=== PATIENT | male | born 1960 | race Caucasian/White ===

== ENCOUNTER 2024-04-13 11:01 | Outpatient (AMB) | payer BC, SELFPAY ==
--- NOTE | 2024-04-13 11:05 | MHC.OFFVIS ---
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 He did undergo left total knee replacement several years ago. He denies any pain in his left knee. He describes his right knee pain as sharp and severe in nature. Most of the pain is along the medial aspect of his knee. Right knee pain has gotten worse over the last 2 years in spite of continued non operative treatments. He has failed the last 3 months of a home exercise program as well as 3 months of Tylenol and anti-inflammatory medicines. He has had cortisone injections in the past which gave him minimal relief. The patient states that his right knee pain is interfering with his activities of daily living and his ability to sleep well through the night. He wishes to hold off on right total knee replacement surgery for as long as possible. Allergies environmental allergies Allergy (Severe, Verified 04/13/24 11:12) Sneezing Medication List - Last Reconciled 04/13/24 by Alexi Burrell MD albuterol sulfate 90 mcg/actuation 1 puff inhalation ONCE PRN amlodipine 10 mg PO DAILY aspirin 81 mg PO DAILY atenolol 50 mg PO DAILY atorvastatin 40 mg PO DAILY budesonide-formoterol 80-4.5 mcg/actuation (Symbicort) 1 puff inhalation BID PRN fluticasone furoate 27.5 mcg/actuation 2 sprays intranasal DAILY loratadine (Claritin) 10 mg PO DAILY sildenafil 100 mg PO DAILY PRN [facility] Social History (Updated 04/13/24 @ 11:16 by KHURRAM Hauser) Alcohol intake: current Patient Tobacco Use Status: Former Tobacco user Substance Use Type: Marijuana Substance Use Frequency: Occasionally Current occupational status: employed Current occupation: [employer] Physical Exam Vital Signs: BMI result Body Mass Index 26.0 Const Other: Well-nourished well-developed very friendly male awake alert and oriented x3 in no acute distress Extrem Other: Bilateral lower extremity examination shows good capillary refill, no skin lesions noted, normal sensation light touch Right knee examination shows a minimal effusion, palpable crepitus with range of motion, pain with range of motion, range of motion from -3 degrees to 115 degrees, no instability Results Reviewed Results Reviewed: X-rays of the patient's right knee show joint space narrowing and subchondral sclerosis most significant in the medial compartment Assessment & Plan Assessment & Plan (1) Arthritis of right knee: Code(s): M17.11 - Unilateral primary osteoarthritis, right knee Category: Medical Plan Mr. Lira presents with progressively worsening right knee pain due to degenerative joint disease. I had a lengthy discussion with the patient regarding the treatment options. He wishes to hold off on right total knee replacement surgery for as long as possible. I agree with this plan. He has not gotten good relief from cortisone injections in the past. Thus, I will order a viscosupplementation injection for his right knee. I will see him back once the injection is available. Feel free to call me at any time should questions regarding his orthopedic management arise. I spent 22 minutes in reviewing the patient's records and imaging studies, seeing the patient and documenting in the medical record. Orders: Orders XR knee RT 3V Today M25.561 - Pain in right knee Medications: New amoxicillin Take four caps (2,000 mg) one hour before any dental work. 2,000 mg (4 x 500 mg) PO ONCE 20 caps 2RF Coding Level of Care Code Est Pt Level 3 (33309) Diagnoses Arthritis of right knee M17.11
[2024-04-13 11:11] VITALS: BMI 26.0
== END 2024-04-13 11:35 | disposition home or self-care (01) ==
PROVIDERS: PCP Internal Medicine; Visit Provider Orthopaedic Surgery
DX: M17.11 Unilateral primary osteoarthritis, right knee (principal)
CPT/HCPCS: 99213

== ENCOUNTER 2024-04-13 12:07 | Outpatient (REF) | payer BC, SELFPAY ==
--- NOTE | ~2024-04-13 | XR_ITS ---
EXAMINATION: XR KNEE, RIGHT CLINICAL INFORMATION: Pain in right knee COMPARISON: None available. TECHNIQUE: Three views of the right knee. FINDINGS: Vascular calcifications. Moderate joint effusion. Moderate narrowing of the medial compartment with small marginal osteophytes and subchondral sclerosis. XR/XR knee RT 3V IMPRESSION: Moderate degenerative changes.
== END 2024-04-13 12:08 | disposition home or self-care (01) ==
LOC: HO.HOSX 12:07
PROVIDERS: Visit Provider Orthopaedic Surgery
DX: M25.561 Pain in right knee (principal)
CPT/HCPCS: 73562

== ENCOUNTER 2024-05-04 13:50 | Outpatient (AMB) | payer BC, SELFPAY ==
--- NOTE | 2024-05-04 13:51 | A.OFFVIS_ITS ---
Intake Visit Reasons: OV- RT knee pain, discuss tx options Intake Note: Eren is 64 year old male who presents today with complaints of progressively worsening right knee pain. He did undergo left total knee replacement several years ago. He denies any pain in his left knee. He describes his right knee pain as sharp and severe in nature. Most of the pain is along the medial aspect of his knee. Right knee pain has gotten worse over the last 2 years in spite of continued non operative treatments. He has failed the last 3 months of a home exercise program as well as 3 months of Tylenol and anti-inflammatory medicines. He has had cortisone injections in the past which gave him minimal relief. The patient states that his right knee pain is interfering with his activities of daily living and his ability to sleep well through the night. He wishes to hold off on right total knee replacement scott arelis for as long as possible. Allergies environmental allergies Allergy (Severe, Verified 05/04/24 13:51) Sneezing Medication List - Last Reconciled 05/04/24 by Alexi Burrell MD albuterol sulfate 90 mcg/actuation 1 puff inhalation ONCE PRN amlodipine 10 mg PO DAILY amoxicillin 2,000 mg (4 x 500 mg) PO ONCE aspirin 81 mg PO DAILY atenolol 50 mg PO DAILY atorvastatin 40 mg PO DAILY budesonide-formoterol 80-4.5 mcg/actuation (Symbicort) 1 puff inhalation BID PRN fluticasone furoate 27.5 mcg/actuation 2 sprays intranasal DAILY loratadine (Claritin) 10 mg PO DAILY sildenafil 100 mg PO DAILY PRN [facility] Social History (Updated 04/13/24 @ 11:16 by KHURRAM Hauser) Alcohol intake: current Patient Tobacco Use Status: Former Tobacco user Substance Use Type: Marijuana Current occupational status: employed Current occupation: [employer] Physical Exam Const Other: Well-nourished well-developed very friendly male awake alert and oriented x3 in no acute distress Extrem Other: Bilateral lower extremity examination shows good capillary refill, no skin lesions noted, normal sensation light touch Right knee examination shows a minimal effusion, palpable crepitus with range of motion, pain with range of motion, no instability Results Reviewed Results Reviewed: X-rays of the patient's right knee show joint space narrowing, subchondral sclerosis, no acute bony abnormalities Assessment & Plan Assessment & Plan (1) Arthritis of right knee: Code(s): M17.11 - Unilateral primary osteoarthritis, right knee Category: Medical Plan Mr. Lira presents with right knee pain due to degenerative joint disease. Had a lengthy discussion patient regarding the treatment options. He wishes to hold off on right total knee replacement surgery for as long as possible. I agree with this plan. Has not gotten good relief cortisone injections past. Thus, the risks and benefits of a series of right knee Euflexxa viscosupplementation injections were discussed at length with the patient. The patient wished to proceed. He tolerated the 1st injection well. He will follow up next week as scheduled for his 2nd injection. Feel free to call me at any time should questions regarding his orthopedic management arise. We spoke with [facility] who extended the PA coverage for the Euflexxa injections from 04/20/24-05/19/24 I spent 22 minutes in reviewing the patient's records and imaging studies, seeing the patient and documenting in the medical record. Orders: Orders AMB Joint Injection/Aspiration 05/04/24 M17.11 - Unilateral primary osteoarthritis, right knee Coding Level of Care Code Est Pt Level 3 (64091) Diagnoses Arthritis of right knee M17.11
== END 2024-05-04 14:48 | disposition home or self-care (01) ==
PROVIDERS: PCP Internal Medicine; Visit Provider Orthopaedic Surgery
DX: M17.11 Unilateral primary osteoarthritis, right knee (principal)
CPT/HCPCS: 99213

== ENCOUNTER → 2024-05-04 13:50 | Outpatient (BNVA) | payer BC, SELFPAY | PROVIDERS: PCP Internal Medicine; Visit Provider Orthopaedic Surgery | DX: M17.11 Unilateral primary osteoarthritis, right knee (principal) | CPT/HCPCS: J7323 ==

== ENCOUNTER 2024-05-11 14:12 | Outpatient (AMB) | payer BC, SELFPAY ==
--- NOTE | 2024-05-11 14:15 | MHC.OFFVIS ---
Vital Signs 05/11/24 14:17 Height 6 ft Weight 192 lb BMI 26.0 Intake Visit Reasons: Right Knee Euflexxa #2 Intake Note: Eren is a 64 year old male who presents to the office today for Right Knee Euflexxa injection #2. He states that he got mild relief from the 1st injection last week. He continues with his home exercise program. Allergies environmental allergies Allergy (Severe, Verified 05/11/24 14:17) Sneezing Medication List - Last Reconciled 05/11/24 by Alexi Burrell MD albuterol sulfate 90 mcg/actuation 1 puff inhalation ONCE PRN amlodipine 10 mg PO DAILY amoxicillin 2,000 mg (4 x 500 mg) PO ONCE aspirin 81 mg PO DAILY atenolol 50 mg PO DAILY atorvastatin 40 mg PO DAILY budesonide-formoterol 80-4.5 mcg/actuation (Symbicort) 1 puff inhalation BID PRN fluticasone furoate 27.5 mcg/actuation 2 sprays intranasal DAILY loratadine (Claritin) 10 mg PO DAILY sildenafil 100 mg PO DAILY PRN PFSH Social History Alcohol intake: current Patient Tobacco Use Status: Former Tobacco user Substance Use Type: Marijuana Current occupational status: employed Current occupation: [employer] Physical Exam Vital Signs: BMI result Body Mass Index 26.0 Extrem Other: Bilateral lower extremity examination shows good capillary refill, no skin lesions noted, normal sensation light touch Right knee examination shows a minimal effusion, palpable crepitus with range of motion, pain with range of motion, no instability Office Procedures Joint Injection/Drain Joint Injection/Drain Primary Site: right knee Prep: site was prepped using aseptic technique Injected: 20 mg of (Euflexxa viscosupplementation) and 1% plain lidocaine Procedure: The patient tolerated the procedure well Coding 13110 - Large joint Procedure code (CPT) selection complete Assessment & Plan Assessment & Plan (1) Arthritis of right knee: Code(s): M17.11 - Unilateral primary osteoarthritis, right knee Category: Medical Plan Mr. Lira presents with right knee degenerative joint disease. The risks and benefits of a 2nd Euflexxa injection were discussed at length with the patient. The patient wished to proceed. He tolerated the injection well. Continue with his home exercise program. He will follow up next week as scheduled for his 3rd injection. Feel free to call me at any time should questions regarding his orthopedic management arise. Orders: Orders AMB Joint Injection/Aspiration Today M17.11 - Unilateral primary osteoarthritis, right knee Coding Level of Care Code Procedure Only Diagnoses Arthritis of right knee M17.11 CPT Codes Coding - 50509 Large joint: 11883 - Large joint ([id number])
[2024-05-11 14:17] VITALS: BMI 26.0
== END 2024-05-11 14:27 | disposition home or self-care (01) ==
PROVIDERS: PCP Internal Medicine; Visit Provider Orthopaedic Surgery
DX: M17.11 Unilateral primary osteoarthritis, right knee (principal)
CPT/HCPCS: 20610

== ENCOUNTER → 2024-05-11 14:12 | Outpatient (BNVA) | payer BC, SELFPAY | PROVIDERS: PCP Internal Medicine; Visit Provider Orthopaedic Surgery | DX: M17.11 Unilateral primary osteoarthritis, right knee (principal) | CPT/HCPCS: 20610; J7323 ==

== ENCOUNTER 2024-05-18 14:56 | Outpatient (AMB) | payer BC, SELFPAY ==
--- NOTE | 2024-05-18 14:59 | MHC.OFFVIS ---
Intake Visit Reasons: Right knee Euflexxa #3 Intake Note: Eren is a 64 year old male who presents to the office today for a right knee Euflexxa gel injection #3. He states that he has gotten mild relief from the 1st 2 injections. He continues with his home exercise program. Allergies environmental allergies Allergy (Severe, Verified 05/18/24 15:00) Sneezing Medication List - Last Reconciled 05/19/24 by Alexi Burrell MD albuterol sulfate 90 mcg/actuation 1 puff inhalation ONCE PRN amlodipine 10 mg PO DAILY amoxicillin 2,000 mg (4 x 500 mg) PO ONCE aspirin 81 mg PO DAILY atenolol 50 mg PO DAILY atorvastatin 40 mg PO DAILY budesonide-formoterol 80-4.5 mcg/actuation (Symbicort) 1 puff inhalation BID PRN fluticasone furoate 27.5 mcg/actuation 2 sprays intranasal DAILY loratadine (Claritin) 10 mg PO DAILY sildenafil 100 mg PO DAILY PRN PFSH Social History Alcohol intake: current Patient Tobacco Use Status: Former Tobacco user Substance Use Type: Marijuana Current occupational status: employed Current occupation: [employer] Physical Exam Extrem Other: Right knee examination shows a minimal effusion, palpable crepitus with range of motion, no instability Office Procedures Joint Injection/Drain Joint Injection/Drain Primary Site: right knee Prep: site was prepped using aseptic technique Injected: 20 mg of (Euflexxa viscosupplementation) and 1% plain lidocaine Procedure: The patient tolerated the procedure well Coding 61737 - Large joint Procedure code (CPT) selection complete Assessment & Plan Assessment & Plan (1) Arthritis of right knee: Code(s): M17.11 - Unilateral primary osteoarthritis, right knee Category: Medical Plan Mr. Lira presents with right knee pain due to degenerative joint disease. The risks and benefits of a 3rd Euflexxa viscosupplementation injection were discussed at length with the patient. The patient wished to proceed. Tolerated the injection well. He will continue with his home exercise program. He will follow up with me on an as-needed basis should his symptoms not plateau at an unacceptable level over the next few months. Feel free to call me at any time should questions regarding his orthopedic management arise. Orders: Orders AMB Joint Injection/Aspiration 05/18/24 M17.11 - Unilateral primary osteoarthritis, right knee Coding Level of Care Code Procedure Only Diagnoses Arthritis of right knee M17.11 CPT Codes Coding - 46792 Large joint: 37267 - Large joint ([id number])
== END 2024-05-18 15:12 | disposition home or self-care (01) ==
PROVIDERS: PCP Internal Medicine; Visit Provider Orthopaedic Surgery
DX: M17.11 Unilateral primary osteoarthritis, right knee (principal)
CPT/HCPCS: 20610

== ENCOUNTER → 2024-05-18 14:56 | Outpatient (BNVA) | payer BC, SELFPAY | PROVIDERS: PCP Internal Medicine; Visit Provider Orthopaedic Surgery | DX: M17.11 Unilateral primary osteoarthritis, right knee (principal) | CPT/HCPCS: 20610; J7323 ==

== ENCOUNTER 2024-11-21 11:30 | Outpatient (AMB) | payer BC, SELFPAY ==
--- NOTE | 2024-11-21 11:34 | A.OFFVIS_ITS ---
Intake Visit Reasons: Right knee pain and giving way Intake Note: Eren is a 64 year old male who presents with complaints of progressively worsening right knee pain and giving way. The patient did undergo left total knee replacement surgery several years ago. He reports minimal discomfort in his left knee. Describes his right knee pain as sharp in nature. Most of the pain is along the medial aspect of his knee. Right knee pain and mechanical symptoms have gotten worse over the last few years in spite of continued non operative treatments. He has failed the last 6 weeks of conservative treatment. Has done physical therapy exercises which aggravated his pain. Has also had both cortisone injections and viscosupplementation injections which gave him minimal relief. Wishes to hold off on right total knee replacement surgery if at all possible. Allergies environmental allergies Allergy (Severe, Verified 11/21/24 11:37) Sneezing Medication List - Last Reconciled 11/21/24 by Alexi Burrell MD albuterol sulfate 90 mcg/actuation 1 puff inhalation ONCE PRN amlodipine 10 mg PO DAILY amoxicillin 2,000 mg (4 x 500 mg) PO ONCE aspirin 81 mg PO DAILY atenolol 50 mg PO DAILY atorvastatin 40 mg PO DAILY budesonide-formoterol 80-4.5 mcg/actuation (Symbicort) 1 puff inhalation BID PRN fluticasone furoate 27.5 mcg/actuation 2 sprays intranasal DAILY loratadine (Claritin) 10 mg PO DAILY sildenafil 100 mg PO DAILY PRN [facility] Social History Alcohol intake: current Patient Tobacco Use Status: Former Tobacco user Substance Use Type: Marijuana Current occupational status: employed Current occupation: [employer] Physical Exam Const Other: Well-nourished well-developed very friendly male awake alert and oriented x3 in no acute distress Extrem Other: Bilateral lower extremity examination shows good capillary refill, no skin lesions noted, normal sensation light touch Right knee examination shows a minimal effusion, mild crepitus with range of motion, tenderness along his medial joint line, positive Garima's test, no instability Results Reviewed Results Reviewed: Standing full weight-bearing x-rays of the patient's right knee show mild diffuse joint space narrowing, no acute bony abnormalities Assessment & Plan Assessment & Plan (1) Tear of medial meniscus of right knee: Code(s): S83.241A - Other tear of medial meniscus, current injury, right knee, initial encounter Category: Medical Plan Mr. Lira presents with progressively worsening right knee pain and mechanical symptoms due to early degenerative joint disease as well as possible medial meniscus tearing. Thus, I will send the patient for an MRI of his right knee for further evaluation. I will see him back once the MRI is completed to discuss the findings and treatment options. Feel free to call me at any time should questions regarding his orthopedic management arise. I spent 21 minutes in reviewing the patient's records and imaging studies, seeing the patient and documenting in the medical record. Orders: Orders MR knee RT wo con Today S83.241A - Other tear of medial meniscus, current injury, right knee, initial encounter Coding Level of Care Code Est Pt Level 3 (28864) Complex EM visit Add On G2211 Diagnoses Tear of medial meniscus of right knee S83.241A
--- OUTSIDE RECORDS SUMMARY | 2024-11-21 12:45 | XMS_ITS ---
Author Name [facility] Organization Unknown History of Medication Use Medication Directions Dispensed Refills Start Date End Date Stat us Gavilyte-C 240 gram-22.72 gram-6.72 gram-5.84 gram oral solution USE INSTRUCTED BY PHYSICIANS OFFICE FOR COLONOSCOPY 04/05/2023 completed Symbicort active Allergies Allergen Reaction Severity Comment Documented Date Source Statu s FLUTICASONE [facility] Problems Problem Status Onset Date Problem Type Date of Resoluti on Source Carpal tunnel syndrome of right wrist active 2023-10-04 ProblemAct [facility] Pain of left wrist active 2023-03-09 ProblemAct [facility] 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
--- OUTSIDE RECORDS SUMMARY | 2024-11-21 12:46 | XMS_ITS | Clinical Summary ---
Author Organization [facility] Address [address] [place] [address] Care Team Providers Care Clinical Psychiatrist Name Role Phone Niraj Palomo MD Primary Care Provider Surgical History Surgery Date Site/Laterality Comments KNEE SURGERY PROCEDURE:KNEE SURGERY;COMMENT:left HAND SURGERY PROCEDURE:HAND SURGERY;COMMENT:lt wrist- iliac bone graft LIPOMA RESECTION PROCEDURE:LIPOMA RESECTION COLONOSCOPY PROCEDURE:COLONOSCOPY SHOULDER ARTHROSCOPY W/ ROTATOR CUFF REPAIR 04/10/2015 Right PROCEDURE:SHOULDER ARTHROSCOPY W/ ROTATOR CUFF REPAIR;COMMENT:Procedure: ARTHROSCOPY SHOULDER WITH ROTATOR CUFF REPAIR; Surgeon: Spenser Gaspar MD; Location: [facility]; Service: Orthopedics; Laterality: Right; SHOULDER ARTHROSCOPY 04/10/2015 Right PROCEDURE:SHOULDER ARTHROSCOPY;COMMENT:Procedure : ARTHROSCOPY SHOULDER AC EXCISION; Surgeon: Spenser Gaspar MD; Location: [facility]; Service: Orthopedics; Laterality: Right; OTHER SURGICAL HISTORY Right PROCEDURE:MOHS SURGERY;COMMENT:EYELID TOTAL KNEE ARTHROPLASTY 09/28/2019 Left PROCEDURE:TOTAL KNEE ARTHROPLASTY;COMMENT:Procedur e: REPLACEMENT TOTAL KNEE; Surgeon: Alexi Burrell MD; Location: [facility]); Service: Orthopedics; Laterality: Left; JOINT REPLACEMENT PROCEDURE:JOINT REPLACEMENT Medical History Medical History Date Comments Osteoarthritis DX:Osteoarthriti s;COMMENT:? knee GERD (gastroesophageal reflux disease) DX:GERD (gastroesophageal reflux disease);COMMENT:past hx Asthma DX:Asthma High blood pressure DX:High bloo d pressure Eustachian tube dysfunction DX:E ustachian tube dysfunction Sleep apnea DX:Sleep apnea;C OMMENT:NONCOMPLIANT Pneumonia DX:Pneumonia Heart murmur DX:Heart murmur Cancer (CMS/HCC) DX:Cancer (HCC) ;COMMENT:BCC R EYELID Rash DX:Rash;COMMENT: ITCHY LEGS Family History Medical History Relation Name Comments No Known Problems Brother Cancer Father PROSTATE Deep vein thrombosis Father Heart disease Father Hypertension Father Lymphoma Mother NONHODGKINS Graves' disease Sister 1 Multiple sclerosis Sister 2 Relation Name Status Comments Brother Alive X 2 Father (Age 73) Mother Alive Sister 1 Alive Sister 2 Alive Social History Tobacco Use Types Packs/Day Years Used Date Smoking Tobacco: Former Cigarettes Q uit: 09/12/2006 Smokeless Tobacco: Never Alcohol Use Standard Drinks/Week Comments Yes 20 (1 standard drink = 0.6 oz pu re alcohol) Sex and Gender Information Value Date Recorded Sex Assigned at Not on file Gender Identity Not on file Sexual Orientation Not on file Obstetrics History Plan of Treatment Health Maintenance Due Date Last Done Comments DTaP,Tdap,and Td Vaccines (1 - Tdap) 1978 Zoster Vaccines (1 of 2) 2009 Abdominal Aortic Aneurysm (AAA) Screen 10/02/2022 Cholesterol Screening (Lipid Panel) 10/02/2022 Colorectal Cancer Screening: Colonoscopy 10/02/2022 Depression Screening 10/02/2022 Hepatitis C Screening 10/02/2022 Lung Cancer Screening (Low Dose CT) 10/02/2022 Social Influencers of Health Screening 10/02/2022 Falls Risk Assessment 01/16/2024 Pneumococcal Vaccine: 65+ Years (1 of 1 - PCV) 01/16/2024 COVID-19 Vaccine ( - 2023-2 5 season) 2024 08/01/2021, 01/19/2021, 12/29/2020 Influenza Vaccine (#1) 2024 RSV Immunization Patients 60 + Years Old (1 - 1-dose 75+ series) 2034 HIB Vaccines Aged Out No longer eligi ble based on patient's age to complete this topic HPV Vaccines Aged Out No longer eligi ble based on patient's age to complete this topic Hepatitis A Vaccines Aged Out No long er eligible based on patient's age to complete this topic Hepatitis B Vaccines Aged Out No long er eligible based on patient's age to complete this topic IPV Vaccines Aged Out No longer eligi ble based on patient's age to complete this topic MMR Vaccines Aged Out No longer eligi ble based on patient's age to complete this topic Meningococcal ACWY Vaccine Aged Out N o longer eligible based on patient's age to complete this topic Pneumococcal Vaccine: Pediatrics (0 to 5 Years) and At-Risk Patients (6 to 64 Years) Aged Out No longer eligible b ased on patient's age to complete this topic RSV Immunization Patients Under 20 months Aged Out No longer eligible b ased on patient's age to complete this topic Varicella Vaccines Aged Out No longer eligible based on patient's age to complete this topic Medical Devices Implanted Type Area Barber Device Identifier Shelf Expiration Date Model / Serial / Lot Tibial Bearing Insert - Ps Implanted:Qty: 1 on 09/28/2019 by Alexi Burrell MD Joints Left: Knee NONI - MEDICAL 07/19/2023 / / [id number] Cement Simplex P Radiopaque Full Dose Bone 10 Pack - [id number] Implanted:Qty: 1 on 09/28/2019 by Alexi Burrell MD Left: Knee [employer] 6191-1-010 / / Cement Simplex P Radiopaque Full Dose Bone 10 Pack - [id number] Implanted:Qty: 1 on 09/28/2019 by Alexi Burrell MD Left: Knee [employer] 6191-1-010 / / Component Triathlon 5 Posterior Stabilized Cemented Femoral - [id number] Implanted:Qty: 1 on 09/28/2019 by Alexi Burrell MD Left: Knee [employer] 03/07/2024 5515-F-501 / / [id number] Baseplate Triathlon 6 Primary Cemented Tibial Knee - [id number] Implanted:Qty: 1 on 09/28/2019 by Alexi Burrell MD Left: Knee [employer] 02/28/2024 5520-B-600 / / [id number] Component Triathlon 10mm 35mm Symmetric X3 Ptlar Knee - [id number] Implanted:Qty: 1 on 09/28/2019 by Alexi Burrell MD Left: Knee [employer] 01/10/2024 5551-G-350 / / [id number] Peg Triathlon Modular Fix Distal Femur Knee - [id number] Implanted:Qty: 1 on 09/28/2019 by Alexi Burrell MD Left: Knee OSTEONICS 04/23/2024 5575-X-000 / / [id number] Care Teams Clinical Psychiatrist Relationship Specialty Start Date End Date Niraj Palomo MD [id number] PCP - General Internal Medicine 09/20/19
--- OUTSIDE RECORDS SUMMARY | 2024-11-21 12:46 | XMS_ITS | Clinical Summary ---
Author Organization [facility] Facility Address [address] [place] [address], [place] [id number] Care Team Providers Care Envelope Folder Name Role Phone Niraj Palomo MD Primary Care Provider Medications atenolol (TENORMIN) 50 MG tablet TAKE 1 TABLET BY MOUTH AT NIGHT 90 tablet 3 05/20/2023 Active amLODIPine (NORVASC) 10 MG tablet TAKE 1 TABLET BY MOUTH DAILY 90 tablet 3 08/23/2023 Active Family History Medical History Relation Comments Cancer Father prostate Heart disease Father Cancer Mother lymphoma Relation Status Comments Father Mother Alive Social History Tobacco Use Types Packs/Day Years Used Date Smoking Tobacco: Former Cigarettes Q uit: 01/17/2009 Alcohol Use Standard Drinks/Week Comments Yes 0 (1 standard drink = 0.6 oz pure alcohol) Alcoholic Drinks/day: 1-2 drinks per day Sex and Gender Information Value Date Recorded Sex Assigned at Not on file Legal Sex Male 4:51 PM EST Gender Identity Not on file Sexual Orientation Not on file Last Filed Vital Signs Vital Sign Reading Time Taken Comments Blood Pressure 128/72 08/08/2019 12:00 PM EDT Pulse 78 08/08/2019 12:00 PM EDT Temperature - - Respiratory Rate - - Oxygen Saturation 97% 08/08/2019 12:00 PM EDT Inhaled Oxygen Concentration - - Weight 88.6 kg (195 lb 6.4 oz) 08/08/2019 12:00 PM EDT Height 182.9 cm (6') 08/08/2019 12:00 PM EDT Body Mass Index 26.5 08/08/2019 12:00 PM EDT Plan of Treatment Health Maintenance Due Date Last Done Comments Pneumococcal Vaccine: 65+ Ye ars (1 of 2 - PCV) 1966 Pneumococcal Vaccine: Pediat rics (0 to 5 Years) and At-Risk Patients (6 to 64 Years) (1 of 2 - PCV) 1966 Colorectal Cancer Screening: Annual FOBT 01/16/2008 Colorectal Cancer Screening: Colonoscopy 01/16/2008 Colorectal Cancer Screening: Sigmoidoscopy 01/16/2008 Influenza Vaccine (#1) 2024 Hepatitis B Vaccine Aged Out No longe r eligible based on patient's age to complete this topic Care Teams Envelope Folder Relationship Specialty Start Date End Date Niraj Palomo MD [address] PCP - General 11/04/20
--- OUTSIDE RECORDS SUMMARY | 2024-11-21 12:46 | XMS_ITS | Continuity of Care Document ---
Author Organization [facility] Address [address] [place] [address] Phone Care Team Providers Care Neuroscience Director Na Name Role Phone Terry PEREZ, RVT, RPEDGAR, Hadley Unavailable U navailable Procedures Procedure Date Office/Outpt E&M Established 15 Mins- CT & [place] Duplex Scan-extrem Veins; Comp- CT & [place] Duplex Scan-extrem Veins; Uni/ CT & [place] M Inj Scleros Solut; Mx Veins 1- CT & [place] M Ultrason Guidan Needle Bx-rad- CT & [place] M Duplex Scan-extrem Veins; Uni/ CT & [place] M Endovenous Rf, 1st Vein- CT & [place] 2023 Duplex Scan-extrem Veins; Uni/ CT & [place] A Inj Scleros Solut; Mx Veins 1- CT & [place] A Ultrason Guidan Needle Bx-rad- CT & [place] A Duplex Scan-extrem Veins; Uni/ CT & [place] A Endovenous Rf, 1st Vein- CT & [place] 2023 Ultrason Guidan Needle Bx-rad- CT & [place] A Office/Oupt E&M New Pt 30 Mins Duplex Scan-extrem Veins; Comp Advance Directives Directive Yes / No Effective Date File Name Other Directive No 04/18/2024 N/A WARNING:The information contained in this section is historical and is provided for information only and does not constitute a legal document or any assurance that the information is still accurate. Please verify the information with the vinson of the legal document before using it for clinical purposes. Encounters Encounter Description Practice Location Reason(s) For Visit Diagnoses Date Provider Providers Copied on Encounter Office/Outpt E&M Established 15 Mins- [place] & [place] [facility], [address] [place] [address] Dr [address]io [address] [place], [id number], tel:[phone] [facility] Chronic venous hypertension (idiopathic) with other complications of bilateral lower extremity 4 Terry PEREZ RVT, RPVI Robert. [address] [place] [address], [facility] [place], [id number], [place]. tel:[phone] Referring Provider: Niraj Fay, [address] [place] [address], [address]. tel:[phone] [facility], [address] [place] [address] [place], [place] [address]L[place], [id number], [place] tel:[phone] [facility] Varicose veins of bilateral lower extremities with pain 4 Trery PEREZ RVT, RPVI Robert. [address] [place] [address], [facility] [place], [id number], [place]. tel:[phone] Referring Provider: Niraj Fay, [address] [place] [address], [place], [address]. tel:[phone] [facility], [address] [place] [address] [address] [address], [id number], [place] tel:[phone] [facility] Encounter for follow-up examination after completed treatment for conditions other than malignant nePain in left leg 4 Terry PEREZ RVT, RPVI Robert. [address] [place] [address], [facility] [place], [id number], [place]. tel:[phone] Referring Provider: Niraj Fay, [address] [place] [address] [place] [address], [address]. tel:[phone] [facility], [address] [place] [address] [place] [address], [id number], [place] tel:[phone] [facility] [place] Varicose veins of left lower extremity with other complications 4 Abril Moran. [address] [place] [address], [facility] [place] [place], [id number], [place]. tel:[phone] Referring Provider: Niraj Fay, [address] [place] [address], [address]. tel:[phone] [facility] MD [place], [address] [place] [address] [place] [address], [id number], [place] tel:[phone] [facility] - [place] Encounter for follow-up examination after completed treatment for conditions other than malignant neVaricose veins of left lower extremity with pain 4 Terry PEREZ RVT, AVILA Butcher. [address] [place] [address], [facility] [place], [id number], [place]. tel:[phone] Referring Provider: Niraj Fay, [address] [place] [address] [place] [address], [address]. tel:[phone] [facility] MD [place], [address] [place] [address] [place] [address], [id number], [place] tel:[phone] [facility] [place] Varicose veins of left lower extremity with other complications 4 Terry PEREZ RVT, AVILA Butcher. [address] [place] [address], [place], [id number], [place]. tel:[phone] Referring Provider: Niraj Fay, [address] [place] [address] Suite [facility][note 2], [place], [address]. tel:[phone] [facility] MD [place], [address] [place] [address] [place] [address], [id number], [place] tel:[phone] CV[facility] [place] Encounter for follow-up examination after completed treatment for conditions other than malignant neVaricose veins of right lower extremity with pain Apr-1 4 Terry PEREZ RVT, RPVI Robert. [address] [place] [address], [place], [place], [id number], [place]. tel:[phone] Referring Provider: Niraj Fay, [address] [place] [address] Suite [facility][note 2], [place], [address]. tel:[phone] [facility], [address] [place] [address] [address], [id number], [place] tel:[phone] [facility] [place] Varicose veins of right lower extremity with other complications Apr-0 4 Abril Moran[address] [place] [address], [place], [place], [id number], [place]. tel:[phone] Referring Provider: Niraj Fay, [address] [place] [address] [place] [address], [address]. tel:[phone] [facility], [address] [place] [address] [facility] [address], [id number], [place] tel:[phone] [facility] [place] Encounter for follow-up examination after completed treatment for conditions other than malignant neVaricose veins of right lower extremity with pain Apr-0 4 Terry PEREZ RVT, RPVI Robert. [address] [place] [address], [place], [place], [id number], [place]. tel:[phone] Referring Provider: Niraj Fay, [address] [place] [address] Suite [facility][note 2], [place], [address]. tel:[phone] [facility], [address] [place] [address] [address], [id number], [place] tel:[phone] [facility] - [place] Varicose veins of right lower extremity with other complications Apr-0 4 Terry PEREZ RVT, RPVI Robert. [address] [place] [address], [facility] [place], [id number], [place]. tel:[phone] Referring Provider: Niraj Fay, [address] [place] [address], [address]. tel:[phone] Office/Oupt E&M New Pt 30 Mins [facility], [address] [place] [address] [facility] [address], [place], [id number], tel:[phone] [facility] Varicose veins of bilateral lower extremities with other complications Pain in right lower legPain in left lower legPain in right legEssential (primary) hypertensionP ruritus, unspecifiedPa in in left legCramp and spasmLocalize d edema 4 Terry PEREZ RVT, AVILA Butcher. [address] [place] [address], [facility] [place], [id number], . tel:[phone] Referring Provider: Niraj Fay, [address] [place] [address], [address]. tel:[phone] [facility], [address] [place] [address], [place], [id number], [place] tel:[phone] [facility] [place] Varicose veins of bilateral lower extremities with pain 4 Terry PEREZ RVT, AVILA Butcher. [address] [place] [address], [facility] [place], [id number], [place]. tel:[phone] Referring Provider: Niraj Fay, [address] [place] [address], [address]. tel:[phone] Family History Family Member Type Diagnosis Age At Onset No Information Payers Payer name Insurance type Covered republican ID Authordung saavedra(s) DREA CORREA [id number] Social History Type Description Quantity Date Captured Comments Alcohol Use Details Unknown Caffeine Use Details Unknown Tobacco Use Status No Information Smoking Status Former Smoker Non-Smoking Tobacco Use Details : No Details Available : No Details Available Sex Male Vital Signs Date / Time: Height Weight BMI Pulse Rate Blood Pressure Temperature Respiratory Rate Body Surface Area Head Circumference Head Circ. Percentile Wt./Maximiliano. Percentile BMI percentile Pulse Ox Inhaled Ox 86.180 kg (190.00 lbs) 25.7 7 kg/m eter (2) 130/80 mm[Hg] Chief Complaint And Reason For Visit No Information Reason For Referral Reason For Referral No Information Plan Of Treatment Date Type Action Status Goal Tobacco cessation counseling completed Goal Diet education completed Goal Diet education completed Goal Tobacco cessation counseling completed Referral Ordered: Weight management: Referral to physician timeframe: 3 Months (related to Body mass index (BMI) 25.0-25.9, adult) ordered Referral Ordered: Weight management: Referral to physician timeframe: 3 Months (related to Body mass index (BMI) 25.0-25.9, adult) ordered History Of Present Illness Encounter Date Complaint History Of Prese nt Illness No Information Functional Status Date Functional Assessmen t No Information Instructions Date Instruction Additional Infor mackenzie Diet education Related to Body mass index (BMI) 25.0-25.9, adult Giving Encouragement to exercise Related to Body mass index (BMI) 25.0-25.9, adult Lifestyle education Related to B jo mass index (BMI) 25.0-25.9, adult Compression stocking usage as conservative measure Related to Chronic venous hypertension (idiopathic) with other complications of bilateral lower extremity Patient education booklet given Related to Chronic venous hypertension (idiopathic) with other complications of bilateral lower extremity Diet education Related to Body mass index (BMI) 25.0-25.9, adult Giving Encouragement to exercise Related to Body mass index (BMI) 25.0-25.9, adult Lifestyle education Related to B jo mass index (BMI) 25.0-25.9, adult Patient education booklet given Related to Varicose veins of bilateral lower extremities with other complications Pre and post instruc tions reviewed and provided Related to Varicose veins of bilateral lower extremities with other complications Assessments Type Assessment Date No Information Patient Care Teams Name Effective Dates (start - stop) Status Members No Information
--- OUTSIDE RECORDS SUMMARY | 2024-11-21 12:46 | XMS_ITS | Clinical Summary ---
Author Organization [facility] Address [address] [place] [address] Care Team Providers Care Manager Wealth Management Name Role Phone Niraj Palomo MD Primary Care Provider [phone] Allergies No known active allergies Medications Medication Sig Dispensed Refills Start Date End Date Status Multiple Vitamins-Minerals (MULTIVITAL PO) Take by mouth daily. 0 Active VITAMIN E PO Take by mouth daily. 0 Active VITAMIN D, CHOLECALCIFEROL, PO Take by mouth daily. 0 Active vitamin C (ASCORBIC ACID) 500 MG tablet Take 500 mg by mouth daily. 0 Active amLODIPine (NORVASC) tablet 5 mg Take 10 mg by mouth daily. 0 05/05/2018 Active fluticasone (FLONASE) 50 MCG/ACT nasal spray USE 2 SPRAYS ONCE DAILY IN NOSTRIL(S) PRN 0 05/05/2018 Active Loratadine (CLARITIN PO) Take 1 tablet by mouth daily. 0 Active SYMBICORT 160-4.5 MCG/ACT inhaler Inhale 2 inhalations into the lungs 2 (two) times a day. 0 09/26/2018 Active atenolol (TENORMIN) tablet 50 mg atenolol 50 mg tablet QPM 0 Active sildenafil (VIAGRA) 100 MG tablet sildenafil 100 mg tablet 0 Active traZODone (DESYREL) 50 MG tablet trazodone 50 mg tablet QPM 0 Active triamcinolone (KENALOG) 0.1 % cream Apply 1 application topically 2 (two) times a day as needed. 0 Active APPLE CIDER VINEGAR PO Take 1 tablet by mouth daily. 0 Active oxyCODONE (ROXICODONE) 5 MG immediate release tablet Take 1 tablet (5 mg total) by mouth every 4 (four) hours as needed. 42 tablet 0 09/29/2019 Active Additional Information Patient not taking.Reason: Other, Reported on 09/08/2021 aspirin EC 81 MG EC tablet Take 1 tablet (81 mg total) by mouth 2 (two) times a day with meals. 28 tablet 0 10/27/2019 Active enoxaparin (LOVENOX) 40 MG/0.4ML SOLN Inject 0.4 mL (40 mg total) under the skin daily. 28 Syringe 0 09/30/2019 Active senna-docusate (PERICOLACE) 8.6-50 MG Take 1 tablet by mouth 2 (two) times a day. 60 tablet 0 09/29/2019 Active methocarbamol (ROBAXIN) 750 MG tablet Take 1 tablet (750 mg total) by mouth every 6 (six) hours as needed. 45 tablet 0 09/29/2019 Active Additional Information Patient not taking.Reason: Other, Reported on 09/08/2021 pantoprazole (PROTONIX) 40 MG tablet Take 1 tablet (40 mg total) by mouth daily. 30 tablet 0 09/30/2019 Active ergocalciferol (VITAMIN D2) capsule 75689 units daily. 0 Active albuterol 108 (90 Base) MCG/ACT inhaler albuterol sulfate HFA 90 mcg/actuation aerosol inhaler USE 2 INHALATIONS Q4-6 HOURS PRN 0 Active ALPRAZolam (XANAX) 0.5 MG tablet Take 2 tabs (one mg) po 3 hours prior to MRI, may take one additional tab (0.5mg) po 45 minutes prior to MRI if needed. 3 tablet 0 08/13/2021 Active meloxicam (MOBIC) 7.5 MG tablet 1-2 tabs po daily prn with dinner 30 tablet 0 08/13/2021 Active amoxicillin (AMOXIL) 500 MG tablet Take 4 tabs 1 hour prior to dental appointment 20 tablet 3 11/28/2021 Active Active Problems Problem Noted Date Diagnosed Date Postop check 10/12/2019 Arthritis of left knee 09/28/2019 Arthritis of knee, left 10/14/2018 Immunizations Name Administration Dates Next Due Covid-19 (Pfizer) Dilution Required 08/01/2021,0 01/19/2021,12/29/2020 Family History Medical History Relation Name Comments No Sig Med Hx Brother Cancer Father PROSTATE Deep vein thrombosis Father Heart disease Father Hypertension Father Lymphoma Mother NONHODGKINS Graves' disease Sister 1 Multiple sclerosis Sister 2 Relation Name Status Comments Brother Alive X 2 Father (Age 73) Mother Alive Sister 1 Alive Sister 2 Alive Social History Tobacco Use Types Packs/Day Years Used Date Smoking Tobacco: Former Cigarettes 1.5 28 Q uit: 09/12/2006 Smokeless Tobacco: Never Comments:cigarettes 1974- 1, cigars 7893-1144 Alcohol Use Standard Drinks/Week Comments Yes 20 (1 standard drink = 0.6 oz pu re alcohol) Sex and Gender Information Value Date Recorded Sex Assigned at Male 09/12/2019 3:21 PM EST Gender Identity Male 09/12/2019 3:21 PM EST Sexual Orientation Not on file Job Start Date Occupation Industry Not on file Not on file Not on file Last Filed Vital Signs Vital Sign Reading Time Taken Comments Blood Pressure 150/82 09/29/2019 7:55 AM EST Pulse 58 09/29/2019 7:55 AM EST Temperature 37.1 ??C (98.7 ??F) 09/29/2019 7:55 AM ES T Respiratory Rate 16 09/29/2019 7:55 AM EST Oxygen Saturation 96% 09/29/2019 7:55 AM EST Inhaled Oxygen Concentration - - Weight 88 kg (194 lb) 09/08/2021 11:14 AM EST Height 180.3 cm (5' 11 ) 09/08/2021 11:14 AM EST Body Mass Index 27.06 09/08/2021 11:14 AM EST Plan of Treatment Health Maintenance Due Date Last Done Comments Hepatitis C Screening 1960 Lung Cancer Screening (Low Dose CT) 1959 Depression Screening 1971 BMI Counseling 1977 Preventative Health Evaluation 1977 Colon Cancer Screening (Colonoscopy) 01/16/2004 Hepatitis B Vaccines (2 of 3 - Hep B Twinrix 3-dose series) 09/15/2021 08/18/2021 Fall Risk Assessment 01/16/2024 Pneumococcal Vaccine (1 of 1 - PCV) 01/16/2024 COVID-19 Vaccine (4 - 2023-2 5 season) 2024 08/01/2021, 01/19/2021, 12/29/2020 Influenza Vaccine (#1) 2024 , 03/05/2021, 08/07/2020 DTap / Tdap / Td (2 - Td or Tdap) 07/08/2027 07/08/2017 RSV Adult > 60+ Yrs or (1 - 1-dose 75+ series) 2034 Shingrix-Zoster Vaccine Completed 07/14/20, 06/24/2020, 12/01/2019 Pneumococcal Vaccine Aged Out No long er eligible based on patient's age to complete this topic RSV Ped < 20 months Aged Out No longe r eligible based on patient's age to complete this topic Medical Devices Implanted Type Area Senior Resident Care Director Device Identifier Shelf Expiration Date Model / Serial / Lot Tibial Bearing Insert - Ps Implanted:Qty : 1 on 09/28/2019 by Alexi Burrell MD at [facility] Total Joint Left: Knee LINNETTE [employer] 07/19/2023 / / [id number] Mckenna Sut 5.5mm Fullthrd Med Insite Preld Fr Fbr Sprt Peek - [id number] - [id number] Implanted:Qty : 1 on 04/10/2015 by Spenser Gaspar MD at [facility] Right: Shoulder [employer] 07/24/2016 [id number] / / [id number] Mckenna Footprint 5.5mm Peek-Stockton Suture - [id number] - [id number] Implanted:Qty : 1 on 04/10/2015 by Spenser Gaspar MD at [facility] Right: Shoulder [employer] 10/24/2019 [id number] / / [id number] Mckenna Footprint 5.5mm Peek-[place] Suture - [id number] - [id number] Implanted:Qty : 1 on 04/10/2015 by Spenser Gaspar MD at [facility] Right: Shoulder [employer] 10/24/2019 [id number] / / [id number] Cement Simplex P Radiopaque Full Dose Bone 10 Pack - [id number] - [id number] Implanted:Qty : 1 on 09/28/2019 by Alexi Burrell MD at [facility] Left: Knee [employer] 6191-1-010 / / Cement Simplex P Radiopaque Full Dose Bone 10 Pack - [id number] - [id number] Implanted:Qty : 1 on 09/28/2019 by Alexi Burrell MD at [facility] Left: Knee [employer] 6191-1-010 / / Component Triathlon 5 Posterior Stabilized Cemented Femoral - [id number] - [id number] Implanted:Qty : 1 on 09/28/2019 by Alexi Burrell MD at [facility] Left: Knee [employer] 03/07/2024 5515-F-[id number] / / [id number] Baseplate Triathlon 6 Primary Cemented Tibial Knee - [id number] - [id number] Implanted:Qty : 1 on 09/28/2019 by Alexi Burrell MD at [facility] Left: Knee [employer] 02/28/2024 5520-B-600 / / [id number] Component Triathlon 10mm 35mm Symmetric X3 Ptlar Knee - [id number] - [id number] Implanted:Qty : 1 on 09/28/2019 by Alexi Burrell MD at [facility] Left: Knee [employer] 01/10/2024 5551-G-350 / / [id number] Peg Triathlon Modular Fix Distal Femur Knee - [id number] - [id number] Implanted:Qty : 1 on 09/28/2019 by Alexi Burrell MD at [facility] Left: Knee [employer]NETTE [employer] 04/23/2024 5575-X-000 / / [id number] Advance Directives For more information, please contact: [phone] Latest Code Status on File Code Status Date Activated Date Inactivated Comments Full Code 09/28/2019 11:11 AM 09/29/2019 4:33 PM This code status was ascertained in the following way: discussion with patient . Code Status History Code Status Date Activated Date Inactivated Comments Full Code 09/28/2019 7:48 AM 09/28/2019 11:11 AM This code status was ascertained in the following way: discussion with patient . Care Teams Manager Wealth Management Relationship Specialty Start Date End Date Niraj Palomo MD [address] [place] [id number] PCP - General Internal Medicine 09/20/19
--- OUTSIDE RECORDS SUMMARY | 2024-11-21 12:46 | XMS_ITS ---
Author Organization [facility] Address [address] [place] [address] Care Team Providers Care Software Quality Engineer Name Role Phone Mata Gao MD Primary Care Provider Gerhard Barkley Unavailable [phone] REASON FOR VISIT Records Problems No Known Problems Encounters Encounter Location Date Provider [facility] [address] [place] [phone] 08/25/2023 Gerhard Herring Plan Of Treatment No Information Progress Notes * Eren LIRADOB:1959 (63 yo M)Acc No.[id number]:08/25/2023 Patient:?Eren Lira :1960???Age:63 Y???Sex:Male Address:[address] [place] [address], [id number] * true * Date:? Generated for Twylai sharlene/Sonya/eTransmitting on:?11/21/2024 12:45 PM EST
--- OUTSIDE RECORDS SUMMARY | 2024-11-21 12:47 | XMS_ITS | Encounter Summary ---
Author Organization [facility] Address [address] [place] [address] Care Team Providers Care Heavy Mobile Equipment Repairer Name Role Phone Unavailable Primary Care Provider Unavailabl e Encounter Details Date Type Department Care Team (Late st Contact Info) Description 09/17/2023 Scanned Document [facility] [place] [address] [place] [address] Kaelyn Salmeron MD [address] [place] [address] Social History Tobacco Use Types Packs/Day Years Used Date Smoking Tobacco: Never Assessed Sex and Gender Information Value Date Recorded Sex Assigned at Male 09/17/2023 9:46 AM EST Gender Identity Male 09/17/2023 9:46 AM EST Sexual Orientation Heterosexual (straight) 09/17 9:46 AM EST documented as of this encounter Plan of Treatment Not on file documented as of this encounter Visit Diagnoses Not on filedocumented in this encounter
--- OUTSIDE RECORDS SUMMARY | 2024-11-21 12:47 | XMS_ITS | Patient Health Record ---
Author Organization [facility] Address [address] [place] [address] Care Team Providers Care Precision Machine Operator Name Role Phone Murray PEREZ, Mata Primary Care Provider Gerhard Barkley Unavailable [phone] Reason For Referral No Information Medications Medication SIG (Take, Route, Fr equency, Duration) Notes Start Date End Date Status Cephalexin 500 MG 1 capsule Orally humera ry 12 hrs for 10 day(s) Active Multivitamins Active Lorazepam .5 1 Active Aspirin Active Social History Tobacco use other than smoking: Question Answer Notes Are you an other tobacco user? No Problems No Known Problems Plan Of Treatment Pending Test Test Name Order Date 97111-Ytou Destruction, 1-14 05/28/2014 [id number]-Gitz Destruction, -14 10/29/2014 31387 I&D ABSCESS- SIMPLE,SINGLE 015 Insurance Providers Payer Name Payer Address Payer Phone Subscriber Number Group Number Insured Name Patient Relationship to Insured Coverage Start Date Coverage End Date [employer] [address] [place] [address] [phone] [id number] Eren Lira Self - patient is the insured Medical (General) History Medical History History ICD Code Measles Mumps Chicken pox Broken bones Joint implants/screws Warts Surgical History Surgery Date(Month/Year) left knee meniscus 2012 lipomas illiac bone graft 1991 right rotator cuff 03/2015
--- OUTSIDE RECORDS SUMMARY | 2024-11-21 12:47 | XMS_ITS | Encounter Summary ---
Author Organization [facility] Address [address] [place] [address] Care Team Providers Care Sports Nutritionist Name Role Phone Unavailable Primary Care Provider Unavailabl e Encounter Details Date Type Department Care Team (Late st Contact Info) Description 10/04/2023 Scanned Document [facility] [place] [address] [place] [address] Kaelyn Salmeron MD [address] [place] [address] Social History Tobacco Use Types Packs/Day Years Used Date Smoking Tobacco: Former Cigarettes Q uit: 2007 Smokeless Tobacco: Never Sex and Gender Information Value Date Recorded Sex Assigned at Male 09/17/2023 9:46 AM EST Gender Identity Male 09/17/2023 9:46 AM EST Sexual Orientation Heterosexual (straight) 09/17 9:46 AM EST documented as of this encounter Plan of Treatment Not on file documented as of this encounter Visit Diagnoses Not on filedocumented in this encounter
--- OUTSIDE RECORDS SUMMARY | 2024-11-21 12:47 | XMS_ITS | Data Portability ---
Author Organization [facility], Main Office Address [address] [address] [place] [address] Care Team Providers Care Foster Care Social Worker Name Role Phone MATT GRIMALDO Tablet Coater [phone] [facility] Orthopedic Surgeon LALA PALOMO Primary Care Provider ADITYA Long Referring Provider [facility] Sleep Medicine ABHAY LEDEZMA Orthopedic Surgeon [phone] GLORIA PARRA Bank Representative OLVIN YRAN Dermatopathologist [phone] VALENTINE BRYAN Heavy Equipment Engine Mechanic [phone] ARTIS PERRY [employer] Press Offbearer NINA ROJAS Orthopedic Surgeon [phone] CHIKI CARRASQUILLO Referring Provider [phone] KANDIS PINEDA Referring Provider [phone] ANIL COBURN Orthopedic Surgeon [phone] Assessment Encounter Date Assessment Date Assessment LastModified by Organization Details LastModified Time 10/08/2023 10/08/2023 Patient is at lo w risk for cardiopulmonary complications with planned procedure based on comorbidities, good exertional tolerance and overall procedure risk. Patient advised to avoid aspirin for 14 days and NSAIDS for 7 days prior. May proceed to scheduled surgery as planned. Not available 10/08/2023 08:27:36 06/28/2024 06/28/2024 Patient is at lo w risk for cardiopulmonary complications with planned procedure based on comorbidities, good exertional tolerance and overall procedure risk. Patient advised to avoid aspirin for 14 days and NSAIDS for 7 days prior. May proceed to scheduled surgery as planned. Not available 06/28/2024 08:59:15 Plan of Treatment Reminders Order Date Submit Date Provider Last Modified By Organization Details Last Modified Time Details Appointments PE EST 2024 03:45P M Lala newton MD Not available Not available Not available Lab BMP, serum or plasma 2022 023 [facility], [address], [address], [place], [address], 06/15/2023 20:55:06 CBC w/ auto diff 2022 023 [facility], [address], [address], [place], [address], 06/15/2023 20:04:50 folate , serum 2022 023 [facility], [address], [address], [place], [address], 06/15/2023 21:49:30 vitami n B12, serum 2022 023 [facility], [address], [address], [place], [address], 06/15/2023 21:49:28 iron + total iron-b inding capaci ty (TIBC) , serum 2022 023 [facility], [address], [address], [place], [address], 06/15/2023 20:55:07 ferrit in, serum or plasma 2022 023 [facility], [address], [address], [place], [address], 06/15/2023 21:49:29 CBC w/ auto diff 2022 023 [facility], [address], [address], [place], [address], 10/08/2023 20:04:11 BMP, serum or plasma 2022 023 [facility], [address], [address], [place], [address], 10/08/2023 21:29:34 PT/INR 2022 023 [facility], [address], [address], [place], [address], 10/08/2023 20:19:35 PSA, serum or plasma 2023 024 [facility], [address], [address], [place], [address], 01/25/2024 12:06:20 CBC w/ auto diff 2023 024 [email or web address], [address], [address], [place], [address], 07/18/2024 08:50:19 magnes ium, serum or plasma 2023 024 [facility], [address], [address], [place], [address], 01/25/2024 12:06:21 lipid panel, serum 2023 024 [facility], [address], [address], [place], [address], 01/25/2024 12:06:19 CMP, serum or plasma 2023 024 [facility], [address], [address], [place], [address], 01/25/2024 12:06:17 CBC w/ auto diff 2023 024 [facility], [address], [address], [place], [address], 06/29/2024 06:09:08 CMP, serum or plasma 2023 024 [place], [address], [address], [place], [address], 06/29/2024 06:09:09 Referral None record ed. Procedures None record ed. Surgeries None record ed. Imaging electr [facility] ogram 2022 023 [email or web address] In-Office Order, Internal Use Only DO Not Attach Compendium DO Not Attach Compendium, Do Not Delete/merge, [id number] 10/08/2023 13:29:15 electr [facility] ogram 2023 024 [email or web address] In-Office Order, Internal Use Only DO Not Attach Compendium DO Not Attach Compendium, Do Not Delete/merge, [id number] 06/28/2024 10:27:19 Medication Orders silden afil 100 mg tablet 2023 024 [id number], [address], [place], [address], 12/21/2023 16:15:36 amlodi pine 10 mg tablet 2023 024 [email or web address] [facility], [address] [place] [address], [address], [place], [place], [id number], 06/20/2024 17:27:19 atenol ol 50 mg tablet 2023 024 [email or web address], [address], [address], [place], [place], [id number], 06/20/2024 17:27:19 atorva statin 40 mg tablet 2023 024 [email or web address] [facility], [address] [place], [address], [place], [place], [id number], 06/20/2024 17:27:19 Patient TargetsNo targets recorded. Patient Instructions Encounter Date Encounter Id Patient Instructions Last Modified By Organization Details Last Modified Time 06/15/2023 [id number] high blood press ure: care instructions [email or web address] Not available 06/15/2023 15:29:15 learning about h igh blood pressure [email or web address] Not available 06/15/2023 15:29:15 anemia: care instructions [email or web address] Not available 06/15/2023 15:39:56 10/08/2023 [id number] No medical contraindications to proposed procedure. Reji Perioperative Cardiac Risk was calculated and the risk for perioperative [place] is <1%. May proceed to surgery as planned. Not available 10/08/2023 08:27:41 12/21/2023 [id number] high blood press ure: care instructions [email or web address] Not available 12/21/2023 16:11:11 learning about h igh blood pressure acennerazzo Not available 12/21/2023 16:11:11 high cholesterol : care instructions [email or web address] Not available 12/21/2023 16:11:11 06/20/2024 [id number] insomnia: care instructions [email or web address] Not available 06/20/2024 17:27:19 high cholesterol : care instructions [email or web address] Not available 06/20/2024 17:27:19 Reason for Referral None Reported. Results Created Date Observation Date Name Description Value Unit Range Abnormal Flag Note LastModifiedBy Organization Detail LastModifiedTime 06/15/2006/15/2023 COMPL ETE CBC WITH DIFF WBC 8.8 K/mm3 (4.0-1 1.0) Not Available [facility] [address] [place], [address], 06/15/2023 20:04:50 06/15/20 23 06/15/2023 COMPL ETE CBC WITH DIFF RBC 4.12 M/mm3 (4.70- 6.10) low Not Available [facility] [address] [place], [address], 06/15/2023 20:04:50 06/15/20 23 06/15/2023 COMPL ETE CBC WITH DIFF HGB 13.4 gm/dL (13.7- 17.1) low Not Available [facility] [address] [place], [address], 06/15/2023 20:04:50 06/15/20 23 06/15/2023 COMPL ETE CBC WITH DIFF HCT 39.6 % (40.5- 50.0) low Not Available [facility] [address] [place], [address], 06/15/2023 20:04:50 06/15/20 23 06/15/2023 COMPL ETE CBC WITH DIFF MCV 96.1 fL (80.0- 94.0) high Not Available [facility] [address] [place], [address], 06/15/2023 20:04:50 06/15/20 23 06/15/2023 COMPL ETE CBC WITH DIFF MCH 32.5 pg (27.0- 34.0) Not Available [facility] [address] [place], [address], 06/15/2023 20:04:50 06/15/20 23 06/15/2023 COMPL ETE CBC WITH DIFF MCHC 33.8 g/dL (33.0- 37.0) Not Available [facility] [address] [place], [address], 06/15/2023 20:04:50 06/15/20 23 06/15/2023 COMPL ETE CBC WITH DIFF plt 287 K/mm3 (150-4 60) Not Available [facility] [address], [address], 06/15/2023 20:04:50 06/15/20 23 06/15/2023 COMPL ETE CBC WITH DIFF RDW-SD 46.1 fL (<47.0 ) Not Available [facility] [address] [place], [address], 06/15/2023 20:04:50 06/15/20 23 06/15/2023 COMPL ETE CBC WITH DIFF MPV 9.7 fL (9.4-1 2.4) Not Available [facility] [address] [place], [address], 06/15/2023 20:04:50 06/15/20 23 06/15/2023 COMPL ETE CBC WITH DIFF automated NRBC 0.0 #/100 _WBC' s Not Available [facility] [address] [place], [address], 06/15/2023 20:04:50 06/15/20 23 06/15/2023 COMPL ETE CBC WITH DIFF abs. NRBC 0.0 K/mm3 Not Available [facility] [address] [place], [address], 06/15/2023 20:04:50 06/15/20 23 06/15/2023 COMPL ETE CBC WITH DIFF neut # 5.2 K/mm3 (1.3-7 .0) Not Available [facility] [address] [place], [address], 06/15/2023 20:04:50 06/15/20 23 06/15/2023 COMPL ETE CBC WITH DIFF lymph # 2.4 K/mm3 (0.8-3 .1) Not Available [facility] [address] [place], [address], 06/15/2023 20:04:50 06/15/20 23 06/15/2023 COMPL ETE CBC WITH DIFF mono# 0.8 K/mm3 (0.4-1 .3) Not Available [facility] [address] [place], [address], 06/15/2023 20:04:50 06/15/20 23 06/15/2023 COMPL ETE CBC WITH DIFF eo # 0.3 K/mm3 (0.0-0 .4) Not Available [facility] [address] [place], [address], 06/15/2023 20:04:50 06/15/20 23 06/15/2023 COMPL ETE CBC WITH DIFF baso # 0.1 K/mm3 (0.0-0 .1) Not Available [facility] [address] [place], [address], 06/15/2023 20:04:50 06/15/20 23 06/15/2023 COMPL ETE CBC WITH DIFF abs. imm gran 0.0 K/mm3 Not Available [facility] [address] [place], [address], 06/15/2023 20:04:50 06/15/20 23 06/15/2023 COMPL ETE CBC WITH DIFF neut 59.0 % (44-76 ) Not Available [facility] [address] [place], [address], 06/15/2023 20:04:50 06/15/20 23 06/15/2023 COMPL ETE CBC WITH DIFF lymph 27.4 % (15-43 ) Not Available [facility] [address] [place], [address], 06/15/2023 20:04:50 06/15/20 23 06/15/2023 COMPL ETE CBC WITH DIFF monocyte 9.4 % (4.5-1 0.5) Not Available [facility] [address] [place], [address], 06/15/2023 20:04:50 06/15/20 23 06/15/2023 COMPL ETE CBC WITH DIFF eo 3.1 % (0-6) Not Available [facility] [address] [place], [address], 06/15/2023 20:04:50 06/15/20 23 06/15/2023 COMPL ETE CBC WITH DIFF baso 0.9 % (0-2) Not Available [facility] [address] [place], [address], 06/15/2023 20:04:50 06/15/20 23 06/15/2023 COMPL ETE CBC WITH DIFF imm gran 0.2 % Not Available [facility] [address] [place], [address], 06/15/2023 20:04:50 06/15/20 23 06/15/2023 BASIC METAB OLIC PANEL glucose 79 mg/dL (70-99 ) Not Available [facility] [address] [place], [address], 06/15/2023 20:55:06 06/15/20 23 06/15/2023 BASIC METAB OLIC PANEL BUN 15 mg/dL (8-23) Not Available [facility] [address] [place], [address], 06/15/2023 20:55:06 06/15/20 23 06/15/2023 BASIC METAB OLIC PANEL creatinine 1.0 mg/dL (0.7-1 .2) Not Available [facility] [address] [place], [address], 06/15/2023 20:55:06 06/15/20 23 06/15/2023 BASIC METAB OLIC PANEL sodium 137 mmol/ L (133-1 45) Not Available [facility] [address] [place], [address], 06/15/2023 20:55:06 06/15/20 23 06/15/2023 BASIC METAB OLIC PANEL potassium 4.5 mmol/ L (3.6-5 .2) Not Available [facility] [address] [place], [address], 06/15/2023 20:55:06 06/15/20 23 06/15/2023 BASIC METAB OLIC PANEL chloride 100 mmol/ L (98-10 7) Not Available [facility] [address] [place], [address], 06/15/2023 20:55:06 06/15/20 23 06/15/2023 BASIC METAB OLIC PANEL bicarbonate 25 mmol/ L (22-29 ) Not Available [facility] [address] [place], [address], 06/15/2023 20:55:06 06/15/20 23 06/15/2023 BASIC METAB OLIC PANEL anion gap 12 (4-17) Not Available [facility] [address] [place], [address], 06/15/2023 20:55:06 06/15/20 23 06/15/2023 BASIC METAB OLIC PANEL calcium 9.3 mg/dL (8.6-1 0.5) Not Available [facility] [address] [place], [address], 06/15/2023 20:55:06 06/15/20 23 06/15/2023 BASIC METAB OLIC PANEL estimated GFR creatinine 87 mL/mi n/1.7 3_M2 Creat inine based estim ated glome rular filtr ation (eGFR ) in adult s is calcu lated using the Natio nal Kidne y Found ation recom yasmany d 2020 CKD-E PI equat ion. Estim ates GFR from serum creat inine , age and sex. Not Available [facility] [address] [place], [address], 06/15/2023 20:55:06 06/15/20 23 06/15/2023 IRON & TIBC iron 100 mcg/d L (45-16 0) Not Available [facility] [address] [place], [address], 06/15/2023 20:55:07 06/15/20 23 06/15/2023 IRON & TIBC unsaturated iron binding capac 240 mcg/d L (110-3 70) Not Available [facility] [address], [address], 06/15/2023 20:55:07 06/15/20 23 06/15/2023 IRON & TIBC est T. iron bind capacity 340 mcg/d L (155-5 30) Not Available [facility] [address] [place], [address], 06/15/2023 20:55:07 06/15/20 23 06/15/2023 IRON & TIBC % iron saturation 29 % (20-55 ) Not Available [facility] [address] [place], [address], 06/15/2023 20:55:07 06/15/20 23 06/15/2023 VITAM IN B12 vitamin B12 524 pg/mL (232-1 245) Not Available [facility] [address] [place], [address], 06/15/2023 21:49:28 06/15/20 23 06/15/2023 PATRICK TIN ferritin 196 NG/mL (16-29 4) Not Available [facility] [address] [place], [address], 06/15/2023 21:49:29 06/15/20 23 06/15/2023 FOLIC ACID folic acid 25.8 NG/mL (4.5-3 2.2) Sampl e sligh tly hemol yzed. Resul ts may be false ly eleva casper due to hemol ysis. Not Available [facility] [address], [address], 06/15/2023 21:49:30 10/08/20 23 10/08/2023 COMPL ETE CBC WITH DIFF WBC 7.8 K/mm3 (4.0-1 1.0) Not Available [facility] [address], [address], 10/08/2023 20:04:10 10/08/20 23 10/08/2023 COMPL ETE CBC WITH DIFF RBC 4.25 M/mm3 (4.70- 6.10) low Not Available [facility] [address], [address], 10/08/2023 20:04:10 10/08/20 23 10/08/2023 COMPL ETE CBC WITH DIFF HGB 13.7 gm/dL (13.7- 17.1) Not Available [facility] [address] [place], [address], 10/08/2023 20:04:10 10/08/20 23 10/08/2023 COMPL ETE CBC WITH DIFF HCT 41.0 % (40.5- 50.0) Not Available [facility] [address] [place], [address], 10/08/2023 20:04:10 10/08/20 23 10/08/2023 COMPL ETE CBC WITH DIFF MCV 96.5 fL (80.0- 94.0) high Not Available [facility] [address] [place], [address], 10/08/2023 20:04:10 10/08/20 23 10/08/2023 COMPL ETE CBC WITH DIFF MCH 32.2 pg (27.0- 34.0) Not Available [facility] [address] [place], [address], 10/08/2023 20:04:10 10/08/20 23 10/08/2023 COMPL ETE CBC WITH DIFF MCHC 33.4 g/dL (33.0- 37.0) Not Available [facility] [address] [place], [address], 10/08/2023 20:04:10 10/08/20 23 10/08/2023 COMPL ETE CBC WITH DIFF plt 349 K/mm3 (150-4 60) Not Available [facility] [address] [place], [address], 10/08/2023 20:04:10 10/08/20 23 10/08/2023 COMPL ETE CBC WITH DIFF RDW-SD 46.4 fL (<47.0 ) Not Available [facility] [address] [place], [address], 10/08/2023 20:04:10 10/08/20 23 10/08/2023 COMPL ETE CBC WITH DIFF MPV 9.6 fL (9.4-1 2.4) Not Available [facility] [address] [place], [address], 10/08/2023 20:04:10 10/08/20 23 10/08/2023 COMPL ETE CBC WITH DIFF automated NRBC 0.0 #/100 _WBC' s Not Available [facility] [address] [place], [address], 10/08/2023 20:04:10 10/08/20 23 10/08/2023 COMPL ETE CBC WITH DIFF abs. NRBC 0.0 K/mm3 Not Available [facility] [address] [place], [address], 10/08/2023 20:04:10 10/08/20 23 10/08/2023 COMPL ETE CBC WITH DIFF neut # 4.5 K/mm3 (1.3-7 .0) Not Available [facility] [address] [place], [address], 10/08/2023 20:04:10 10/08/20 23 10/08/2023 COMPL ETE CBC WITH DIFF lymph # 2.3 K/mm3 (0.8-3 .1) Not Available [facility] [address] [place], [address], 10/08/2023 20:04:10 10/08/20 23 10/08/2023 COMPL ETE CBC WITH DIFF mono# 0.7 K/mm3 (0.4-1 .3) Not Available [facility] [address] [place], [address], 10/08/2023 20:04:10 10/08/20 23 10/08/2023 COMPL ETE CBC WITH DIFF eo # 0.3 K/mm3 (0.0-0 .4) Not Available [facility] [address] [place], [address], 10/08/2023 20:04:10 10/08/20 23 10/08/2023 COMPL ETE CBC WITH DIFF baso # 0.1 K/mm3 (0.0-0 .1) Not Available [facility] [address] [place], [address], 10/08/2023 20:04:10 10/08/20 23 10/08/2023 COMPL ETE CBC WITH DIFF abs. imm gran 0.0 K/mm3 Not Available [facility] [address] [place], [address], 10/08/2023 20:04:10 10/08/20 23 10/08/2023 COMPL ETE CBC WITH DIFF neut 57.3 % (44-76 ) Not Available [facility] [address] [place], [address], 10/08/2023 20:04:10 10/08/20 23 10/08/2023 COMPL ETE CBC WITH DIFF lymph 29.8 % (15-43 ) Not Available [facility] [address] [place], [address], 10/08/2023 20:04:10 10/08/20 23 10/08/2023 COMPL ETE CBC WITH DIFF monocyte 8.3 % (4.5-1 0.5) Not Available [facility] [address] [place], [address], 10/08/2023 20:04:10 10/08/20 23 10/08/2023 COMPL ETE CBC WITH DIFF eo 3.6 % (0-6) Not Available [facility] [address] [place], [address], 10/08/2023 20:04:10 10/08/20 23 10/08/2023 COMPL ETE CBC WITH DIFF baso 0.6 % (0-2) Not Available [facility] [address] [place], [address], 10/08/2023 20:04:10 10/08/20 23 10/08/2023 COMPL ETE CBC WITH DIFF imm gran 0.4 % Not Available [facility] [address] [place], [address], 10/08/2023 20:04:10 10/08/20 23 10/08/2023 PROTI ME PROFI LE protime 10.7 sec (9.2-1 1.4) Not Available [facility] [address] [place], [address], 10/08/2023 20:19:35 10/08/20 23 10/08/2023 PROTI ME PROFI LE internatnl normalized ratio 1.0 (0.9-1 .1) SUGGE STED VALUE OF 2.0-3 .0 FOR PROPH YLAXI S OF VENOU S THROM BOSIS IN HIGH RISK OR SURGI MICHAEL PATIE NTS, TREAT MENT OF VENOU S THROM BOSIS , AND PREVE NTION OF EMBOL ISM. SUGGE STED VALUE S OF 2.5-3 .5 FOR PREVE NTION OF RECUR RENT EMBOL ISM OR PATIE NTS WITH MECHA NICAL PROST HETIC HEART VALVE S. Not Available [facility] [address] [place], [address], 10/08/2023 20:19:35 10/08/20 23 10/08/2023 BASIC METAB OLIC PANEL glucose 85 mg/dL (70-99 ) Not Available [facility] [address] [place], [address], 10/08/2023 21:29:34 10/08/20 23 10/08/2023 BASIC METAB OLIC PANEL BUN 10 mg/dL (8-23) Not Available [facility] [address] [place], [address], 10/08/2023 21:29:34 10/08/20 23 10/08/2023 BASIC METAB OLIC PANEL creatinine 0.9 mg/dL (0.7-1 .2) Not Available [facility] [address] [place], [address], 10/08/2023 21:29:34 10/08/20 23 10/08/2023 BASIC METAB OLIC PANEL sodium 137 mmol/ L (133-1 45) Not Available [facility] [address] [place], [address], 10/08/2023 21:29:34 10/08/20 23 10/08/2023 BASIC METAB OLIC PANEL potassium 4.5 mmol/ L (3.6-5 .2) Not Available [facility] [address] [place], [address], 10/08/2023 21:29:34 10/08/20 23 10/08/2023 BASIC METAB OLIC PANEL chloride 100 mmol/ L (98-10 7) Not Available [facility] [address] [place], [address], 10/08/2023 21:29:34 10/08/20 23 10/08/2023 BASIC METAB OLIC PANEL bicarbonate 30 mmol/ L (22-29 ) high Not Available [facility] [address] [place], [address], 10/08/2023 21:29:34 10/08/20 23 10/08/2023 BASIC METAB OLIC PANEL anion gap 7 (4-17) Not Available [facility] [address] [place], [address], 10/08/2023 21:29:34 10/08/20 23 10/08/2023 BASIC METAB OLIC PANEL calcium 9.4 mg/dL (8.6-1 0.5) Not Available [facility] [address] [place], [address], 10/08/2023 21:29:34 10/08/20 23 10/08/2023 BASIC METAB OLIC PANEL estimated GFR creatinine 96 mL/mi n/1.7 3_M2 Creat inine based estim ated glome rular filtr ation (eGFR ) in adult s is calcu lated using the Natio nal Kidne y Found ation recom yasmany d 2020 CKD-E PI equat ion. Estim ates GFR from serum creat inine , age and sex. Not Available [facility] [address] [place], [address], 10/08/2023 21:29:34 01/24/20 24 01/24/2024 COMP. METAB OLIC PANEL (14) glucose 102 mg/dL 70-99 above high normal Not Available [facility] ([facility]) [address] [place], [address], 01/25/2024 12:06:17 01/24/20 24 01/24/2024 COMP. METAB OLIC PANEL (14) BUN 10 mg/dL 8-27 Not Available [facility] ([facility]) [address] [place], [address], 01/25/2024 12:06:17 01/24/20 24 01/24/2024 COMP. METAB OLIC PANEL (14) creatinine 0.89 mg/dL 0.76-1 .27 Not Available [facility] ([facility]) [address] [place], [address], 01/25/2024 12:06:17 01/24/20 24 01/24/2024 COMP. METAB OLIC PANEL (14) eGFR 95 mL/mi n/1.7 3 >59 Not Available [facility] ([facility]) [address] [place], [address], 01/25/2024 12:06:17 01/24/20 24 01/24/2024 COMP. METAB OLIC PANEL (14) BUN/creatini ne ratio 11 10-24 Not Available [facility]) [address] [place], [address], 01/25/2024 12:06:17 01/24/20 24 01/24/2024 COMP. METAB OLIC PANEL (14) sodium 137 mmol/ L 134-14 4 Not Available [facility] ([facility]) [address] [place], [address], 01/25/2024 12:06:17 01/24/20 24 01/24/2024 COMP. METAB OLIC PANEL (14) potassium 4.8 mmol/ L 3.5-5. 2 Not Available [facility] ([facility]) [address] [place], [address], 01/25/2024 12:06:17 01/24/20 24 01/24/2024 COMP. METAB OLIC PANEL (14) chloride 101 mmol/ L 96-106 Not Available [facility] ([facility] [address] [place], [address], 01/25/2024 12:06:17 01/24/20 24 01/24/2024 COMP. METAB OLIC PANEL (14) anion gap 12.0 mmol/ L 10.0-1 8.0 Not Available [facility] ([facility]) [address] [facility], [place], [address], 01/25/2024 12:06:17 01/24/20 24 01/24/2024 COMP. METAB OLIC PANEL (14) carbon dioxide, total 24 mmol/ L 20-29 Not Available [facility] ([facility]) [address] [place], [address], 01/25/2024 12:06:17 01/24/20 24 01/24/2024 COMP. METAB OLIC PANEL (14) calcium 9.2 mg/dL 8.6-10 .2 Not Available [facility] ([facility]) [address] [place], [address], 01/25/2024 12:06:17 01/24/20 24 01/24/2024 COMP. METAB OLIC PANEL (14) albumin 4.3 g/dL 3.9-4. 9 Not Available [facility] ([facility]) [address] [place], [address], 01/25/2024 12:06:17 01/24/20 24 01/24/2024 COMP. METAB OLIC PANEL (14) bilirubin, total 0.4 mg/dL 0.0-1. 2 Not Available [facility] ([facility]) [address], [place], [address], 01/25/2024 12:06:17 01/24/20 24 01/24/2024 COMP. METAB OLIC PANEL (14) alkaline phosphatase 59 IU/L 44-121 Not Available [facility]) [address], [place], [address], 01/25/2024 12:06:17 01/24/20 24 01/24/2024 COMP. METAB OLIC PANEL (14) AST (SGOT) 21 IU/L 0-40 Not Available [facility] ([facility]) [address] [place], [address], 01/25/2024 12:06:17 01/24/20 24 01/24/2024 COMP. METAB OLIC PANEL (14) ALT (SGPT) 24 IU/L 0-44 Not Available [facility] ([facility]) [address] [facility], [place], [address], 01/25/2024 12:06:17 01/24/20 24 01/25/2024 COMP. METAB OLIC PANEL (14) protein, total 6.3 g/dL 6.0-8. 5 Not Available [facility] ([facility]) [address] [place], [address], 01/25/2024 12:06:17 01/24/20 24 01/25/2024 COMP. METAB OLIC PANEL (14) globulin, total 2.0 g/dL 1.5-4. 5 Not Available [facility] ([facility]) [address] [place], [address], 01/25/2024 12:06:17 01/24/20 24 01/25/2024 COMP. METAB OLIC PANEL (14) A/G ratio 2.2 1.2-2. 2 Not Available [facility] ([facility]) [address] [facility] [place], [address], 01/25/2024 12:06:17 01/24/20 24 01/24/2024 CBC, PLATE LET, NO DIFFE RENTI AL WBC 6.7 x10e3 /uL 3.4-10 .8 Not Available [facility] ([facility]) [address] [facility], [place], [address], 01/25/2024 12:06:18 01/24/20 24 01/24/2024 CBC, PLATE LET, NO DIFFE RENTI AL RBC 4.34 x10e6 /uL 4.14-5 .80 Not Available [facility] ([facility]) [address] [place], [address], 01/25/2024 12:06:18 01/24/20 24 01/24/2024 CBC, PLATE LET, NO DIFFE RENTI AL hemoglobin 13.9 g/dL 13.0-1 7.7 Not Available [facility] ([facility]) [address] [place], [address], 01/25/2024 12:06:18 01/24/20 24 01/24/2024 CBC, PLATE LET, NO DIFFE RENTI AL hematocrit 41.7 % 37.5-5 1.0 Not Available [facility] ([facility]) [address] [place], [address], 01/25/2024 12:06:18 01/24/20 24 01/24/2024 CBC, PLATE LET, NO DIFFE RENTI AL MCV 96 fL 79-97 Not Available [facility] ([facility]) [address] [place], [address], 01/25/2024 12:06:18 01/24/20 24 01/24/2024 CBC, PLATE LET, NO DIFFE RENTI AL MCH 32.0 pg 26.6-3 3.0 Not Available [facility] ([facility]) [address] [place], [address], 01/25/2024 12:06:18 01/24/20 24 01/24/2024 CBC, PLATE LET, NO DIFFE RENTI AL MCHC 33.3 g/dL 31.5-3 5.7 Not Available [facility] ([facility]) [address] [facility], [place], [address], 01/25/2024 12:06:18 01/24/20 24 01/24/2024 CBC, PLATE LET, NO DIFFE RENTI AL RDW 12.3 % 11.6-1 5.4 Not Available [facility] ([facility]) [address] [facility], [place], [address], 01/25/2024 12:06:18 01/24/20 24 01/24/2024 CBC, PLATE LET, NO DIFFE RENTI AL platelets 339 x10e3 /uL 150-45 0 Not Available [facility] ([facility]) [address] [facility], [place], [address], 01/25/2024 12:06:18 01/24/20 24 01/24/2024 CBC, PLATE LET, NO DIFFE RENTI AL NRBC WORK MANAGER Not Available [facility] ([facility]) [address] [facility], [place], [address], 01/25/2024 12:06:18 01/24/20 24 01/24/2024 LP+NO N-HDL TROY STERO L cholesterol, total 153 mg/dL 100-19 9 Not Available [facility] ([facility]) [address] [facility], [place], [address], 01/25/2024 12:06:19 01/24/20 24 01/24/2024 LP+NO N-HDL TROY STERO L triglyceride s 85 mg/dL 0-149 Not Available [facility] ([facility]) [address] [place], [address], 01/25/2024 12:06:19 01/24/20 24 01/24/2024 LP+NO N-HDL TROY STERO L HDL cholesterol 62 mg/dL >39 Not Available [facility] ([facility]) [address] [facility], [place], [address], 01/25/2024 12:06:19 01/24/20 24 01/24/2024 LP+NO N-HDL TROY STERO L VLDL cholesterol michael 16 mg/dL 5-40 Not Available [facility] ([facility]) [address] [place], [address], 01/25/2024 12:06:19 01/24/20 24 01/24/2024 LP+NO N-HDL TROY STERO L LDL chol calc ([facility]) 75 mg/dL 0-99 Not Available [facility] ([facility]) [address] [facility], [place], [address], 01/25/2024 12:06:19 01/24/20 24 01/24/2024 LP+NO N-HDL TROY STERO L non-HDL cholesterol 91 mg/dL 0-129 Not Available [facility] ([facility]) [address] [facility], [place], [address], 01/25/2024 12:06:19 01/24/20 24 01/24/2024 LP+NO 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 0 Fay ECLIA metho dolog y. Accor ding to the Ameri can [employer] g[employer] iatio n, Serum PSA shoul d decre ase and remai n at undet ectab le level s after radic al prost atect brenda. The AUA defin es bioch emica l recur rence as an initi al PSA value 0.2 ng/mL or great er follo wed by a subse quent confi rmato ry PSA value 0.2 ng/mL or great er. Value s obtai irving with diffe rent assay metho ds or kits canno t be used inter diop eably . Resul ts canno t be inter prete d as absol [place] ev[facility] nce of the prese nce or [facility]en [facility]. Not Available [facility] ([facility]) [address] [place], [address], 01/25/2024 12:06:20 01/24/20 24 01/25/2024 PSA (SERI AL MONIT OR) pdf . Not Available [facility] ([facility]) [address] [facility], [place], [address], 01/25/2024 12:06:20 01/24/20 24 01/25/2024 MAGNE SIUM magnesium 2.2 mg/dL 1.6-2. 3 Not Available [facility] ([facility]) [address] [place], [address], 01/25/2024 12:06:21 06/28/20 24 06/29/2024 CBC WITH DIFFE RENTI AL/PL ATELE T WBC 6.0 x10e3 /uL 3.4-10 .8 normal Not Available [facility] ([facility]) [address] [place], [address], 06/29/2024 06:09:08 06/28/20 24 06/29/2024 CBC WITH DIFFE RENTI AL/PL ATELE T RBC 4.00 x10e6 /uL 4.14-5 .80 below low normal Not Available [facility] ([facility]) [address] [place], [address], 06/29/2024 06:09:08 06/28/20 24 06/29/2024 CBC WITH DIFFE RENTI AL/PL ATELE T hemoglobin 13.2 g/dL 13.0-1 7.7 normal Not Available [facility] ([facility]) [address] [facility], [place], [address], 06/29/2024 06:09:08 06/28/20 24 06/29/2024 CBC WITH DIFFE RENTI AL/PL ATELE T hematocrit 39.0 % 37.5-5 1.0 normal Not Available [facility] ([facility]) [address] [facility], [place], [address], 06/29/2024 06:09:08 06/28/20 24 06/29/2024 CBC WITH DIFFE RENTI AL/PL ATELE T MCV 98 fL 79-97 above high normal Not Available [facility] ([facility]) [address] [facility], [place], [address], 06/29/2024 06:09:08 06/28/20 24 06/29/2024 CBC WITH DIFFE RENTI AL/PL ATELE T MCH 33.0 pg 26.6-3 3.0 normal Not Available [facility] ([facility]) [address] [place], [address], 06/29/2024 06:09:08 06/28/20 24 06/29/2024 CBC WITH DIFFE RENTI AL/PL ATELE T MCHC 33.8 g/dL 31.5-3 5.7 normal Not Available [facility] ([facility]) [address] [facility], [place], [address], 06/29/2024 06:09:08 06/28/20 24 06/29/2024 CBC WITH DIFFE RENTI AL/PL ATELE T RDW 12.6 % 11.6-1 5.4 Not Available [facility] ([facility]) [address] [place], [address], 06/29/2024 06:09:08 06/28/20 24 06/29/2024 CBC WITH DIFFE RENTI AL/PL ATELE T platelets 285 x10e3 /uL 150-45 0 normal Not Available [facility] ([facility]) [address] [facility], [place], [address], 06/29/2024 06:09:08 06/28/20 24 06/29/2024 CBC WITH DIFFE RENTI AL/PL ATELE T neutrophils 58 % not estab. normal Not Available [facility] ([facility]) [address] [facility], [place], [address], 06/29/2024 06:09:08 06/28/20 24 06/29/2024 CBC WITH DIFFE RENTI AL/PL ATELE T lymphs 32 % not estab. normal Not Available [facility] ([facility]) [address] [facility], [place], [address], 06/29/2024 06:09:08 06/28/20 24 06/29/2024 CBC WITH DIFFE RENTI AL/PL ATELE T monocytes 7 % not estab. normal Not Available [facility] ([facility]) [address] [facility], [place], [address], 06/29/2024 06:09:08 06/28/20 24 06/29/2024 CBC WITH DIFFE RENTI AL/PL ATELE T eos 2 % not estab. normal Not Available [facility] ([facility]) [address] [facility], [place], [address], 06/29/2024 06:09:08 06/28/20 24 06/29/2024 CBC WITH DIFFE RENTI AL/PL ATELE T basos 1 % not estab. normal Not Available [facility] ([facility]) [address] [facility], [place], [address], 06/29/2024 06:09:08 06/28/20 24 06/29/2024 CBC WITH DIFFE RENTI AL/PL ATELE T immature cells WORK MANAGER Not Available [facility] ([facility]) [address] [facility], [place], [address], 06/29/2024 06:09:08 06/28/20 24 06/29/2024 CBC WITH DIFFE RENTI AL/PL ATELE T neutrophils (absolute) 3.5 x10e3 /uL 1.4-7. 0 normal Not Available [facility] ([facility]) [address] [facility], [place], [address], 06/29/2024 06:09:08 06/28/20 24 06/29/2024 CBC WITH DIFFE RENTI AL/PL ATELE T lymphs (absolute) 1.9 x10e3 /uL 0.7-3. 1 normal Not Available [facility] ([facility]) [address] [facility], [place], [address], 06/29/2024 06:09:08 06/28/20 24 06/29/2024 CBC WITH DIFFE RENTI AL/PL ATELE T monocytes(ab solute) 0.4 x10e3 /uL 0.1-0. 9 normal Not Available [facility] ([facility]) [address] [facility], [place], [address], 06/29/2024 06:09:08 06/28/20 24 06/29/2024 CBC WITH DIFFE RENTI AL/PL ATELE T eos (absolute) 0.1 x10e3 /uL 0.0-0. 4 normal Not Available [facility] ([facility]) [address] [facility] [address] [facility], [place], [address], 06/29/2024 06:09:08 06/28/20 24 06/29/2024 CBC WITH DIFFE RENTI AL/PL ATELE T baso (absolute) 0.1 x10e3 /uL 0.0-0. 2 normal Not Available [facility] ([facility]) [address] [place], [address], 06/29/2024 06:09:08 06/28/20 24 06/29/2024 CBC WITH DIFFE RENTI AL/PL ATELE T immature granulocytes 0 % not estab. Not Available [facility] ([facility]) [address], [place], [address], 06/29/2024 06:09:08 06/28/20 24 06/29/2024 CBC WITH DIFFE RENTI AL/PL ATELE T immature grans (abs) 0.0 x10e3 /uL 0.0-0. 1 Not Available [facility] ([facility]) [address], [place], [address], 06/29/2024 06:09:08 06/28/20 24 06/29/2024 CBC WITH DIFFE RENTI AL/PL ATELE T NRBC WORK MANAGER Not Available [facility] ([facility]) [address] [facility] [address] [facility], [place], [address], 06/29/2024 06:09:08 06/28/20 24 06/29/2024 CBC WITH DIFFE RENTI AL/PL ATELE T hematology comments: WORK MANAGER Not Available [facility] ([facility]) [address] [facility], [place], [address], 06/29/2024 06:09:08 06/28/20 24 06/29/2024 COMP. METAB OLIC PANEL (14) glucose 101 mg/dL 70-99 above high normal Not Available [facility] ([facility]) [address] [facility], [place], [address], 06/29/2024 06:09:09 06/28/20 24 06/29/2024 COMP. METAB OLIC PANEL (14) BUN 8 mg/dL 8-27 normal Not Available [facility] ([facility]) [address] [facility], [place], [address], 06/29/2024 06:09:09 06/28/20 24 06/29/2024 COMP. METAB OLIC PANEL (14) creatinine 0.85 mg/dL 0.76-1 .27 normal Not Available [facility] ([facility]) [address] [facility] [address] [facility], [place], [address], 06/29/2024 06:09:09 06/28/20 24 06/29/2024 COMP. METAB OLIC PANEL (14) eGFR 96 mL/mi n/1.7 3 >59 normal Not Available [facility] ([facility]) [address] [facility], [place], [address], 06/29/2024 06:09:09 06/28/20 24 06/29/2024 COMP. METAB OLIC PANEL (14) BUN/creatini ne ratio 9 10-24 below low normal Not Available [facility] ([facility]) [address] [facility], [place], [address], 06/29/2024 06:09:09 06/28/20 24 06/29/2024 COMP. METAB OLIC PANEL (14) sodium 136 mmol/ L 134-14 4 normal Not Available [facility] ([facility]) [address] [facility], [place], [address], 06/29/2024 06:09:09 06/28/20 24 06/29/2024 COMP. METAB OLIC PANEL (14) potassium 4.6 mmol/ L 3.5-5. 2 normal Not Available [facility] ([facility]) [address] [facility] [address] [facility], [place], [address], 06/29/2024 06:09:09 06/28/20 24 06/29/2024 COMP. METAB OLIC PANEL (14) chloride 100 mmol/ L 96-106 normal Not Available [facility] ([facility]) [address] [facility] [address] [facility], [place], [address], 06/29/2024 06:09:09 06/28/20 24 06/29/2024 COMP. METAB OLIC PANEL (14) carbon dioxide, total 21 mmol/ L 20-29 normal Not Available [facility] ([facility]) [address] [facility] [address] [facility], [place], [address], 06/29/2024 06:09:09 06/28/20 24 06/29/2024 COMP. METAB OLIC PANEL (14) calcium 9.1 mg/dL 8.6-10 .2 normal Not Available [facility] ([facility]) [address] [place], [address], 06/29/2024 06:09:09 06/28/20 24 06/29/2024 COMP. METAB OLIC PANEL (14) protein, total 6.5 g/dL 6.0-8. 5 normal Not Available [facility] ([facility]) [address] [facility] [address] [facility], [place], [address], 06/29/2024 06:09:09 06/28/20 24 06/29/2024 COMP. METAB OLIC PANEL (14) albumin 4.3 g/dL 3.9-4. 9 normal Not Available [facility] ([facility]) [address] [place], [address], 06/29/2024 06:09:09 06/28/20 24 06/29/2024 COMP. METAB OLIC PANEL (14) globulin, total 2.2 g/dL 1.5-4. 5 Not Available [facility] ([facility]) [address] [place], [address], 06/29/2024 06:09:09 06/28/20 24 06/29/2024 COMP. METAB OLIC PANEL (14) bilirubin, total 0.7 mg/dL 0.0-1. 2 normal Not Available [facility] ([facility]) [address] [place], [address], 06/29/2024 06:09:09 06/28/20 24 06/29/2024 COMP. METAB OLIC PANEL (14) alkaline phosphatase 62 IU/L 44-121 normal Not Available [facility] ([facility]) [address] [place], [address], 06/29/2024 06:09:09 06/28/20 24 06/29/2024 COMP. METAB OLIC PANEL (14) AST (SGOT) 26 IU/L 0-40 normal Not Available [facility] ([facility]) [address] [facility] [address] [facility], [place], [address], 06/29/2024 06:09:09 06/28/20 24 06/29/2024 COMP. METAB OLIC PANEL (14) ALT (SGPT) 20 IU/L 0-44 normal Not Available [facility] ([facility]) [address] [facility] [address] [facility], [place], [address], 06/29/2024 06:09:09 10/08/20 23 10/08/2023 elect rocar diogr am No observ ation record ed. [email or web address] In-Office Order Internal Use Only DO Not Attach Compendium DO Not Attach Compendium, Do Not Delete/merge, [id number] 10/08/2023 13:27:48 10/08/20 elect rocar diogr am No observ ation record ed. BONY In-Office Order Internal Use Only DO Not Attach Compendium DO Not Attach Compendium, Do Not Delete/merge, [id number] 10/11/2023 16:04:34 11/22/19 24 11/19/2023 US, duple x, arter ial, lower extre mity, compl ete No observ ation record ed. [facility] [address] [address], [place], [address], 11/22/2023 09:53:03 04/19/20 24 04/18/2024 duple x scan of extre mity veins inclu ding respo nses to compr essio n and other maneu vers; compl ete bilat eral study (PROC ) No observ ation record ed. [facility] [address] [address], [place], [address], 04/20/2024 07:39:15 06/21/20 24 05/15/2024 CT, angio gram, abdom en, w/ contr ast No observ ation record ed. [email or web address] Not Available 05/26 17:49:28 06/21/20 24 04/11/2024 US, duple x, venou s, lower extre mity No observ ation record ed. [email or web address] Not Available 05/26 17:49:29 06/21/20 24 04/03/2024 pulse volum e recor ding (PROC ) No observ ation record ed. [email or web address] Not Available 05/26 17:47:18 06/28/20 24 06/28/2024 elect rocar diogr am No observ ation record ed. [email or web address] In-Office Order Internal Use Only DO Not Attach Compendium DO Not Attach Compendium, Do Not Delete/merge, [id number] 06/28/2024 11:48:52 06/28/20 elect rocar diogr am No observ ation record ed. [email or web address] In-Office Order Internal Use Only DO Not Attach Compendium DO Not Attach Compendium, Do Not Delete/merge, [id number] 06/28/2024 11:48:52 Result Notes None recorded. Problems Name Problem SNOMED Code Status Onset Date Resolution Date Notes Provider Name and Address Organization Details Recorded Time Snoring symptoms 343112460 Active 2016 Had sleep study and no GISEL Festus flores [facility] 0 14:41:05 Asthma 890650617 Active 2016 Festus flores [facility] 0 14:41:05 Insomnia 000753409 Active 2016 Festus flores [facility] 0 14:41:05 [place]entia l hyperten [place] 55976508 Active 2017 Not yet on meds. Being followed by renal. Festus flores [facility] 0 14:41:05 Eustachi an tube disorder 26641711 Active 2017 Festus flores [facility] 0 14:41:05 Allergic rhinitis 37872136 Active 2017 Festus flores [facility] 0 14:41:05 Heart murmur 62703879 Active 2018 Festus Mays null, [facility] 0 14:41:05 Primary erectile dysfunct ion 705633190 Active 2018 Festus Mays null, [facility] 0 14:41:05 Arthriti s of left knee 86773087660 29021 Active 2017 Had replacem ent done 09/28/19. Has pain and followed by [facility] and getting injectio ns. Lala newton MD [address], [place], [address], [facility] 4 11:55:43 Surgical follow-u p [id number] Completed 201809/22/2020 Lala newton MD [address], [place], [address], [facility] 0 08:30:33 Arthriti s of left wrist 03162614283 36420 Active 2019 Had trauma in the past. Followed by Hand Surgery Lala newton MD [address], [place], [address], [facility] 0 08:31:25 Carpal tunnel syndrome of left wrist 50517359357 9102 Active 2020 Lala newton MD [address], [place], [address], [facility] 1 13:14:06 Neck pain 46876278 Active 2020 Followed by ortho and MRI ordered. Lala newton MD [address], [place], [address], [facility] 1 09:37:45 Hyperlip idemia 71821472 Active 2021 Lala newton MD [address], [place], [address], [facility] 2 13:30:11 History of SARS-CoV -2 90169401096 9051242 Active 2021 Lala newton MD [address], [place], [address], [facility] 3 15:15:44 Anemia 636292210 Active 2022 Lala newton MD [address], [place], [address], [facility] 3 09:04:59 Basal cell carcinom a of skin 569188420 Active 2018 MOHs procedur e done at [facility]. Lala newton MD [address], [place], [address], [facility] 3 19:35:38 Pain of right wrist 05363928899 9100 Active 2022 Seen by ortho; probable CTS. Lala newton MD [address], [place], [address], [facility] 3 16:46:36 Carpal tunnel syndrome of right wrist 24184604515 9108 Active 2022 seen by hand surgery Lala newton MD [address], [place], [address], [facility] 3 07:53:18 Peripher al venous insuffic iency 57904167 Active 2023 Treated with compress ion stocking s and lifestyl e changes. Seen by Vascular surgery and will be looking into thermal ablation /sclerto therapy. Lala newton MD [address], [place], [address], [facility] 4 12:56:55 Arthriti s of right knee 07969147697 53149 Active 2023 Followed by REBECCA and currentl y being treated with injectio ns. Getting euflexa injectio ns from [facility]. Lala newton MD [address] [facility] [address], [place], [address], [facility] 4 17:46:22 Intermit tent claudica tion 34288795 Active 2023 Bilatera l endarter ectomy done by Dr Puente 07/11/24 aLla newton MD [address] [facility] [address], [place], [address], [facility] 4 13:36:14 Problem Notes None recorded. Procedures Surgical History Date Name Laterality Status Provider Name and Address Organization Details Recorded Time 07/11/20 24 endarterectomy completed Lala Palomo MD [address] [address], [place], [address], [facility] 10/11/2024 07:49:41 10/11/20 23 Carpal tunnel surgery completed Jade Jeffrey [facility] 11/09/2023 14:25:25 07/13/20 22 Colonoscopy completed Sujey Navarro [facility] 07/31/2022 16:54:25 02/28/20 21 Carpal tunnel surgery completed Lala Palomo MD [address] [address], [place], [address], [facility] 12/15/2022 15:19:58 09/28/20 19 total knee replacement completed Coby Kruse [facility] 09/29/2019 16:10:56 11/29/19 19 mohs surgery completed Lala Palomo MD [address] [address], [place], [address], [facility] 08/07/2020 16:28:26 10/25/19 16 Shoulder joint surgery completed Lala Palomo MD [address], [place], [address], [place] [facility] 08/07/2020 16:28:48 03/25/20 12 Meniscal trnspl knee w/scpe completed Festusjessica Mays [facility] 07/08/2017 13:16:50 10/25/18 95 Iliac bone graft microvasc completed Festus Mays [facility] 07/08/2017 13:15:14 10/25/18 65 Tonsillectomy completed Festus Mays [facility] 07/08/2017 13:16:07 Imaging Results Imaging Date Name Status LastModified by Organization Details LastModified Time 10/08/2023 electrocardiogram completed [email or web address] In-Offi ce Order Internal Use Only DO Not Attach Compendium DO Not Attach Compendium, Do Not Delete/merge, [id number] 10/08/2023 13:27:48 10/08/2023 electrocardiogram completed BONY In-Offi ce Order Internal Use Only DO Not Attach Compendium DO Not Attach Compendium, Do Not Delete/merge, [id number] 10/11/2023 16:04:34 11/19/2023 US, duplex, arterial, lower extremity, complete completed [facility] [address] [facility] [address], [place], [address], 11/22/2023 09:53:03 04/18/2024 duplex scan of extremity veins including responses to compression and other maneuvers; complete bilateral study (PROC) completed [facility] [address], [place], [address], 04/20/2024 07:39:15 05/15/2024 CT, angiogram, abdomen, w/ contrast [email or web address] available 06/21/2024 17:49:28 04/11/2024 US, duplex, venous, lower extremity completed [email or web address] Information not available 06/21/2024 17:49:29 04/03/2024 pulse volume recording (PROC) completed [email or web address] Information not available 06/21/2024 17:47:18 06/28/2024 electrocardiogram completed [email or web address] In-Offi ce Order Internal Use Only DO Not Attach Compendium DO Not Attach Compendium, Do Not Delete/merge, [id number] 06/28/2024 11:48:52 06/28/2024 electrocardiogram completed [email or web address] In-Offi ce Order Internal Use Only DO Not Attach Compendium DO Not Attach Compendium, Do Not Delete/merge, [id number] 06/28/2024 11:48:52 Procedure Notes None recorded. Medical Equipment None Reported. Allergies No known drug allergies Medications Name Sig Start Date Stop Date Status Note LastModified by Organization Details LastModified Time cyclobenz aprine 10 mg tablet 07/12 completed Not Available Not Available Not Available amoxicill in 500 mg capsule TAKE 4 CAPSULES 1 HOUR PRIOR TO DENTAL WORK active Not Available Not Available No t Available atorvasta tin 40 mg tablet TAKE 1 TABLET BY MOUTH DAILY 2023 active Not Available Not Available Not Avai lable acetamino phen 325 mg tablet TAKE 3 TABLETS BY MOUTH EVERY 6 HOURS active Not Available Not Available No t Available atorvasta tin 20 mg tablet Take 1 tablet every day by oral route for 90 days. 12/17 completed Increase d dose to 40 mg Not Available Not Available Not Available trazodone 50 mg tablet TAKE 1 TO 2 TABLETS BY MOUTH AT BEDTIME FOR SLEEP 2023 active Not Available Not Available Not Avai lable azithromy don 250 mg tablet 07/08 completed Not Available Not Available Not Available valacyclo vir 1 gram tablet Take 1 tablet every 8 hours by oral route for 7 days. 11/17 completed Not Available Not Available Not Available Claritin 10 mg tablet Take 1 tablet every day by oral route. active Not Available Not Available No t Available meloxicam 15 mg tablet Take 15 mg by oral route. 02/21 completed Not Available Not Available Not Available sennoside s 8.6 mg-docusa te sodium 50 mg tablet Take 1 {tbl} by oral route. 02/21 completed Not Available Not Available Not Available atenolol 25 mg tablet 02/07 completed Not Available Not Available Not Available penicilli n V potassium 500 mg tablet 11/17 completed Not Available Not Available Not Available acetamino phen 300 mg-codein e 30 mg tablet TAKE 1 TO 2 TABLETS BY MOUTH EVERY 4 TO 6 HOURS NEEDED FOR PAIN 12/21 completed Not Available Not Available Not Available amlodipin e 5 mg tablet 10 mg by oral route. 02/07 completed Not Available Not Available Not Available sulfameth oxazole 800 mg-trimet hoprim 160 mg tablet Take 1 tablet twice a day by oral route for 10 days. 11/17 completed Not Available Not Available Not Available aspirin 81 mg tablet,de layed release Take 81 mg every day by oral route. 2019 active Not Available Not Available Not Avai lable sildenafi l 100 mg tablet TAKE 1 TABLET EVERY DAY BY ORAL ROUTE NEEDED. active Not Available Not Available No t Available triamcino lone acetonide 0.1 % topical cream 02/21 completed Not Available Not Available Not Available amoxicill in 500 mg tablet 02/21 completed Not Available Not Available Not Available meloxicam 7.5 mg tablet Take 1 tablet every day by oral route as directed for 15 days. 12/15 completed rarely uses Not Available Not Available Not Available oxycodone -acetamin ophen 5 mg-325 mg tablet 02/07 completed Not Available Not Available Not Available alprazola m 0.5 mg tablet 12/08 completed Not Available Not Available Not Available Vitamin D3 10 mcg (400 unit) tablet Take 1 tablet every day by oral route. active Not Available Not Available No t Available lorazepam 0.5 mg tablet Take 1 tablet every day by oral route at bedtime for 30 days. 12/17 completed Not Available Not Available Not Available methocarb kirsten 750 mg tablet Take 750 mg every 6 hours by oral route. 02/21 completed Not Available Not Available Not Available ascorbic acid (vitamin C) 500 mg tablet 500 mg by oral route. 02/03 completed Not Available Not Available Not Available amlodipin e 10 mg tablet Take 1 tablet every day by oral route for 90 days, for HTN. 2023 active Not Available Not Available Not Avai lable apple cider vinegar 600 mg capsule Take 1 capsule every day by oral route. active Not Available Not Available No t Available cephalexi n 500 mg capsule 02/07 completed Not Available Not Available Not Available pantopraz ole 40 mg tablet,de layed release Take 40 mg by oral route. 02/21 completed Not Available Not Available Not Available erythromy don 5 mg/gram (0.5 %) eye ointment 02/07 completed Not Available Not Available Not Available docusate sodium 100 mg capsule TAKE 1 CAPSULE BY MOUTH TWICE A DAY FOR 10 DAYS active Not Available Not Available No t Available gabapenti n 300 mg capsule TAKE 1 TAB BY MOUTH AT BEDTIME. MAY INCREASE TO 2 TABS AT BEDTIME IF NEEDED 01/27 completed Not Available Not Available Not Available aspirin 81 mg tablet 81 mg by oral route. 09/29 completed Not Available Not Available Not Available lorazepam 1 mg tablet 1 tablet at Bedtime as needed; max of 45 pills in 90 days 11/17 completed Not Available Not Available Not Available lisinopri l 10 mg-hydroc hlorothia zide 12.5 mg tablet 05/05 completed Not Available Not Available Not Available methylpre dnisolone 4 mg tablets in a dose pack Take 1 dose pk as needed by oral route. 05/05 completed Not Available Not Available Not Available albuterol sulfate HFA 90 mcg/actua tion aerosol inhaler USE 2 INHALATI ONS Q4-6 HOURS PRN 2019 active Not Available Not Available Not Avai lable Vitamin D2 1,250 mcg (50,000 unit) capsule Take 1 capsule every day by oral route. 06/15 completed Not Available Not Available Not Available fluticaso ne propionat e 50 mcg/actua tion nasal spray,rufina pension USE 2 SPRAYS NASALLY DAILY DIRECTED 2023 active Not Available Not Available Not Avai lable doxycycli ne hyclate 100 mg tablet TAKE 2 TABLETS BY MOUTH FOR 1 DAY 02/03 completed Not Available Not Available Not Available atenolol 50 mg tablet TAKE 1 TABLET BY MOUTH DAILY FOR BLOOD PRESSURE 2023 active Not Available Not Available Not Avai lable amoxicill in 875 mg-potass ium clavulana te 125 mg tablet Take 1 tablet every 12 hours by oral route as directed for 10 days. 01/03 completed Not Available Not Available Not Available oxycodone 5 mg tablet TAKE 1 TABLET BY MOUTH EVERY 6 HOURS,X2 DAYS NEEDED FOR SEVERE PAIN active Not Available Not Available No t Available enoxapari n 40 mg/0.4 mL subcutane ous syringe Inject 40 mg every 24 hours by sub-q route. 02/21 completed Not Available Not Available Not Available Multivita min 50 Plus tablet Take 1 tablet every day by oral route as directed . active Not Available Not Available No t Available multivita min po 12/17 completed Not Available Not Available Not Available Baby Aspirin 1qd po 01/27 completed Not Available Not Available Not Available MoviPrep 100 gram-7.5 gram-2.69 1 gram oral powder packet 07/08 completed Not Available Not Available Not Available Symbicort 160 mcg-4.5 mcg/actua tion HFA aerosol inhaler USE 2 INHALATI ONS BY MOUTH TWICE DAILY DIRECTED 2023 active Not Available Not Available Not Avai lable Gavilyte- C 240 gram-22.7 2 gram-6.72 gram-5.84 gram oral solution USE INSTRUCT ED BY PHYSICIA NS OFFICE FOR COLONOSC OPY 12/15 completed Not Available Not Available Not Available Slow-Mag 71.5 mg tablet,de layed release Take 1 tablet twice a day by oral route. active Not Available Not Available No t Available triamcino lone acetonide 0.1 %-emollie nt comb.no.4 5 topical cream twice a day by topical route. active Not Available Not Available No t Available oxycodone 5 mg tablet,or al ONLY (not feeding tubes) Take 5 mg every 4 hours by oral route. 02/21 completed Not Available Not Available Not Available Vitals Date Recorded Body height Body mass index (BMI) Body weight Heart rate Oxygen saturation Oxygen saturation in Arterial blood by Pulse oximetry Body temperature Systolic blood pressure Diastolic blood pressure Provider Name and Address Organization Details Last Updated DateTime 3 177.8 cm 28.3 kg/m2 22865.7 g 64 /min 97 % 97 % 98.1 [degF] 121 mm[Hg] 77 mm[Hg] Ophelia Rodriguez MA [facility] 3 15:10:58 Date Recorded Body height Body mass index (BMI) Body weight Heart rate Oxygen saturation Oxygen saturation in Arterial blood by Pulse oximetry Body temperature Systolic blood pressure Diastolic blood pressure Provider Name and Address Organization Details Last Updated DateTime 3 177.8 cm 27.4 kg/m2 32134.8 4 g 57 /min 96 % 96 % 98.8 [degF] 114 mm[Hg] 72 mm[Hg] Jessica Schultz LPN [facility] 3 13:05:00 Date Recorded Body height Body mass index (BMI) Body weight Heart rate Oxygen saturation Oxygen saturation in Arterial blood by Pulse oximetry Body temperature Systolic blood pressure Diastolic blood pressure Provider Name and Address Organization Details Last Updated DateTime 4 177.8 cm 27.8 kg/m2 53345.9 2 g 64 /min 97 % 97 % 98.3 [degF] 127 mm[Hg] 73 mm[Hg] Kita berger MA [facility] 4 15:34:17 Date Recorded Body height Body mass index (BMI) Body weight Heart rate Oxygen saturation Oxygen saturation in Arterial blood by Pulse oximetry Body temperature Systolic blood pressure Diastolic blood pressure Provider Name and Address Organization Details Last Updated DateTime 4 177.8 cm 28.4 kg/m2 20654.2 9 g 71 /min 97 % 97 % 98.1 [degF] 115 mm[Hg] 75 mm[Hg] Emilia Vargas MA [facility] 4 15:48:00 Date Recorded Body height Body mass index (BMI) Body weight Heart rate Oxygen saturation Oxygen saturation in Arterial blood by Pulse oximetry Body temperature Systolic blood pressure Diastolic blood pressure Provider Name and Address Organization Details Last Updated DateTime 4 177.8 cm 27.8 kg/m2 98092.9 2 g 69 /min 96 % 96 % 97.9 [degF] 97 mm[Hg] 58 mm[Hg] Kita berger MA [facility] 4 10:03:43 Date Recorded Systolic blood pressure Diastolic blood pressure Provider Name and Address Organization Details Last Updated DateTime 06/28/2024 104 mm[Hg] 68 mm[Hg] CALI CORTES [address] [facility] [address], [place], [address], [facility] 06/28/2024 10:23:19 Social History Question Answer Notes LastModified by Organizat ion Details LastModified Time Tobacco Smoking Status Former Smoker Festus Mays mark, [facility] 07/08/2017 13:19:32 Do You Have An Advance Directive? Yes Information not available 12/08/2021 What Is Your Level Of Alcohol Consumption? Moderate 2-3 Servings Daily Information not available 12/21/2023 Is Blood Transfusion Acceptable In An Emergency? Yes Information not available 07/08/2017 What Is Your Level Of Caffeine Consumption? Moderate 1 Cup Of Coffee Daily Information not available 12/08/2021 How Much Tobacco Do You Chew? None Information not available 07/08/2017 Are You Currently Employed? Yes Information not available 07/08/2017 What Type Of Diet Are You Following? REGULAR Information not available 07/08/2017 Which Illicit Or Recreational Drugs Have You Used? Marijuana Information not available 07/08/2017 Do You Or Have You Ever Used E-cigarettes Or Vape? 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 11-15yearssin олегastciamy aldridge Information not available 06/20/2024 Do You Take Precautions To Prevent Distracted Driving? Yes [employer] Information not available 07/08/2017 How Often Do You Need To Have Someone Help You When You Read Instructions, Pamphlets, Or Other Written Material From Your Doctor Or Pharmacy? Never Information not available 07/08/2017 Have You Served In The ? No [employer] Information not available 07/08/2017 Have You Or Anyone In Your Household Had Any Of The Following Symptoms In The Last 14 Days: Sore Throat, Cough, Chills, Body Aches For Unknown Reasons, Shortness Of Breath For Unknown Reasons, Loss Of Smell, Loss Of Taste, Fever At Or Greater Than 100 Degrees Fahrenheit? No [email or web address] Information not available 08/07/2020 Are You Or Anyone In Your Household A Health Care Provider Or Emergency Responder? No Information not available 08/07/2020 To The Best Of Your Knowledge Have You Been In Close Proximity To Any Individual Who Tested Positive For COVID-19? No [email or web address] Information not available 08/07/2020 Have You Recently Traveled To A COVID-19 High Risk Area Or Gathering In The Last 10 Days? No [email or web address] Information not available 02/04/2021 What Was The Date Of Your Most Recent Tobacco Screening? 06/28/2024 Information not available 06/28/2024 How Many Children Do You Have? 2 Rayna Information not available 12/21/2023 Do You Use Protection During Sex? No Information not available 07/08/2017 Do You Use Your Seat Belt Or Car Seat Routinely? Yes Information not available 12/08/2021 Are You Sexually Active? Yes Shilpa Information not available 12/21/2023 Do You Have Smoke And Carbon Monoxide Detectors In Your Home? Yes Information not available 12/08/2021 At What Age Did You Start Smoking Tobacco? 27 Information not available 06/20/2024 Are You Passively Exposed To Smoke? No Information not available 07/08/2017 Do You Or Have You Ever Used Smokeless Tobacco? Never Used Smokeless Tobacco Information not available 08/01/2019 How Much Tobacco Do You Smoke? 1 PPD Information not available 12/08/2021 Do You Use Any Illicit Or Recreational Drugs? Yes Information not available 12/21/2023 Do You Use Sunscreen Routinely? Yes Information not available 07/08/2017 How Many Years Have You Smoked Tobacco? 28 Information not available 06/20/2024 Do You Or Have You Ever Used Any Other Forms Of Tobacco Or Nicotine? No Information not available 12/08/2021 Sex: Unknown Functional Status Question Answer Note LastModified by Organizat ion Details LastModified Time Are you able to walk? YESWOREST [email or web address] Information not available 12/08/2021 Are you able to care for yourself? Yes sherrie Information not available 07/08/2017 What is your exercise level? Moderate walking and biking Information not available 12/21/2023 Mental Status None recorded. Family History Relationship Description Onset Age of this Age Resolved Age Notes LastModified by Organization Details LastModified Time Father Myocardial infarction 73 Not available 06/20 15:44:02 Mother History of malignant lymphoma 91 born [birth year] Not available 06/20/2024 15:44:02 Sister Graves' disease #2 Not available 2023 15:44:02 Sister Multiple sclerosis #1 [email or web address] Not available 07/25 16:24:31 Medical History Condition Response Varicose Veins Y Arthritis Y Head Injury/Concussion Y Cancer Y Hypertension Y Asthma Y Allergies Y Chicken Pox Y Immunizations Vaccine Type Date Status Note Provider Nam e and Address Organization Details Recorded Time COVID-19, mRNA, LNP-S, PF, 30 mcg/0.3 mL dose 12/30/19 21 [facility] 14:26:29 COVID-19, mRNA, LNP-S, PF, 30 mcg/0.3 mL dose 01/20/20 21 completed RAFFY Manzanares, [facility] 10/15/2021 14:26:29 Hep A, adult 03/05/20 21 completed RAFFY Duarte, [facility] 03/24/2022 13:29:12 COVID-19, mRNA, LNP-S, PF, 30 mcg/0.3 mL dose 08/01/20 21 completed RAFFY Manzanares, [facility] 10/15/2021 14:26:29 MMR 03/05/20 21 completed RAFFY Manzanares, [facility] 10/15/2021 14:26:29 zoster recombinant 06/24/20 20 completed RAFFY Manzanares, [facility] 10/15/2021 14:26:29 Hep A-Hep B 08/18/20 completed RAFFY Manzanares, [facility] 10/15/2021 14:26:30 Influenza, split virus, quadrivalent, PF 08/01/20 21 completed RAFFY Manzanares, [facility] 10/15/2021 14:26:30 zoster recombinant 12/01/19 20 completed RAFFY Manzanares, [facility] 10/15/2021 14:26:30 typhoid, ViCPs 03/05/20 [facility]/15[facility] 14:26:30 COVID-19, mRNA, LNP-S, PF, 100 mcg/0.5mL dose or 50 mcg/0.25mL dose 03/02/20 22 completed RAFFY Duarte, [facility] 03/24/2022 13:29:12 Influenza, MDCK, quadrivalent, PF 08/17/20 22 [facility] 06/15/2023 15:05:13 COVID-19, mRNA, LNP-S, bivalent, PF, 50 mcg/0.5 mL or 25mcg/0.25 mL dose 08/17/20 22 completed RAFFY Manzanares, [facility] 06/15/2023 15:05:13 Influenza, MDCK, quadrivalent, PF 09/13/20 23 [facility] 12/21/2023 15:34:31 COVID-19, mRNA, LNP-S, PF, 50 mcg/0.5 mL 09/13/20 23 [facility] 12/21/2023 15:34:31 Influenza, high-dose, trivalent, PF 06/22/20 24 [facility] 06/28/2024 10:04:07 Tdap 07/08/20 17 completed Not Available [facility] 11/11/2019 02:21:46 Influenza, split virus, quadrivalent, PF 07/12/20 18 cancelled patient objection Not Available [facility] 11/11/2019 02:22:16 Influenza, split virus, quadrivalent, PF 08/07/20 20 completed Lala Palomo MD [address] [address], [place], [address], [facility] 08/07/2020 16:21:07 Past Encounters Encounter ID Performer Location Encounter Start Date Encounter Closed Date Diagnosis/Indication Diagnosis SNOMED-CT Code Diagnosis ICD10 Code Diagnosis Note [id number] Lala Palomo MD Main Office [address] [address] 07/08/2017 12:45:57 07/08/2017 14:17:51 Administration of viral vaccine 47115002 Z23 Asthma 393513722 J45.90 9 Insomnia 841899328 G47.0 0 Adult heal th examination 515304273 Z00.00 We will update his immunizati ons. He had a colonoscop y did in March and is due again in 2021. His last cholestero l was mildly elevated and his 10-risk for cardiac disease was calculated to be 7.1% therefore no meds recommende d. Screening for malignant neoplasm of lung 938788529 Z12.2 [id number] Lala Palomo MD Main Office [address] [address] 08/17/2017 15:39:32 08/17/2017 16:05:39 Multiple joint pain 93314039 M25.50 If his symptoms persist and his w/u is negative he will call her and we will consider a rheum referral. Heart murmur 67453097 R0 1.1 [id number] Lala Palomo MD Main Office [address] [address] 12/17/2017 15:10:36 12/17/2017 15:56:30 Otitis media 58121329 H66.91 right sided, no fb noted in ear canal, no cerumen impaction. Augmentin as directed x full 10 days, hydration, start flonase daily. Posterior rhinorrhea 758 73011 R09.82 Elevated blood-pressure reading without diagnosis of hypertension 580740227 R03.0 [id number] Lala Palomo MD Main Office [address] [address] [place] [address] 01/03/2018 08:58:14 01/03/2018 10:52:08 Elevated blood-pressure reading without diagnosis of hypertension 224907548 R03.0 We will look into 24-hour monitoring before starting meds. [id number] Lala Palomo MD Main Office [address] [address] [place] [address] 01/12/2018 09:20:53 01/12/2018 11:17:59 Upper respiratory infection 85066740 J06.9 Wheezing 61908581 R06.2 continue rescue inhaler every 4-6 hrs. [id number] Lala Palomo MD Main Office [address] [address] [place] [address] 01/27/2018 15:16:25 01/27/2018 15:58:21 Asthma 978995558 J45.909 We will add a controller to his regimen and he will cut back on the use of his rescue inhaler. Insomnia 512792414 G47.0 0 Elevated blood-pressure reading without diagnosis of hypertension 259140666 R03.0 We will look into 24-hour monitoring before starting meds. [id number] Lala Palomo MD Main Office [address] [address] [place] [address] 05/05/2018 12:42:49 05/05/2018 13:33:08 Dysfunction of eustachian tube 43299025 H69.83 [id number] Lala Palomo MD Main Office [address] [address] [place] [address] 07/12/2018 15:37:26 07/12/2018 16:35:58 Adult health examination 839280295 Z00.00 We will update his immunizati ons. He had a colonoscop y in March 2017 and is due again in [address] Grimaldo. His last cholestero l was mildly elevated and his 10-risk for cardiac disease was calculated to be 7.1%. We will recheck today. Dysfunctio n of eustachian tube 81915253 H69.83 Followed by ENT Needs infl uenza immunization 493356375 Z23 Essential hypertension 96325367 I10 Stable on meds; continue current mgmt Insomnia 917934843 G47.0 0 [id number] Lala Palomo MD Main Office [address] [facility] [address] [place] [address] 07/26/2018 08:50:37 07/26/2018 09:37:43 Herpes zoster with complication 13614080 B02.8 Paronychia of finger 444 255817 L03.011 Advised to soak in warm water and continue abx and make a hand surgery appointmen t if not improving [id number] Bri Burroughs Main Office [address] [facility] [address] [place] [address] 11/17/2018 13:38:59 11/17/2018 14:34:03 Pre-surgery evaluation 107832453 Z01.818 Insomnia 130456182 G47.0 0 Basal cell carcinoma of skin 433946184 C44.91 Essential hypertension 38403158 I10 Stable on meds; continue current mgmt [id number] Lala Palomo MD Main Office [address] [facility] [address] [place] [address] 02/07/2019 10:14:24 02/07/2019 11:01:17 Essential hypertension 60625835 I10 Stable on meds; continue current mgmt Insomnia 595810065 G47.0 0 Osteoarthr itis of left knee joint 0377637618 86205 M17.12 Scheduled for TKR February [address] Pereyra Primary er ectile dysfunction 966167795 N52.9 Systolic murmur 79879336 R01.1 [id number] Lala Palomo MD Main Office [address] [facility] [address] [place] [address] 03/27/2019 10:41:43 03/27/2019 11:13:19 Heart murmur 02246814 R01.1 Normal ECHO. No further w/u needed. [id number] Lala Palomo MD Main Office [address] [facility] [address] [place] [address] 08/01/2019 15:39:14 08/01/2019 16:25:39 Adult health examination 605318443 Z00.00 UTD with immunizati ons. He had a colonoscop y in March 2017 and is due again in [address] Grimaldo. Essential hypertension 50022531 I10 Stable on meds; continue current mgmt Insomnia 607132212 G47.0 0 Primary er ectile dysfunction 409250299 N52.9 Uses sildenafil prn [id number] Lala Palomo MD Main Office [address] [facility] [address] [place] [address] 02/22/2020 13:06:12 02/23/2020 13:07:41 Essential hypertension 35109806 I10 Stable on meds; continue current mgmt. We will take over the prescribin g from renal. Asthma 184921336 J45.90 9 Doing well with the controller med. Will refill the rescue inhaler. Insomnia 693453528 G47.0 0 Stable with current mgmt. Allergic rhinitis 522604 04 J30.9 Doing well with current meds. [id number] Patricia Hogan PA-C [facility] [address] [facility] [address] [place] [address] 04/29/2020 09:01:21 04/29/2020 13:50:54 Injury of foot 301535307 S99.921A xray to r/o fracture. Elevated foot and ice every 3 hrs for 20 minutes and take OTC pain meds. [id number] Bri Burroughs Main Office [address] [address] [place] [address] 08/07/2020 15:35:15 08/07/2020 16:51:28 Adult health examination 782796317 Z00.00 Due for a flu shot. He had a colonoscop y in March 2017 and is due again in [address] Grimaldo. His father had prostate cancer. Needs infl uenza immunization 291797174 Z23 Allergic rhinitis 654476 04 J30.9 Doing well with current meds. Essential hypertension 82157858 I10 Stable on meds; continue current mgmt. Pain of left wrist 00276 12985 08013 M25.532 [id number] Suni Suárez Main Office [address] [address] [place] [address] 09/25/2020 09:41:51 09/25/2020 11:49:58 Insect bite to leg - nonvenomous 584058082 S80.861A bite right leg, will do 1 day tx for lyme and followup with test in a few weeks, call if any joint pain, fevers or rashes. [id number] Lala Palomo MD Main Office [address] [address] [place] [address] 02/04/2021 15:14:38 02/04/2021 16:00:51 Essential hypertension 29137106 I10 Stable on meds; continue current mgmt. Primary er ectile dysfunction 790122278 N52.9 Uses sildenafil prn Allergic rhinitis 038874 04 J30.9 Doing well with current meds. 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 Asthma 779384564 J45.90 9 Doing well with the controller med. Insomnia 324401558 G47.0 0 Stable with current mgmt. [id number] Lala Palomo MD Main Office [address] [address] [place] [address] 12/08/2021 13:19:05 12/08/2021 14:29:30 Adult health examination 881203192 Z00.00 He is UTD with COVID vaccines and booster and we have a record of this. He also states that he had a flu vaccine at the same time and we will check on this. He had a colonoscop y in March 2017 and is due again in this year by Dr Grimaldo. His father had prostate cancer. Asthma 257024085 J45.90 9 Doing well with the controller med and rarely uses his rescue inhaler. Essential hypertension 77387758 I10 Stable on meds; continue current mgmt. Insomnia 766505921 G47.0 0 Stable with current mgmt. Primary er ectile dysfunction 347161647 N52.9 Uses sildenafil prn Intermitte nt claudication 04934132 I73.9 Possible dx given his symptoms. We will refer to vascular for further evaluation . Nocturia 563428530 R35.1 Dad had a h/o prostate cancer. Screening for malignant neoplasm of colon 331394628 Z12.11 [id number] eDvan Hogan PA-C [facility] [address] [facility] [address] [place] [address] 03/24/2022 10:40:47 03/24/2022 15:34:35 Insect bite, nonvenomous, of thigh 286315379 S70.362A low suspicion for lyme since no tick embedded/r emoved, bites noticed ~ 24 hours later (not embedded 36-48 hours) -- reassured likely a spider bite, apply triple abx ointment 1-2x/day until healed, and pt requests check lyme titer next month which is not fully unreasonab le to give pt peace of mind [id number] Bri Burroughs Main Office [address] [address] [place] [address] 12/15/2022 14:22:44 12/15/2022 15:52:01 Adult health examination 903892127 Z00.00 He is UTD with COVID vaccines and booster and we have a record of this. He also states that he had a flu vaccine at the same time and we will check on this. He had a colonoscop y in June 2022 and is [place] again [place] [address] Grimaldo. His father had prostate cancer. History of SARS-CoV-2 29 87683691 37848376 Z86.16 Mild symptoms. Did not take paxlovid. Intermitte nt claudication 92729497 I73.9 Has a f/u with vascular. Impacted c erumen of bilateral ears 2579985874 087486 H61.23 Essential hypertension 56965902 I10 Stable on meds; continue current mgmt. Hyperlipidemia 42790505 E78.5 On meds and tolerating them well. His last LDL was not at goal. Asthma 006347535 J45.90 9 Doing well with the controller med and rarely uses his rescue inhaler. He understand s to call if he needs his rescue inhaler more than a few times a week. [id number] Lala Palomo MD Main Office [address] [address] [place] [address] 06/15/2023 14:58:20 06/15/2023 15:44:44 Essential hypertension 97818818 I10 Stable on meds; continue current mgmt. Anemia 876192049 D64.9 Will do further blood work to be sure that this is not getting worse and to characteri ze type of anemia. It is possible that alcohol is playing a role since he has more than 2 drinks a day. [id number] Lala Palomo MD Main Office [address] [place] [address] 10/08/2023 12:53:56 10/08/2023 13:29:15 Essential hypertension 85343068 I10 -on amlodipine 10mg daily and atenolol 50mg daily Asthma 468175990 J45.90 9 well controlled with inhalers Pre-surger y evaluation 517999422 Z01.818 pre-operat torin medical clearance for carpal tunnel release with Dr. Anil Coburn at [facility] on 10/11/2023 -will order CBC, chem 7, PT/INR-no cardiac events in the past 3 months-ekg unremarkab le, mild bradycardi c at 53bpm. RRR, no ST changes. [id number] Lala Palomo MD Main Office [address] [facility] [place] [address] 12/21/2023 15:11:52 12/21/2023 16:20:12 Adult health examination [id number] Z00.00 He is UTD with COVID vaccines and booster and we have a record of this. He also states that he had a flu vaccine at the same time and we will check on this. He had a colonoscop y in June 2022 and is due again in [address] Grimaldo. His father had prostate cancer. Nocturia [id number] R35.1 Dad had a h/o prostate cancer. Essential hypertension [id number] I10 Stable on meds; continue current mgmt. Hyperlipidemia 30848840 E78.5 On meds and tolerating them well. His last LDL was not at goal. Primary er ectile dysfunction [id number] N52.9 Uses sildenafil prn Peripheral venous insufficiency [id number] I87.2 Seen by =vascular and will be having procedures done. [id number] Lala Palomo MD Main Office [address] [place] [address] 06/20/2024 15:40:14 06/20/2024 16:09:01 Essential hypertension [id number] I10 Stable on meds; continue current mgmt. Hyperlipidemia 44929716 E78.5 On meds and tolerating them well. His last LDL was not at goal. Insomnia [id number] G47.0 0 Stable with current mgmt. [id number] CALI CORTES Main Office [address] [place] [address] 06/28/2024 09:45:42 06/28/2024 10:27:19 Pre-surgery evaluation [id number] Z01.818 No medical contraindi cations to proposed procedure. Reji Perioperat torin Cardiac Risk was calculated and the risk for perioperat torin [place] is 0.2%. May proceed to surgery as planned.-o rdered CMP and CBC w/diff-EKG ; NSR, similar when compared to ekg from 09/2023; no cardiac symptoms Essential hypertension [id number] I10 -on amlodipine 10mg daily and atenolol 50mg daily Peripheral venous insufficiency 71088350 I87.2 pre-operat torin medical clearance for bilateral common femoral artery endarterec kevin with Dr. Jeffy Puente ( ) on 07/10/2024. Health Concerns Section Related Observation LastModified by Organization Detai ls LastModified Time None Recorded Concern Status LastModified by Organization Details LastModified Time None Recorded Advance Directives Directive Y: Payers Encounter Date Sequence Insurance Name Policy Number Policy Hsieh Covered Member ID Hsieh Member ID Guarantor Name 06/15/2023 1 [place] [id number] 2 Christopher Pankaj [id number] Christopher Pankaj 10/08/2023 1 [place] [id number] 2 Christopher Pankaj [id number] Christopher Pankaj 12/21/2023 1 [place] [id number] 2 Christopher Pankaj [id number] Christopher Pankaj 06/20/2024 1 [place] [id number] 2 Eren Lira [id number] Eren Lira 06/28/2024 1 [place] [id number] 2 Eren Lira [id number] Eren Lira Notes Date Note Type Note Provider Name and Address Organization Details Recorded Time 06/15/20 text/htm l AnemiaReported bypatient.Severity:Normocytic 80Context:previous Hemoglobin:(13.2);previous Hematocrit:(37.6) Associated Symptoms:no shortness of breath; no chest pain; no abdominal pain; no nausea; no melena; no blood in stool; no fatigue; no palpitations; no nonfood cravings; no jaundice; no pallor; no weight loss Prior Tests:lower endoscopy (colonoscopy done 1 year ago with a 3-year call back.)Hypertension F/UReported bypatient.Associated Symptoms:no dizziness; no lightheadedness; no chest pain; no shortness of breath; no palpitations; no edema; no calf pain with exertion Lifestyle:limiting/avoiding salt;not exercising regularly Medications:taking medications as directed; no side effects from medication Lala Palomo MD [address], [address], [facility] 06/15/2023 17:18:56 10/08/20 23 text/htm keith Jason is a 63 yr old M with PMHx of HTN, HLD, and asthma presents for pre-operative medical clearance for carpal tunnel release with Dr. Anil Coburn at [facility] on 10/11/2023. Under local anesthesia. Denies any acute complaints at this time. Denies of any recent cardiac events. Pt and daughter will be driving pt to and from surgery center and aid with recovery period. Denies allergies, and has tolerated anesthesia in the past without complications. The patient does follow w/ Cardiology (Dr. Puente) and notes that he can walk multiple blocks and has no limitations with going up multiple flights of stairs before becoming symptomatic METS score ~ > 4. The patient currently denies chest pain, shortness of breath, palpitations, fever, chills, and nausea/vomiting. Lala Palomo MD [address] [facility] [address], [place], [address], [facility] 10/10/2023 14:24:18 12/21/19 24 text/htm l Generic HPI TemplateReported bypatient.Notes:UTD with immunizations including COVID with most recent booster, flu, tetanus, and shingles.Colonoscopy done by Dr Grimaldo in June 2022 with a 3-year call back. Lala Palomo MD [address] [facility] [address], [place], [address], [facility] 12/22/2023 07:56:32 06/20/20 24 text/htm l HyperlipidemiaReported bypatient.Type of hyperlipidemia:hypercholestero lemia Duration:chronic Control:usually well controlled; at goal Current Therapy:currently taking: (atorvastatin 40 mg); last cholesterol level: (153); last LDL level: (75); last triglyceride level: (85); last HDL level: (62); last non HDL level: (91) Compliance:compliant;does not exercise Complications:no coronary artery disease; no cardiovascular disease;peripheral artery disease Risk Factors:hypertensionHypertensi on F/UReported bypatient.Associated Symptoms:no dizziness; no lightheadedness; no chest pain; no shortness of breath; no palpitations; no edema; no calf pain with exertion Lifestyle:limiting/avoiding salt;not exercising regularly Medications:taking medications as directed; no side effects from medicationInsomniaReported bypatient.Severity:same Duration:frequent Modifying Factors:prescription medication Associated Symptoms:no anxiety; no snoring; no depression; no known sleep apnea Lala Palomo MD [address] [facility] [address], [place], [address], [facility] 06/20/2024 17:31:05 06/28/20 24 text/htm keith Jason is a 64yr old M who presents for pre-operative medical clearance for bilateral common femoral artery endarterectomy with Dr. Jeffy Puente ( ) on 07/10/2024. Denies any acute complaints at this time. Denies of any recent cardiac events. Pt will be driving pt to and from surgery center and aid with recovery period. Denies allergies, and has tolerated anesthesia in the past without complications. The patient does follow w/ Cardiology (Dr. Puente) and notes that he can walk multiple blocks and has no limitations with going up multiple flights of stairs before becoming symptomatic METS score ~ > 4. The patient currently denies chest pain, shortness of breath, palpitations, fever, chills, and nausea/vomiting. CALI CORTES [address] [facility] [address], [place], [address], [facility] 06/28/2024 12:28:13
--- OUTSIDE RECORDS SUMMARY | 2024-11-21 12:47 | XMS_ITS | Clinical Summary ---
Author Organization [facility] Address [address] [place] [address] Care Team Providers Care Television Parts Tester Name Role Phone Unavailable Primary Care Provider Unavailabl e Allergies No known active allergies Medications No known medications Active Problems Problem Noted Date Diagnosed Date Carpal tunnel syndrome of right wrist 10/04/2023 Family History Medical History Relation Name Comments Heart disease Father Cancer Mother Relation Name Status Comments Father Mother Social History Tobacco Use Types Packs/Day Years Used Date Smoking Tobacco: Former Cigarettes Q uit: 2007 Smokeless Tobacco: Never Tobacco Cessation:Counseling Given: Not Answered Sex and Gender Information Value Date Recorded Sex Assigned at Male 09/17/2023 9:46 AM EST Gender Identity Male 09/17/2023 9:46 AM EST Sexual Orientation Heterosexual (straight) 09/17 9:46 AM EST Plan of Treatment Health Maintenance Due Date Last Done Comments Hepatitis C Virus Screening 1960 HIV Screening 01/16/1972 DTaP/Tdap/Td Vaccines (1 - Tdap) 1978 Colonoscopy 01/16/2004 Pneumococcal Vaccines 50+ (1 of 1 - PCV) 2009 Zoster (Shingles) Vaccine (1 of 2) 2009 Influenza Vaccine 05/25/2024 08/17/2022, , 08/07/2020 COVID-19 Vaccine (2023- season) 2024 08/17/2022, 03/02/2022, 08/01/2021, Additional history exists RSV Vaccine 60 years and older and Patients (1 - 1-dose 75+ series) 2034 Hepatitis B Vaccines Aged Out No long er eligible based on patient's age to complete this topic
== END 2024-11-21 11:51 | disposition home or self-care (01) ==
PROVIDERS: PCP Internal Medicine; Visit Provider Orthopaedic Surgery
DX: S83.241A Other tear of medial meniscus, current injury, right knee, initial encounter (principal)
CPT/HCPCS: 99213

== ENCOUNTER → 2024-11-21 11:30 | Outpatient (BNVA) | payer BC, SELFPAY | PROVIDERS: PCP Internal Medicine; Visit Provider Orthopaedic Surgery ==

== ENCOUNTER 2024-12-07 17:39 | Outpatient (REF) | payer BC, SELFPAY ==
--- NOTE | ~2024-12-07 | MR_ITS ---
EXAMINATION: MRI RIGHT KNEE WITHOUT CONTRAST HISTORY: S83.241A - Other tear of medial meniscus, current injury, right knee COMPARISON: Correlation is made to plain films of the right knee dated 04/13/2024. TECHNIQUE: Coronal T1 and fat-suppressed proton density, sagittal proton density and fat-suppressed proton density, and axial fat suppressed T2 weighted MR images of the right knee were obtained. FINDINGS: Bone marrow: Bone marrow signal intensity is normal. Joint effusion: There is a moderate suprapatellar joint effusion. Main's cyst: There is no Main's cyst. Articular cartilage: There is severe cartilage loss involving the medial compartment with small osteophyte formation. The cartilage of the lateral and patellofemoral compartments is preserved. Muscles/soft tissues: The visualized muscles demonstrate normal signal intensity. Anterior cruciate ligament: The anterior cruciate ligament is enlarged and demonstrates increased signal intensity consistent with a partial tear. This may be chronic. There is a 1.6 x 1.3 x 1.8 cm multiseptated cystic structure associated with the anterior aspect of the ACL, compatible with a ganglion cyst. Posterior cruciate ligament: Intact Medial collateral ligament: Intact Lateral collateral ligament: Intact Medial meniscus: The medial meniscus is diminutive in size and markedly irregular in shape demonstrating increased signal intensity, compatible with a tear which is likely degenerative in nature. This largely affects the body. Lateral meniscus: Intact Flexor mechanism: The popliteus, gastrocnemius, and hamstring tendons are intact. Quadriceps tendon: Intact Patellar tendon: Intact Patellar retinacula: Intact MR/MR knee RT wo con IMPRESSION: 1. Severe osteoarthritis of the medial compartment. Moderate suprapatellar joint effusion. 2. 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 3. Degenerative tear of the medial meniscus. Electronically signed by: Hadley Nobles MD 12/08/2024 07:30 AM [facility] [place]
--- OUTSIDE RECORDS SUMMARY | 2024-12-07 17:43 | XMS_ITS | Clinical Summary ---
Author Organization [facility] Address [address] [place] [address] Care Team Providers Care Multigraph Operator Name Role Phone Niraj Palomo MD Primary Care Provider [phone] Surgical History Surgery Date Site/Laterality Comments KNEE SURGERY PROCEDURE:KNEE SURGERY;COMMENT:left HAND SURGERY PROCEDURE:HAND SURGERY;COMMENT:lt wrist- iliac bone graft LIPOMA RESECTION PROCEDURE:LIPOMA RESECTION COLONOSCOPY PROCEDURE:COLONOSCOPY SHOULDER ARTHROSCOPY W/ ROTATOR CUFF REPAIR 04/10/2015 Right PROCEDURE:SHOULDER ARTHROSCOPY W/ ROTATOR CUFF REPAIR;COMMENT:Procedure: ARTHROSCOPY SHOULDER WITH ROTATOR CUFF REPAIR; Surgeon: Spenser Gaspar MD; Location: [facility]; Service: Orthopedics; Laterality: Right; SHOULDER ARTHROSCOPY 04/10/2015 Right PROCEDURE:SHOULDER ARTHROSCOPY;COMMENT:Procedure : ARTHROSCOPY SHOULDER AC EXCISION; Surgeon: Spenser Gaspar MD; Location: [facility]; Service: Orthopedics; Laterality: Right; OTHER SURGICAL HISTORY Right PROCEDURE:MOHS SURGERY;COMMENT:EYELID TOTAL KNEE ARTHROPLASTY 09/28/2019 Left PROCEDURE:TOTAL KNEE ARTHROPLASTY;COMMENT:Procedur e: REPLACEMENT TOTAL KNEE; Surgeon: Alexi Burrell MD; Location: [facility] Service: Orthopedics; Laterality: [...] at Not on file Legal Sex Male 1:49 AM EST Gender Identity Not on file Sexual [...] 10/02/2022 Falls Risk Assessment 01/16/2024 Pneumococcal Vaccine: 50+ Years (1 of 1 - PCV) 01/16/2024 [...] this topic Medical Devices Implanted Type Area Implementation Project Manager Device Identifier Shelf Expiration Date Model / Serial / Lot Tibial Bearing Insert - Ps Implanted:Qty: 1 on 09/28/2019 by Alexi Burrell MD Joints Left: Knee [employer] 07/19/2023 / / [id number] Cement Simplex P Radiopaque Full Dose Bone 10 Pack - [id number] Implanted:Qty: 1 on 09/28/2019 by Alexi Burrell MD Left: Knee [employer] 6191-1-010 / / Cement Simplex P Radiopaque Full Dose Bone 10 Pack - [id number] Implanted:Qty: 1 on 09/28/2019 by Alexi Burrell MD Left: Knee [employer] 6191-1-010 / / Component Triathlon 5 Posterior Stabilized Cemented Femoral - [id number] Implanted:Qty: 1 on 09/28/2019 by Alexi Burrell MD Left: Knee [employer] 03/07/2024 5515-F-501 / / [id number] Baseplate Triathlon 6 Primary Cemented Tibial Knee - [id number] Implanted:Qty: 1 on 09/28/2019 by Alexi Burrell MD Left: Knee [employer] 02/28/2024 5520-B-600 / / [id number] Component Triathlon 10mm 35mm Symmetric X3 Ptlar Knee - [id number] Implanted:Qty: 1 on 09/28/2019 by Alexi Burrell MD Left: Knee [employer] 01/10/2024 5551-G-350 / / [id number] Peg Triathlon Modular Fix Distal Femur Knee - [id number] Implanted:Qty: 1 on 09/28/2019 by Alexi Burrell MD Left: Knee [employer] 04/23/2024 5575-X-000 / / [id number] Care Teams Multigraph Operator Relationship Specialty Start Date End Date Niraj Palomo MD [address] PCP - General Internal Medicine 09/20/19
--- OUTSIDE RECORDS SUMMARY | 2024-12-07 17:43 | XMS_ITS | Data Portability ---
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 The injection has been helpful. He is pleased. There are no complaints. EXAMINATION OF THE LEFT WRIST: Skin is intact. No appreciable swelling. Mild prominence dorsal radial carpus. No significant tenderness throughout the carpus. Range of motion limited. Forearm rotation good. Neurovascular status is intact. RADIOGRAPHS: None DISCUSSION: The patient has responded to the injection. He is aware this is not a permanent solution and symptoms may recur. We have discussed surgical options for the future including total wrist arthroplasty which he is inclined to proceed with, so he can continue playing his guitar. For now, he is not scheduled for any reevaluation. If and when symptoms recur, he will return to the office for reevaluation. [email or web address] Not available 04/06/2023 10:22:34 09/15/2023 09/15/2023 INTERIM HISTORY: The patient presents today for evaluation pain and numbness right hand and wrist. Symptoms began 1 month ago. He complains of discomfort in the right wrist as well as numbness in all the digits in the right hand. He has nocturnal symptoms. No history of neck or elbow discomfort. No history of any precipitating event or trauma to account for the symptoms. He has been evaluated treated for left carpal tunnel syndrome years ago and underwent surgical release which was successful. 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 EXAMINATION OF THE RIGHT UPPER EXTREMITY: Skin is intact. There is a full functional range of motion of the cervical spine, shoulder, elbow, forearm, wrist, fingers and thumb. There is no swelling. There are no scars or skin abnormalities. The elbow reveals no tenderness at the medial epicondyle. There is no tenderness along the course of the ulnar nerve, and there is no subluxation of the ulnar nerve. There is no tenderness at the lateral epicondyle or at the origin of the extensor musculature. There is no tenderness at the proximal extent of the supinator muscle. There is no tenderness or crepitus at the radial head. There is no tenderness at the olecranon or the olecranon fossa. There is no tenderness along the biceps and triceps tendons. The elbow is stable. The forearm reveals no tenderness throughout the flexor pronator mass. There is no tenderness along the course of the median nerve in the proximal/mid forearm. There is no tenderness along the flexor carpi radialis, the flexor carpi ulnaris and the extensor carpi ulnaris. There is no tenderness over the first extensor compartment and the Nasir's test is negative. There is no evidence for an intersection syndrome.There is no tenderness at the shafts of the radius and ulna. There is no tenderness along the interosseous membrane. The wrist reveals no tenderness at the radial styloid or the distal radius. There is no tenderness or instability at the distal radioulnar joint. There is no tenderness at the ulnar styloid. There is no tenderness at the STT joint. There is no tenderness at the scaphoid. There is no tenderness or instability at the scapholunate joint. There is no tenderness over the lunate. There is no tenderness or instability at the lunotriquetral joint. There is no tenderness at the ulnocarpal joint. There is no tenderness at the pisiform or the pisotriquetral joint. There is no tenderness at the scaphoid tubercle or the hook of the hamate. There is no tenderness at the CMC joint of the thumb or the CMC joints of the digits. The hand reveals no tenderness in the region of the A1 pulleys of the fingers and thumb. There is no triggering or locking. There is no tenderness or instability at the MCP or IP joints. There is no tenderness throughout the metacarpal and thenar regions. The remainder of the hand is unremarkable. There is good strength throughout the upper extremity. There is no thenar or intrinsic muscle weakness or atrophy. There is no Tinel's sign over the median nerve at the wrist, and the Phalen's test is positive. There is no Tinel's sign over the median nerve in the proximal forearm, and there is no tenderness along the median nerve in the proximal forearm. There is no Tinel's sign over the ulnar nerve at the elbow and wrist. There is no evidence for a radial tunnel syndrome. All provocative testing for a thoracic outlet syndrome is negative. The biceps, triceps, and brachioradialis reflexes are present. Neurovascular status is intact. RADIOGRAPHS: Radiographs of the right wrist are obtained today. PA, lateral and oblique projections reveal widening at the scapholunate interval. VISI deformity lunate. Palmar flexion scaphoid. No significant degenerative changes. DIAGNOSIS: Right carpal tunnel syndrome DISCUSSION: The diagnosis and condition are explained to the patient in detail. Treatment options are discussed. The patient elects to proceed with an electrodiagnostic study to evaluate the right carpal tunnel syndrome. He will return when the study is completed. Not available 09/15/2023 14:05:11 10/05/2023 10/05/2023 INTERIM HISTORY: The patient returns after completing the electrodiagnostic study to evaluate the left carpal tunnel syndrome. Symptoms related to the carpal tunnel syndrome persist particularly the numbness in the left hand and the nocturnal symptoms. EXAMINATION OF THE LEFT UPPER EXTREMITY: Skin is intact. There is a full functional range of motion of the cervical spine, shoulder, elbow, forearm, wrist, fingers and thumb. There is no swelling. There are no scars or skin abnormalities. The elbow reveals no tenderness at the medial epicondyle. There is no tenderness along the course of the ulnar nerve, and there is no subluxation of the ulnar nerve. There is no tenderness at the lateral epicondyle or at the origin of the extensor musculature. There is no tenderness at the proximal extent of the supinator muscle. There is no tenderness or crepitus at the radial head. There is no tenderness at the olecranon or the olecranon fossa. There is no tenderness along the biceps and triceps tendons. The elbow is stable. The forearm reveals no tenderness throughout the flexor pronator mass. There is no tenderness along the course of the median nerve in the proximal/mid forearm. There is no tenderness along the flexor carpi radialis, the flexor carpi ulnaris and the extensor carpi ulnaris. There is no tenderness over the first extensor compartment and the Nasir's test is negative. There is no evidence for an intersection syndrome.There is no tenderness at the shafts of the radius and ulna. There is no tenderness along the interosseous membrane. The wrist reveals no tenderness at the radial styloid or the distal radius. There is no tenderness or instability at the distal radioulnar joint. There is no tenderness at the ulnar styloid. There is no tenderness at the STT joint. There is no tenderness at the scaphoid. There is no tenderness or instability at the scapholunate joint. There is no tenderness over the lunate. There is no tenderness or instability at the lunotriquetral joint. There is no tenderness at the ulnocarpal joint. There is no tenderness at the pisiform or the pisotriquetral joint. There is no tenderness at the scaphoid tubercle or the hook of the hamate. There is no tenderness at the CMC joint of the thumb or the CMC joints of the digits. The hand reveals no tenderness in the region of the A1 pulleys of the fingers and thumb. There is no triggering or locking. There is no tenderness or instability at the MCP or IP joints. There is no tenderness throughout the metacarpal and thenar regions. The remainder of the hand is unremarkable. There is good strength throughout the upper extremity. There is no thenar or intrinsic muscle weakness or atrophy. There is no Tinel's sign over the median nerve at the wrist, and the Phalen's test is positive. There is no Tinel's sign over the median nerve in the proximal forearm, and there is no tenderness along the median nerve in the proximal forearm. There is no Tinel's sign over the ulnar nerve at the elbow and wrist. There is no evidence for a radial tunnel syndrome. All provocative testing for a thoracic outlet syndrome is negative. The biceps, triceps, and brachioradialis reflexes are present. Neurovascular status is intact. ELECTRODIAGNOSTIC STUDY: Performed by Dr. Salmeron dated October 04, 2023 reveals severe right carpal tunnel syndrome with no response distal sensory latency and reduced amplitude median motor nerve. EMG abnormalities for the right abductor pollicis brevis. DISCUSSION: The results of the study are discussed with the patient. Treatment options are discussed as well. Patient elects to proceed with endoscopic possible open carpal tunnel release right wrist. The procedures, benefits, risks and alternatives are explained to the patient in detail, and consent is obtained. All of the patient's questions are answered. Surgery will be scheduled. He is informed despite successful release right carpal tunnel, there is no guarantee the numbness and tingling will resolve with the procedure based on the degree of damage to the median nerve noted on the electrodiagnostic study. However, surgery should be successful in relieving the nocturnal symptoms. [email or web address] Not available 10/05/2023 11:46:08 10/21/2023 10/21/2023 He is doing well 10 days status post right wrist carpal tunnel release. I reviewed my findings with the patient today. I briefly reviewed the operative findings per Dr. Saunders's operative report. He demonstrates sufficient postoperative ROM and function today. Advised he continue any post operative medications as prescribed. He is eager to return to work and will discuss this at his next visit. Routine incision care reviewed. Medications reviewed. Questions invited and answered. Patient verbalizes understanding and agreement with plan. [email or web address] Not available 10/27/2023 22:06:01 11/03/2023 11/03/2023 INTERIM HISTORY: The patient is 3-1/2 weeks status post endoscopic carpal tunnel release right wrist. Preoperative symptoms are much improved. He is having no nocturnal symptoms and no discomfort with the hand and wrist. He still has a mild degree of numbness and tingling, but the numbness and tingling is steadily improving. EXAMINATION OF THE RIGHT HAND AND WRIST: Skin is intact. Scar unremarkable. No tenderness hypersensitivity. No appreciable swelling. Range of motion full. Neurovascular status is intact. RADIOGRAPHS: None DISCUSSION: The patient has responded to the surgery. Symptoms have resolved except for mild degree of numbness and tingling which was anticipated. However, there has been improvement at this early time and should continue to improve over the next year. He would like to return to work next Wednesday which will be a few days shy of 1 month from his surgical procedure. He is released to return to work at full duty November 08, 2023. He does not feel he needs any further evaluation or treatment. However, if he develops any problems, concerns or questions, he will return to the office for reevaluation. Not available 11/03/2023 14:11:18 Plan of Treatment Reminders Order Date Submit Date Provider Last Modified By Organization Details Last Modified Time Details Appointments None recorded. Lab None recorded. Referral physical medicine and rehabilitat ion referral - NCS/EMG for right carpal tunnel syndrome 2022 023 BONY Salmeron MD, [address] [place] [address], [id number], 11:30:21 Procedures None recorded. Surgeries orthopaedic surgery - other (SURG) 2022 023 [email or web address] Not available 14:29:06 Imaging XR, wrist, 3 or more view 2022 023 [email or web address] [facility], [address], [address], [place], [address], 3 14:16:52 Medication Orders None recorded. Patient TargetsNo targets recorded. Patient InstructionsNo instructions recorded. Reason for Referral Physical Medicine And Rehabi litation Referral for Carpal tunnel syndrome of right wrist NCS/EMG for right carpal tunnel syndrome Referring Physician: Glen Saunders, Orthopedic Surgery, Encounter Date: 09/15/2023 Problems Name Problem SNOMED Code Status Onset Date Resolution Date Notes Provider Name and Address Organization Details Recorded Time Carpal tunnel syndrome of right wrist 5892806745993 08 Active 2022 Glen Saunders MD [address], [place], [address], [place] [facility] 3 14:01:50 Post traumatic osteoarthri tis 781735464 Active 2022 NUHA LEROY PA-C [address], [place], [address], [place] [facility], [facility] 3 12:04:41 Pain of left wrist 0099025038311 02 Active 2022 NUHA LEROY PA-C [address], [place], [address], [place] [facility], [facility] 3 12:05:19 Closed fracture of scaphoid bone of wrist 33262207 Active 2022 Glen Saunders MD [address], [place], [address], [place] [facility], [facility] 3 12:56:21 Problem Notes None recorded. Procedures Surgical History Date Name Laterality Status Provider Name and Address Organization Details Recorded Time 03/10/20 23 ARB wrist/elbow cortisone injection completed Renita Donnelly [place] [facility], [facility] 03/10/2023 12:15:53 02/23/20 21 arthroscopy of wrist with release of transverse carpal ligament completed Kim Villalobos [facility] 03/09/2023 10:12:12 02/22/20 21 Carpal Tunnel Surgery completed Diego Jordan [facility], [facility] 09/15/2023 13:40:02 02/22/20 21 Hand Surgery completed Diego Jordan [facility] 09/15/2023 13:40:02 09/28/20 19 Joint Replacement completed Diego Jordan [facility] 09/15/2023 13:40:02 09/24/20 19 total knee replacement completed Kim Villalobos [place] [facility] 03/09/2023 10:11:54 02/22/20 19 Plastic Surgery completed Diego Jordan [facility], [facility] 09/15/2023 13:40:02 10/25/19 19 Cancer Surgery completed Diego Jordan [facility], [facility] 09/15/2023 13:40:02 03/26/20 17 Shoulder Surgery completed Diego Jordan [facility], [facility] 09/15/2023 13:40:02 04/13/20 12 Arthroscopic Surgery completed Diego Jordan [facility], P 09/15/2023 13:40:02 10/25/18 92 Iliac bone graft microvasc completed [email or web address] Villalobos [facility], P 03/09/2023 10:13:35 10/13/19 91 Hand Surgery completed Diego Jordan [facility], P 09/15/2023 13:40:02 complete repair of rotator cuff completed [email or web address] Villalobos [facility], [facility] 03/09/2023 10:12:39 Imaging Results None recorded. Procedure Notes None recorded. Medical Equipment None Reported. Allergies Allergen ID Allergen Name Allergen Category Reaction Reaction Severity Criticality Documentation Date Start Date Code Code System Note Provider Name and Address Organization Details Recorded Time 93603 fluticaso ne Not available Not available Not available Not available 09/15/2023 99592 RxNorm Angieingrid Pederson [facility], [facility], P 4 14:01:28 17950 Hayfever medicatio n cough eye redness wheezing mild moderate mild Not available 09/15/20231958 06303 UNK Diego Jordan [facility], P 3 13:39:55 Medications Name Sig Start Date Stop Date Status Note LastModified by Organization Details LastModified Time amoxicillin 500 mg capsule TAKE 4 CAPS 1 HOUR PRIOR TO DENTAL APPOINTME NT active Not Available Not Available No t Available atorvastati n 40 mg tablet TAKE 1 TABLET BY MOUTH EVERY DAY active Not Available Not Available No t Available acetaminoph en 300 mg-codeine 30 mg tablet TAKE 1 TO 2 TABLETS BY MOUTH EVERY 4 TO 6 HOURS NEEDED FOR PAIN 11/03 completed Not Available Not Available Not Available sildenafil 100 mg tablet TAKE 1 TABLET EVERY DAY BY ORAL ROUTE NEEDED. active Not Available Not Available No t Available triamcinolo ne acetonide 0.025 % topical cream APPLY A THIN LAYER TO THE AFFECTED AREA(S) BY TOPICAL ROUTE 2 TIMES PER DAY active Not Available Not Available No t Available Kenalog 10 mg/mL suspension for injection Take 2 mL by injection route. 09/153 completed Not Available Not Available Not Available amlodipine 10 mg tablet 1 tablet every day by oral route. 2017 active Not Available Not Available Not Avai lable atenolol 50 mg tablet 1 tablet every day by oral route. 2017 active Not Available Not Available Not Avai lable Claritin active Not Available Not Avai lable Not Available Baby Aspirin active Not Available Not Available Not Available Symbicort 160 mcg-4.5 mcg/actuati on HFA aerosol inhaler 2 puffs as needed by inhalatio n route. active Not Available Not Available No t Available Symbicort active Not Available Not Oriana ilable Not Available Gavilyte-C 240 gram-22.72 gram-6.72 gram-5.84 gram oral solution USE INSTRUCTE D BY PHYSICIAN S OFFICE FOR [place] PY 04/05 completed Not Available Not Available Not Available lidocaine (PF) 100 mg/5 mL (2 %) injection syringe Take 1 mL by injection route. 09/15 completed Not Available Not Available Not Available fluticasone 113 mcg-salmete rol 14 mcg/actuati on breath activated powdr Inhale 1 puff twice a day by inhalatio n route. active Not Available Not Available No t Available Vitals Date Recorded Body height Body mass index (BMI) Body weight Provider Name and Address Organization Details Last Updated DateTime 09/15/2023 182.88 cm 25.8 kg/m2 [address]9548.[address] [place] [facility] 09/15/2023 13:40:08 Date Recorded Body height Provider Name an d Address Organization Details Last Updated DateTime 10/05/[address] [facility] 10/05/2023 11:34:50 Date Recorded Body height Provider Name an d Address Organization Details Last Updated DateTime 11/03/2023 182.88 cm Angie Pederson [facility] 11/03/2023 14:03:01 Social History Question Answer Notes LastModified by Organizat ion Details LastModified Time Tobacco Smoking Status Former Smoker Kim flores, [place] [facility] 03/09/2023 10:10:38 What Is Your Level Of Alcohol Consumption? Heavy Information not available 03/09/2023 How Many Times Per Week Do You Consume Alcohol? 5-7 Times Per Week [email or web address] Information not available 03/09/2023 Which Illicit Or Recreational Drugs Have You Used? Marijuana aba Information not available 04/06/2023 Do You Use Any Illicit Or Recreational Drugs? Yes [email or web address] Information not available 03/09/2023 Do You Or Have You Ever Used Any Other Forms Of Tobacco Or Nicotine? No [email or web address] Information not available 03/09/2023 Sex: Unknown Functional Status None recorded. Mental Status None recorded. Family History Relationship Description Onset Age of this Age Resolved Age Notes LastModified by Organization Details LastModified Time Mother Arthritis [email or web address] Not availabl e 03/09/2023 10:11:23 Mother Family history of malignant neoplasm [email or web address] Not available 2022 10:11:27 Father Heart disease [email or web address] Not available 2022 10:11:36 Medical History Condition Response Cancer Y Vascular Disease Y Asthma Y Past Encounters Encounter ID Performer Location Encounter Start Date Encounter Closed Date Diagnosis/Indication Diagnosis SNOMED-CT Code Diagnosis ICD10 Code Diagnosis Note [id number] Glen Saunders MD [facility] [address] [place] [address] 03/09/2023 09:12:15 03/09/2023 10:49:25 Pain of left wrist 8893833200 52433 M25.532 Post traum atic osteoarthritis 540278660 M19.132 [id number] MD IBETH Frost[address] [address] 03/10/2023 11:07:14 03/10/2023 12:28:01 Pain of left wrist 4058142687 35712 M25.532 Post traum atic osteoarthritis 636396349 M19.132 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 Closed fra cture of scaphoid bone of wrist 01585572 S62.022K [id number] MD IBETH Frost[address] [address] 04/06/2023 10:08:46 04/06/2023 10:46:50 Post traumatic osteoarthritis 362268841 M19.132 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 Closed fra cture of scaphoid bone of wrist 40920959 S62.022K [id number] [facility] [address] [facility] [address] [place] [address] 09/15/2023 13:28:04 09/15/2023 14:05:54 Pain of right wrist 5993594258 75935 M25.531 Carpal jessica christian syndrome of right wrist 1549598048 20797 G56.01 [id number] [facility] [address] [address] 10/05/2023 11:30:44 10/05/2023 11:52:58 Carpal tunnel syndrome of right wrist 4829018282 17124 G56.01 Post traum atic osteoarthritis 971679353 M19.132 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 Closed fra cture of scaphoid bone of wrist 93287185 S62.022K [id number] Glen Saunders MD [facility] [address] [facility] [address] [place] [address] 10/21/2023 14:30:53 10/21/2023 15:42:57 Postoperative visit 899707541 Z09 [id number] Glen Saunders MD [address] [address] 11/03/2023 13:45:12 11/03/2023 14:08:38 Carpal tunnel syndrome of right wrist 6506045844 16489 G56.01 Health Concerns Section Related Observation LastModified by Organization Detai ls LastModified Time None Recorded Concern Status LastModified by Organization Details LastModified Time None Recorded Advance Directives Directive None Recorded Payers Encounter Date Sequence Insurance Name Policy Number Policy Hsieh Covered Member ID Hsieh Member ID Guarantor Name 04/06/2023 1 [place] [id number] 2 Eren Lira [id number] Eren Lira 09/15/2023 1 [place]ATH[place] SHEPARD [id number] 2 Christopher Pankaj [id number] Christopher Pankaj 10/05/2023 1 [place] [id number] 2 Christopher Pankaj [id number] Christopher Pankaj 10/21/2023 1 [place] [id number] 2 Christopher Pankaj [id number] Christopher Pankaj 11/03/2023 1 [place] [id number] 2 Christopher Pankaj [id number] Christopher Pankaj Notes Date Note Type Note Provider Name and Address Organization Details Recorded Time 10/21/2023 text/html Pleasant 63-year-old male presents to the urgent care today for his first postop visit. He was scheduled to see Dr. Saunders in [place] this afternoon but presented to the wrong office. He is 10 days status post endoscopic carpal tunnel release of the right wrist. He reports he is feeling great. He utilized pain meds the night following his surgery but otherwise has been well controlled without meds. He was no pain today. Denies any significant swelling or redness. He reports his preoperative nighttime symptoms have resolved. He offers no complaints today.Patient denies fevers or chills. Denies problems with the incisions. Denies chest pain, calf pain, or shortness of breath. TOMASZ SANABRIA PA-C [address], [place], [address], [place] [facility] 10/27/2023 22:06:25
--- OUTSIDE RECORDS SUMMARY | 2024-12-07 17:43 | XMS_ITS ---
Author Organization [facility] Address [address] [place] [address] Care Team Providers Care Motion Graphics Designer Name Role Phone aMta Gao MD Primary Care Provider Gerhard Barkley Unavailable [phone] REASON FOR VISIT Records Problems No Known Problems Encounters Encounter Location Date Provider [facility] [address] [place] [id number] 08/25/2023 Gerhard Herring Plan Of Treatment No Information Progress Notes * Eren LIRADOB:1959 (63 yo M)Acc No.[id number]:08/25/2023 Patient:?Eren Lira :1960???Age:63 Y???Sex:Male Address:[address] [place] [address], [id number] * true * Date:? Generated for Twylai sharlene/Sonya/eTransmitting on:?12/07/2024 05:43 PM EST
--- OUTSIDE RECORDS SUMMARY | 2024-12-07 17:43 | XMS_ITS | Clinical Summary ---
Author Organization [facility] Address [address] [place] [address] Care Team Providers Care Shear Setter Name Role Phone Niraj Palomo MD Primary Care Provider [phone] Allergies No known active allergies Medications Medication [...] 0 09/30/2019 Active ergocalciferol (VITAMIN D2) capsule 76194 units daily. 0 Active albuterol 108 (90 [...] Smokeless Tobacco: Never Comments:cigarettes 1974- 1, cigars 3050-3000 Alcohol Use Standard Drinks/Week Comments Yes 20 [...] this topic Medical Devices Implanted Type Area Curing Press Maintainer Device Identifier Shelf Expiration Date Model / Serial / Lot Tibial Bearing Insert - Ps Implanted:Qty : 1 on 09/28/2019 by Alexi Burrell MD at [facility] Total Joint Left: Knee [employer] 07/19/2023 / / [id number] [place] Sut 5.5mm Fullthrd Med Insite Preld Fr Fbr Sprt Peek - [id number] - [id number] Implanted:Qty : 1 on 04/10/2015 by Spenser Gaspar MD at [facility] Right: Shoulder [employer] 07/24/2016 [id number] / / [id number] [place] Footprint 5.5mm Peek-Ailey Suture - 860947 - [id number] Implanted:Qty : 1 on 04/10/2015 by Spenser Gaspar MD at [facility] Right: Shoulder [employer] 10/24/2019 [id number] / / [id number] [place] Footprint 5.5mm Peek-Ailey Suture - 814728 - [id number] Implanted:Qty : 1 on 04/10/2015 by Spenser Gaspar MD at [facility] Right: Shoulder [employer] 10/24/2019 [id number] / / [id number] Cement Simplex P Radiopaque Full Dose Bone 10 Pack - 081549 - [id number] Implanted:Qty : 1 on 09/28/2019 by Alexi Burrell MD at [facility] Left: Knee [employer] 6191-1-010 / / Cement Simplex P Radiopaque Full Dose Bone 10 Pack - 510004 - [id number] Implanted:Qty : 1 on 09/28/2019 by Alexi Burrell MD at [facility] Left: Knee [employer] 6191-1-010 / / Component Triathlon 5 Posterior Stabilized Cemented Femoral - 572265 - [id number] Implanted:Qty : 1 on 09/28/2019 by Alexi Burrell MD at [facility] Left: Knee [employer] 03/07/2024 5515-F-501 / / [id number] Baseplate Triathlon 6 Primary Cemented Tibial Knee - 510799 - [id number] Implanted:Qty : 1 on 09/28/2019 by Alexi Burrell MD at [facility] Left: Knee [employer] 02/28/2024 5520-B-600 / / [id number] Component Triathlon 10mm 35mm Symmetric X3 Ptlar Knee - 582029 - [id number] Implanted:Qty : 1 on 09/28/2019 by Alexi Burrell MD at [facility] Left: Knee [employer] 01/10/2024 5551-G-350 / / [id number] Peg Triathlon Modular Fix Distal Femur Knee - 037880 - [id number] Implanted:Qty : 1 on 09/28/2019 by Alexi Burrell MD at [facility] Left: Knee [employer] 04/23/2024 5575-X-000 / / [id number] Advance Directives For more information, please contact: [phone] Latest Code Status on File Code Status [...] way: discussion with patient . Care Teams Shear Setter Relationship Specialty Start Date End Date Niraj Palomo MD [address] [place] [id number] PCP - General Internal Medicine 09/20/19
--- OUTSIDE RECORDS SUMMARY | 2024-12-07 17:43 | XMS_ITS | Clinical Summary ---
Author Organization [facility] Address [address] [place] [address], [place] [address] Care Team Providers Care Fitness Trainer Name Role Phone Niraj Palomo MD Primary [...] age to complete this topic Care Teams Fitness Trainer Relationship Specialty Start Date End Date Niraj Palomo MD [address] PCP - General 11/04/20
--- OUTSIDE RECORDS SUMMARY | 2024-12-07 17:44 | XMS_ITS | Data Portability ---
Author Organization [facility], Main Office Address [address] [place] [address] Care Team Providers Care City Planning Aide Name Role Phone MATT GRIMALDO [employer] Certified Network Professional [phone] [facility] Orthopedic Surgeon LALA PALOMO Primary Care Provider ADITYA Long Referring Provider [facility] Sleep Medicine ABHAY LEDEZMA Orthopedic Surgeon GLORIA PARRA Device Engineer OLVIN RYAN Dermatopathologist [phone] Justice [phone] ARTIS PERRY Bioinformatics Team Member NINA ROJAS Orthopedic Surgeon [phone] CHIKI CARRASQUILLO Referring Provider KANDIS PINEDA Referring Provider [phone] ANIL COBURN Orthopedic Surgeon [phone] Assessment Encounter Date Assessment Date Assessment LastModified [...] Not available Not available Not available Lab CBC w/ auto diff 2023 024 BONY [facility], [address], [address], [place], [address], 06/29/2024 06:09:08 CMP, serum or plasma 2023 024 BONY [facility], [address], [address], [place], [address], 06/29/2024 06:09:09 PSA, serum or plasma 2023 024 BONY [facility], [address], [address], [place], [address], 01/25/2024 12:06:20 CBC w/ auto diff 2023 024 [email or web address], [address], [address], [place], [address], 07/18/2024 08:50:19 magnes ium, serum or plasma 2023 024 BONY [facility], [address], [address], [place], [address], 01/25/2024 12:06:21 lipid panel, serum 2023 024 BONY [facility], [address], [address], [place], [address], 01/25/2024 12:06:19 CMP, serum or plasma 2023 024 BONY [facility], [address], [address], [place], [address], 01/25/2024 12:06:17 CBC w/ auto diff 2022 023 BONY [facility], [address], [address], [place], [address], 10/08/2023 20:04:11 BMP, serum or plasma 2022 023 BONY [facility], [address], [address], [place], [address], 10/08/2023 21:29:34 PT/INR 2022 023 BONY [facility], [address], [address], [place], [address], 10/08/2023 20:19:35 BMP, serum or plasma 2022 023 BONY [facility], [address], [address], [place], [place], [address], 06/15/2023 20:55:06 CBC w/ auto diff 2022 023 BONY [facility], [address], [address], [place], [place], [address], 06/15/2023 20:04:50 folate , serum 2022 023 BONY [facility], [address], [address], [place], [address], 06/15/2023 21:49:30 vitami n B12, serum 2022 023 BONY [facility], [address], [address], [place], [address], 06/15/2023 21:49:28 iron + total iron-b inding capaci ty (TIBC) , serum 2022 023 BONY [facility], [address], [address], [place], [address], 06/15/2023 20:55:07 ferrit in, serum or plasma 2022 023 BONY [facility], [address], [address], [place], [address], 06/15/2023 21:49:29 Referral None record ed. Procedures None record ed. Surgeries None record ed. Imaging electr ocardi ogram 2023 024 [email or web address] In-Office Order, Internal Use Only DO Not Attach Compendium DO Not Attach Compendium, Do Not Delete/merge, [id number] 06/28/2024 10:27:19 electr ocardi ogram 2022 023 [email or web address] In-Office Order, Internal Use Only DO Not Attach Compendium DO Not Attach Compendium, Do Not Delete/merge, [id number] 10/08/2023 13:29:15 Medication Orders amlodi pine 10 mg tablet 2023 024 [email or web address] [facility], [address] [place] [address], [facility] [address], [place], [place], [id number], 06/20/2024 17:27:19 atenol ol 50 mg tablet 2023 024 [email or web address] [facility], [address] [facility] [place], [address], [place], [place], [id number], 06/20/2024 17:27:19 atorva statin 40 mg tablet 2023 024 [email or web address] [facility], [address] [place] [address], [address], [place], [place], [id number], 06/20/2024 17:27:19 silden afil 100 mg tablet 2023 024 [id number], [address], [place], [address], 12/21/2023 16:15:36 Patient TargetsNo targets recorded. Patient Instructions Encounter Date Encounter Id Patient Instructions Last Modified By Organization Details Last Modified Time 06/15/2023 [id number] high blood press ure: care instructions [email or web address] Not available 06/15/2023 15:29:15 learning about h igh blood pressure [email or web address] Not available 06/15/2023 15:29:15 anemia: care instructions [email or web address] Not available 06/15/2023 15:39:56 10/08/2023 [id number] No medical contraindications to proposed procedure. Reji Perioperative Cardiac Risk was calculated and the risk for perioperative [place] is <1%. May proceed to surgery as planned. Not available 10/08/2023 08:27:41 12/21/2023 [id number] high blood press ure: care instructions [email or web address] Not available 12/21/2023 16:11:11 learning about h igh blood pressure acennerazzo Not available 12/21/2023 16:11:11 high cholesterol : care instructions [email or web address] Not available 12/21/2023 16:11:11 06/20/2024 [id number] insomnia: care instructions [email or web address] Not available 06/20/2024 17:27:19 high cholesterol : care instructions [email or web address] Not available 06/20/2024 17:27:19 Reason for Referral None Reported. Results Created Date Observation Date Name Description Value Unit Range Abnormal Flag Note LastModifiedBy Organization Detail LastModifiedTime 06/15/2006/15/2023 COMPL ETE CBC WITH DIFF WBC 8.8 K/mm3 (4.0-1 1.0) Not Available [facility] [address] [place], [address], 06/15/2023 20:04:50 06/15/20 23 06/15/2023 COMPL ETE CBC WITH DIFF RBC 4.12 M/mm3 (4.70- 6.10) low Not Available [facility] [address] [place], [address], 06/15/2023 20:04:50 06/15/20 23 06/15/2023 COMPL ETE CBC WITH DIFF HGB 13.4 gm/dL (13.7- 17.1) low Not Available [facility] [address] [place], [address], 06/15/2023 20:04:50 06/15/20 23 06/15/2023 COMPL ETE CBC WITH DIFF HCT 39.6 % (40.5- 50.0) low Not Available [facility] [address] [place], [address], 06/15/2023 20:04:50 06/15/20 23 06/15/2023 COMPL ETE CBC WITH DIFF MCV 96.1 fL (80.0- 94.0) high Not Available [facility] [address] [place], [address], 06/15/2023 20:04:50 06/15/20 23 06/15/2023 COMPL ETE CBC WITH DIFF MCH 32.5 pg (27.0- 34.0) Not Available [facility] [address] [place], [address], 06/15/2023 20:04:50 06/15/20 23 06/15/2023 COMPL ETE CBC WITH DIFF MCHC 33.8 g/dL (33.0- 37.0) Not Available [facility] [address] [place], [address], 06/15/2023 20:04:50 06/15/20 23 06/15/2023 COMPL ETE CBC WITH DIFF plt 287 K/mm3 (150-4 60) Not Available [facility] [address] [place], [address], 06/15/2023 20:04:50 06/15/20 23 06/15/2023 COMPL ETE CBC WITH DIFF RDW-SD 46.1 fL (<47.0 ) Not Available [facility] [address] [place], [address], 06/15/2023 20:04:50 06/15/20 23 06/15/2023 COMPL ETE CBC WITH DIFF MPV 9.7 fL (9.4-1 2.4) Not Available [facility] [address] [place], [address], 06/15/2023 20:04:50 06/15/20 23 06/15/2023 COMPL ETE CBC WITH DIFF automated NRBC 0.0 #/100 _WBC' s Not Available [facility] [address] [place], [address], 06/15/2023 20:04:50 06/15/20 23 06/15/2023 COMPL ETE CBC WITH DIFF abs. NRBC 0.0 K/mm3 Not Available [facility] [address] [place], [address], 06/15/2023 20:04:50 06/15/20 23 06/15/2023 COMPL ETE CBC WITH DIFF neut # 5.2 K/mm3 (1.3-7 .0) Not Available [facility] [address] [place], [address], 06/15/2023 20:04:50 06/15/20 23 06/15/2023 COMPL ETE CBC WITH DIFF lymph # 2.4 K/mm3 (0.8-3 .1) Not Available [facility] [address] [place], [address], 06/15/2023 20:04:50 06/15/20 23 06/15/2023 COMPL ETE CBC WITH DIFF mono# 0.8 K/mm3 (0.4-1 .3) Not Available [facility] [address] [place], [address], 06/15/2023 20:04:50 06/15/20 23 06/15/2023 COMPL ETE CBC WITH DIFF eo # 0.3 K/mm3 (0.0-0 .4) Not Available [facility] [address] [place], [address], 06/15/2023 20:04:50 06/15/20 23 06/15/2023 COMPL ETE CBC WITH DIFF baso # 0.1 K/mm3 (0.0-0 .1) Not Available [facility] [address] [place], [address], 06/15/2023 20:04:50 06/15/20 23 06/15/2023 COMPL ETE CBC WITH DIFF abs. imm gran 0.0 K/mm3 Not Available [facility] [address] [place], [address], 06/15/2023 20:04:50 06/15/20 23 06/15/2023 COMPL ETE CBC WITH DIFF neut 59.0 % (44-76 ) Not Available [facility] [address] [place], [address], 06/15/2023 20:04:50 06/15/20 23 06/15/2023 COMPL ETE CBC WITH DIFF lymph 27.4 % (15-43 ) Not Available [facility] [address] [place], [address], 06/15/2023 20:04:50 06/15/20 23 06/15/2023 COMPL ETE CBC WITH DIFF monocyte 9.4 % (4.5-1 0.5) Not Available [facility] [address] [place], [address], 06/15/2023 20:04:50 06/15/20 23 06/15/2023 COMPL ETE CBC WITH DIFF eo 3.1 % (0-6) Not Available [facility] [address] [place], [address], 06/15/2023 20:04:50 06/15/20 23 06/15/2023 COMPL ETE CBC WITH DIFF baso 0.9 % (0-2) Not Available [facility] [address] [place], [address], 06/15/2023 20:04:50 06/15/20 23 06/15/2023 COMPL ETE CBC WITH DIFF imm gran 0.2 % Not Available [facility] [address] [place], [address], 06/15/2023 20:04:50 06/15/20 23 06/15/2023 BASIC METAB OLIC PANEL glucose 79 mg/dL (70-99 ) Not Available [facility] [address] [place], [address], 06/15/2023 20:55:06 06/15/20 23 06/15/2023 BASIC METAB OLIC PANEL BUN 15 mg/dL (8-23) Not Available [facility] [address] [place], [address], 06/15/2023 20:55:06 06/15/20 23 06/15/2023 BASIC METAB OLIC PANEL creatinine 1.0 mg/dL (0.7-1 .2) Not Available [facility] [address] [place], [address], 06/15/2023 20:55:06 06/15/20 23 06/15/2023 BASIC METAB OLIC PANEL sodium 137 mmol/ L (133-1 45) Not Available [facility] [address] [place], [address], 06/15/2023 20:55:06 06/15/20 23 06/15/2023 BASIC METAB OLIC PANEL potassium 4.5 mmol/ L (3.6-5 .2) Not Available [facility] [address] [place], [address], 06/15/2023 20:55:06 06/15/20 23 06/15/2023 BASIC METAB OLIC PANEL chloride 100 mmol/ L (98-10 7) Not Available [facility] [address] [place], [address], 06/15/2023 20:55:06 06/15/20 23 06/15/2023 BASIC METAB OLIC PANEL bicarbonate 25 mmol/ L (22-29 ) Not Available [facility] [address] [place], [address], 06/15/2023 20:55:06 06/15/20 23 06/15/2023 BASIC METAB OLIC PANEL anion gap 12 (4-17) Not Available [facility] [address] [place], [address], 06/15/2023 20:55:06 06/15/20 23 06/15/2023 BASIC METAB OLIC PANEL calcium 9.3 mg/dL (8.6-1 0.5) Not Available [facility] [address] [place], [address], 06/15/2023 20:55:06 06/15/20 23 06/15/2023 BASIC METAB [...] Available [facility] [address] [place], [address], 06/15/2023 20:55:06 06/15/20 23 06/15/2023 IRON & TIBC iron 100 mcg/d L (45-16 0) Not Available [facility] [address] [place], [address], 06/15/2023 20:55:07 06/15/20 23 06/15/2023 IRON & TIBC unsaturated iron binding capac 240 mcg/d L (110-3 70) Not Available [facility] [address] [place], [address], 06/15/2023 20:55:07 06/15/20 23 06/15/2023 IRON & TIBC est T. iron bind capacity 340 mcg/d L (155-5 30) Not Available [facility] [address] [place], [address], 06/15/2023 20:55:07 06/15/20 23 06/15/2023 IRON & TIBC % iron saturation 29 % (20-55 ) Not Available [facility] [address] [place], [address], 06/15/2023 20:55:07 06/15/20 23 06/15/2023 VITAM IN B12 vitamin B12 524 pg/mL (232-1 245) Not Available [facility] [address] [place], [address], 06/15/2023 21:49:28 06/15/20 23 06/15/2023 PATRICK TIN ferritin 196 NG/mL (16-29 4) Not Available [facility] [address] [place], [address], 06/15/2023 21:49:29 06/15/20 23 06/15/2023 FOLIC ACID folic acid 25.8 NG/mL (4.5-3 2.2) Sampl e sligh tly hemol yzed. Resul ts may be false ly eleva casper due to hemol ysis. Not Available [facility] [address] [place], [address], 06/15/2023 21:49:30 10/08/20 23 10/08/2023 COMPL ETE CBC WITH DIFF WBC 7.8 K/mm3 (4.0-1 1.0) Not Available [facility] [address] [place], [address], 10/08/2023 20:04:10 10/08/20 23 10/08/2023 COMPL ETE CBC WITH DIFF RBC 4.25 M/mm3 (4.70- 6.10) low Not Available [facility] [address] [place], [address], 10/08/2023 20:04:10 10/08/20 23 10/08/2023 COMPL ETE CBC WITH DIFF HGB 13.7 gm/dL (13.7- 17.1) Not Available [facility] [address] [place], [address], 10/08/2023 20:04:10 10/08/20 23 10/08/2023 COMPL ETE CBC WITH DIFF HCT 41.0 % (40.5- 50.0) Not Available [facility] [address] [place], [address], 10/08/2023 20:04:10 10/08/20 23 10/08/2023 COMPL ETE CBC WITH DIFF MCV 96.5 fL (80.0- 94.0) high Not Available [facility] [address] [place], [address], 10/08/2023 20:04:10 10/08/20 23 10/08/2023 COMPL ETE CBC WITH DIFF MCH 32.2 pg (27.0- 34.0) Not Available [facility] [address] [place], [address], 10/08/2023 20:04:10 10/08/20 23 10/08/2023 COMPL ETE CBC WITH DIFF MCHC 33.4 g/dL (33.0- 37.0) Not Available [facility] [address] [place], [address], 10/08/2023 20:04:10 10/08/20 23 10/08/2023 COMPL ETE CBC WITH DIFF plt 349 K/mm3 (150-4 60) Not Available [facility] [address] [place], [address], 10/08/2023 20:04:10 10/08/20 23 10/08/2023 COMPL ETE CBC WITH DIFF RDW-SD 46.4 fL (<47.0 ) Not Available [facility] [address] [place], [address], 10/08/2023 20:04:10 10/08/20 23 10/08/2023 COMPL ETE CBC WITH DIFF MPV 9.6 fL (9.4-1 2.4) Not Available [facility] [address] [place], [address], 10/08/2023 20:04:10 10/08/20 23 10/08/2023 COMPL ETE CBC WITH DIFF automated NRBC 0.0 #/100 _WBC' s Not Available [facility] [address] [place], [address], 10/08/2023 20:04:10 10/08/20 23 10/08/2023 COMPL ETE CBC WITH DIFF abs. NRBC 0.0 K/mm3 Not Available [facility] [address] [place], [address], 10/08/2023 20:04:10 10/08/20 23 10/08/2023 COMPL ETE CBC WITH DIFF neut # 4.5 K/mm3 (1.3-7 .0) Not Available [facility] [address] [place], [address], 10/08/2023 20:04:10 10/08/20 23 10/08/2023 COMPL ETE CBC WITH DIFF lymph # 2.3 K/mm3 (0.8-3 .1) Not Available [facility] [address] [place], [address], 10/08/2023 20:04:10 10/08/20 23 10/08/2023 COMPL ETE CBC WITH DIFF mono# 0.7 K/mm3 (0.4-1 .3) Not Available [facility] [address] [place], [address], 10/08/2023 20:04:10 10/08/20 23 10/08/2023 COMPL ETE CBC WITH DIFF eo # 0.3 K/mm3 (0.0-0 .4) Not Available [facility] [address] [place], [address], 10/08/2023 20:04:10 10/08/20 23 10/08/2023 COMPL ETE CBC WITH DIFF baso # 0.1 K/mm3 (0.0-0 .1) Not Available [facility] [address] [place], [address], 10/08/2023 20:04:10 10/08/20 23 10/08/2023 COMPL ETE CBC WITH DIFF abs. imm gran 0.0 K/mm3 Not Available [facility] [address] [place], [address], 10/08/2023 20:04:10 10/08/20 23 10/08/2023 COMPL ETE CBC WITH DIFF neut 57.3 % (44-76 ) Not Available [facility] [address] [place], [address], 10/08/2023 20:04:10 10/08/20 23 10/08/2023 COMPL ETE CBC WITH DIFF lymph 29.8 % (15-43 ) Not Available [facility] [address] [place], [address], 10/08/2023 20:04:10 10/08/20 23 10/08/2023 COMPL ETE CBC WITH DIFF monocyte 8.3 % (4.5-1 0.5) Not Available [facility] [address] [place], [address], 10/08/2023 20:04:10 10/08/20 23 10/08/2023 COMPL ETE CBC WITH DIFF eo 3.6 % (0-6) Not Available [facility] [address] [place], [address], 10/08/2023 20:04:10 10/08/20 23 10/08/2023 COMPL ETE CBC WITH DIFF baso 0.6 % (0-2) Not Available [facility] [address] [place], [address], 10/08/2023 20:04:10 10/08/20 23 10/08/2023 COMPL ETE CBC WITH DIFF imm gran 0.4 % Not Available [facility] [address] [place], [address], 10/08/2023 20:04:10 10/08/20 23 10/08/2023 PROTI ME PROFI LE protime 10.7 sec (9.2-1 1.4) Not Available [facility] [address] [place], [address], 10/08/2023 20:19:35 10/08/20 23 10/08/2023 PROTI ME [...] Available [facility] [address] [place], [address], 10/08/2023 20:19:35 10/08/20 23 10/08/2023 BASIC METAB OLIC PANEL glucose 85 mg/dL (70-99 ) Not Available [facility] [address] [place], [address], 10/08/2023 21:29:34 10/08/20 23 10/08/2023 BASIC METAB OLIC PANEL BUN 10 mg/dL (8-23) Not Available [facility] [address] [place], [address], 10/08/2023 21:29:34 10/08/20 23 10/08/2023 BASIC METAB OLIC PANEL creatinine 0.9 mg/dL (0.7-1 .2) Not Available [facility] [address] [place], [address], 10/08/2023 21:29:34 10/08/20 23 10/08/2023 BASIC METAB OLIC PANEL sodium 137 mmol/ L (133-1 45) Not Available [facility] [address] [place], [address], 10/08/2023 21:29:34 10/08/20 23 10/08/2023 BASIC METAB OLIC PANEL potassium 4.5 mmol/ L (3.6-5 .2) Not Available [facility] [address] [place], [address], 10/08/2023 21:29:34 10/08/20 23 10/08/2023 BASIC METAB OLIC PANEL chloride 100 mmol/ L (98-10 7) Not Available [facility] [address] [place], [address], 10/08/2023 21:29:34 10/08/20 23 10/08/2023 BASIC METAB OLIC PANEL bicarbonate 30 mmol/ L (22-29 ) high Not Available [facility] [address] [place], [address], 10/08/2023 21:29:34 10/08/20 23 10/08/2023 BASIC METAB OLIC PANEL anion gap 7 (4-17) Not Available [facility] [address] [place], [address], 10/08/2023 21:29:34 10/08/20 23 10/08/2023 BASIC METAB OLIC PANEL calcium 9.4 mg/dL (8.6-1 0.5) Not Available [facility] [address] [place], [address], 10/08/2023 21:29:34 10/08/20 23 10/08/2023 BASIC METAB [...] Available [facility] [address] [place], [address], 10/08/2023 21:29:34 01/24/20 24 01/24/2024 COMP. METAB OLIC PANEL (14) glucose 102 mg/dL 70-99 above high normal Not Available [facility] ([facility]) [address] [place], [address], 01/25/2024 12:06:17 01/24/20 24 01/24/2024 COMP. METAB OLIC PANEL (14) BUN 10 mg/dL 8-27 Not Available [facility] ([facility]) [address] [place], [address], 01/25/2024 12:06:17 01/24/20 24 01/24/2024 COMP. METAB OLIC PANEL (14) creatinine 0.89 mg/dL 0.76-1 .27 Not Available [facility] ([facility]) [address] [place], [address], 01/25/2024 12:06:17 01/24/20 24 01/24/2024 COMP. METAB OLIC PANEL (14) eGFR 95 mL/mi n/1.7 3 >59 Not Available [facility] ([facility]) [address] [place], [address], 01/25/2024 12:06:17 01/24/20 24 01/24/2024 COMP. METAB OLIC PANEL (14) BUN/creatini ne ratio 11 10-24 Not Available [facility] ([facility]) [address] [place], [address], 01/25/2024 12:06:17 01/24/20 24 01/24/2024 COMP. METAB OLIC PANEL (14) sodium 137 mmol/ L 134-14 4 Not Available [facility] ([facility]) [address] [place], [address], 01/25/2024 12:06:17 01/24/20 24 01/24/2024 COMP. METAB OLIC PANEL (14) potassium 4.8 mmol/ L 3.5-5. 2 Not Available [facility] ([facility]) [address] [facility] [place], [address], 01/25/2024 12:06:17 01/24/20 24 01/24/2024 COMP. METAB OLIC PANEL (14) chloride 101 mmol/ L 96-106 Not Available [facility] ([facility] [address] [place], [address], 01/25/2024 12:06:17 01/24/20 24 01/24/2024 COMP. METAB OLIC PANEL (14) anion gap 12.0 mmol/ L 10.0-1 8.0 Not Available [facility] ([facility]) [address] [facility], [place], [address], 01/25/2024 12:06:17 01/24/20 24 01/24/2024 COMP. METAB OLIC PANEL (14) carbon dioxide, total 24 mmol/ L 20-29 Not Available [facility] ([facility]) [address] [place], [address], 01/25/2024 12:06:17 01/24/20 24 01/24/2024 COMP. METAB OLIC PANEL (14) calcium 9.2 mg/dL 8.6-10 .2 Not Available [facility] ([facility]) [address] [place], [address], 01/25/2024 12:06:17 01/24/20 24 01/24/2024 COMP. METAB OLIC PANEL (14) albumin 4.3 g/dL 3.9-4. 9 Not Available [facility] ([facility]) [address] [place], [address], 01/25/2024 12:06:17 01/24/20 24 01/24/2024 COMP. METAB OLIC PANEL (14) bilirubin, total 0.4 mg/dL 0.0-1. 2 Not Available [facility] ([facility]) [address], [place], [address], 01/25/2024 12:06:17 01/24/20 24 01/24/2024 COMP. METAB OLIC PANEL (14) alkaline phosphatase 59 IU/L 44-121 Not Available [facility]) [address], [place], [address], 01/25/2024 12:06:17 01/24/20 24 01/24/2024 COMP. METAB OLIC PANEL (14) AST (SGOT) 21 IU/L 0-40 Not Available [facility] ([facility] [address] [place], [address], 01/25/2024 12:06:17 01/24/20 24 01/24/2024 COMP. METAB OLIC PANEL (14) ALT (SGPT) 24 IU/L 0-44 Not Available [facility] ([facility]) [address] [facility], [place], [address], 01/25/2024 12:06:17 01/24/20 24 01/25/2024 COMP. METAB OLIC PANEL (14) protein, total 6.3 g/dL 6.0-8. 5 Not Available [facility] ([facility]) [address] [place], [address], 01/25/2024 12:06:17 01/24/20 24 01/25/2024 COMP. METAB OLIC PANEL (14) globulin, total 2.0 g/dL 1.5-4. 5 Not Available [facility] ([facility] [address] [place], [address], 01/25/2024 12:06:17 01/24/20 24 01/25/2024 COMP. METAB OLIC PANEL (14) A/G ratio 2.2 1.2-2. 2 Not Available [facility] ([facility]) [address] [facility] [place], [address], 01/25/2024 12:06:17 01/24/20 24 01/24/2024 CBC, PLATE LET, NO DIFFE RENTI AL WBC 6.7 x10e3 /uL 3.4-10 .8 Not Available [facility] ([facility]) [address] [facility], [place], [address], 01/25/2024 12:06:18 01/24/20 24 01/24/2024 CBC, PLATE LET, NO DIFFE RENTI AL RBC 4.34 x10e6 /uL 4.14-5 .80 Not Available [facility] ([facility]) [address] [place], [address], 01/25/2024 12:06:18 01/24/20 24 01/24/2024 CBC, PLATE LET, NO DIFFE RENTI AL hemoglobin 13.9 g/dL 13.0-1 7.7 Not Available [facility] ([facility]) [address] [place], [address], 01/25/2024 12:06:18 01/24/20 24 01/24/2024 CBC, PLATE LET, NO DIFFE RENTI AL hematocrit 41.7 % 37.5-5 1.0 Not Available [facility] ([facility]) [address] [place], [address], 01/25/2024 12:06:18 01/24/20 24 01/24/2024 CBC, PLATE LET, NO DIFFE RENTI AL MCV 96 fL 79-97 Not Available [facility] ([facility]) [address] [place], [address], 01/25/2024 12:06:18 01/24/20 24 01/24/2024 CBC, PLATE LET, NO DIFFE RENTI AL MCH 32.0 pg 26.6-3 3.0 Not Available [facility] ([facility]) [address] [place], [address], 01/25/2024 12:06:18 01/24/20 24 01/24/2024 CBC, PLATE LET, NO DIFFE RENTI AL MCHC 33.3 g/dL 31.5-3 5.7 Not Available [facility] ([facility]) [address] [facility], [place], [address], 01/25/2024 12:06:18 01/24/20 24 01/24/2024 CBC, PLATE LET, NO DIFFE RENTI AL RDW 12.3 % 11.6-1 5.4 Not Available [facility] ([facility]) [address] [facility], [place], [address], 01/25/2024 12:06:18 01/24/20 24 01/24/2024 CBC, PLATE LET, NO DIFFE RENTI AL platelets 339 x10e3 /uL 150-45 0 Not Available [facility] ([facility]) [address] [facility], [place], [address], 01/25/2024 12:06:18 01/24/20 24 01/24/2024 CBC, PLATE LET, NO DIFFE RENTI AL NRBC PIT HOIST OPERATOR Not Available [facility] ([facility]) [address] [facility], [place], [address], 01/25/2024 12:06:18 01/24/20 24 01/24/2024 LP+NO N-HDL TROY STERO L cholesterol, total 153 mg/dL 100-19 9 Not Available [facility] ([facility]) [address] [facility], [place], [address], 01/25/2024 12:06:19 01/24/20 24 01/24/2024 LP+NO N-HDL TROY STERO L triglyceride s 85 mg/dL 0-149 Not Available [facility] ([facility]) [address] [place], [address], 01/25/2024 12:06:19 01/24/20 24 01/24/2024 LP+NO N-HDL TROY STERO L HDL cholesterol 62 mg/dL >39 Not Available [facility] ([facility]) [address] [facility], [place], [address], 01/25/2024 12:06:19 01/24/20 24 01/24/2024 LP+NO N-HDL TROY STERO L VLDL cholesterol michael 16 mg/dL 5-40 Not Available [facility] ([facility]) [address] [place], [address], 01/25/2024 12:06:19 01/24/20 24 01/24/2024 LP+NO N-HDL TROY STERO L LDL chol calc ([facility]) 75 mg/dL 0-99 Not Available [facility] ([facility]) [address] [facility], [place], [address], 01/25/2024 12:06:19 01/24/20 24 01/24/2024 LP+NO N-HDL TROY STERO L non-HDL cholesterol 91 mg/dL 0-129 Not Available [facility] ([facility]) [address] [facility], [place], [address], 01/25/2024 12:06:19 01/24/20 24 01/24/2024 LP+NO N-HDL TROY STERO L comment: PIT HOIST OPERATOR Not Available [facility] ([facility]) [address] [place], [address], 01/25/2024 12:06:19 01/24/20 24 01/25/2024 PSA (SERI [...] t be inter prete d as absol rein evide nce of the prese nce or [facility]en [facility]. Not Available [facility] ([facility]) [address] [place], [address], 01/25/2024 12:06:20 01/24/20 24 01/25/2024 PSA (SERI AL MONIT OR) pdf . Not Available [facility] ([facility]) [address] [facility], [place], [address], 01/25/2024 12:06:20 01/24/20 24 01/25/2024 MAGNE SIUM magnesium 2.2 mg/dL 1.6-2. 3 Not Available [facility] ([facility]) [address] [place], [address], 01/25/2024 12:06:21 06/28/20 24 06/29/2024 CBC WITH DIFFE RENTI AL/PL ATELE T WBC 6.0 x10e3 /uL 3.4-10 .8 normal Not Available [facility] ([facility]) [address] [place], [address], 06/29/2024 06:09:08 06/28/20 24 06/29/2024 CBC WITH DIFFE RENTI AL/PL ATELE T RBC 4.00 x10e6 /uL 4.14-5 .80 below low normal Not Available [facility] ([facility]) [address] [place], [address], 06/29/2024 06:09:08 06/28/20 24 06/29/2024 CBC WITH DIFFE RENTI AL/PL ATELE T hemoglobin 13.2 g/dL 13.0-1 7.7 normal Not Available [facility] ([facility]) [address] [facility], [place], [address], 06/29/2024 06:09:08 06/28/20 24 06/29/2024 CBC WITH DIFFE RENTI AL/PL ATELE T hematocrit 39.0 % 37.5-5 1.0 normal Not Available [facility] ([facility]) [address] [facility], [place], [address], 06/29/2024 06:09:08 06/28/20 24 06/29/2024 CBC WITH DIFFE RENTI AL/PL ATELE T MCV 98 fL 79-97 above high normal Not Available [facility] ([facility]) [address] [facility], [place], [address], 06/29/2024 06:09:08 06/28/20 24 06/29/2024 CBC WITH DIFFE RENTI AL/PL ATELE T MCH 33.0 pg 26.6-3 3.0 normal Not Available [facility] ([facility]) [address] [place], [address], 06/29/2024 06:09:08 06/28/20 24 06/29/2024 CBC WITH DIFFE RENTI AL/PL ATELE T MCHC 33.8 g/dL 31.5-3 5.7 normal Not Available [facility] ([facility]) [address] [facility], [place], [address], 06/29/2024 06:09:08 06/28/20 24 06/29/2024 CBC WITH DIFFE RENTI AL/PL ATELE T RDW 12.6 % 11.6-1 5.4 Not Available [facility] ([facility]) [address] [place], [address], 06/29/2024 06:09:08 06/28/20 24 06/29/2024 CBC WITH DIFFE RENTI AL/PL ATELE T platelets 285 x10e3 /uL 150-45 0 normal Not Available [facility] ([facility]) [address] [facility], [place], [address], 06/29/2024 06:09:08 06/28/20 24 06/29/2024 CBC WITH DIFFE RENTI AL/PL ATELE T neutrophils 58 % not estab. normal Not Available [facility] ([facility]) [address] [facility], [place], [address], 06/29/2024 06:09:08 06/28/20 24 06/29/2024 CBC WITH DIFFE RENTI AL/PL ATELE T lymphs 32 % not estab. normal Not Available [facility] ([facility]) [address] [facility], [place], [address], 06/29/2024 06:09:08 06/28/20 24 06/29/2024 CBC WITH DIFFE RENTI AL/PL ATELE T monocytes 7 % not estab. normal Not Available [facility] ([facility]) [address] [facility], [place], [address], 06/29/2024 06:09:08 06/28/20 24 06/29/2024 CBC WITH DIFFE RENTI AL/PL ATELE T eos 2 % not estab. normal Not Available [facility] ([facility]) [address] [facility], [place], [address], 06/29/2024 06:09:08 06/28/20 24 06/29/2024 CBC WITH DIFFE RENTI AL/PL ATELE T basos 1 % not estab. normal Not Available [facility] ([facility]) [address] [facility], [place], [address], 06/29/2024 06:09:08 06/28/20 24 06/29/2024 CBC WITH DIFFE RENTI AL/PL ATELE T immature cells PIT HOIST OPERATOR Not Available [facility] ([facility]) [address] [facility], [place], [address], 06/29/2024 06:09:08 06/28/20 24 06/29/2024 CBC WITH DIFFE RENTI AL/PL ATELE T neutrophils (absolute) 3.5 x10e3 /uL 1.4-7. 0 normal Not Available [facility] ([facility]) [address] [facility], [place], [address], 06/29/2024 06:09:08 06/28/20 24 06/29/2024 CBC WITH DIFFE RENTI AL/PL ATELE T lymphs (absolute) 1.9 x10e3 /uL 0.7-3. 1 normal Not Available [facility] ([facility]) [address] [facility], [place], [address], 06/29/2024 06:09:08 06/28/20 24 06/29/2024 CBC WITH DIFFE RENTI AL/PL ATELE T monocytes(ab solute) 0.4 x10e3 /uL 0.1-0. 9 normal Not Available [facility] ([facility]) [address] [facility], [place], [address], 06/29/2024 06:09:08 06/28/20 24 06/29/2024 CBC WITH DIFFE RENTI AL/PL ATELE T eos (absolute) 0.1 x10e3 /uL 0.0-0. 4 normal Not Available [facility] ([facility]) [address] [facility], [place], [address], 06/29/2024 06:09:08 06/28/20 24 06/29/2024 CBC WITH DIFFE RENTI AL/PL ATELE T baso (absolute) 0.1 x10e3 /uL 0.0-0. 2 normal Not Available [facility] ([facility]) [address] [place], [address], 06/29/2024 06:09:08 06/28/20 24 06/29/2024 CBC WITH DIFFE RENTI AL/PL ATELE T immature granulocytes 0 % not estab. Not Available [facility] ([facility]) [address], [place], [address], 06/29/2024 06:09:08 06/28/20 24 06/29/2024 CBC WITH DIFFE RENTI AL/PL ATELE T immature grans (abs) 0.0 x10e3 /uL 0.0-0. 1 Not Available [facility] ([facility]) [address], [place], [address], 06/29/2024 06:09:08 06/28/20 24 06/29/2024 CBC WITH DIFFE RENTI AL/PL ATELE T NRBC PIT HOIST OPERATOR Not Available [facility] ([facility]) [address] [facility], [place], [address], 06/29/2024 06:09:08 06/28/20 24 06/29/2024 CBC WITH DIFFE RENTI AL/PL ATELE T hematology comments: PIT HOIST OPERATOR Not Available [facility] ([facility]) [address] [facility], [place], [address], 06/29/2024 06:09:08 06/28/20 24 06/29/2024 COMP. METAB OLIC PANEL (14) glucose 101 mg/dL 70-99 above high normal Not Available [facility] ([facility]) [address] [facility], [place], [address], 06/29/2024 06:09:09 06/28/20 24 06/29/2024 COMP. METAB OLIC PANEL (14) BUN 8 mg/dL 8-27 normal Not Available [facility] ([facility]) [address] [facility], [place], [address], 06/29/2024 06:09:09 06/28/20 24 06/29/2024 COMP. METAB OLIC PANEL (14) creatinine 0.85 mg/dL 0.76-1 .27 normal Not Available [facility] ([facility]) [address] [facility], [place], [address], 06/29/2024 06:09:09 06/28/20 24 06/29/2024 COMP. METAB OLIC PANEL (14) eGFR 96 mL/mi n/1.7 3 >59 normal Not Available [facility] ([facility]) [address] [facility], [place], [address], 06/29/2024 06:09:09 06/28/20 24 06/29/2024 COMP. METAB OLIC PANEL (14) BUN/creatini ne ratio 9 10-24 below low normal Not Available [facility] ([facility]) [address] [facility], [place], [address], 06/29/2024 06:09:09 06/28/20 24 06/29/2024 COMP. METAB OLIC PANEL (14) sodium 136 mmol/ L 134-14 4 normal Not Available [facility] ([facility]) [address] [facility], [place], [address], 06/29/2024 06:09:09 06/28/20 24 06/29/2024 COMP. METAB OLIC PANEL (14) potassium 4.6 mmol/ L 3.5-5. 2 normal Not Available [facility] ([facility]) [address] [facility], [place], [address], 06/29/2024 06:09:09 06/28/20 24 06/29/2024 COMP. METAB OLIC PANEL (14) chloride 100 mmol/ L 96-106 normal Not Available [facility] ([facility]) [address] [facility], [place], [address], 06/29/2024 06:09:09 06/28/20 24 06/29/2024 COMP. METAB OLIC PANEL (14) carbon dioxide, total 21 mmol/ L 20-29 normal Not Available [facility] ([facility]) [address] [facility], [place], [address], 06/29/2024 06:09:09 06/28/20 24 06/29/2024 COMP. METAB OLIC PANEL (14) calcium 9.1 mg/dL 8.6-10 .2 normal Not Available [facility] ([facility]) [address] [place], [address], 06/29/2024 06:09:09 06/28/20 24 06/29/2024 COMP. METAB OLIC PANEL (14) protein, total 6.5 g/dL 6.0-8. 5 normal Not Available [facility] ([facility]) [address] [facility], [place], [address], 06/29/2024 06:09:09 06/28/20 24 06/29/2024 COMP. METAB OLIC PANEL (14) albumin 4.3 g/dL 3.9-4. 9 normal Not Available [facility] ([facility]) [address] [place], [address], 06/29/2024 06:09:09 06/28/20 24 06/29/2024 COMP. METAB OLIC PANEL (14) globulin, total 2.2 g/dL 1.5-4. 5 Not Available [facility] ([facility]) [address] [place], [address], 06/29/2024 06:09:09 06/28/20 24 06/29/2024 COMP. METAB OLIC PANEL (14) bilirubin, total 0.7 mg/dL 0.0-1. 2 normal Not Available [facility] ([facility]) [address] [place], [address], 06/29/2024 06:09:09 06/28/20 24 06/29/2024 COMP. METAB OLIC PANEL (14) alkaline phosphatase 62 IU/L 44-121 normal Not Available [facility] ([facility]) [address] [place], [address], 06/29/2024 06:09:09 06/28/20 24 06/29/2024 COMP. METAB OLIC PANEL (14) AST (SGOT) 26 IU/L 0-40 normal Not Available [facility] ([facility]) [address] [facility], [place], [address], 06/29/2024 06:09:09 06/28/20 24 06/29/2024 COMP. METAB OLIC PANEL (14) ALT (SGPT) 20 IU/L 0-44 normal Not Available [facility] ([facility]) [address] [facility], [place], [address], 06/29/2024 06:09:09 10/08/20 23 10/08/2023 elect rocar diogr am No observ ation record ed. [email or web address] In-Office Order Internal Use Only DO Not Attach Compendium DO Not Attach Compendium, Do Not Delete/merge, [id number] 10/08/2023 13:27:48 10/08/20 elect rocar diogr am No observ ation record ed. BONY In-Office Order Internal Use Only DO Not Attach Compendium DO Not Attach Compendium, Do Not Delete/merge, [id number] 10/11/2023 16:04:34 11/22/19 24 11/19/2023 US, duple x, arter ial, lower extre mity, compl ete No observ ation record ed. [facility] [address] [address], [place], [address], 11/22/2023 09:53:03 04/19/20 24 04/18/2024 duple x scan of extre mity veins inclu ding respo nses to compr essio n and other maneu vers; compl ete bilat eral study (PROC ) No observ ation record ed. [facility] [address] [address], [place], [address], 04/20/2024 07:39:15 06/21/20 24 05/15/2024 CT, angio gram, abdom en, w/ contr ast No observ ation [facility] ed. [facility] 05/26 17:49:28 06/21/20 24 [...] DO Not Attach Compendium, Do Not Delete/merge, [id number] 06/28/2024 11:48:52 06/28/20 elect rocar diogr am No observ ation record ed. [email or web address] In-Office Order Internal Use Only DO Not Attach Compendium DO Not Attach Compendium, Do Not Delete/merge, [id number] 06/28/2024 11:48:52 Result Notes None recorded. Problems Name Problem SNOMED Code Status Onset Date Resolution Date Notes Provider Name and Address Organization Details Recorded Time Snoring symptoms 626184743 Active 2016 Had sleep study and no GISEL Festus flores [facility] 0 14:41:05 Asthma 659038616 Active 2016 Festus flores [facility] 0 14:41:05 Insomnia 650112316 Active 2016 Festus flores [facility] 0 14:41:05 [facility] l hyperten [place] 48880954 Active 2017 Not yet on meds. Being followed by renal. Festus flores [facility] 0 14:41:05 Eustachi an tube disorder 77893422 Active 2017 Festus flores [facility] 0 14:41:05 Allergic rhinitis 82384865 Active 2017 Festus flores [facility] 0 14:41:05 Heart murmur 44316690 Active 2018 Festus Mays null, [facility] 0 14:41:05 Primary erectile dysfunct ion 151342752 Active 2018 Festus Mays null, [facility] 0 14:41:05 Arthriti s of left knee 64512061877 57760 Active 2017 Had replacem ent done 09/28/19. Has pain and followed by [facility] and getting injectio ns. Lala newton MD [address], [place], [address], [facility] 4 11:55:43 Surgical follow-u p [id number] Completed 201809/22/2020 Lala newton MD [address], [place], [address], [facility] 0 08:30:33 Arthriti s of left wrist 01331879257 87475 Active 2019 Had trauma in the past. Followed by Hand Surgery Lala newton MD [address], [place], [address], [facility] 0 08:31:25 Carpal tunnel syndrome of left wrist 09255255345 9102 Active 2020 Lala newton MD [address], [place], [address], [facility] 1 13:14:06 Neck pain 23399284 Active 2020 Followed by ortho and MRI ordered. Lala newton MD [address], [place], [address], [facility] 1 09:37:45 Hyperlip idemia 54696302 Active 2021 Lala newton MD [address], [place], [address], [facility] 2 13:30:11 History of SARS-CoV -2 25590257115 5101302 Active 2021 Lala newton MD [address], [place], [address], [facility] 3 15:15:44 Anemia 265560268 Active 2022 Lala newton MD [address], [place], [address], [facility] 3 09:04:59 Basal cell carcinom a of skin 523736435 Active 2018 MOHs procedur e done at [facility]. Lala newton MD [address], [place], [address], [facility] 3 19:35:38 Pain of right wrist 94109183984 9100 Active 2022 Seen by ortho; probable CTS. Lala newton MD [address], [place], [address], [facility] 3 16:46:36 Carpal tunnel syndrome of right wrist 53765637042 9108 Active 2022 seen by hand surgery Lala newton MD [address], [place], [address], [facility] 3 07:53:18 Peripher al venous insuffic iency 55382975 Active 2023 Treated with compress ion stocking s and lifestyl e changes. Seen by Vascular surgery and will be looking into thermal ablation /sclerto therapy. Lala newton MD [address], [place], [address], [facility] 4 12:56:55 Arthriti s of right knee 27719007101 20032 Active 2023 Followed by REBECCA and currentl y being treated with injectio ns. Getting euflexa injectio ns from [facility]. Lala newton MD [address] [facility] [address], [place], [address], [facility] 4 17:46:22 Intermit tent claudica tion 21958265 Active 2023 Bilatera l endarter ectomy done by Dr Puente 07/11/24 Lala newton MD [address] [facility] [address], [place], [address], [facility] 4 13:36:14 Problem Notes None recorded. Procedures Surgical History Date Name Laterality Status Provider Name and Address Organization Details Recorded Time 07/11/20 24 endarterectomy completed Lala Palomo MD [address] [address], [place], [address], [facility] 10/11/2024 07:49:41 10/11/20 23 Carpal tunnel surgery completed Jade Jeffrey [facility] 11/09/2023 14:25:25 07/13/20 22 Colonoscopy completed Sujey Navarro [facility] 07/31/2022 16:54:25 02/28/20 21 Carpal tunnel surgery completed Lala Palomo MD [address] [address], [place], [address], [facility] 12/15/2022 15:19:58 09/28/20 19 total knee replacement completed Coby Kruse [facility] 09/29/2019 16:10:56 11/29/19 19 mohs surgery completed Lala Palomo MD [address] [address], [place], [address], [facility] 08/07/2020 16:28:26 10/25/19 16 Shoulder joint surgery completed Lala Palomo MD [address], [place], [address], [place] [facility] 08/07/2020 16:28:48 03/25/20 12 Meniscal trnspl knee w/scpe completed Festusjessica Mays [facility] 07/08/2017 13:16:50 10/25/18 95 Iliac bone graft microvasc completed Festus Mays [facility] 07/08/2017 13:15:14 10/25/18 65 Tonsillectomy completed Festus Mays [facility] 07/08/2017 13:16:07 Imaging Results Imaging Date Name Status LastModified by Organization Details LastModified Time 10/08/2023 electrocardiogram completed [email or web address] In-Offi ce Order Internal Use Only DO Not Attach Compendium DO Not Attach Compendium, Do Not Delete/merge, [id number] 10/08/2023 13:27:48 10/08/2023 electrocardiogram completed BONY In-Offi ce Order Internal Use Only DO Not Attach Compendium DO Not Attach Compendium, Do Not Delete/merge, [id number] 10/11/2023 16:04:34 11/19/2023 US, duplex, arterial, lower extremity, complete completed [facility] [address] [facility] [address], [place], [address], 11/22/2023 09:53:03 04/18/2024 duplex scan of extremity veins including responses to compression and other maneuvers; complete bilateral study (PROC) completed [facility] [address], [place], [address], 04/20/2024 07:39:15 05/15/2024 CT, angiogram, abdomen, w/ contrast [email or web address] Information not available 06/21/2024 17:49:28 04/11/2024 US, duplex, venous, lower extremity completed [email or web address] Information not available 06/21/2024 17:49:29 04/03/2024 pulse volume recording (PROC) completed [email or web address] Information not available 06/21/2024 17:47:18 06/28/2024 electrocardiogram completed [email or web address] In-Offi ce Order Internal Use Only DO Not Attach Compendium DO Not Attach Compendium, Do Not Delete/merge, [id number] 06/28/2024 11:48:52 06/28/2024 electrocardiogram completed [email or web address] In-Offi ce Order Internal Use Only DO Not Attach Compendium DO Not Attach Compendium, Do Not Delete/merge, [id number] 06/28/2024 11:48:52 Procedure Notes None recorded. Medical [...] Updated DateTime 3 177.8 cm 28.3 kg/m2 84339.7 g 64 /min 97 % 97 % 98.1 [degF] 121 mm[Hg] 77 mm[Hg] Ophelia Rodriguez MA [facility] 3 15:10:58 Date Recorded Body height Body mass index (BMI) Body weight Heart rate Oxygen saturation Oxygen saturation in Arterial blood by Pulse oximetry Body temperature Systolic blood pressure Diastolic blood pressure Provider Name and Address Organization Details Last Updated DateTime 3 177.8 cm 27.4 kg/m2 09814.8 4 g 57 /min 96 % 96 [...] Updated DateTime 4 177.8 cm 27.8 kg/m2 17872.9 2 g 64 /min 97 % 97 [...] Updated DateTime 4 177.8 cm 28.4 kg/m2 12932.2 9 g 71 /min 97 % 97 [...] Updated DateTime 4 177.8 cm 27.8 kg/m2 04220.9 2 g 69 /min 96 % 96 % 97.9 [degF] 97 mm[Hg] 58 mm[Hg] Kita berger MA [facility] 4 10:03:43 Date Recorded Systolic blood pressure Diastolic blood pressure Provider Name and Address Organization Details Last Updated DateTime 06/28/2024 104 mm[Hg] 68 mm[Hg] CALI CORTES [address] [facility] [address], [place], [address], [facility] 06/28/2024 10:23:19 Social History Question Answer Notes LastModified by Organizat ion Details LastModified Time Tobacco Smoking Status Former Smoker Festus Mays mark, [facility] 07/08/2017 13:19:32 Do You Have An [...] available 12/08/2021 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 11-15yearssin [email or web address] aldridge Information not available 06/20/2024 Do You Take Precautions To Prevent Distracted Driving? Yes [email or web address] Information not available 07/08/2017 How Often Do You Need To Have Someone Help You When You Read Instructions, Pamphlets, Or Other Written Material From Your Doctor Or Pharmacy? Never Information not available 07/08/2017 Have You Served In The ? No [email or web address] Information not available 07/08/2017 Have You Or Anyone In Your Household Had Any Of The Following Symptoms In The Last 14 Days: Sore Throat, Cough, Chills, Body Aches For Unknown Reasons, Shortness Of Breath For Unknown Reasons, Loss Of Smell, Loss Of Taste, Fever At Or Greater Than 100 Degrees Fahrenheit? No [email or web address] Information not available 08/07/2020 Are You Or Anyone In Your Household A Health Care Provider Or Emergency Responder? No Information not available 08/07/2020 To The Best Of Your Knowledge Have You Been In Close Proximity To Any Individual Who Tested Positive For COVID-19? No [email or web address] Information not available 08/07/2020 Have You Recently Traveled To A COVID-19 High Risk Area Or Gathering In The Last 10 Days? No [email or web address] Information not available 02/04/2021 What Was The [...] Arthritis Y Head Injury/Concussion Y Cancer Y Asthma Y Allergies Y Hypertension Y Chicken Pox Y Immunizations Vaccine Type Date Status Note Provider Nam e and Address Organization Details Recorded Time COVID-19, mRNA, LNP-S, PF, 30 mcg/0.3 mL dose 12/30/19 [facility] 14:26:29 COVID-19, mRNA, LNP-S, PF, 30 mcg/0.3 mL dose 01/20/20 21 completed RAFFY Manzanares, [facility] 10/15/2021 14:26:29 Hep A, adult 03/05/20 21 completed RAFFY Duarte, [facility] 03/24/2022 13:29:12 COVID-19, mRNA, LNP-S, PF, 30 mcg/0.3 mL dose 08/01/20 21 completed RAFFY Manzanares, [facility] 10/15/2021 14:26:29 MMR 03/05/20 21 completed RAFFY Manzanares, [facility] 10/15/2021 14:26:29 zoster recombinant 06/24/20 20 completed RAFFY Manzanares, [facility] 10/15/2021 14:26:29 Hep A-Hep B 08/18/20 completed RAFFY Manzanares, [facility] 10/15/2021 14:26:30 Influenza, split virus, quadrivalent, PF 08/01/20 21 completed RAFFY Manzanares, [facility] 10/15/2021 14:26:30 zoster recombinant 12/01/19 20 completed RAFFY Manzanares, [facility] 10/15/2021 14:26:30 typhoid, ViCPs 03/05/20 [facility] 14:26:30 COVID-19, mRNA, LNP-S, PF, 100 mcg/0.5mL dose or 50 mcg/0.25mL dose 03/02/20 22 completed RAFFY Duarte, [facility] 03/24/2022 13:29:12 Influenza, MDCK, quadrivalent, PF 08/17/20 22 [facility] 15:05:13 COVID-19, mRNA, LNP-S, bivalent, PF, 50 mcg/0.5 mL or 25mcg/0.25 mL dose 08/17/20 22 completed RAFFY Manzanares, [facility] 06/15/2023 15:05:13 Influenza, MDCK, quadrivalent, PF 09/13/20 23 [facility] 15:34:31 COVID-19, mRNA, LNP-S, PF, 50 mcg/0.5 mL 09/13/20 23 [facility] 15:34:31 Influenza, high-dose, trivalent, PF 06/22/20 24 [facility] 10:04:07 Tdap 07/08/20 17 completed Not Available [facility] 11/11/2019 02:21:46 Influenza, split virus, quadrivalent, PF 07/12/20 18 cancelled patient objection Not Available [facility] 11/11/2019 02:22:16 Influenza, split virus, quadrivalent, PF 08/07/20 20 completed Lala Palomo MD [address] [address], [place], [address], [facility] 08/07/2020 16:21:07 Past Encounters Encounter ID Performer Location Encounter Start Date Encounter Closed Date Diagnosis/Indication Diagnosis SNOMED-CT Code Diagnosis ICD10 Code Diagnosis Note [id number] Lala Palomo MD Main Office [address] [address] 07/08/2017 12:45:57 07/08/2017 14:17:51 Administration of viral vaccine 01775597 Z23 Asthma 561484452 J45.90 9 Insomnia 359417249 G47.0 0 Adult heal th examination 580542515 Z00.00 We will update his immunizati ons. He had a colonoscop y did in March and is due again in 2021. His last cholestero l was mildly elevated and his 10-risk for cardiac disease was calculated to be 7.1% therefore no meds recommende d. Screening for malignant neoplasm of lung 615239663 Z12.2 [id number] Lala Palomo MD Main Office [address] [address] 08/17/2017 15:39:32 08/17/2017 16:05:39 Multiple joint pain 06905246 M25.50 If his symptoms persist and his w/u is negative he will call her and we will consider a rheum referral. Heart murmur 20576271 R0 1.1 [id number] Lala Palomo MD Main Office [address] [address] 12/17/2017 15:10:36 12/17/2017 15:56:30 Otitis media 33895394 H66.91 right sided, no fb noted in ear canal, no cerumen impaction. Augmentin as directed x full 10 days, hydration, start flonase daily. Posterior rhinorrhea 758 65613 R09.82 Elevated blood-pressure reading without diagnosis of hypertension 213315310 R03.0 [id number] Lala Palomo MD Main Office [address] [address] [place] [address] 01/03/2018 08:58:14 01/03/2018 10:52:08 Elevated blood-pressure reading without diagnosis of hypertension 944443519 R03.0 We will look into 24-hour monitoring before starting meds. [id number] Lala Palomo MD Main Office [address] [address] [place] [address] 01/12/2018 09:20:53 01/12/2018 11:17:59 Upper respiratory infection 28843564 J06.9 Wheezing 35930315 R06.2 continue rescue inhaler every 4-6 hrs. [id number] Lala Palomo MD Main Office [address] [address] [place] [address] 01/27/2018 15:16:25 01/27/2018 15:58:21 Asthma 084744059 J45.909 We will add a controller to his regimen and he will cut back on the use of his rescue inhaler. Insomnia 398217997 G47.0 0 Elevated blood-pressure reading without diagnosis of hypertension 677295723 R03.0 We will look into 24-hour monitoring before starting meds. [id number] Lala Palomo MD Main Office [address] [address] [place] [address] 05/05/2018 12:42:49 05/05/2018 13:33:08 Dysfunction of eustachian tube 88191372 H69.83 [id number] Llaa Palomo MD Main Office [address] [address] [place] [address] 07/12/2018 15:37:26 07/12/2018 16:35:58 Adult health examination 934857960 Z00.00 We will update his immunizati ons. He had a colonoscop y in March 2017 and is due again in [address] Grimaldo. His last cholestero l was mildly elevated and his 10-risk for cardiac disease was calculated to be 7.1%. We will recheck today. Dysfunctio n of eustachian tube 81126773 H69.83 Followed by ENT Needs infl uenza immunization 881921823 Z23 Essential hypertension 84727718 I10 Stable on meds; continue current mgmt Insomnia 439517346 G47.0 0 [id number] Lala Palomo MD Main Office [address] [facility] [address] [place] [address] 07/26/2018 08:50:37 07/26/2018 09:37:43 Herpes zoster with complication 89685960 B02.8 Paronychia of finger 444 622452 L03.011 Advised to soak in warm water and continue abx and make a hand surgery appointmen t if not improving [id number] Bri Burroughs Main Office [address] [facility] [address] [place] [address] 11/17/2018 13:38:59 11/17/2018 14:34:03 Pre-surgery evaluation 064927633 Z01.818 Insomnia 169486908 G47.0 0 Basal cell carcinoma of skin 954065661 C44.91 Essential hypertension 84257867 I10 Stable on meds; continue current mgmt [id number] Lala Palomo MD Main Office [address] [facility] [address] [place] [address] 02/07/2019 10:14:24 02/07/2019 11:01:17 Essential hypertension 52978836 I10 Stable on meds; continue current mgmt Insomnia 001441798 G47.0 0 Osteoarthr itis of left knee joint 1171244537 05160 M17.12 Scheduled for TKR February [address] Pereyra Primary er ectile dysfunction 631919889 N52.9 Systolic murmur 47370946 R01.1 [id number] Lala Palomo MD Main Office [address] [facility] [address] [place] [address] 03/27/2019 10:41:43 03/27/2019 11:13:19 Heart murmur 75285489 R01.1 Normal ECHO. No further w/u needed. [id number] Lala Palomo MD Main Office [address] [facility] [address] [place] [address] 08/01/2019 15:39:14 08/01/2019 16:25:39 Adult health examination 867401124 Z00.00 UTD with immunizati ons. He had a colonoscop y in March 2017 and is due again in [address] Grimaldo. Essential hypertension 72561194 I10 Stable on meds; continue current mgmt Insomnia 704086314 G47.0 0 Primary er ectile dysfunction 501737672 N52.9 Uses sildenafil prn [id number] Lala Palomo MD Main Office [address] [facility] [address] [place] [address] 02/22/2020 13:06:12 02/23/2020 13:07:41 Essential hypertension 35298380 I10 Stable on meds; continue current mgmt. We will take over the prescribin g from renal. Asthma 149739762 J45.90 9 Doing well with the controller med. Will refill the rescue inhaler. Insomnia 064933791 G47.0 0 Stable with current mgmt. Allergic rhinitis 789278 04 J30.9 Doing well with current meds. [id number] Patricia Hogan PA-C Tele[facility] 3640 [facility] [address] [place] [address] 04/29/2020 09:01:21 04/29/2020 13:50:54 Injury of foot 700531214 S99.921A xray to r/o fracture. Elevated foot and ice every 3 hrs for 20 minutes and take OTC pain meds. [id number] Bri Burroughs Main Office [address] [address] [place] [address] 08/07/2020 15:35:15 08/07/2020 16:51:28 Adult health examination 286502094 Z00.00 Due for a flu shot. He had a colonoscop y in March 2017 and is due again in [address] Grimaldo. His father had prostate cancer. Needs infl uenza immunization 291472602 Z23 Allergic rhinitis 526202 04 J30.9 Doing well with current meds. Essential hypertension 31761863 I10 Stable on meds; continue current mgmt. Pain of left wrist 73198 56630 24722 M25.532 [id number] Suni Suárez Main Office [address] [address] [place] [address] 09/25/2020 09:41:51 09/25/2020 11:49:58 Insect bite to leg - nonvenomous 311433953 S80.861A bite right leg, will do 1 day tx for lyme and followup with test in a few weeks, call if any joint pain, fevers or rashes. [id number] Lala Palomo MD Main Office [address] [address] [place] [address] 02/04/2021 15:14:38 02/04/2021 16:00:51 Essential hypertension 49125173 I10 Stable on meds; continue current mgmt. Primary er ectile dysfunction 236441400 N52.9 Uses sildenafil prn Allergic rhinitis 981121 04 J30.9 Doing well with current meds. 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 Asthma 559938626 J45.90 9 Doing well with the controller med. Insomnia 753941002 G47.0 0 Stable with current mgmt. [id number] Lala Palomo MD Main Office [address] [address] [place] [address] 12/08/2021 13:19:05 12/08/2021 14:29:30 Adult health examination 636885645 Z00.00 He is UTD with COVID vaccines and booster and we have a record of this. He also states that he had a flu vaccine at the same time and we will check on this. He had a colonoscop y in March 2017 and is due again in this year by Dr Grimaldo. His father had prostate cancer. Asthma 337320784 J45.90 9 Doing well with the controller med and rarely uses his rescue inhaler. Essential hypertension 89401420 I10 Stable on meds; continue current mgmt. Insomnia 393043495 G47.0 0 Stable with current mgmt. Primary er ectile dysfunction 650991053 N52.9 Uses sildenafil prn Intermitte nt claudication 54389543 I73.9 Possible dx given his symptoms. We will refer to vascular for further evaluation . Nocturia 897815484 R35.1 Dad had a h/o prostate cancer. Screening for malignant neoplasm of colon 529396582 Z12.11 [id number] Devan Hogan PA-C Tele[facility] 36[address] [facility] [address] [place] [address] 03/24/2022 10:40:47 03/24/2022 15:34:35 Insect bite, nonvenomous, of thigh 974235416 S70.362A low suspicion for lyme since no tick embedded/r emoved, bites noticed ~ 24 hours later (not embedded 36-48 hours) -- reassured likely a spider bite, apply triple abx ointment 1-2x/day until healed, and pt requests check lyme titer next month which is not fully unreasonab le to give pt peace of mind [id number] Bri Burroughs Main Office [address] [address] [place] [address] 12/15/2022 14:22:44 12/15/2022 15:52:01 Adult health examination 652236936 Z00.00 He is UTD with COVID vaccines and booster and we have a record of this. He also states that he had a flu vaccine at the same time and we will check on this. He had a colonoscop y in June 2022 and is due again in [address] Grimaldo. His father had prostate cancer. History of SARS-CoV-2 29 53485736 45122931 Z86.16 Mild symptoms. Did not take paxlovid. Intermitte nt claudication 34076090 I73.9 Has a f/u with vascular. Impacted c erumen of bilateral ears 8970700332 620933 H61.23 Essential hypertension 06476099 I10 Stable on meds; continue current mgmt. Hyperlipidemia 04060311 E78.5 On meds and tolerating them well. His last LDL was not at goal. Asthma 981839811 J45.90 9 Doing well with the controller med and rarely uses his rescue inhaler. He understand s to call if he needs his rescue inhaler more than a few times a week. [id number] Lala Palomo MD Main Office [address] [address] [place] [address] 06/15/2023 14:58:20 06/15/2023 15:44:44 Essential hypertension 41603940 I10 Stable on meds; continue current mgmt. Anemia 541114398 D64.9 Will do further blood work to be sure that this is not getting worse and to characteri ze type of anemia. It is possible that alcohol is playing a role since he has more than 2 drinks a day. [id number] Lala Palomo MD Main Office [address] [place] [address] 10/08/2023 12:53:56 10/08/2023 13:29:15 Essential hypertension 23557540 I10 -on amlodipine 10mg daily and atenolol 50mg daily Asthma 728194549 J45.90 9 well controlled with inhalers Pre-surger y evaluation 763443603 Z01.818 pre-operat torin medical clearance for carpal tunnel release with Dr. Anil Coburn at [facility] on 10/11/2023 -will order CBC, chem 7, PT/INR-no cardiac events in the past 3 months-ekg unremarkab le, mild bradycardi c at 53bpm. RRR, no ST changes. [id number] Lala Palomo MD Main Office [address] [facility] [place] [address] 12/21/2023 15:11:52 12/21/2023 16:20:12 Adult health examination 939575326 Z00.00 He is UTD with COVID vaccines and booster and we have a record of this. He also states that he had a flu vaccine at the same time and we will check on this. He had a colonoscop y in June 2022 and is due again in [address] Grimaldo. His father had prostate cancer. Nocturia 274708004 R35.1 Dad had a h/o prostate cancer. Essential hypertension 09762884 I10 Stable on meds; continue current mgmt. Hyperlipidemia 48446181 E78.5 On meds and tolerating them well. His last LDL was not at goal. Primary er ectile dysfunction 721947172 N52.9 Uses sildenafil prn Peripheral venous insufficiency 35672430 I87.2 Seen by =vascular and will be having procedures done. [id number] Lala Palomo MD Main Office [address] [place] [address] 06/20/2024 15:40:14 06/20/2024 16:09:01 Essential hypertension 84182983 I10 Stable on meds; continue current mgmt. Hyperlipidemia 41260606 E78.5 On meds and tolerating them well. His last LDL was not at goal. Insomnia 018315568 G47.0 0 Stable with current mgmt. [id number] CALI CORTES Main Office [address] [place] [address] 06/28/2024 09:45:42 06/28/2024 10:27:19 Pre-surgery evaluation 785261841 Z01.818 No medical contraindi cations to proposed procedure. Reji Perioperat torin Cardiac Risk was calculated and the risk for perioperat torin KS is 0.2%. May proceed to surgery as planned.-o rdered CMP and CBC w/diff-EKG ; NSR, similar when compared to ekg from 09/2023; no cardiac symptoms Essential hypertension 35531527 I10 -on amlodipine 10mg daily and atenolol 50mg daily Peripheral venous insufficiency 88649302 I87.2 pre-operat torin medical clearance for bilateral [...] Guarantor Name 06/15/2023 1 [place] [id number] 2 Christopher Pankaj [id number] Christopher Pankaj 10/08/2023 1 [place] [id number] 2 Christopher Pankaj [id number] Christopher Pankaj 12/21/2023 1 [place] [id number] 2 Christopher Pankaj [id number] Christopher Pankaj 06/20/2024 1 [place] [id number] 2 Eren Lira [id number] Eren Lira 06/28/2024 1 [place] [id number] 2 Eren Lira [id number] Eren Lira Notes Date Note Type [...] side effects from medication Lala Palomo MD [address], [address], [facility] 06/15/2023 17:18:56 10/08/20 23 text/htm keith Jason is a 63 yr old M with PMHx of HTN, HLD, and asthma presents for pre-operative medical clearance for carpal tunnel release with Dr. Anil Coburn at [facility] on 10/11/2023. Under local anesthesia. Denies [...] chills, and nausea/vomiting. Lala Palomo MD [address]40 [facility] [address], [place], [address], [facility] 10/10/2023 14:24:18 12/21/19 24 text/htm l Generic HPI TemplateReported bypatient.Notes:UTD with immunizations including COVID with most recent booster, flu, tetanus, and shingles.Colonoscopy done by Dr Grimaldo in June 2022 with a 3-year call back. Lala Palomo MD [address] [facility] [address], [place], [address], [facility] 12/22/2023 07:56:32 06/20/20 24 text/htm l HyperlipidemiaReported [...] known sleep apnea Lala Palomo MD [address] [facility] [address], [place], [address], [facility] 06/20/2024 17:31:05 06/28/20 24 text/htm keith Jason [...] palpitations, fever, chills, and nausea/vomiting. CALI CORTES [address] [facility] [address], [place], [address], [facility] 06/28/2024 12:28:13
--- OUTSIDE RECORDS SUMMARY | 2024-12-07 17:44 | XMS_ITS | Patient Health Record ---
Author Organization [facility] Address [address] [place] [address] Care Team Providers Care Metal Fabricating Inspector Name Role Phone Murray PEREZ, Mata Primary Care Provider Gerhard Barkley Unavailable [phone] Reason For Referral No Information Medications Medication [...] Treatment Pending Test Test Name Order Date [id number] Destruction, 1-14 05/28/2014 [id number] Destruction, -14 10/29/2014 56958 I&D ABSCESS- SIMPLE,SINGLE 015 Insurance Providers Payer Name Payer Address Payer Phone Subscriber Number Group Number Insured Name Patient Relationship to Insured Coverage Start Date Coverage End Date [employer] [address] [place] [address] [phone] [id number] Eren Lira Self - patient is the insured Medical (General) History Medical History History ICD Code Measles Mumps Chicken pox Broken bones Joint implants/screws Warts Surgical History Surgery Date(Month/Year) left knee meniscus 2012 lipomas illiac bone graft 1991 right rotator cuff 03/2015
--- OUTSIDE RECORDS SUMMARY | 2024-12-07 17:44 | XMS_ITS | Continuity of Care Document ---
Author Organization [facility] Address [address] [place] [address] Phone Care Team Providers Care Computer Repair Engineer Name Role Phone Terry PEREZ, RVT, RPEDGAR, [...] Mins- [place] & [place] [facility], [address] [place] [address] Dr Bucio [address] [place], [id number], tel:[phone] [facility] Chronic venous hypertension (idiopathic) with other complications of bilateral lower extremity 4 Terry PEREZ RVT, RPVI Robert. [address] [place] [address], [facility] [place], [id number], [place]. tel:[phone] Referring Provider: Niraj Fay, [address] [place] [address], [address]. tel:[phone] [facility], [address] [place] [address] [place], [place] [address]L[place], [id number], [place] tel:[phone] [facility] Varicose veins of bilateral lower extremities with pain 4 Terry PEREZ RVT, RPVI Robert. [address] [place] [address], [facility] [place], [id number], [place]. tel:[phone] Referring Provider: Niraj Fay, [address] [place] [address], [place], [address]. tel:[phone] [facility], [address] [place] [address] [address] [address], [id number], [place] tel:[phone] [facility] Encounter for follow-up examination after completed treatment for conditions other than malignant nePain in left leg 4 Terry PEREZ RVT, RPVI Robert. [address] [place] [address], [facility] [place], [id number], [place]. tel:[phone] Referring Provider: Niraj Fay, [address] [place] [address] [place] [address], [address]. tel:[phone] [facility] [place], [address] [place] [address] [address] [address], [id number], [place] tel:[phone] [facility] [place] [facility] [place] Varicose veins of left lower extremity with other complications 4 Abril Moran. [address] [place] [address], [facility] [place], [id number], [place]. tel:[phone] Referring Provider: Niraj Fay, [address] [place] [address], [address]. tel:[phone] [facility] MD [place], [address] [place] [address] [address], [id number], [place] tel:[phone] [facility] [place] [facility] [place] Encounter for follow-up examination after completed treatment for conditions other than malignant neVaricose veins of left lower extremity with pain 4 Terry PEREZ RVT, AVILA Butcher. [address] [place] [address], [facility] [place], [id number], [place]. tel:[phone] Referring Provider: Niraj Fay, [address] [place] [address] [place] [address], [address]. tel:[phone] [facility] MD [place], [address] [place] [address] [address], [id number], [place] tel:[phone] [facility] [place] Varicose veins of left lower extremity with other complications 4 Terry PEREZ RVT, AVILA Butcher. [address] [place] [address], [place], [id number], [place]. tel:[phone] Referring Provider: Niraj Fay, [address] [place] [address] Suite [facility], [place], [address]. tel:[phone] [facility] MD [place], [address] [place] [address] [address] [address], [id number], [place] tel:[phone] [facility] [place] Encounter for follow-up examination after completed treatment for conditions other than malignant neVaricose veins of right lower extremity with pain Apr-1 4 Terry PEREZ RVT, RPVI Robert. [address] [place] [address], [place], [place], [id number], [place]. tel:[phone] Referring Provider: Niraj Fay, [address] [place] [address] Suite [facility], [place], [address]. tel:[phone] [facility], [address] [place] [address] [address] [address], [id number], [place] tel:[phone] [facility] [place] Varicose veins of right lower extremity with other complications Apr-0 4 Abril Moran. [address] [place] [address], [place], [place], [id number], [place]. tel:[phone] Referring Provider: Niraj Fay, [address] [place] [address] [place] [address], [address]. tel:[phone] [facility], [address] [place] [address] [facility] [address] [address], [id number], [place] tel:[phone] [facility] [place] Encounter for follow-up examination after completed treatment for conditions other than malignant neVaricose veins of right lower extremity with pain Apr-0 4 Terry PEREZ RVT, RPVI Robert. [address] [place] [address], [place], [place], [id number], [place]. tel:[phone] Referring Provider: Niraj Fay, [address] [place] [address] Suite [facility], [place], [address]. tel:[phone] [facility], [address] [place] [address] [address], [id number], [place] tel:[phone] [facility] [place] Varicose veins of right lower extremity with other complications Apr-0 4 Terry PEREZ RVT, RPVI Robert. [address] [place] [address], [facility] [place], [id number], [place]. tel:[phone] Referring Provider: Niraj Fay, [address] [place] [address], [address]. tel:[phone] Office/Oupt E&M New Pt 30 Mins [facility], [address] [place] [address] [facility] [address], [place], [id number], tel:[phone] [facility] [place] Varicose veins of bilateral lower extremities with other complications Pain in right lower legPain in left lower legPain in right legEssential (primary) hypertensionP ruritus, unspecifiedPa in in left legCramp and spasmLocalize d edema 4 Terry PEREZ RVT, AVILA Butcher. [address] [place] [address], [facility] [place], [id number], . tel:[phone] Referring Provider: Niraj Fay, [address] [place] [address], [address]. tel:[phone] [facility], [address] [place] [address] [address], [place], [id number], [place] tel:[phone] [facility] [place] Varicose veins of bilateral lower extremities with pain 4 Terry PEREZ RVT, AVILA Butcher. [address] [place] [address], [facility] [place], [id number], [place]. tel:[phone] Referring Provider: Niraj Fay, [address] [place] [address], [address]. tel:[phone] Family History Family Member Type Diagnosis Age At Onset No Information Payers Payer name Insurance type Covered libertarian ID Authordung saavedra(s) DREA CORREA [id number] Social History Type Description Quantity Date Captured [...]
--- OUTSIDE RECORDS SUMMARY | 2024-12-07 17:44 | XMS_ITS | Encounter Summary ---
Author Organization [facility] Address [address] [place] [address] Care Team Providers Care Design Draftsman Name Role Phone Unavailable Primary Care Provider Unavailabl e Encounter Details Date Type Department Care Team (Late st Contact Info) Description 10/04/2023 Scanned Document [facility] Department of Physiatry [place] [address] [place] [address] Kaelyn Salmeron MD [address] [place] [address] Social History Tobacco Use Types Packs/Day Years [...]
--- OUTSIDE RECORDS SUMMARY | 2024-12-07 17:44 | XMS_ITS | Clinical Summary ---
Author Organization [facility] Address [address] [place] [address] Care Team Providers Care Scroll Assembler Name Role Phone Unavailable Primary Care Provider [...]
--- OUTSIDE RECORDS SUMMARY | 2024-12-07 17:44 | XMS_ITS | Encounter Summary ---
Author Organization [facility] Address [address] [place] [address] Care Team Providers Care Radiation Protection Engineer Name Role Phone Unavailable Primary Care Provider Unavailabl e Encounter Details Date Type Department Care Team (Late st Contact Info) Description 09/17/2023 Scanned Document [facility] Department of Physiatry [place] [address] [place] [address] Kaelyn Salmeron MD [address] [place] [address] Social History Tobacco Use Types Packs/Day Years [...]
== END 2024-12-07 17:40 | disposition home or self-care (01) ==
LOC: HO.MRI 17:39
PROVIDERS: PCP Internal Medicine; Visit Provider Orthopaedic Surgery
DX: S83.241A Other tear of medial meniscus, current injury, right knee, initial encounter (principal)
CPT/HCPCS: 73721

== ENCOUNTER → 2024-12-07 17:41 | Outpatient (BNV) | payer BC, SELFPAY | PROVIDERS: PCP Internal Medicine; Visit Provider Radiology Diagnostic Radiology | DX: S83.241A Other tear of medial meniscus, current injury, right knee, initial encounter (principal); M17.11 Unilateral primary osteoarthritis, right knee; M25.461 Effusion, right knee | CPT/HCPCS: 73721 ==

== ENCOUNTER 2025-01-02 08:36 | Outpatient (AMB) | payer BC, SELFPAY ==
--- NOTE | 2025-01-02 08:46 | MHC.OFFVIS ---
Vital Signs 01/02/25 08:49 Height 6 ft Weight 192 lb BMI 26.0 Intake Visit Reasons: Right knee pain and giving way Intake Note: Eren is a 64 year old male who presents with complaints of progressively worsening right knee pain and giving way. The patient did undergo left total knee replacement surgery several years ago. He reports minimal discomfort in his left knee. Describes his right knee pain as sharp in nature. Most of the pain is along the medial aspect of his knee. Right knee pain and mechanical symptoms have gotten worse over the last few years in spite of continued non operative treatments. He has failed the last 6 weeks of conservative treatment. Has done physical therapy exercises which aggravated his pain. Has also had both cortisone injections and viscosupplementation injections which gave him minimal relief. Wishes to hold off on right total knee replacement surgery if at all possible. Allergies environmental allergies Allergy (Severe, Verified 01/02/25 08:48) Sneezing Medication List - Last Reconciled 01/02/25 by Alexi Burrell MD albuterol sulfate 90 mcg/actuation 1 puff inhalation ONCE PRN amlodipine 10 mg PO DAILY amoxicillin 2,000 mg (4 x 500 mg) PO ONCE aspirin 81 mg PO DAILY atenolol 50 mg PO DAILY atorvastatin 40 mg PO DAILY budesonide-formoterol 80-4.5 mcg/actuation (Symbicort) 1 puff inhalation BID PRN fluticasone furoate 27.5 mcg/actuation 2 sprays intranasal DAILY loratadine (Claritin) 10 mg PO DAILY sildenafil 100 mg PO DAILY PRN [facility] Social History Alcohol intake: current Patient Tobacco Use Status: Former Tobacco user Substance Use Type: Marijuana Current occupational status: employed Current occupation: [employer] Physical Exam Vital Signs: BMI result Body Mass Index 26.0 Const Other: Well-nourished well-developed very friendly male awake alert and oriented x3 in no acute distress Extrem Other: Bilateral lower extremity examination shows good capillary refill, no skin lesions noted, normal sensation light touch Right knee examination shows a minimal effusion, mild crepitus with range of motion, tenderness along his medial joint line, positive Garima's test, no instability Results Reviewed Results Reviewed: Standing full weight-bearing x-rays of the patient's right knee show mild to moderate diffuse joint space narrowing, no acute bony abnormalities MRI of the patient's right knee shows mild to moderate degenerative changes most significant in the medial compartment as well as a tear of the medial meniscus Assessment & Plan Assessment & Plan (1) Tear of medial meniscus of right knee: Code(s): S83.241A - Other tear of medial meniscus, current injury, right knee, initial encounter Category: Medical Plan Mr. Lira presents with right knee pain and mechanical symptoms due to degenerative joint disease as well as a medial meniscus tear. I had a lengthy discussion with the patient regarding the treatment options. Wishes to hold off on total knee replacement surgery if at all possible. I agree with this plan. Because of the patient's mechanical symptoms I do feel that he would get significant relief from arthroscopic surgery. The risks and benefits of right knee arthroscopic surgery were discussed at length with the patient. The patient wishes to proceed with surgery. Surgery will most likely involve right knee arthroscopic partial medial meniscectomy. The patient does understand that he may not get 100% relief of his symptoms depending on the severity of his degenerative changes. He will be scheduled for next available date. He will follow-up as instructed. Feel free to call me at any time should questions regarding his orthopedic management arise. I spent 21 minutes in reviewing the patient's records and imaging studies, seeing the patient and documenting in the medical record. Coding Level of Care Code Est Pt Level 3 (30870) Complex EM visit Add On G2211 Diagnoses Tear of medial meniscus of right knee S83.241A
[2025-01-02 08:49] VITALS: BMI 26.0
--- OUTSIDE RECORDS SUMMARY | 2025-01-02 09:17 | XMS_ITS ---
[facility] Address [address] [place] [address] Care Team Providers Care Air Cargo Specialist Supervisor Name Role Phone Mata Gao MD Primary Care Provider Gerhard Barkley Unavailable [phone] REASON FOR VISIT Records Problems No Known Problems Encounters Encounter [facility] Date [facility] [address] [place] [id number] 08/25/2023 Gerhard Herring Plan Of Treatment No Information Progress Notes * Eren LIRADOB:1959 (63 yo M)Acc No.[id number]:08/25/2023 Patient:?Eren Lira :1960???Age:63 Y???Sex:Male Address:[address] [place] [address], [phone] * true * Date:? Generated for Printi sharlene/Sonya/eTransmitting on:?01/02/2025 09:17 AM EDT
--- OUTSIDE RECORDS SUMMARY | 2025-01-02 09:17 | XMS_ITS | Clinical Summary ---
Author Organization [facility] Address [address] [place] [address] Care Team Providers Care Graphic Production Artist Name Role Phone Niraj Palomo MD Primary Care Provider [phone] Allergies No known active allergies Medications Medication [...] 0 09/30/2019 Active ergocalciferol (VITAMIN D2) capsule 23778 units daily. 0 Active albuterol 108 (90 [...] Smokeless Tobacco: Never Comments:cigarettes 1974- 1, cigars 2078-9493 Alcohol Use Standard Drinks/Week Comments Yes 20 [...] this topic Medical Devices Implanted Type Area Property Assessment Monitor Device Identifier Shelf Expiration Date Model / Serial / Lot Tibial Bearing Insert - Ps Implanted:Qty : 1 on 09/28/2019 by Alexi Burrell MD [place] [facility] Total Joint Left: Knee [employer]TE [employer] 07/19/2023 / / [id number] Ewing Sut 5.5mm Fullthrd Med Insite Preld Fr Fbr Sprt Peek - [id number] - [id number] Implanted:Qty : 1 on 04/10/2015 by Spenser Gaspar MD at [facility] Right: Shoulder [employer] 07/24/2016 [id number] / / [id number] Ewing Footprint 5.5mm [place] Suture - [id number] - [id number] Implanted:Qty : 1 on 04/10/2015 by Spenser Gaspar MD at [facility] Right: Shoulder [employer] 10/24/2019 [id number] / / [id number] Ewing Footprint 5.5mm Peek-[place] Suture - 005647 - [id number] Implanted:Qty : 1 on 04/10/2015 by Spenser Gaspar MD at [facility] Right: Shoulder [employer] ORTH[employer]EDIC 10/24/2019 [id number] / / [id number] Cement Simplex P Radiopaque Full Dose Bone 10 Pack - 238461 - [id number] Implanted:Qty : 1 on 09/28/2019 by Alexi Burrell MD at [facility] Left: Knee [employer] 6191-1-010 / / Cement Simplex P Radiopaque Full Dose Bone 10 Pack - 056972 - [id number] Implanted:Qty : 1 on 09/28/2019 by Alexi Burrell MD at [facility] Left: Knee [employer] 6191-1-010 / / Component Triathlon 5 Posterior Stabilized Cemented Femoral - [id number] - [id number] Implanted:Qty : 1 on 09/28/2019 by Alexi Burrell MD at [facility] Left: Knee [employer] 03/07/2024 5515-F-501 / / [id number] Baseplate Triathlon 6 Primary Cemented Tibial Knee - 650896 - [id number] Implanted:Qty : 1 on 09/28/2019 by Alexi Burrell MD at [facility] Left: Knee [employer] 02/28/2024 5520-B-600 / / [id number] Component Triathlon 10mm 35mm Symmetric X3 Ptlar Knee - 082422 - [id number] Implanted:Qty : 1 on 09/28/2019 by Alexi Burrell MD at [facility] Left: Knee [employer] 01/10/2024 5551-G-350 / / [id number] Peg Triathlon Modular Fix Distal Femur Knee - 878533 - [id number] Implanted:Qty : 1 on 09/28/2019 by Alexi Burrell MD at [facility] Left: Knee [employer]TE [employer] 04/23/2024 5575-X-000 / / [id number] Advance Directives For more information, please contact: [phone] Latest Code Status on File Code Status [...] way: discussion with patient . Care Teams Graphic Production Artist Relationship Specialty Start Date End Date Niraj Palomo MD [address] [place] [id number] PCP - General Internal Medicine 09/20/19
--- OUTSIDE RECORDS SUMMARY | 2025-01-02 09:18 | XMS_ITS | Clinical Summary ---
[facility] Organization [facility] Address [address] [place] [address] Care Team Providers Care Sheet Metal Worker Name Role Phone Niraj Palomo MD Primary Care Provider [phone] Surgical History Surgery Date Site/Laterality Comments KNEE SURGERY PROCEDURE:KNEE SURGERY;COMMENT:left HAND SURGERY PROCEDURE:HAND SURGERY;COMMENT:lt wrist- iliac bone graft LIPOMA RESECTION PROCEDURE:LIPOMA RESECTION COLONOSCOPY PROCEDURE:COLONOSCOPY SHOULDER ARTHROSCOPY W/ ROTATOR CUFF REPAIR 04/10/2015 Right PROCEDURE:SHOULDER ARTHROSCOPY W/ ROTATOR CUFF REPAIR;COMMENT:Procedure: ARTHROSCOPY SHOULDER WITH ROTATOR CUFF REPAIR; Surgeon: Spenser Gaspar MD; Location: [facility]; Service: Orthopedics; Laterality: Right; SHOULDER ARTHROSCOPY 04/10/2015 Right PROCEDURE:SHOULDER ARTHROSCOPY;COMMENT:Procedure : ARTHROSCOPY SHOULDER AC EXCISION; Surgeon: Spenser Gaspar MD; Location: [facility]; Service: Orthopedics; Laterality: Right; OTHER SURGICAL HISTORY Right PROCEDURE:MOHS SURGERY;COMMENT:EYELID TOTAL KNEE ARTHROPLASTY 09/28/2019 Left PROCEDURE:TOTAL KNEE ARTHROPLASTY;COMMENT:Procedur e: REPLACEMENT TOTAL KNEE; Surgeon: Alexi Burrell MD; Location: [facility] Service: Orthopedics; [...] DTaP,Tdap,and Td Vaccines (1 - Tdap) 1978 Pneumococcal Vaccine: 50+ Years (1 of 1 - PCV) 2009 Zoster Vaccines (1 of 2) 2009 Abdominal Aortic Aneurysm (AAA) Screen 10/02/2022 Cholesterol Screening (Lipid Panel) 10/02/2022 Colorectal Cancer Screening: Colonoscopy 10/02/2022 Depression Screening 10/02/2022 Hepatitis C Screening 10/02/2022 Lung Cancer Screening (Low Dose CT) 10/02/2022 Social Influencers of Health Screening 10/02/2022 Falls Risk Assessment 01/16/2024 COVID-19 Vaccine (4 - 2023-2 5 [...] patient's age to complete this topic Meningococcal B Vacine Aged Out No lo nger eligible based on patient's age to complete [...] this topic Medical Devices Implanted Type Area Content Specialist Device Identifier Shelf Expiration Date Model / Serial / Lot Tibial Bearing Insert - Ps Implanted:Qty: 1 on 09/28/2019 by Alexi Burrell MD Joints Left: Knee [employer] 07/19/2023 / / [id number] Cement Simplex P Radiopaque Full Dose Bone 10 Pack - [id number] Implanted:Qty: 1 on 09/28/2019 by Alexi Burrell MD Left: Knee [employer] 6191-1-010 / / Cement Simplex P Radiopaque Full Dose Bone 10 Pack - [id number] Implanted:Qty: 1 on 09/28/2019 by Alexi Burrell MD Left: Knee [employer] 6191-1-010 / / Component Triathlon 5 Posterior Stabilized Cemented Femoral - [id number] Implanted:Qty: 1 on 09/28/2019 by Alexi Burrell MD Left: Knee [employer] 03/07/2024 5515-F-501 / / [id number] Baseplate Triathlon 6 Primary Cemented Tibial Knee - [id number] Implanted:Qty: 1 on 09/28/2019 by Alexi Burrell MD Left: Knee [employer] 02/28/2024 5520-B-600 / / [id number] Component Triathlon 10mm 35mm Symmetric X3 Ptlar Knee - [id number] Implanted:Qty: 1 on 09/28/2019 by Alexi Burrell MD Left: Knee [employer] 01/10/2024 5551-G-350 / / 329W Peg Triathlon Modular Fix Distal Femur Knee - [id number] Implanted:Qty: 1 on 09/28/2019 by Alexi Burrell MD Left: Knee [employer] 04/23/2024 5575-X-000 / / [id number] Care Teams Sheet Metal Worker Relationship Specialty Start Date End Date Niraj Palomo MD [address] [facility] [address] [place], [place] PCP - General Internal Medicine 09/20/19
--- OUTSIDE RECORDS SUMMARY | 2025-01-02 09:18 | XMS_ITS | Patient Health Record ---
Author Organization [facility] Address [address] [place] [address] Care Team Providers Care Contact Center Team Lead Name Role Phone Murray PEREZ, Mata Primary Care Provider Gerhard Barkley Unavailable [phone] Reason For Referral No Information Medications Medication [...] Treatment Pending Test Test Name Order Date 98018-Ufce Destruction, 1-14 05/28/2014 28750-Gptg Destruction, -14 10/29/2014 11515 I&D ABSCESS- SIMPLE,SINGLE 015 Insurance Providers Payer Name Payer Address Payer Phone Subscriber Number Group Number Insured Name Patient Relationship to Insured Coverage Start Date Coverage End Date [employer] [address] [place] [address] [phone] [id number] Eren Lira Self - patient is the insured Medical (General) History Medical History History ICD Code Measles Mumps Chicken pox Broken bones Joint implants/screws Warts Surgical History Surgery Date(Month/Year) left knee meniscus 2012 lipomas illiac bone graft 1991 right rotator cuff 03/2015
--- OUTSIDE RECORDS SUMMARY | 2025-01-02 09:18 | XMS_ITS | Data Portability ---
Author Organization [place] [facility] Vladimir Perez [address] [place] Address [address] [place] [address] Care Team Providers Care Industrial Methods Consultant Name Role Phone LALA PAIGE Primary Care [...] tunnel syndrome 2022 023 BONY Salmeron MD, [address] [place] [address], [id number], 11:30:21 Procedures None recorded. Surgeries orthopaedic surgery - other (SURG) 2022 023 [email or web address] Not available 14:29:06 Imaging XR, wrist, 3 or more view 2022 023 [email or web address] [facility], [address], [place], [address], 3 14:16:52 Medication Orders None recorded. Patient [...] Time Carpal tunnel syndrome of right wrist 7456266721660 08 Active 2022 Glen Saunders MD [address], [place], [address], [place] [facility] 3 14:01:50 Post traumatic osteoarthri tis 456836510 Active 2022 NUHA LEROY PA-C [address], [place], [address], [place] [facility] 3 12:04:41 Pain of left wrist 6946211420207 02 Active 2022 NUHA LEROY PA-C [address], [place], [address], [place] [facility] 3 12:05:19 Closed fracture of scaphoid bone of wrist 02257981 Active 2022 Glen Saunders MD [address], [place], [address], [place] [facility] 3 12:56:21 Problem Notes None recorded. Procedures Surgical History Date Name Laterality Status Provider Name and Address Organization Details Recorded Time 03/10/20 23 ARB wrist/elbow cortisone injection completed Renita Donnelly [place] [facility] 03/10/2023 12:15:53 02/23/20 21 arthroscopy of wrist with release of transverse carpal ligament completed Kim Villalobos [facility] 03/09/2023 10:12:12 02/22/20 21 Carpal Tunnel Surgery completed Diego Jordan [facility] 09/15/2023 13:40:02 02/22/20 21 Hand Surgery completed Diego Jordan [facility] 09/15/2023 13:40:02 09/28/20 19 Joint Replacement completed Diego Jordan [facility] 09/15/2023 13:40:02 09/24/20 19 total knee replacement completed Kim Villalobos [facility] 03/09/2023 10:11:54 02/22/20 19 Plastic Surgery completed Diego Jordan [facility] 09/15/2023 13:40:02 10/25/19 19 Cancer Surgery completed Diego Jordan [facility] 09/15/2023 13:40:02 03/26/20 17 Shoulder Surgery completed Diego Jordan [facility], [facility] 09/15/2023 13:40:02 04/13/20 12 Arthroscopic Surgery completed Diego Jordan [facility], P 09/15/2023 13:40:02 10/25/18 92 Iliac bone graft microvasc completed nikhil Villalobos [facility], P 03/09/2023 10:13:35 10/13/19 91 Hand Surgery completed Diego Jordan [facility], P 09/15/2023 13:40:02 complete repair of rotator cuff completed [email or web address] Villalobos [facility], P 03/09/2023 10:12:39 Imaging Results None recorded. Procedure Notes None recorded. Medical Equipment None Reported. Allergies Allergen ID Allergen Name Allergen Category Reaction Reaction Severity Criticality Documentation Date Start Date Code Code System Note Provider Name and Address Organization Details Recorded Time 84476 [email or web address] ne Not available Not available Not available Not available 09/15/2023 72288 RxNorm Angieingrid Pederson [facility], [facility], P 4 14:01:28 59525 Hayfever medicatio n cough eye redness wheezing mild moderate mild Not available 09/15/20231958 [id number] [facility], P 3 13:39:55 Medications Name Sig [...] Updated DateTime 09/15/2023 182.88 cm 25.8 kg/m2 43405.[address] [place] [facility] 09/15/2023 13:40:08 Date Recorded Body height Provider Name an d Address Organization Details Last Updated DateTime 10/05/[address]23 [address] [facility] 10/05/2023 11:34:50 Date Recorded Body height Provider Name an d Address Organization Details Last Updated DateTime 11/03/2023 182.88 cm Angie Pederson [facility] 11/03/2023 14:03:01 Social History Question Answer Notes LastModified by Organizat ion Details LastModified Time Tobacco Smoking Status Former Smoker Kim flores, [place] [facility] 03/09/2023 10:10:38 What Is Your Level Of Alcohol Consumption? Heavy [email or web address] Information not available 03/09/2023 How Many Times Per Week Do You Consume Alcohol? 5-7 Times Per Week [email or web address] Information not available 03/09/2023 Which Illicit Or Recreational Drugs Have You Used? Marijuana aba Information not available 04/06/2023 Do You Use Any Illicit Or Recreational Drugs? Yes [email or web address] Information not available 03/09/2023 Do You Or Have You Ever Used Any Other Forms Of Tobacco Or Nicotine? No [email or web address] Information not available 03/09/2023 Sex: Unknown Functional Status None recorded. Mental Status None recorded. Family History Relationship Description Onset Age of this Age Resolved Age Notes LastModified by Organization Details LastModified Time Mother Arthritis [email or web address] Not availabl e 03/09/2023 10:11:23 Mother Family history of malignant neoplasm [email or web address] Not available 2022 10:11:27 Father Heart disease Not available 2022 10:11:36 Medical History Condition Response Vascular Disease Y Cancer Y Asthma Y Past Encounters Encounter ID Performer Location Encounter Start Date Encounter Closed Date Diagnosis/Indication Diagnosis SNOMED-CT Code Diagnosis ICD10 Code Diagnosis Note [id number] [facility] [address] [place] [address] 03/09/2023 09:12:15 03/09/2023 10:49:25 Pain of left wrist 8530010373 50602 M25.532 Post traum atic osteoarthritis 326699189 M19.132 [id number] MD IBETH Frost[address] [address] 03/10/2023 11:07:14 03/10/2023 12:28:01 Pain of left wrist 6755411413 06896 M25.532 Post traum atic osteoarthritis 286570207 M19.132 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 Closed fra cture of scaphoid bone of wrist 64305858 S62.022K [id number] MD IBETH Frost[address] [address] 04/06/2023 10:08:46 04/06/2023 10:46:50 Post traumatic osteoarthritis 721242122 M19.132 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 Closed fra cture of scaphoid bone of wrist 47324807 S62.022K [id number] [facility] [address] [facility] [address] [place] [address] 09/15/2023 13:28:04 09/15/2023 14:05:54 Pain of right wrist 4913044918 26166 M25.531 Carpal jessica christian syndrome of right wrist 4527235365 47575 G56.01 [id number] [facility] [address] [address] 10/05/2023 11:30:44 10/05/2023 11:52:58 Carpal tunnel syndrome of right wrist 5640737416 19548 G56.01 Post traum atic osteoarthritis 603687037 M19.132 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 Closed fra cture of scaphoid bone of wrist 16265649 S62.022K [id number] Glen Saunders MD [facility] [address] [facility] [address] [place] [address] 10/21/2023 14:30:53 10/21/2023 15:42:57 Postoperative visit 706595368 Z09 [id number] Glen Saunders MD [address] [address] 11/03/2023 13:45:12 11/03/2023 14:08:38 Carpal tunnel syndrome of right wrist 0566144047 50095 G56.01 Health Concerns Section Related Observation LastModified by Organization Detai ls LastModified Time None Recorded Concern Status LastModified by Organization Details LastModified Time None Recorded Advance Directives Directive None Recorded Payers Encounter Date Sequence Insurance Name Policy Number Policy Hsieh Covered Member ID Hsieh Member ID Guarantor Name 04/06/2023 1 [place] [id number] 2 Eren Lira [id number] Eren Lira 09/15/2023 1 [place] [id number] 2 Christopher Pankaj [id number] Christopher Pankaj 10/05/2023 1 [place] [id number] 2 Christopher Pankaj [id number] Christopher Pankaj 10/21/2023 1 [place] [id number] 2 Christopher Pankaj [id number] Christopher Pankaj 11/03/2023 1 [place] [id number] 2 Christopher Pankaj [id number] Christopher Pankaj Notes Date Note Type Note Provider Name and Address Organization Details Recorded Time 10/21/2023 text/html Pleasant 63-year-old male presents to the urgent care today for his first postop visit. He was scheduled to see Dr. Saunders in [place] this afternoon but presented to the wrong [...] TOMASZ SANABRIA PA-C [address], [place], [address], [place] [facility] 10/27/2023 22:06:25
--- OUTSIDE RECORDS SUMMARY | 2025-01-02 09:18 | XMS_ITS | Data Portability ---
Author Organization [facility], Main Office Address [address] [place] [address] Care Team Providers Care Director Of Head Start Name Role Phone MATT GRIMALDO Learning Design Specialist [phone] [facility] Orthopedic Surgeon LALA PALOMO Primary Care Provider ADITYA Long Referring Provider SLEEP MEDICINE SERVICES Sleep Medicine ABHAY LEDEZMA Orthopedic Surgeon [phone] GLORIA PARRA Sustainable Systems Analyst OLVIN RYAN Dermatopathologist [phone] VALENTINE BRYAN Sr Vice President [phone] ARTIS PERRY Occupational Work Experience Teacher NINA ROJAS Orthopedic Surgeon [phone] CHIKI CARRASQUILLO Referring Provider KANDIS PINEDA Referring Provider [phone] ANIL COBURN Orthopedic Surgeon [phone] Assessment Encounter Date Assessment Date Assessment LastModified [...] Organization Details Last Modified Time Details Appointments FOLLOW UP 2024 03:45P M Lala newton MD Not available Not available Not available Lab lipid panel, serum 2024 025 BONY [facility] (Centralized Electronic Ordering - All Locations), Patient Can Go To The Location Of Their Choice, 12/26/2024 16:12:50 PSA, serum or plasma 2024 025 [facility]ON[facility] (Centralized Electronic Ordering - All Locations), Patient Can Go To The Location Of Their Choice, 12/26/2024 16:12:49 CMP, serum or plasma 2024 025 BONY [facility] (Centralized Electronic Ordering - All Locations), Patient Can Go To The Location Of Their Choice, 12/26/2024 16:12:49 CBC w/ auto diff 2024 025 [facility] (Centralized Electronic Ordering - All Locations), Patient Can Go To The Location Of Their Choice, 12/26/2024 16:12:49 magnes ium, serum or plasma 2024 025 [facility]Y [facility] (Centralized Electronic Ordering - All Locations), Patient Can Go To The Location Of Their Choice, 12/26/2024 16:12:49 CBC w/ auto diff 2023 024 [facility] (Centralized Electronic Ordering - All Locations), Patient Can Go To The Location Of Their Choice, 06/29/2024 06:09:08 CMP, serum or plasma 2023 024 [facility]ONY [facility] (Centralized Electronic Ordering - All Locations), Patient Can Go To The Location Of Their Choice, 06/29/2024 06:09:09 PSA, serum or plasma 2023 024 BONY [facility], [address] [place] [address], [address], [place], [address], 01/25/2024 12:06:20 CBC w/ auto diff 2023 024 [email or web address] [facility], [address], [address], [place], [address], 07/18/2024 08:50:19 magnes ium, serum or plasma 2023 024 BONY [facility], [address], [address], [place], [address], 01/25/2024 12:06:21 lipid panel, serum 2023 024 BONY [facility], [address], [address], [place], [address], 01/25/2024 12:06:19 CMP, serum or plasma 2023 024 BONY [facility], [address], [address], [place], [address], 01/25/2024 12:06:17 CBC w/ auto diff 2022 023 BONY [facility], [address], [address], [place], [address], 10/08/2023 20:04:11 BMP, serum or plasma 2022 023 BONY [facility], [address], [address], [place], [address], 10/08/2023 21:29:34 PT/INR 2022 023 BONY [facility], [address], [address], [place], [address], 10/08/2023 20:19:35 Referral None record ed. Procedures serena parker (PROC) 2024 025 BONY In-Office Order, Internal Use Only DO Not Attach Compendium DO Not Attach Compendium, Do Not Delete/merge, [id number] 12/26/2024 16:53:41 Surgeries None record ed. Imaging electr ocardi ogram 2023 024 [email or web address] In-Office Order, Internal Use Only DO Not Attach Compendium DO Not Attach Compendium, Do Not Delete/merge, [id number] 06/28/2024 10:27:19 electr ocardi ogram 2022 023 [email or web address] In-Office Order, Internal Use Only DO Not Attach Compendium DO Not Attach Compendium, Do Not Delete/merge, [id number] 10/08/2023 13:29:15 Medication Orders silden afil 100 mg tablet 2024 025 [id number], [address], [place], [address], 12/26/2024 16:16:54 amlodi pine 10 mg tablet 2023 024 [email or web address] [facility], [address] [place] [address], [address], [place], [place], [id number], 06/20/2024 17:27:19 atenol ol 50 mg tablet 2023 024 [email or web address] Oneo [facility], [address], [address], [place], [place], [id number], 06/20/2024 17:27:19 atorva statin 40 mg tablet 2023 024 [email or web address] [facility], [address], [address], [place], [place], [id number], 06/20/2024 17:27:19 silden afil 100 mg tablet 2023 024 [id number], [address], [place], [address], 12/21/2023 16:15:36 Patient TargetsNo targets recorded. Patient Instructions Encounter Date Encounter Id Patient Instructions Last Modified By Organization Details Last Modified Time 10/08/2023 [id number] No medical contraindications to proposed procedure. Reji Perioperative Cardiac Risk was calculated and the risk for perioperative CO is <1%. May proceed to surgery as planned. Not available 10/08/2023 08:27:41 12/21/2023 [id number] high blood press ure: care instructions [email or web address] Not available 12/21/2023 16:11:11 learning about h igh blood pressure acennerazzo Not available 12/21/2023 16:11:11 high cholesterol : care instructions [email or web address] Not available 12/21/2023 16:11:11 06/20/2024 [id number] insomnia: care instructions [email or web address] Not available 06/20/2024 17:27:19 high cholesterol : care instructions [email or web address] Not available 06/20/2024 17:27:19 12/26/2024 [id number] insomnia: care instructions [email or web address] Not available 12/26/2024 16:12:34 high cholesterol : care instructions [email or web address] Not available 12/26/2024 16:12:34 learning about asthma acennerazzo Not available 12/26/2024 18:15:10 high blood press ure: care instructions acennerazzo Not available 12/26/2024 16:12:34 learning about h igh blood pressure acennerazzo Not available 12/26/2024 16:12:34 Reason for Referral None Reported. Results Created Date Observation Date Name Description Value Unit Range Abnormal Flag Note LastModifiedBy Organization Detail LastModifiedTime 10/08/2010/08/2023 COMPL ETE CBC WITH DIFF WBC 7.8 K/mm3 (4.0-1 1.0) Not Available [facility] (Centralized Electronic Ordering - All Locations) Patient Can Go To The Location Of Their Choice, [id number] 10/08/2023 20:04:10 10/08/2010/08/2023 COMPL ETE CBC WITH DIFF RBC 4.25 M/mm3 (4.70- 6.10) low Not Available [facility] (Centralized Electronic Ordering - All Locations) Patient Can Go To The Location Of Their Choice, 10/08/2023 20:04:10 10/08/2010/08/2023 COMPL ETE CBC WITH DIFF HGB 13.7 gm/dL (13.7- 17.1) Not Available [facility] (Centralized Electronic Ordering - All Locations) Patient Can Go To The Location Of Their Choice, 10/08/2023 20:04:10 10/08/2010/08/2023 COMPL ETE CBC WITH DIFF HCT 41.0 % (40.5- 50.0) Not Available [facility] (Centralized Electronic Ordering - All Locations) Patient Can Go To The Location Of Their Choice, 10/08/2023 20:04:10 10/08/2010/08/2023 COMPL ETE CBC WITH DIFF MCV 96.5 fL (80.0- 94.0) high Not Available [facility] (Centralized Electronic Ordering - All Locations) Patient Can Go To The Location Of Their Choice, 10/08/2023 20:04:10 10/08/2010/08/2023 COMPL ETE CBC WITH DIFF MCH 32.2 pg (27.0- 34.0) Not Available [facility] (Centralized Electronic Ordering - All Locations) Patient Can Go To The Location Of Their Choice, 10/08/2023 20:04:10 10/08/2010/08/2023 COMPL ETE CBC WITH DIFF MCHC 33.4 g/dL (33.0- 37.0) Not Available [facility] ([facility]ized Electronic Ordering - All Locations) Patient Can Go To The Location Of Their Choice, 10/08/2023 20:04:10 10/08/2010/08/2023 COMPL ETE CBC WITH DIFF plt 349 K/mm3 (150-4 60) Not Available [facility] (Centralized Electronic Ordering - All Locations) Patient Can Go To The Location Of Their Choice, 10/08/2023 20:04:10 10/08/2010/08/2023 COMPL ETE CBC WITH DIFF RDW-SD 46.4 fL (<47.0 ) Not Available [facility] (Centralized Electronic Ordering - All Locations) Patient Can Go To The Location Of Their Choice, 10/08/2023 20:04:10 10/08/2010/08/2023 COMPL ETE CBC WITH DIFF MPV 9.6 fL (9.4-1 2.4) Not Available [facility] ([facility]ized Electronic Ordering - All Locations) Patient Can Go To The Location Of Their Choice, [id number] 10/08/2023 20:04:10 10/08/2010/08/2023 COMPL ETE CBC WITH DIFF automated NRBC 0.0 #/100 _WBC' s Not Available [facility] (Centralized Electronic Ordering - All Locations) Patient Can Go To The Location Of Their Choice, 10/08/2023 20:04:10 10/08/2010/08/2023 COMPL ETE CBC WITH DIFF abs. NRBC 0.0 K/mm3 Not Available [facility] (Centralized Electronic Ordering - All Locations) Patient Can Go To The Location Of Their Choice, [facility] 10/08/2023 20:04:10 10/08/2010/08/2023 COMPL ETE CBC WITH DIFF neut # 4.5 K/mm3 (1.3-7 .0) Not Available [facility] (Centralized Electronic Ordering - All Locations) Patient Can Go To The Location Of Their Choice, [id number] 10/08/2023 20:04:10 10/08/2010/08/2023 COMPL ETE CBC WITH DIFF lymph # 2.3 K/mm3 (0.8-3 .1) Not Available [facility] (Centralized Electronic Ordering - All Locations) Patient Can Go To The Location Of Their Choice, [facility] 10/08/2023 20:04:10 10/08/2010/08/2023 COMPL ETE CBC WITH DIFF mono# 0.7 K/mm3 (0.4-1 .3) Not Available [facility] ([facility]ized Electronic Ordering - All Locations) Patient Can Go To The Location Of Their Choice, 10/08/2023 20:04:10 10/08/2010/08/2023 COMPL ETE CBC WITH DIFF eo # 0.3 K/mm3 (0.0-0 .4) Not Available [facility] ([facility] Ordering - All Locations) Patient Can Go To The Location Of Their Choice, [id number] 10/08/2023 20:04:10 10/08/2010/08/2023 COMPL ETE CBC WITH DIFF baso # 0.1 K/mm3 (0.0-0 .1) Not Available [facility] ([facility] Ordering - All Locations) Patient Can Go To The Location Of Their Choice, 10/08/2023 20:04:10 10/08/2010/08/2023 COMPL ETE CBC WITH DIFF abs. imm gran 0.0 K/mm3 Not Available [facility] ([facility] Order[facility] - All Locations) Patient Can Go To The Location Of Their Choice, 10/08/2023 20:04:10 10/08/2010/08/2023 COMPL ETE CBC WITH DIFF neut 57.3 % (44-76 ) Not Available [facility] ([facility] Ordering - All Locations) Patient Can Go To The Location Of Their Choice, 10/08/2023 20:04:10 10/08/2010/08/2023 COMPL ETE CBC WITH DIFF lymph 29.8 % (15-43 ) Not Available [facility] ([facility] Ordering - All Locations) Patient Can Go To The Location Of Their Choice, 10/08/2023 20:04:10 10/08/2010/08/2023 COMPL ETE CBC WITH DIFF monocyte 8.3 % (4.5-1 0.5) Not Available [facility] ([facility] Ordering - All Locations) Patient Can Go To The Location Of Their Choice, 10/08/2023 20:04:10 10/08/2010/08/2023 COMPL ETE CBC WITH DIFF eo 3.6 % (0-6) Not Available [facility] ([facility] Ordering - All Locations) Patient Can Go To The Location Of Their Choice, 10/08/2023 20:04:10 10/08/2010/08/2023 COMPL ETE CBC WITH DIFF baso 0.6 % (0-2) Not Available [facility] ([facility] Ordering - All Locations) Patient Can Go To The Location Of Their Choice, 10/08/2023 20:04:10 10/08/2010/08/2023 COMPL ETE CBC WITH DIFF imm gran 0.4 % Not Available [facility] ([facility] Ordering - All Locations) Patient Can Go To The Location Of Their Choice, 10/08/2023 20:04:10 10/08/2010/08/2023 PROTI ME PROFI LE protime 10.7 sec (9.2-1 1.4) Not Available [facility] ([facility] Ordering - All Locations) Patient Can Go To The Location Of Their Choice, 10/08/2023 20:19:35 10/08/2010/08/2023 PROTI ME PROFI LE internatnl normalized ratio [...] HETIC HEART VALVE S. Not Available [facility] (Centralized Electronic Ordering - All Locations) Patient Can Go To The Location Of Their Choice, 10/08/2023 20:19:35 10/08/2010/08/2023 BASIC METAB OLIC PANEL glucose 85 mg/dL (70-99 ) Not Available [facility] ([facility] Ordering - All Locations) Patient Can Go To The Location Of Their Choice, 10/08/2023 21:29:34 10/08/2010/08/2023 BASIC METAB OLIC PANEL BUN 10 mg/dL (8-23) Not Available [facility] ([facility]ized Electronic Ordering - All Locations) Patient Can Go To The Location Of Their Choice, 10/08/2023 21:29:34 10/08/2010/08/2023 BASIC METAB OLIC PANEL creatinine 0.9 mg/dL (0.7-1 .2) Not Available [facility] ([facility] Electronic Ordering - All Locations) Patient Can Go To The Location Of Their Choice, 10/08/2023 21:29:34 10/08/2010/08/2023 BASIC METAB OLIC PANEL sodium 137 mmol/ L (133-1 45) Not Available [facility] ([facility] Electronic Ordering - All Locations) Patient Can Go To The Location Of Their Choice, 10/08/2023 21:29:34 10/08/20 23 10/08/2023 BASIC METAB OLIC PANEL potassium 4.5 mmol/ L (3.6-5 .2) Not Available [facility] ([facility] Ordering - All Locations) Patient Can Go To The Location Of Their Choice, 10/08/2023 21:29:34 10/08/20 23 10/08/2023 BASIC METAB OLIC PANEL chloride 100 mmol/ L (98-10 7) Not Available [facility] ([facility] Ordering - All Locations) Patient Can Go To The Location Of Their Choice, 10/08/2023 21:29:34 10/08/20 23 10/08/2023 BASIC METAB OLIC PANEL bicarbonate 30 mmol/ L (22-29 ) high Not Available [facility] ([facility] Ordering - All Locations) Patient Can Go To The Location Of Their Choice, [id number] 10/08/2023 21:29:34 10/08/20 23 10/08/2023 BASIC METAB OLIC PANEL anion gap 7 (4-17) Not Available [facility] ([facility] Ordering - All Locations) Patient Can Go To The Location Of Their Choice, [id number] 10/08/2023 21:29:34 10/08/20 23 10/08/2023 BASIC METAB OLIC PANEL calcium 9.4 mg/dL (8.6-1 0.5) Not Available [facility] ([facility] Ordering - All Locations) Patient Can Go To The Location Of Their Choice, [id number] 10/08/2023 21:29:34 10/08/20 23 10/08/2023 BASIC METAB OLIC PANEL estimated GFR creatinine 96 mL/mi n/1.7 3_M2 Creat inine based estim ated glome rular filtr ation (eGFR ) in adult s is calcu lated using the Natio nal Kidne y Found ation recom yasmany d 2020 CKD-E PI equat ion. Estim ates GFR from serum creat inine , age and sex. Not Available [facility] ([facility] Ordering - All Locations) Patient Can Go To The Location Of Their Choice, [id number] 10/08/2023 21:29:34 01/24/20 24 01/24/2024 COMP. METAB OLIC PANEL (14) glucose 102 mg/dL 70-99 above high normal Not Available [facility] ([facility] [place] [facility]) [address], [place], [address], 01/25/2024 12:06:17 01/24/20 24 01/24/2024 COMP. METAB OLIC PANEL (14) BUN 10 mg/dL 8-27 Not Available [facility] ([facility]) [address] [place], [address], 01/25/2024 12:06:17 01/24/20 24 01/24/2024 COMP. METAB OLIC PANEL (14) creatinine 0.89 mg/dL 0.76-1 .27 Not Available [facility] ([facility] [place] [facility]) [address] [place], [address], 01/25/2024 12:06:17 01/24/20 24 01/24/2024 COMP. METAB OLIC PANEL (14) eGFR 95 mL/mi n/1.7 3 >59 Not Available [facility] ([facility] [place]) [address], [place], [address], 01/25/2024 12:06:17 01/24/20 24 01/24/2024 COMP. METAB OLIC PANEL (14) BUN/creatini ne ratio 11 10-24 Not Available [facility] ([facility] [place]) [address] [place], [address], 01/25/2024 12:06:17 01/24/20 24 01/24/2024 COMP. METAB OLIC PANEL (14) sodium 137 mmol/ L 134-14 4 Not Available [facility] ([facility] [place] [facility]) [address] [place], [address], 01/25/2024 12:06:17 01/24/20 24 01/24/2024 COMP. METAB OLIC PANEL (14) potassium 4.8 mmol/ L 3.5-5. 2 Not Available [facility] ([facility]) [address] [place], [address], 01/25/2024 12:06:17 01/24/20 24 01/24/2024 COMP. METAB OLIC PANEL (14) chloride 101 mmol/ L 96-106 Not Available [facility] ([facility] [place] [facility]) [address], [place], [address], 01/25/2024 12:06:17 01/24/20 24 01/24/2024 COMP. METAB OLIC PANEL (14) anion gap 12.0 mmol/ L 10.0-1 8.0 Not Available [facility] ([facility] [place]) [address], [place], [address], 01/25/2024 12:06:17 01/24/20 24 01/24/2024 COMP. METAB OLIC PANEL (14) carbon dioxide, total 24 mmol/ L 20-29 Not Available [facility] ([facility] [place]) [address] [place], [address], 01/25/2024 12:06:17 01/24/20 24 01/24/2024 COMP. METAB OLIC PANEL (14) calcium 9.2 mg/dL 8.6-10 .2 Not Available [facility] ([facility] [place]) [address] [place], [address], 01/25/2024 12:06:17 01/24/20 24 01/24/2024 COMP. METAB OLIC PANEL (14) albumin 4.3 g/dL 3.9-4. 9 Not Available [facility] ([facility]) [address] [place], [address], 01/25/2024 12:06:17 01/24/20 24 01/24/2024 COMP. METAB OLIC PANEL (14) bilirubin, total 0.4 mg/dL 0.0-1. 2 Not Available [facility] ([facility]) [address] [place], [address], 01/25/2024 12:06:17 01/24/20 24 01/24/2024 COMP. METAB OLIC PANEL (14) alkaline phosphatase 59 IU/L 44-121 Not Available [facility] ([facility]) [address] [place], [address], 01/25/2024 12:06:17 01/24/20 24 01/24/2024 COMP. METAB OLIC PANEL (14) AST (SGOT) 21 IU/L 0-40 Not Available [facility] ([facility]) [address] [place], [address], 01/25/2024 12:06:17 01/24/20 24 01/24/2024 COMP. METAB OLIC PANEL (14) ALT (SGPT) 24 IU/L 0-44 Not Available [facility] ([facility]) [address] [place], [address], 01/25/2024 12:06:17 01/24/20 24 01/25/2024 COMP. METAB OLIC PANEL (14) protein, total 6.3 g/dL 6.0-8. 5 Not Available [facility] ([facility]) [address] [place], [address], 01/25/2024 12:06:17 01/24/20 24 01/25/2024 COMP. METAB OLIC PANEL (14) globulin, total 2.0 g/dL 1.5-4. 5 Not Available [facility] ([facility]) [address] [place], [address], 01/25/2024 12:06:17 01/24/20 24 01/25/2024 COMP. METAB OLIC PANEL (14) A/G ratio 2.2 1.2-2. 2 Not Available [facility] ([facility]) [address] [place], [address], 01/25/2024 12:06:17 01/24/20 24 01/24/2024 CBC, PLATE LET, NO DIFFE RENTI AL WBC 6.7 x10e3 /uL 3.4-10 .8 Not Available [facility] ([facility]) [address], [place], [address], 01/25/2024 12:06:18 01/24/20 24 01/24/2024 CBC, PLATE LET, NO DIFFE RENTI AL RBC 4.34 x10e6 /uL 4.14-5 .80 Not Available [facility] ([facility]) [address], [place], [address], 01/25/2024 12:06:18 01/24/20 24 01/24/2024 CBC, PLATE LET, NO DIFFE RENTI AL hemoglobin 13.9 g/dL 13.0-1 7.7 Not Available [facility] ([facility]) [address], [place], [address], 01/25/2024 12:06:18 01/24/20 24 01/24/2024 CBC, PLATE LET, NO DIFFE RENTI AL hematocrit 41.7 % 37.5-5 1.0 Not Available [facility] ([facility]) [address] [place], [address], 01/25/2024 12:06:18 01/24/20 24 01/24/2024 CBC, PLATE LET, NO DIFFE RENTI AL MCV 96 fL 79-97 Not Available [facility] ([facility]) [address] [place], [address], 01/25/2024 12:06:18 01/24/20 24 01/24/2024 CBC, PLATE LET, NO DIFFE RENTI AL MCH 32.0 pg 26.6-3 3.0 Not Available [facility] ([facility]) [address] [place], [address], 01/25/2024 12:06:18 01/24/20 24 01/24/2024 CBC, PLATE LET, NO DIFFE RENTI AL MCHC 33.3 g/dL 31.5-3 5.7 Not Available [facility] ([facility]) [address], [place], [address], 01/25/2024 12:06:18 01/24/20 24 01/24/2024 CBC, PLATE LET, NO DIFFE RENTI AL RDW 12.3 % 11.6-1 5.4 Not Available [facility] ([facility]) [address], [place], [address], 01/25/2024 12:06:18 01/24/20 24 01/24/2024 CBC, PLATE LET, NO DIFFE RENTI AL platelets 339 x10e3 /uL 150-45 0 Not Available [facility] ([facility]) [address], [place], [address], 01/25/2024 12:06:18 01/24/20 24 01/24/2024 CBC, PLATE LET, NO DIFFE RENTI AL NRBC GARMENT MANUFACTURER Not Available [facility] ([facility] [place]) [address], [place], [address], 01/25/2024 12:06:18 01/24/20 24 01/24/2024 LP+NO N-HDL TROY STERO L cholesterol, total 153 mg/dL 100-19 9 Not Available [facility] ([facility]) [address] [place], [address], 01/25/2024 12:06:19 01/24/20 24 01/24/2024 LP+NO N-HDL TROY STERO L triglyceride s 85 mg/dL 0-149 Not Available [facility] ([facility]) [address] [place], [address], 01/25/2024 12:06:19 01/24/20 24 01/24/2024 LP+NO N-HDL TROY STERO L HDL cholesterol 62 mg/dL >39 Not Available [facility] ([facility]) [address] [facility] [place], [address], 01/25/2024 12:06:19 01/24/20 24 01/24/2024 LP+NO N-HDL TROY STERO L VLDL cholesterol michael 16 mg/dL 5-40 Not Available [facility] ([facility]) [address], [place], [address], 01/25/2024 12:06:19 01/24/20 24 01/24/2024 LP+NO N-HDL TROY STERO L LDL chol calc ([facility]) 75 mg/dL 0-99 Not Available [facility] ([facility]) [address], [place], [address], 01/25/2024 12:06:19 01/24/20 24 01/24/2024 LP+NO N-HDL TROY STERO L non-HDL cholesterol 91 mg/dL 0-129 Not Available [facility] ([facility]) [address], [place], [address], 01/25/2024 12:06:19 01/24/20 24 01/24/2024 LP+NO N-HDL TROY STERO L comment: GARMENT MANUFACTURER Not Available [facility] ([facility]) [address], [place], [address], 01/25/2024 12:06:19 01/24/20 24 01/25/2024 PSA (SERI [...] or kits canno t be used inter chikis hermosillo . Resul ts canno t be inter prete d as absol erin evide nce of the prese nce or absen ce of nicolás juares . Not Available [facility] ([facility]) [address], [place], [address], 01/25/2024 12:06:20 01/24/20 24 01/25/2024 PSA (SERI AL MONIT OR) pdf . Not Available [facility] ([facility]) [address], [place], [address], 01/25/2024 12:06:20 01/24/20 24 01/25/2024 MAGNE SIUM magnesium 2.2 mg/dL 1.6-2. 3 Not Available [facility] ([facility]) [address], [place], [address], 01/25/2024 12:06:21 06/28/20 24 06/29/2024 CBC WITH DIFFE RENTI AL/PL ATELE T WBC 6.0 x10e3 /uL 3.4-10 .8 normal Not Available [facility] ([facility]) [address], [place], [address], 06/29/2024 06:09:08 06/28/20 24 06/29/2024 CBC WITH DIFFE RENTI AL/PL ATELE T RBC 4.00 x10e6 /uL 4.14-5 .80 below low normal Not Available [facility] ([facility]) [address] [place], [address], 06/29/2024 06:09:08 06/28/20 24 06/29/2024 CBC WITH DIFFE RENTI AL/PL ATELE T hemoglobin 13.2 g/dL 13.0-1 7.7 normal Not Available [facility] ([facility]) [address] [place], [address], 06/29/2024 06:09:08 06/28/20 24 06/29/2024 CBC WITH DIFFE RENTI AL/PL ATELE T hematocrit 39.0 % 37.5-5 1.0 normal Not Available [facility] ([facility]) [address], [place], [address], 06/29/2024 06:09:08 06/28/20 24 06/29/2024 CBC WITH DIFFE RENTI AL/PL ATELE T MCV 98 fL 79-97 above high normal Not Available [facility] ([facility]) [address], [place], [address], 06/29/2024 06:09:08 06/28/20 24 06/29/2024 CBC WITH DIFFE RENTI AL/PL ATELE T MCH 33.0 pg 26.6-3 3.0 normal Not Available [facility] ([facility]) [address], [place], [address], 06/29/2024 06:09:08 06/28/20 24 06/29/2024 CBC WITH DIFFE RENTI AL/PL ATELE T MCHC 33.8 g/dL 31.5-3 5.7 normal Not Available [facility] ([facility]) [address], [place], [address], 06/29/2024 06:09:08 06/28/20 24 06/29/2024 CBC WITH DIFFE RENTI AL/PL ATELE T RDW 12.6 % 11.6-1 5.4 Not Available [facility] ([facility]) [address] [place], [address], 06/29/2024 06:09:08 06/28/20 24 06/29/2024 CBC WITH DIFFE RENTI AL/PL ATELE T platelets 285 x10e3 /uL 150-45 0 normal Not Available [facility] ([facility]) [address] [place], [address], 06/29/2024 06:09:08 06/28/20 24 06/29/2024 CBC WITH DIFFE RENTI AL/PL ATELE T neutrophils 58 % not estab. normal Not Available [facility] ([facility]) [address], [place], [address], 06/29/2024 06:09:08 06/28/20 24 06/29/2024 CBC WITH DIFFE RENTI AL/PL ATELE T lymphs 32 % not estab. normal Not Available [facility] ([facility]) [address], [place], [address], 06/29/2024 06:09:08 06/28/20 24 06/29/2024 CBC WITH DIFFE RENTI AL/PL ATELE T monocytes 7 % not estab. normal Not Available [facility] ([facility]) [address], [place], [address], 06/29/2024 06:09:08 06/28/20 24 06/29/2024 CBC WITH DIFFE RENTI AL/PL ATELE T eos 2 % not estab. normal Not Available [facility] ([facility]) [address], [place], [address], 06/29/2024 06:09:08 06/28/20 24 06/29/2024 CBC WITH DIFFE RENTI AL/PL ATELE T basos 1 % not estab. normal Not Available [facility] ([facility]) [address], [place], [address], 06/29/2024 06:09:08 06/28/20 24 06/29/2024 CBC WITH DIFFE RENTI AL/PL ATELE T immature cells GARMENT MANUFACTURER Not Available [facility] ([facility]) [address], [place], [address], 06/29/2024 06:09:08 06/28/20 24 06/29/2024 CBC WITH DIFFE RENTI AL/PL ATELE T neutrophils (absolute) 3.5 x10e3 /uL 1.4-7. 0 normal Not Available [facility] ([facility]) [address], [place], [address], 06/29/2024 06:09:08 06/28/20 24 06/29/2024 CBC WITH DIFFE RENTI AL/PL ATELE T lymphs (absolute) 1.9 x10e3 /uL 0.7-3. 1 normal Not Available [facility] ([facility]) [address], [place], [address], 06/29/2024 06:09:08 06/28/20 24 06/29/2024 CBC WITH DIFFE RENTI AL/PL ATELE T monocytes(ab solute) 0.4 x10e3 /uL 0.1-0. 9 normal Not Available [facility] ([facility]) [address], [place], [address], 06/29/2024 06:09:08 06/28/20 24 06/29/2024 CBC WITH DIFFE RENTI AL/PL ATELE T eos (absolute) 0.1 x10e3 /uL 0.0-0. 4 normal Not Available [facility] ([facility]) [address], [place], [address], 06/29/2024 06:09:08 06/28/20 24 06/29/2024 CBC WITH DIFFE RENTI AL/PL ATELE T baso (absolute) 0.1 x10e3 /uL 0.0-0. 2 normal Not Available [facility] ([facility]) [address], [place], [address], 06/29/2024 06:09:08 06/28/20 24 06/29/2024 CBC WITH DIFFE RENTI AL/PL ATELE T immature granulocytes 0 % not estab. Not Available [facility] ([facility]) [address], [place], [address], 06/29/2024 06:09:08 06/28/20 24 06/29/2024 CBC WITH DIFFE RENTI AL/PL ATELE T immature grans (abs) 0.0 x10e3 /uL 0.0-0. 1 Not Available [facility] ([facility]) [address], [place], [address], 06/29/2024 06:09:08 06/28/20 24 06/29/2024 CBC WITH DIFFE RENTI AL/PL ATELE T NRBC GARMENT MANUFACTURER Not Available [facility] ([facility]) [address], [place], [address], 06/29/2024 06:09:08 06/28/20 24 06/29/2024 CBC WITH DIFFE RENTI AL/PL ATELE T hematology comments: GARMENT MANUFACTURER Not Available [facility] ([facility]) [address], [place], [address], 06/29/2024 06:09:08 06/28/20 24 06/29/2024 COMP. METAB OLIC PANEL (14) glucose 101 mg/dL 70-99 above high normal Not Available [facility] ([facility]) [address], [place], [address], 06/29/2024 06:09:09 06/28/20 24 06/29/2024 COMP. METAB OLIC PANEL (14) BUN 8 mg/dL 8-27 normal Not Available [facility] ([facility]) [address], [place], [address], 06/29/2024 06:09:09 06/28/20 24 06/29/2024 COMP. METAB OLIC PANEL (14) creatinine 0.85 mg/dL 0.76-1 .27 normal Not Available [facility] ([facility]) [address], [place], [address], 06/29/2024 06:09:09 06/28/20 24 06/29/2024 COMP. METAB OLIC PANEL (14) eGFR 96 mL/mi n/1.7 3 >59 normal Not Available [facility] ([facility]) [address] [place], [address], 06/29/2024 06:09:09 06/28/20 24 06/29/2024 COMP. METAB OLIC PANEL (14) BUN/creatini ne ratio 9 10-24 below low normal Not Available [facility] ([facility]) [address] [place], [address], 06/29/2024 06:09:09 06/28/20 24 06/29/2024 COMP. METAB OLIC PANEL (14) sodium 136 mmol/ L 134-14 4 normal Not Available [facility] ([facility]) [address] [place], [address], 06/29/2024 06:09:09 06/28/20 24 06/29/2024 COMP. METAB OLIC PANEL (14) potassium 4.6 mmol/ L 3.5-5. 2 normal Not Available [facility] ([facility]) [address] [place], [address], 06/29/2024 06:09:09 06/28/20 24 06/29/2024 COMP. METAB OLIC PANEL (14) chloride 100 mmol/ L 96-106 normal Not Available [facility] ([facility]) [address] [place], [address], 06/29/2024 06:09:09 06/28/20 24 06/29/2024 COMP. METAB OLIC PANEL (14) carbon dioxide, total 21 mmol/ L 20-29 normal Not Available [facility] ([facility]) [address] [place], [address], 06/29/2024 06:09:09 06/28/20 24 06/29/2024 COMP. METAB OLIC PANEL (14) calcium 9.1 mg/dL 8.6-10 .2 normal Not Available [facility] ([facility]) [address] [place], [address], 06/29/2024 06:09:09 06/28/20 24 06/29/2024 COMP. METAB OLIC PANEL (14) protein, total 6.5 g/dL 6.0-8. 5 normal Not Available [facility] ([facility]) [address] [place], [address], 06/29/2024 06:09:09 06/28/20 24 06/29/2024 COMP. METAB OLIC PANEL (14) albumin 4.3 g/dL 3.9-4. 9 normal Not Available [facility] ([facility]) [address] [place], [address], 06/29/2024 06:09:09 06/28/20 24 06/29/2024 COMP. METAB OLIC PANEL (14) globulin, total 2.2 g/dL 1.5-4. 5 Not Available [facility] ([facility]) [address] [place], [address], 06/29/2024 06:09:09 06/28/20 24 06/29/2024 COMP. METAB OLIC PANEL (14) bilirubin, total 0.7 mg/dL 0.0-1. 2 normal Not Available [facility] ([facility]) [address] [place], [address], 06/29/2024 06:09:09 06/28/20 24 06/29/2024 COMP. METAB OLIC PANEL (14) alkaline phosphatase 62 IU/L 44-121 normal Not Available [facility] ([facility]) [address] [place], [address], 06/29/2024 06:09:09 06/28/20 24 06/29/2024 COMP. METAB OLIC PANEL (14) AST (SGOT) 26 IU/L 0-40 normal Not Available [facility] ([facility]) [address] [place], [address], 06/29/2024 06:09:09 06/28/20 24 06/29/2024 COMP. METAB OLIC PANEL (14) ALT (SGPT) 20 IU/L 0-44 normal Not Available [facility] ([facility]) [address], [place], [address], 06/29/2024 06:09:09 12/27/19 25 12/26/2024 cerum en remov al (PROC ) done by Kei de jesus with lavage and curett e Not Available In-Office Order Internal Use Only DO Not Attach Compendium DO Not Attach Compendium, Do Not Delete/merge, [id number] 12/26/2024 16:19:08 10/08/20 23 10/08/2023 elect rocar diogr am No observ ation record ed. [email or web address] In-Office Order Internal Use Only DO Not Attach Compendium DO Not Attach Compendium, Do Not Delete/merge, [id number] 10/08/2023 13:27:48 10/08/20 elect rocar diogr am No observ ation record ed. BONY In-Office Order Internal Use Only DO Not Attach Compendium DO Not Attach Compendium, Do Not Delete/merge, [id number] 10/11/2023 16:04:34 11/22/19 24 11/19/2023 US, duple x, arter ial, lower extre mity, compl ete No observ ation record ed. [facility] [address] [address], [place], [address], 11/22/2023 09:53:03 04/19/20 24 04/18/2024 duple x scan of extre mity veins inclu ding respo nses to compr essio n and other maneu vers; compl ete bilat eral study (PROC ) No observ ation record ed. [facility] [address] [address], [place], [address], 04/20/2024 07:39:15 06/21/20 24 05/15/2024 CT, angio gram, abdom en, w/ contr ast No observ ation record ed. [email or web address] Not Available 05/26 17:49:28 06/21/20 24 04/11/2024 US, shashi x, venou s, lower extre mity No [...] DO Not Attach Compendium, Do Not Delete/merge, [id number] 06/28/2024 11:48:52 06/28/20 elect rocar diogr am No observ ation record ed. [email or web address] In-Office Order Internal Use Only DO Not Attach Compendium DO Not Attach Compendium, Do Not Delete/merge, [id number] 06/28/2024 11:48:52 Result Notes None recorded. Problems Name Problem SNOMED Code Status Onset Date Resolution Date Notes Provider Name and Address Organization Details Recorded Time Snoring symptoms 227137466 Active 2016 Had sleep study and no GISEL Festus flores [facility] 0 14:41:05 Asthma 704653732 Active 2016 Festus flores [facility] 0 14:41:05 Insomnia 564385434 Active 2016 Festus flores [facility] 0 14:41:05 Essentia l hyperten america 40588433 Active 2017 Not yet on meds. Being followed by renal. Festus flores [facility] 0 14:41:05 Eustachi an tube disorder 71224805 Active 2017 Festus flores [facility] 0 14:41:05 Allergic rhinitis 64313151 Active 2017 Festus Valentepallavi mark, [facility] 0 14:41:05 Heart murmur 05636128 Active 2018 Festus flores, [facility] 0 14:41:05 Primary erectile dysfunct ion 547182878 Active 2018 Festus flores, [facility] 0 14:41:05 Arthriti s of left knee 35613207975 82582 Active 2017 Had replacem ent done 09/28/19. Has pain and followed by [facility] and getting injectio ns. Lala newton MD [address], [place], [address], [facility] 4 11:55:43 Surgical follow-u p [id number] Completed 201809/22/2020 Lala newton MD [address], [place], [address], [facility] 0 08:30:33 Arthriti s of left wrist 12051123054 17830 Active 2019 Had trauma in the past. Followed by Hand Surgery Lala newton MD [address], [place], [address], [facility] 0 08:31:25 Carpal tunnel syndrome of left wrist 64288686220 9102 Active 2020 Lala newton MD [address], [place], [address], [facility] 1 13:14:06 Neck pain 93787507 Active 2020 Followed by ortho and MRI ordered. Lala newton MD [address], [place], [address], [facility] 1 09:37:45 Hyperlip idemia 27097602 Active 2021 Lala newton MD [address] [facility] [address], [place], [address], [facility] 2 13:30:11 History of SARS-CoV -2 55825262511 0528120 Active 2021 Lala newton MD [address], [place], [address], [facility] 3 15:15:44 Anemia 903581915 Active 2022 Lala newton MD [address] [facility] [address], [place], [address], [facility] 3 09:04:59 Basal cell carcinom a of skin 575123254 Active 2018 MOHs procedur e done at [facility]. Lala newton MD [address], [place], [address], [facility] 3 19:35:38 Pain of right wrist 57378440405 9100 Active 2022 Seen by ortho; probable CTS. Lala newton MD [address] [facility] [address], [place], [address], [facility] 3 16:46:36 Carpal tunnel syndrome of right wrist 85652005220 9108 Active 2022 seen by hand surgery Lala newton MD [address], [place], [address], [facility] 3 07:53:18 Peripher al venous insuffic iency 50622882 Active 2023 Treated with compress ion stocking s and lifestyl e changes. Seen by Vascular surgery and will be looking into thermal ablation /sclerto therapy. Lala newton MD [address], [place], [address], [facility] 4 12:56:55 Arthriti s of right knee 99960088874 16164 Active 2023 Followed by [facility] and currentl y being treated with injectio ns. Getting euflexa injectio ns from [facility]. Lala newton MD [address] [facility] [address], [place], [address], [facility] 4 17:46:22 Intermit tent claudica tion 58965671 Active 2023 Bilatera l endarter ectomy done by Dr Puente 07/11/24 Lala newton MD [address] [facility] [address], [place], [address], [facility] 4 13:36:14 Problem Notes None recorded. Procedures Surgical History Date Name Laterality Status Provider Name and Address Organization Details Recorded Time 07/11/20 24 endarterectomy completed Lala Palomo MD [address] [address], [place], [address], [facility] 10/11/2024 07:49:41 10/11/20 23 Carpal tunnel surgery completed Jade Jeffrey [facility] 11/09/2023 14:25:25 07/13/20 22 Colonoscopy completed Sujey Navarro [facility] 07/31/2022 16:54:25 02/28/20 21 Carpal tunnel surgery completed Lala Palomo MD [address] [address], [place], [address], [facility] 12/15/2022 15:19:58 09/28/20 19 total knee replacement completed Coby Kruse [facility] 09/29/2019 16:10:56 11/29/19 19 mohs surgery completed Lala Palomo MD [address] [facility] [address], [place], [address], [facility] 08/07/2020 16:28:26 10/25/19 16 Shoulder joint surgery completed Lala Palomo MD [address] [facility] [address], [place], [address], [facility] 08/07/2020 16:28:48 03/25/20 12 Meniscal trnspl knee w/scpe completed Festus Ambrosiopallavi [facility] 07/08/2017 13:16:50 10/25/18 95 Iliac bone graft microvasc completed Festusjessica Mays [facility] 07/08/2017 13:15:14 10/25/18 65 Tonsillectomy completed Festus [facility] 07/08/2017 13:16:07 Imaging Results Imaging Date Name Status LastModified by Organization Details LastModified Time 10/08/2023 electrocardiogram completed [email or web address] In-Offi ce Order Internal Use Only DO Not Attach Compendium DO Not Attach Compendium, Do Not Delete/merge, [id number] 10/08/2023 13:27:48 10/08/2023 electrocardiogram completed BONY In-Offi ce Order Internal Use Only DO Not Attach Compendium DO Not Attach Compendium, Do Not Delete/merge, [id number] 10/11/2023 16:04:34 11/19/2023 US, duplex, arterial, lower extremity, complete completed [facility] [address] [facility] [address], [place], [address], 11/22/2023 09:53:03 04/18/2024 duplex scan of extremity veins including responses to compression and other maneuvers; complete bilateral study (PROC) completed [facility] [address] [facility] [address], [place], [address], 04/20/2024 07:39:15 05/15/2024 CT, angiogram, abdomen, w/ contrast completed [facility] Information not available 06/21/2024 17:49:28 04/11/2024 US, duplex, venous, lower extremity [email or web address] not available 06/21/2024 17:49:29 04/03/2024 pulse volume recording (PROC) completed Information not available 06/21/2024 17:47:18 06/28/2024 electrocardiogram completed [email or web address] In-Offi ce Order Internal Use Only DO Not Attach Compendium DO Not Attach Compendium, Do Not Delete/merge, [id number] 06/28/2024 11:48:52 06/28/2024 electrocardiogram completed [email or web address] In-Offi ce Order Internal Use Only DO Not Attach Compendium DO Not Attach Compendium, Do Not Delete/merge, [id number] 06/28/2024 11:48:52 Procedure Notes None recorded. Medical [...] tablet TAKE 1 TABLET BY MOUTH DAILY 2024 active Not Available Not Available Not Avai [...] TABLETS BY MOUTH AT BEDTIME FOR SLEEP 2024 active Not Available Not Available Not Avai [...] Avai lable sildenafi l 100 mg tablet Take 1 tablet every day by oral route as needed. 2024 active Not Available Not Available Not Avai lable triamcino lone acetonide 0.1 % topical cream [...] MOUTH TWICE A DAY FOR 10 DAYS 12/26 completed Not Available Not Available Not Available gabapenti n 300 mg capsule TAKE [...] spray,rufina pension USE 2 SPRAYS NASALLY DAILY DIRECTE D 2023 active Not Available Not Available Not Avai lable doxycycli ne hyclate 100 mg tablet TAKE 2 TABLETS BY MOUTH FOR 1 DAY 02/03 completed Not Available Not Available Not Available atenolol 50 mg tablet TAKE 1 TABLET BY MOUTH DAILY FOR BLOOD PRESSURE 2024 active Not Available Not Available Not Avai lable amoxicill in 875 mg-potass ium clavulana te 125 mg tablet Take 1 tablet every 12 hours by oral route as directed for 10 days. 01/03 completed Not Available Not Available Not Available oxycodone 5 mg tablet TAKE 1 TABLET BY MOUTH EVERY 6 HOURS,X2 DAYS NEEDED FOR SEVERE PAIN 12/26 completed Not Available Not Available Not Available enoxapari n 40 mg/0.4 mL subcutane [...] tablet twice a day by oral route. 12/26 completed Not Available Not Available Not Available triamcino lone acetonide 0.1 %-emollie nt [...] Updated DateTime 3 177.8 cm 27.4 kg/m2 47460.8 4 g 57 /min 96 % 96 % 98.8 [degF] 114 mm[Hg] 72 mm[Hg] Jessica Schultz LPN [facility] 3 13:05:00 Date Recorded Body height Body mass index (BMI) Body weight Heart rate Oxygen saturation Oxygen saturation in Arterial blood by Pulse oximetry Body temperature Systolic blood pressure Diastolic blood pressure Provider Name and Address Organization Details Last Updated DateTime 4 177.8 cm 27.8 kg/m2 79022.9 2 g 64 /min 97 % 97 % 98.3 [degF] 127 mm[Hg] 73 mm[Hg] Kita berger MA [facility] 4 15:34:17 Date Recorded Body height Body mass index (BMI) Body weight Heart rate Oxygen saturation Oxygen saturation in Arterial blood by Pulse oximetry Body temperature Systolic blood pressure Diastolic blood pressure Provider Name and Address Organization Details Last Updated DateTime 4 177.8 cm 28.4 kg/m2 04687.2 9 g 71 /min 97 % 97 % 98.1 [degF] 115 mm[Hg] 75 mm[Hg] Emilia Vargas [facility] 4 15:48:00 Date Recorded Body height Body mass index (BMI) Body weight Heart rate Oxygen saturation Oxygen saturation in Arterial blood by Pulse oximetry Body temperature Systolic blood pressure Diastolic blood pressure Provider Name and Address Organization Details Last Updated DateTime 4 177.8 cm 27.8 kg/m2 45740.9 2 g 69 /min 96 % 96 % 97.9 [degF] 97 mm[Hg] 58 mm[Hg] Kita berger MA [facility] 4 10:03:43 Date Recorded Systolic blood pressure Diastolic blood pressure Provider Name and Address Organization Details Last Updated DateTime 06/28/2024 104 mm[Hg] 68 mm[Hg] CALI CORTES [address] [address], [place], [address], [facility] 06/28/2024 10:23:19 Date Recorded Body height Body mass index (BMI) Body weight Heart rate Oxygen saturation Oxygen saturation in Arterial blood by Pulse oximetry Body temperature Systolic blood pressure Diastolic blood pressure Provider Name and Address Organization Details Last Updated DateTime 5 177.8 cm 26.4 kg/m2 73309 g 69 /min 99 % 99 % 98.2 [degF] 137 mm[Hg] 81 mm[Hg] Emilia Vargas MA [facility] 15:52:50 Social History Question Answer Notes LastModified by Organizat ion Details LastModified Time Tobacco Smoking Status Former Smoker Quit 2006 at 46 years of age [facility] 12/26/2024 15:52:40 Do You Have An Advance Directive? Yes [email or web address] Information not available 12/08/2021 What Is Your Level Of Alcohol Consumption? Moderate 2-3 Servings Daily Information not available 12/21/2023 Is Blood Transfusion Acceptable In An Emergency? Yes [email or web address] Information not available 07/08/2017 What Is Your Level Of Caffeine Consumption? Moderate 1 Cup Of Coffee Daily Information not available 12/08/2021 How Much Tobacco Do You Chew? None Information not available 07/08/2017 Are You Currently Employed? Yes [employer] Information not available 07/08/2017 What Type Of Diet Are You Following? REGULAR [facility] Information not available 07/08/2017 Which Illicit Or Recreational Drugs Have You Used? Marijuana Information not available 07/08/2017 Do You Or Have You Ever Used E-cigarettes Or Vape? 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 11-15yearssin celastciamy aldridge Information not available 06/20/2024 Do You Take Precautions To Prevent Distracted Driving? Yes [employer] Information not available 07/08/2017 How Often Do You Need To Have Someone Help You When You Read Instructions, Pamphlets, Or Other Written Material From Your Doctor Or Pharmacy? Never [employer] Information not available 07/08/2017 Have You Served In The ? No Information not available 07/08/2017 Have You Or Anyone In Your Household Had Any Of The Following Symptoms In The Last 14 Days: Sore Throat, Cough, Chills, Body Aches For Unknown Reasons, Shortness Of Breath For Unknown Reasons, Loss Of Smell, Loss Of Taste, Fever At Or Greater Than 100 Degrees Fahrenheit? No [email or web address] Information not available 08/07/2020 Are You Or Anyone In Your Household A Health Care Provider Or Emergency Responder? No [email or web address] Information not available 08/07/2020 To The Best Of Your Knowledge Have You Been In Close Proximity To Any Individual Who Tested Positive For COVID-19? No [email or web address] Information not available 08/07/2020 Have You Recently Traveled To A COVID-19 High Risk Area Or Gathering In The Last 10 Days? No [email or web address] Information not available 02/04/2021 What Was The Date Of Your Most Recent Tobacco Screening? 06/28/2024 Information not available 06/28/2024 How Many Children Do You Have? 2 Rayna Information not available 12/21/2023 Do You Use Protection During Sex? No Information not available 07/08/2017 Do You Use Your Seat Belt Or Car Seat Routinely? Yes Information not available 12/08/2021 Are You Sexually Active? Yes Information not available 12/26/2024 Do You Have Smoke And Carbon Monoxide [...] Time Are you able to walk? YESWOREST Information not available 12/08/2021 Are you able to care for yourself? Yes [email or web address] Information not available 07/08/2017 What is your exercise level? Moderate walking and biking Information not available 12/21/2023 Mental Status None recorded. Family History Relationship Description Onset Age of this Age Resolved Age Notes LastModified by Organization Details LastModified Time Father Myocardial infarction 73 Not available 06/20 15:44:02 Mother History of malignant lymphoma [birth year] born [birth year] Not available 06/20/2024 15:44:02 Sister Graves' disease #2 zo Not available 2023 15:44:02 Sister Multiple sclerosis #1 [email or web address] Not available 07/25 16:24:31 Medical History Condition Response Varicose Veins Y Arthritis Y Head Injury/Concussion Y Cancer Y Hypertension Y Asthma Y Chicken Pox Y Allergies Y Immunizations Vaccine Type Date Status Note Provider Nam e and Address Organization Details Recorded Time COVID-19, mRNA, LNP-S, PF, 30 mcg/0.3 mL dose 12/30/19 21 completed RAFFY Manzanares, [facility] 10/15/2021 14:26:29 COVID-19, mRNA, LNP-S, PF, 30 mcg/0.3 mL dose 01/20/20 21 completed RAFFY Manzanares, [facility] 10/15/2021 14:26:29 Hep A, adult 03/05/20 21 completed RAFFY Duarte, [facility] 03/24/2022 13:29:12 COVID-19, mRNA, LNP-S, PF, 30 mcg/0.3 mL dose 08/01/20 21 completed RAFFY Manzanares, [facility] 10/15/2021 14:26:29 MMR 03/05/20 21 completed RAFFY Manzanares, [facility] 10/15/2021 14:26:29 zoster recombinant 06/24/20 20 completed RAFFY Manzanares, [facility] 10/15/2021 14:26:29 Hep A-Hep B 08/18/20 21 completed RAFFY Manzanares, [facility] 10/15/2021 14:26:30 Influenza, split virus, quadrivalent, PF 08/01/20 21 completed RAFFY Manzanares, [facility] 10/15/2021 14:26:30 zoster recombinant 12/01/19 20 completed RAFFY Manzanares, [facility] 10/15/2021 14:26:30 typhoid, ViCPs 03/05/20 [facility] 14:26:30 COVID-19, mRNA, LNP-S, PF, 100 mcg/0.5mL dose or 50 mcg/0.25mL dose 03/02/20 22 completed RAFFY Duarte, [facility] 03/24/2022 13:29:12 Influenza, MDCK, quadrivalent, PF 08/17/20 22 completed RAFFY [facility] 15[facility]05[facility]13 COVID-19, mRNA, LNP-S, bivalent, PF, 50 mcg/0.5 mL or 25mcg/0.25 mL dose 08/17/20 22 completed RAFFY Manzanares, [facility] 06/15/2023 15:05:13 Influenza, MDCK, quadrivalent, PF 09/13/20 23 completed RAFFY Acosta, [facility] 12/21/2023 15:34:31 COVID-19, mRNA, LNP-S, PF, 50 mcg/0.5 mL 09/13/20 23 completed RAFFY Acosta, [facility] 12/21/2023 15:34:31 Influenza, high-dose, trivalent, PF 06/22/20 24 completed RAFFY Acosta, [facility] 06/28/2024 10:04:07 Tdap 07/08/20 17 completed Not Available [facility] 11/11/2019 02:21:46 Influenza, split virus, quadrivalent, PF 07/12/20 18 cancelled patient objection Not Available [facility] 11/11/2019 02:22:16 Influenza, split virus, quadrivalent, PF 08/07/20 20 completed Lala Palomo MD [address], [address], [facility] 08/07/2020 16:21:07 Past Encounters Encounter ID Performer Location Encounter Start Date Encounter Closed Date Diagnosis/Indication Diagnosis SNOMED-CT Code Diagnosis ICD10 Code Diagnosis Note [id number] Lala Palomo MD Main Office [address] [address] 07/08/2017 12:45:57 07/08/2017 14:17:51 Administration of viral vaccine 81441638 Z23 Asthma 895473057 J45.90 9 Insomnia 775198165 G47.0 0 Adult heal th examination 919258673 Z00.00 We will update his immunizati ons. He had a colonoscop y did in March and is due again in 2021. His last cholestero l was mildly elevated and his 10-risk for cardiac disease was calculated to be 7.1% therefore no meds recommende d. Screening for malignant neoplasm of lung 810117487 Z12.2 [id number] Lala Palomo MD Main Office [address] [address] 08/17/2017 15:39:32 08/17/2017 16:05:39 Multiple joint pain 84145168 M25.50 If his symptoms persist and his w/u is negative he will call her and we will consider a rheum referral. Heart murmur 05120394 R0 1.1 [id number] Lala Palomo MD Main Office [address] [address] [place] [address] 12/17/2017 15:10:36 12/17/2017 15:56:30 Otitis media 72661641 H66.91 right sided, no fb noted in ear canal, no cerumen impaction. Augmentin as directed x full 10 days, hydration, start flonase daily. Posterior rhinorrhea 758 12076 R09.82 Elevated blood-pressure reading without diagnosis of hypertension 697752024 R03.0 [id number] Lala Palomo MD Main Office [address] [address] [place] [address] 01/03/2018 08:58:14 01/03/2018 10:52:08 Elevated blood-pressure reading without diagnosis of hypertension 898692279 R03.0 We will look into 24-hour monitoring before starting meds. [id number] Lala Palomo MD Main Office [address] [address] [place] [address] 01/12/2018 09:20:53 01/12/2018 11:17:59 Upper respiratory infection 47153216 J06.9 Wheezing 91914453 R06.2 continue rescue inhaler every 4-6 hrs. [id number] Lala Palomo MD Main Office [address] [address] [place] [address] 01/27/2018 15:16:25 01/27/2018 15:58:21 Asthma 766207983 J45.909 We will add a controller to his regimen and he will cut back on the use of his rescue inhaler. Insomnia 818792586 G47.0 0 Elevated blood-pressure reading without diagnosis of hypertension 200745357 R03.0 We will look into 24-hour monitoring before starting meds. [id number] Lala Palomo MD Main Office [address] [address] [place] [address] 05/05/2018 12:42:49 05/05/2018 13:33:08 Dysfunction of eustachian tube 82510726 H69.83 [id number] Lala Palomo MD Main Office [address] [address] [place] [address] 07/12/2018 15:37:26 07/12/2018 16:35:58 Adult health examination 692141004 Z00.00 We will update his immunizati ons. He had a colonoscop y in March 2017 and is due again in [address] Grimaldo. His last cholestero l was mildly elevated and his 10-risk for cardiac disease was calculated to be 7.1%. We will recheck today. Dysfunctio n of eustachian tube 78742048 H69.83 Followed by ENT Needs infl uenza immunization 691305329 Z23 Essential hypertension 25818148 I10 Stable on meds; continue current mgmt Insomnia 038822803 G47.0 0 [id number] Lala Palomo MD Main Office [address] [facility] [address] [facility] [place] [address] 07/26/2018 08:50:37 07/26/2018 09:37:43 Herpes zoster with complication 06275045 B02.8 Paronychia of finger 444 427236 L03.011 Advised to soak in warm water and continue abx and make a hand surgery appointmen t if not improving [id number] Bri Burroughs Main Office [address] [facility] [address] [facility] [place] [address] 11/17/2018 13:38:59 11/17/2018 14:34:03 Pre-surgery evaluation 673665604 Z01.818 Insomnia 996605765 G47.0 0 Basal cell carcinoma of skin 390220458 C44.91 Essential hypertension 82662712 I10 Stable on meds; continue current mgmt [id number] Lala Palomo MD Main Office [address] [facility] [address] [facility] [place] [address] 02/07/2019 10:14:24 02/07/2019 11:01:17 Essential hypertension 01571113 I10 Stable on meds; continue current mgmt Insomnia 935765208 G47.0 0 Osteoarthr itis of left knee joint 7900246882 01810 M17.12 Scheduled for TKR February [address] Pereyra Primary er ectile dysfunction 660140233 N52.9 Systolic murmur 69336648 R01.1 [id number] Lala Palomo MD Main Office [address] [facility] [address] [place] [address] 03/27/2019 10:41:43 03/27/2019 11:13:19 Heart murmur 69685470 R01.1 Normal ECHO. No further w/u needed. [id number] Lala Palomo MD Main Office [address] [facility] [address] [place] [address] 08/01/2019 15:39:14 08/01/2019 16:25:39 Adult health examination 720979805 Z00.00 UTD with immunizati ons. He had a colonoscop y in March 2017 and is due again in [address] Grimaldo. Essential hypertension 77307360 I10 Stable on meds; continue current mgmt Insomnia 510351429 G47.0 0 Primary er ectile dysfunction 038784683 N52.9 Uses sildenafil prn [id number] Lala Palomo MD Main Office [address] [facility] [address] [place] [address] 02/22/2020 13:06:12 02/23/2020 13:07:41 Essential hypertension 48703183 I10 Stable on meds; continue current mgmt. We will take over the prescribin g from renal. Asthma 725018849 J45.90 9 Doing well with the controller med. Will refill the rescue inhaler. Insomnia 952345887 G47.0 0 Stable with current mgmt. Allergic rhinitis 984840 04 J30.9 Doing well with current meds. [id number] Patricia Hogan PA-C [facility] 3640 [facility] [address] [place] [address] 04/29/2020 09:01:21 04/29/2020 13:50:54 Injury of foot 685311206 S99.921A xray to r/o fracture. Elevated foot and ice every 3 hrs for 20 minutes and take OTC pain meds. [id number] Bri Burroughs Main Office [address] [facility] [address] [place] [address] 08/07/2020 15:35:15 08/07/2020 16:51:28 Adult health examination 637655559 Z00.00 Due for a flu shot. He had a colonoscop y in March 2017 and is due again in [address] Grimaldo. His father had prostate cancer. Needs infl uenza immunization 825366035 Z23 Allergic rhinitis 672612 04 J30.9 Doing well with current meds. Essential hypertension 87816226 I10 Stable on meds; continue current mgmt. Pain of left wrist 92619 33337 62954 M25.532 [id number] Suni Toribiovirgen Main Office [address] [address] 09/25/2020 09:41:51 09/25/2020 11:49:58 Insect bite to leg - nonvenomous 574460291 S80.861A bite right leg, will do 1 day tx for lyme and followup with test in a few weeks, call if any joint pain, fevers or rashes. [id number] Lala Palomo MD Main Office [address] [address] 02/04/2021 15:14:38 02/04/2021 16:00:51 Essential hypertension 28105748 I10 Stable on meds; continue current mgmt. Primary er ectile dysfunction 986353337 N52.9 Uses sildenafil prn Allergic rhinitis 110055 04 J30.9 Doing well with current meds. 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 Asthma 153180826 J45.90 9 Doing well with the controller med. Insomnia 614451908 G47.0 0 Stable with current mgmt. [id number] Lala Palomo MD Main Office [address] [address] 12/08/2021 13:19:05 12/08/2021 14:29:30 Adult health examination 367049986 Z00.00 He is UTD with COVID vaccines and booster and we have a record of this. He also states that he had a flu vaccine at the same time and we will check on this. He had a colonoscop y in March 2017 and is due again in this year by Dr Grimaldo. His father had prostate cancer. Asthma 023564463 J45.90 9 Doing well with the controller med and rarely uses his rescue inhaler. Essential hypertension 52752240 I10 Stable on meds; continue current mgmt. Insomnia 659354657 G47.0 0 Stable with current mgmt. Primary er ectile dysfunction 911918465 N52.9 Uses sildenafil prn Intermitte nt claudication 40746074 I73.9 Possible dx given his symptoms. We will refer to vascular for further evaluation . Nocturia 886659160 R35.1 Dad had a h/o prostate cancer. Screening for malignant neoplasm of colon 174014625 Z12.11 [id number] Devan Hogan PA-C [facility] 3640 [facility] [address] [place] [address] 03/24/2022 10:40:47 03/24/2022 15:34:35 Insect bite, nonvenomous, of thigh 648665695 S70.362A low suspicion for lyme since no tick embedded/r emoved, bites noticed ~ 24 hours later (not embedded 36-48 hours) -- reassured likely a spider bite, apply triple abx ointment 1-2x/day until healed, and pt requests check lyme titer next month which is not fully unreasonab le to give pt peace of mind [id number] Bri Burroughs Main Office 3640 [facility] [address] [facility] [place] [address] 12/15/2022 14:22:44 12/15/2022 15:52:01 Adult health examination 995981771 Z00.00 He is UTD with COVID vaccines and booster and we have a record of this. He also states that he had a flu vaccine at the same time and we will check on this. He had a colonoscop y in June 2022 and is due again in [address] Grimaldo. His father had prostate cancer. History of SARS-CoV-2 29 88424218 35379166 Z86.16 Mild symptoms. Did not take paxlovid. Intermitte nt claudication 59241302 I73.9 Has a f/u with vascular. Impacted c erumen of bilateral ears 1882955080 935820 H61.23 Essential hypertension 39196065 I10 Stable on meds; continue current mgmt. Hyperlipidemia 56262746 E78.5 On meds and tolerating them well. His last LDL was not at goal. Asthma 012342653 J45.90 9 Doing well with the controller med and rarely uses his rescue inhaler. He understand s to call if he needs his rescue inhaler more than a few times a week. [id number] Lala Palomo MD Main Office [address] [facility] [address] [place] [address] 06/15/2023 14:58:20 06/15/2023 15:44:44 Essential hypertension 59393018 I10 Stable on meds; continue current mgmt. Anemia 643301117 D64.9 Will do further blood work to be sure that this is not getting worse and to characteri ze type of anemia. It is possible that alcohol is playing a role since he has more than 2 drinks a day. [id number] Lala Palomo MD Main Office [address] [facility] [address] [place] [address] 10/08/2023 12:53:56 10/08/2023 13:29:15 Essential hypertension 19410606 I10 -on amlodipine 10mg daily and atenolol 50mg daily Asthma 450775199 J45.90 9 well controlled with inhalers Pre-surger y evaluation 390565358 Z01.818 pre-operat torin medical clearance for carpal tunnel release with Dr. Anil Coburn at [facility] on 10/11/2023 -will order CBC, chem 7, PT/INR-no cardiac events in the past 3 months-ekg unremarkab le, mild bradycardi c at 53bpm. RRR, no ST changes. [id number] Lala Palomo MD Main Office [address] [facility] [address] [place] [address] 12/21/2023 15:11:52 12/21/2023 16:20:12 Adult health examination 258476396 Z00.00 He is UTD with COVID vaccines and booster and we have a record of this. He also states that he had a flu vaccine at the same time and we will check on this. He had a colonoscop y in June 2022 and is due again in [address] Grimaldo. His father had prostate cancer. Nocturia 134873415 R35.1 Dad had a h/o prostate cancer. Essential hypertension 09188279 I10 Stable on meds; continue current mgmt. Hyperlipidemia 16682056 E78.5 On meds and tolerating them well. His last LDL was not at goal. Primary er ectile dysfunction 232233563 N52.9 Uses sildenafil prn Peripheral venous insufficiency 85497266 I87.2 Seen by =vascular and will be having procedures done. [id number] Lala Palomo MD Main Office [address] [facility] [address] [place], [place] [address] 06/20/2024 15:40:14 06/20/2024 16:09:01 Essential hypertension 05565659 I10 Stable on meds; continue current mgmt. Hyperlipidemia 69507368 E78.5 On meds and tolerating them well. His last LDL was not at goal. Insomnia 488874750 G47.0 0 Stable with current mgmt. [id number] CALI CORTES Main Office [address] [facility] [address] [place] [address] 06/28/2024 09:45:42 06/28/2024 10:27:19 Pre-surgery evaluation 916876607 Z01.818 No medical contraindi cations to proposed procedure. Reji Perioperat torin Cardiac Risk was calculated and the risk for perioperat torin CO is 0.2%. May proceed to surgery as planned.-o rdered CMP and CBC w/diff-EKG ; NSR, similar when compared to ekg from 09/2023; no cardiac symptoms Essential hypertension 44271645 I10 -on amlodipine 10mg daily and atenolol 50mg daily Peripheral venous insufficiency 80159706 I87.2 pre-operat torin medical clearance for bilateral common femoral artery endarterec kevin with Dr. Jeffy Puente ( ) on 07/10/2024. [id number] Lala Palomo MD Main Office [address] [facility] [address] [place], [place] [address] 12/26/2024 15:37:50 12/26/2024 16:45:47 Adult health examination 877068207 Z00.00 He is UTD with COVID vaccines and booster and we have a record of this.He also states UTD with flu and shingles vaccines.Shayne de los santos had a colonoscop y in June 2022 and is due again in [address] Grimaldo. He will call for an appointmen t.He was advised to get a prevnar 20 at his pharmacy.H is father had prostate cancer. Essential hypertension 47834068 I10 Stable on meds; usually runs much lower at home. He will reduce his metoprolol from 50 to 25 mg and will stay on this until his next appointmen t. Hyperlipidemia 31138706 E78.5 On meds and tolerating them well. His last LDL was not at goal. Insomnia 707315841 G47.0 0 Stable with current mgmt. Intermitte nt claudication 29937462 I73.9 Resolved since having bilateral bypass done by Dr Puente, vascular June 2024. Nocturia 601710853 R35.1 Dad had a h/o prostate cancer. Primary er ectile dysfunction 745597284 N52.9 Uses sildenafil prn Impacted c erumen in right ear 3157791947 813109 H61.21 Administra tion of pneumococcal vaccine 49859175 Z23 Asthma 772849439 J45.20 Doing well with the controller med and rarely uses his rescue inhaler. He understand s to call if he needs his rescue inhaler more than a few times a week. Health Concerns Section Related Observation LastModified by Organization Detai ls LastModified Time None Recorded Concern Status LastModified by Organization Details LastModified Time None Recorded Advance Directives Directive Y: Payers Encounter Date Sequence Insurance Name Policy Number Policy Hsieh Covered Member ID Hsieh Member ID Guarantor Name 10/08/2023 1 [place] [id number] 2 Christopher Pankaj [id number] Christopher Pankaj 12/21/2023 1 [place] [id number] 2 Christopher Pankaj [id number] Christopher Pankaj 06/20/2024 1 [place] [id number] 2 Christopher Pankaj [id number] Christopher Pankaj 06/28/2024 1 [place] [id number] 2 Christopher Pankaj [id number] Christopher Pankaj 12/26/2024 1 [place] [id number] 2 Eren Lira [id number] Eren Lira Notes Date Note Type Note Provider Name and Address Organization Details Recorded Time 10/08/20 23 text/htm keith Jason is a 63 yr old M with PMHx of HTN, HLD, and asthma presents for pre-operative medical clearance for carpal tunnel release with Dr. Anil Coburn at [facility] on 10/11/2023. Under local anesthesia. Denies any [...] chills, and nausea/vomiting. Lala Palomo MD [address], [address], [facility] 10/10/2023 14:24:18 12/21/19 24 text/htm l Generic HPI TemplateReported bypatient.Notes:UTD with immunizations including COVID with most recent booster, flu, tetanus, and shingles.Colonoscopy done by Dr Grimaldo in June 2022 with a 3-year call back. Lala Palomo MD [address], [address], [facility] 12/22/2023 07:56:32 06/20/20 24 text/htm l HyperlipidemiaReported [...] known sleep apnea Lala Palomo MD [address], [address], [facility] 06/20/2024 17:31:05 06/28/20 24 text/htm keith Jason [...] palpitations, fever, chills, and nausea/vomiting. CALI CORTES [address] [address], [place], [address], [facility] 06/28/2024 12:28:13 12/27/19 25 text/htm l Generic HPI TemplateReported bypatient.Notes:He had bypass done by vascular, Dr Puente on both LE's secondary to claudication and symptoms have resolved.UTD with vaccines including COVID, flu, shingles and tetanus.Due for a prevnar 20 which he will get at his pharmacy.Due for a colonoscopy last done by Dr Grimaldo in 2021 with a 3-year call back. He will call to schedule. aLla Palomo MD [address] [address], [place], [address], [facility] 12/26/2024 18:15:25
--- OUTSIDE RECORDS SUMMARY | 2025-01-02 09:18 | XMS_ITS | Clinical Summary ---
Author Organization [facility] Address [address] [place] [address], [place] [address] Care Team Providers Care Napper Fixer Name Role Phone Niraj Palomo MD Primary [...] age to complete this topic Care Teams Napper Fixer Relationship Specialty Start Date End Date Niraj Palomo MD [address] PCP - General 11/04/20
--- OUTSIDE RECORDS SUMMARY | 2025-01-02 09:19 | XMS_ITS | Clinical Summary ---
Author Organization [facility] Address [address] [place] [address] Care Team Providers Care Canvas Shop Laborer Name Role Phone Unavailable Primary Care Provider [...]
--- OUTSIDE RECORDS SUMMARY | 2025-01-02 09:19 | XMS_ITS | Continuity of Care Document ---
Author Organization [facility], Main Office Address [address] [place] [address] Care Team Providers Care Inspector Floor Name Role Phone MATT GRIMALDO Entry Level Paralegal [facility] Orthopedic Surgeon NIRAJ PALOOM Primary Care Provider ADITYA Long Referring Provider [facility]EP [facility]IC[facility] SERVICES Sleep Medicine ABHAY LEDEZMA Orthopedic Surgeon GLORIA PARRA Va Underwriter OLVIN RYAN Dermatopathologist [phone] VALENTINE BRYAN Muleser [phone] ARTIS PERRY Plastic Cutter NINA ROJAS Orthopedic Surgeon [phone] CHIKI CARRASQUILLO Referring Provider KANDIS PINEDA Referring Provider [phone] ANIL COBURN Orthopedic Surgeon [phone] Assessment No assessment recorded. Plan of Treatment Reminders Order Date Submit Date Provider Last Modified By Organization Details Last Modified Time Details Appointments FOLLOW UP 2024 03:45P M Niraj newton MD Not available Not available Not available Lab lipid panel, serum 2024 025 [facility] (Centralized Electronic Ordering - All Locations), Patient Can Go To The Location Of Their Choice, [id number] 12/26/2024 16:12:50 PSA, serum or plasma 2024 025 [facility] (Centralized Electronic Ordering - All Locations), Patient Can Go To The Location Of Their Choice, [id number] 12/26/2024 16:12:49 CMP, serum or plasma 2024 [facility] (Centralized Electronic Ordering - All Locations), Patient Can Go To The Location Of Their Choice, [id number] 12/26/2024 16:12:49 CBC w/ auto diff 2024 [facility] (Centralized Electronic Ordering - All Locations), Patient Can Go To The Location Of Their Choice, 12/26/2024 16:12:49 magnesium , serum or plasma 2024 [place] [facility] (Centralized Electronic Ordering - All Locations), Patient Can Go To The Location Of Their Choice, [id number] 12/26/2024 16:12:49 Referral None recorded. Procedures cerumen removal (PROC) 2024 [place] In-Office Order, Internal Use Only DO Not Attach Compendium DO Not Attach Compendium, Do Not Delete/merge, [id number] 12/26/2024 16:53:41 Surgeries None recorded. Imaging None recorded. Medication Orders sildenafi l 100 mg tablet 2024 [place] [id number], [address], [place], [address], 12/26/2024 16:16:54 Patient TargetsNo targets recorded. Patient Instructions Encounter Date Encounter Id Patient Instructions Last Modified By Organization Details Last Modified Time 12/26/2024 [id number] insomnia: care instructions [email or web address] Not available 12/26/2024 16:12:34 high cholesterol: care instructions [email or web address] Not available 12/26/2024 16:12:34 learning about asthma [email or web address] Not available 12/26/2024 18:15:10 high blood pressure: care instructions [email or web address] Not available 12/26/2024 16:12:34 learning about high blood pressure [email or web address] Not available 12/26/2024 16:12:34 Reason for Referral None Reported. Results Created Date Observation Date Name Description Value Unit Range Abnormal Flag Note LastModifiedBy Organization Detail LastModifiedTime 12/27/19 25 12/26/2024 cerum en remov al (PROC ) done by Kei de jesus with lavage and curett e Not Available In-Office Order Internal Use Only DO Not Attach Compendium DO Not Attach Compendium, Do Not Delete/merge, [id number] 12/26/2024 16:19:08 Result Notes None recorded. Problems Name Problem SNOMED Code Status Onset Date Resolution Date Notes Provider Name and Address Organization Details Recorded Time Snoring symptoms 453295251 Active 2016 Had sleep study and no GISEL Festus flores [facility] 0 14:41:05 Asthma 897190319 Active 2016 Festus flores [facility] 0 14:41:05 Insomnia 448109018 Active 2016 Festus flores [facility] 0 14:41:05 Essentia l hyperten america 32156607 Active 2017 Not yet on meds. Being followed by renal. Festus flores [facility] 0 14:41:05 Eustachi an tube disorder 41243667 Active 2017 Festus flores [facility] 0 14:41:05 Allergic rhinitis 64597855 Active 2017 Festus flores [facility] 0 14:41:05 Heart murmur 83158709 Active 2018 Festus flores [facility] 0 14:41:05 Primary erectile dysfunct ion 041514680 Active 2018 Festus flores [facility] 0 14:41:05 Arthriti s of left knee 19166051787 76763 Active 2017 Had replacem ent done 09/28/19. Has pain and followed by [facility] and getting injectio ns. Niraj newton MD [address], [place], [address], [facility] 4 11:55:43 Surgical follow-u p 232350282 Completed 201809/22/2020 Niraj newton MD [address], [place], [address], [facility] 0 08:30:33 Arthriti s of left wrist 08459015877 72031 Active 2019 Had trauma in the past. Followed by Hand Surgery Niraj newton MD [address], [place], [address], [facility] 0 08:31:25 Carpal tunnel syndrome of left wrist 01237169188 9102 Active 2020 Niraj newton MD [address], [place], [address], [facility] 1 13:14:06 Neck pain 56559499 Active 2020 Followed by ortho and MRI ordered. Niraj newton MD [address], [place], [address], [facility] 1 09:37:45 Hyperlip idemia 84315315 Active 2021 Niraj newton MD [address], [place], [address], [facility] 2 13:30:11 History of SARS-CoV -2 07872081647 5750668 Active 2021 Nirja newton MD [address], [place], [address], [facility] 3 15:15:44 Anemia 582180132 Active 2022 Niraj newton MD [address], [place], [address], [facility] 3 09:04:59 Basal cell carcinom a of skin 580774571 Active 2018 MOHs procedur e done at [facility]. Niraj newton MD [address], [place], [address], [facility] 3 19:35:38 Pain of right wrist 14766829896 9100 Active 2022 Seen by ortho; probable CTS. Niraj newton MD [address], [place], [address], [facility] 3 16:46:36 Carpal tunnel syndrome of right wrist 76665326843 9108 Active 2022 seen by hand surgery Niraj newton MD [address] [facility], [place], [address], [facility] 3 07:53:18 Peripher al venous insuffic iency 29997122 Active 2023 Treated with compress ion stocking s and lifestyl e changes. Seen by Vascular surgery and will be looking into thermal ablation /sclerto therapy. Niraj newton MD [address] [facility], [place], [address], [facility] 4 12:56:55 Arthriti s of right knee 71052568161 46601 Active 2023 Followed by REBECCA and currentl y being treated with injectio ns. Getting euflexa injectio ns from [facility]. Niraj newton MD [address] [facility], [place], [address], [facility] 4 17:46:22 Intermit tent claudica tion 48016111 Active 2023 Bilatera l endarter ectomy done by Dr Puente 07/11/24 Niraj newton MD [address] [address], [place], [address], [facility] 4 13:36:14 Problem Notes None recorded. Procedures Surgical History Date Name Laterality Status Provider Name and Address Organization Details Recorded Time 07/11/20 24 endarterectomy completed Niraj Palomo MD [address] [address], [place], [address], [facility] 10/11/2024 07:49:41 10/11/20 23 Carpal tunnel surgery completed Jade Jeffrey [facility] 11/09/2023 14:25:25 07/13/20 22 Colonoscopy completed Sujey Navarro [facility] 07/31/2022 16:54:25 02/28/20 21 Carpal tunnel surgery completed Niraj Palomo MD [address] [address], [place], [address], [facility] 12/15/2022 15:19:58 09/28/20 19 total knee replacement completed Coby Kruse [facility] 09/29/2019 16:10:56 11/29/19 19 mohs surgery completed Niraj Palomo MD [address] [address], [place], [address], [facility] 08/07/2020 16:28:26 10/25/19 16 Shoulder joint surgery completed Niraj Palomo MD [address] [address], [place], [address], [facility] 08/07/2020 16:28:48 03/25/20 12 Meniscal trnspl knee w/scpe completed Festus Mays [facility] 07/08/2017 13:16:50 10/25/18 95 Iliac bone graft microvasc completed Festus Mays [facility] 07/08/2017 13:15:14 10/25/18 65 Tonsillectomy completed Festus Mays [facility] 07/08/2017 13:16:07 Imaging Results None recorded. Procedure Notes None [...] Updated DateTime 5 177.8 cm 26.4 kg/m2 18268 g 69 /min 99 % 99 % 98.2 [degF] 137 mm[Hg] 81 mm[Hg] Emilia Vargas MA [facility] 15:52:50 Social History Question Answer Notes LastModified by Organizat ion Details LastModified Time Tobacco Smoking Status Former Smoker Quit [address] at 46 years of [address] [facility] 12/26/2024 15:52:40 Do You Have An Advance Directive? Yes Information not available 12/08/2021 What Is Your Level Of Alcohol Consumption? Moderate 2-3 Servings Daily Information not available 12/21/2023 Is Blood Transfusion Acceptable In An Emergency? 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 11-15yearssin celastcigarjimbo burnett [email or web address] Information not available 06/20/2024 Do You Take Precautions To Prevent Distracted Driving? Yes Meineng EnergyultzFUNGO STUDIOS Information not available 07/08/2017 How Often Do [...] Or Greater Than 100 Degrees Fahrenheit? No [email or web address] Information not available 08/07/2020 Are You Or Anyone In Your Household A Health Care Provider Or Emergency Responder? No [email or web address] Information not available 08/07/2020 To The Best Of Your Knowledge Have You Been In Close Proximity To Any Individual Who Tested Positive For COVID-19? No [email or web address] Information not available 08/07/2020 Have You Recently Traveled To A COVID-19 High Risk Area Or Gathering In The Last 10 Days? No Information not available 02/04/2021 What Was The Date Of Your Most Recent Tobacco Screening? 06/28/2024 Information not available 06/28/2024 How Many Children Do You Have? 2 Rayna Information not available 12/21/2023 Do You Use Protection During Sex? No [email or web address] Information not available 07/08/2017 Do You Use Your Seat Belt Or Car Seat Routinely? Yes Information not available 12/08/2021 Are You Sexually Active? Yes [email or web address] Information not available 12/26/2024 Do You Have [...] you able to care for yourself? Yes [email or web address] Information not available 07/08/2017 What is your exercise level? Moderate walking and biking [email or web address] Information not available 12/21/2023 Mental Status None recorded. Family History Relationship Description Onset Age of this Age Resolved Age Notes LastModified by Organization Details LastModified Time Father Myocardial infarction 73 [email or web address] Not available 06/20 15:44:02 Mother History of malignant lymphoma [birth year] born [email or web address] Not available 06/20/2024 15:44:02 Sister Graves' disease #2 [email or web address] Not available 2023 15:44:02 Sister Multiple sclerosis #1 [email or web address] Not available 07/25 16:24:31 Medical History Condition Response Varicose Veins Y Arthritis Y Head Injury/Concussion Y Cancer Y Hypertension Y Asthma Y Chicken Pox Y Allergies Y Immunizations Vaccine Type Date Status Note Provider Linden de los santos and Address Organization Details Recorded Time COVID-19, mRNA, LNP-S, PF, 30 mcg/0.3 mL dose 12/30/19 21 completed [place] Manzanares, [facility] 10/15/2021 14:26:29 COVID-19, mRNA, LNP-S, PF, 30 mcg/0.3 mL dose 01/20/20 [facility] 14:26:29 Hep A, adult 03/05/20 21 completed [place] Duarte, [facility] 03/24/2022 13:29:12 COVID-19, mRNA, LNP-S, PF, 30 mcg/0.3 mL dose 08/01/20 21 completed [place] Manzanares, [facility] 10/15/2021 14:26:29 MMR 03/05/20 [facility] 14:26:29 zoster recombinant 06/24/20 20 completed [place] Manzanares, [facility] 10/15/2021 14:26:29 Hep A-Hep B 08/18/20 21 completed [place] Manzanares, [facility] 10/15/2021 14:26:30 Influenza, split virus, quadrivalent, PF 08/01/20 21 completed [place] Manzanares, [facility] 10/15/2021 14:26:30 zoster recombinant 12/01/19 [facility] 14:26:30 typhoid, ViCPs 03/05/20 21 completed [place] Manzanares, [facility] 10/15/2021 14:26:30 COVID-19, mRNA, LNP-S, PF, 100 mcg/0.5mL dose or 50 mcg/0.25mL dose 03/02/20 22 completed [place] Duarte, [facility] 03/24/2022 13:29:12 Influenza, MDCK, quadrivalent, PF 08/17/20 22 completed [place] Manzanares, [facility] 06/15/2023 15:05:13 COVID-19, mRNA, LNP-S, bivalent, PF, 50 mcg/0.5 mL or 25mcg/0.25 mL dose 08/17/20 22 completed [place] Manzanares, [facility] 06/15/2023 15:05:13 Influenza, MDCK, quadrivalent, PF 09/13/20 23 completed [place] Acosta, [facility] 12/21/2023 15:34:31 COVID-19, mRNA, LNP-S, PF, 50 mcg/0.5 mL 09/13/20 23 completed [place] Acosta, [facility] 12/21/2023 15:34:31 Influenza, high-dose, trivalent, PF 06/22/20 24 completed [place] Acosta, [facility] 06/28/2024 10:04:07 Tdap 07/08/20 17 completed Not Available [facility] 11/11/2019 02:21:46 Influenza, split virus, quadrivalent, PF 07/12/20 18 cancelled patient objection Not Available [facility] 11/11/2019 02:22:16 Influenza, split virus, quadrivalent, PF 08/07/20 20 completed Niraj Palomo MD [address] [address], [place], [address], [facility] 08/07/2020 16:21:07 Past Encounters Encounter ID Performer Location Encounter Start Date Encounter Closed Date Diagnosis/Indication Diagnosis SNOMED-CT Code Diagnosis ICD10 Code Diagnosis Note [id number] Niraj Palomo MD Main Office [address] [facility] [place] [address] 12/26/2024 15:37:50 12/26/2024 16:45:47 Adult health examination 036396232 Z00.00 He is UTD with COVID vaccines and booster and we have a record of this.He also states UTD with flu and shingles vaccines.Shayne de los santos had a colonoscop y in June 2022 and is due again in [address] Grimaldo. He will call for an appointmen t.He was advised to get a prevnar 20 at his pharmacy.Shayne is father had prostate cancer. Essential hypertension 88147121 I10 Stable on meds; usually runs much lower at home. He will reduce his metoprolol from 50 to 25 mg and will stay on this until his next appointmen t. Hyperlipidemia 78325501 E78.5 On meds and tolerating them well. His last LDL was not at goal. Insomnia 368251704 G47.0 0 Stable with current mgmt. Intermitte nt claudication 56501270 I73.9 Resolved since having bilateral bypass done by Dr Puente, vascular June 2024. Nocturia 294989054 R35.1 Dad had a h/o prostate cancer. Primary er ectile dysfunction 589221707 N52.9 Uses sildenafil prn Impacted c erumen in right ear 8657494119 895603 H61.21 Administra tion of pneumococcal vaccine 38304540 Z23 Asthma 692996147 J45.20 Doing well with the controller med and rarely uses his rescue inhaler. He understand s to call if he needs his rescue inhaler more than a few times a week. Health Concerns Section Related Observation LastModified by Organization Detai ls LastModified Time None Recorded Concern Status LastModified by Organization Details LastModified Time None Recorded Payers Encounter Date Sequence Insurance Name Policy Number Policy Hsieh Covered Member ID Hsieh Member ID Guarantor Name 12/26/2024 1 [place]RE[place] ([place] [id number] 2 Eren Lira [id number] Eren Lira Notes Date Note Type Note Provider Name and Address Organization Details Recorded Time 12/26/2024 text/html Generic HPI TemplateReported bypatient.Notes:He had bypass done by vascular, Dr Puente on both LE's secondary to claudication and symptoms have resolved.UTD with vaccines including COVID, flu, shingles and tetanus.Due for a prevnar 20 which he will get at his pharmacy.Due for a colonoscopy last done by Dr Grimaldo in 2021 with a 3-year call back. He will call to schedule. Niraj Palomo MD [address] [address], [place], [address], [facility] 12/26/2024 18:15:25
--- OUTSIDE RECORDS SUMMARY | 2025-01-02 09:19 | XMS_ITS | Encounter Summary ---
Author Organization [facility] Address [address] [place] [address] Care Team Providers Care Chisel Trimmer Name Role Phone Unavailable Primary Care Provider Unavailabl e Encounter Details Date Type Department Care Team (Late st Contact Info) Description 09/17/2023 Scanned Document [facility] Department of Physiatry [place] [address] [place] [address] Kaelyn Salmeron MD [address] [place] [address] Social History Tobacco Use Types Packs/Day Years [...]
--- OUTSIDE RECORDS SUMMARY | 2025-01-02 09:19 | XMS_ITS | Encounter Summary ---
Author Organization [facility] Address [address] [place] [address] Care Team Providers Care Physician Office Rep Name Role Phone Unavailable Primary Care Provider Unavailabl e Encounter Details Date Type Department Care Team (Late st Contact Info) Description 10/04/2023 Scanned Document [facility] Department of Physiatry [place] [address] [place] [address] Kaelyn Salmeron MD [address] [place] [address] Social History Tobacco Use Types Packs/Day Years [...]
== END 2025-01-02 09:27 | disposition home or self-care (01) ==
LOC: HO.HOS 08:36
PROVIDERS: PCP Internal Medicine; Visit Provider Orthopaedic Surgery
DX: S83.241A Other tear of medial meniscus, current injury, right knee, initial encounter (principal); M17.11 Unilateral primary osteoarthritis, right knee
CPT/HCPCS: 99213

== ENCOUNTER 2025-02-13 11:30 | Outpatient (AMB) | payer BC, SELFPAY ==
--- NOTE | 2025-02-13 11:51 | HO.NEPHOV ---
Vital Signs 02/13/25 11:52 Height 6 ft Weight 190 lb 4 oz BMI 25.8 BP 90/50 L Blood Pressure Location Lt brachial Position Sitting Pulse 56 Pulse Source Pulse Oximeter Pulse Oximetry (%) 97 Oxygen Delivery Method Room Air Intake Visit Reasons: DX Hyponatremia Bookmobile Driver Required: No Accompanied by: Self / Same As Patient Allergies environmental allergies Allergy (Severe, Verified 02/13/25 11:52) Sneezing HPI Comments Details: I had the privilege of seeing Eren in consultation for hyponatremia. He is 65 years of age and is going to undergo right knee arthroscopy soon. He has H/O PAD/ Claudication and does not have any edema or LE arterial insufficiency symptoms. He is not known to have any CAD, CHF, liver disease or renal disease. He consumes at least 4 beers a day for 5 days a week and more if there are any special occasions. He has been on trazadone. He has no H/O depression and active malignancy. He drinks sufficient amount of free water, sometimes a bit excess. He has no H/O weight loss, H/O hyperkalemia, H/O DM, H/O paraproteinemia or intake of any thiazide diuretic. He denies nausea, vomiting, diarrhea or orthostatic symptoms. His recent sodium levels fluctuated between 129-130. He has no altered mental status or weakness. [facility] Medical History (Updated 02/15/25 @ 12:41 by Iban Reina MD) Arthritis Snoring Eustachian tube dysfunction Allergic rhinitis Erectile dysfunction Neuropathic pain Carpal tunnel syndrome, bilateral GISEL (obstructive sleep apnea) Hyponatremia Insomnia Asthma HTN (hypertension) Cardiac murmur Dyslipidemia Anemia Basal cell carcinoma Claudication Surgical History Hx of wisdom tooth extraction Hx of excision of mass History of surgery on left wrist Hx of tonsillectomy H/O colonoscopy History of total left knee replacement Hx of repair of right rotator cuff History of bilateral carpal tunnel release Hx of endarterectomy Social History Are you a primary medicare interviewer to a significant other at home: No Do you presently have visiting nurse or other home services: No Alcohol intake: current Patient Tobacco Use Status: Former Tobacco user Tobacco use type: Cigarette Years Smoked: 16 Substance Use Type: Marijuana Current occupational status: employed Current occupation: [employer] Review of Systems Const All systems reviewed & are unremarkable except as noted in HPI and below Physical Exam Vital Signs: Last Vital Signs Pulse 56 02/13/25 11:52 BP 90/50 L 02/13/25 11:52 Pulse Ox 97 02/13/25 11:52 Oxygen Delivery Method Room Air 02/13/25 11:52 BMI result Body Mass Index 25.8 Const General: comfortable and no acute distress Orientation/consciousness: patient oriented x3 HEENT Head: Yes normocephalic Mouth: Normal oral and palatal mucosa present Eyes EOM: EOMs intact bilaterally Neck Neck: Yes supple Resp Auscultation: clear to auscultation bilaterally Cardio Jugular venous distension: no JVD Rate: regular rate GI Palpation (GI): Soft to palpation Auscultation: normal bowel sounds General: Yes no CVA tenderness Back/Spine/Pelvis Back: no CVA tenderness Skin General skin exam: no rashes or lesions noted Neuro General: patient oriented x3 and moves all extremities Extrem General: Yes no pedal edema Results Reviewed Nephrology Results: No Data to Display Assessment & Plan Assessment & Plan (1) HTN (hypertension): Code(s): I10 - Essential (primary) hypertension Category: Medical Qualifiers: Hypertension type: primary hypertension Qualified Code(s): I10 - Essential (primary) hypertension (2) Hyponatremia: Code(s): E87.1 - Hypo-osmolality and hyponatremia Category: Medical Plan Mr Lira has euvolemic hyponatremia. His hyponatremia is likely multifactorial. 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 He has no H/O malignancy. He is Trazadone, has pain in the right knee and takes 3-4 beer daily for at least 5 days a week. He has no H/O depression or being on any other anti depressant. He has no H/O hypotension, hypoglycemia or hyperkalemia. His blood pressure is well controlled on Amlodipine. He has no CHF, liver failure or renal failure. I asked him to cut back on his free water and cut back on his beer. We may need to find another night sedation aid instead of Trazadone (which is a potential factor for SIADH), if his serum sodium remains fluctuant. Pain and nausea post operatively is a trigger for more ADH which can drop his sodium & needs tp be repeated day or two after surgical intervention. He can have his knee surgery with the current levels of serum sodium. I have ordered follow up blood work and answered all his questions. Orders: Orders Cortisol Random 3 Months E87.1 - Hypo-osmolality and hyponatremia, I10 - Essential (primary) hypertension Electrolytes 3 Months E87.1 - Hypo-osmolality and hyponatremia, I10 - Essential (primary) hypertension Blood Urea Nitrogen 3 Months E87.1 - Hypo-osmolality and hyponatremia, I10 - Essential (primary) hypertension Creatinine 3 Months E87.1 - Hypo-osmolality and hyponatremia, I10 - Essential (primary) hypertension Coding Level of Care Code New Pt Level 4 (05214) Diagnoses Primary hypertension I10 Hypertension type: primary hypertension Hyponatremia E87.1
[2025-02-13 11:52] VITALS: BP 90/50; PULSE 56; O2SAT 97; BMI 25.8
--- OUTSIDE RECORDS SUMMARY | 2025-02-13 14:02 | XMS_ITS ---
[facility] Address [address] [place] [address] Care Team Providers Care Auto Winder Name Role Phone Mata Gao MD Primary Care Provider Gerhard Barkley Unavailable [phone] REASON FOR VISIT Records Problems No Known Problems Encounters Encounter Location Date Provider [facility] [address] [place] [phone] 08/25/2023 Gerhard Herring Plan Of Treatment No Information Progress Notes * Eren LIRADOB:1959 (63 yo M)Acc No.[id number]:08/25/2023 Patient:?Eren Lira :1960???Age:63 Y???Sex:Male Address:[address] [place] [address], [phone] * true * Date:? Generated for Printi sharlene/Sonya/eTransmitting on:?02/13/2025 02:02 PM EDT
--- OUTSIDE RECORDS SUMMARY | 2025-02-13 14:02 | XMS_ITS | Clinical Summary ---
Author Organization [facility] Address [address] [place] [address] Care Team Providers Care Machine I Engraver Name Role Phone Niraj Palomo MD Primary Care Provider Surgical History Surgery Date Site/Laterality Comments KNEE SURGERY PROCEDURE:KNEE SURGERY;COMMENT:left HAND SURGERY PROCEDURE:HAND SURGERY;COMMENT:lt wrist- iliac bone graft LIPOMA RESECTION PROCEDURE:LIPOMA RESECTION COLONOSCOPY PROCEDURE:COLONOSCOPY SHOULDER ARTHROSCOPY W/ ROTATOR CUFF REPAIR 04/10/2015 Right PROCEDURE:SHOULDER ARTHROSCOPY W/ ROTATOR CUFF REPAIR;COMMENT:Procedure: ARTHROSCOPY SHOULDER WITH ROTATOR CUFF REPAIR; Surgeon: Spenser Gaspar MD; Location: [facility]; Service: Orthopedics; Laterality: Right; SHOULDER ARTHROSCOPY 04/10/2015 Right PROCEDURE:SHOULDER ARTHROSCOPY;COMMENT:Procedure : ARTHROSCOPY SHOULDER AC EXCISION; Surgeon: Spenser Gaspar MD; Location: [facility]; Service: Orthopedics; Laterality: Right; OTHER SURGICAL HISTORY Right PROCEDURE:MOHS SURGERY;COMMENT:EYELID TOTAL KNEE ARTHROPLASTY 09/28/2019 Left PROCEDURE:TOTAL KNEE ARTHROPLASTY;COMMENT:Procedur e: REPLACEMENT TOTAL KNEE; Surgeon: Alexi Burrell MD; Location: [facility] Service: Orthopedics; Laterality: Left; JOINT REPLACEMENT PROCEDURE:JOINT REPLACEMENT Medical History Medical History Date Comments Osteoarthritis DX:Osteoarthriti s;COMMENT:? knee GERD (gastroesophageal reflux disease) DX:GERD (gastroesophageal reflux disease);COMMENT:past hx Asthma DX:Asthma High blood pressure DX:High bloo d pressure Eustachian tube dysfunction DX:E ustachian tube dysfunction Sleep apnea DX:Sleep apnea;C OMMENT:NONCOMPLIANT Pneumonia DX:Pneumonia Heart murmur DX:Heart murmur Cancer (CMS/HCC V24, CMS/HCC V28) DX:Cancer ([facility]);COMMENT:BCC R EYELID Rash DX:Rash;COMMENT: ITCHY LEGS Family [...] season) 2024 08/01/2021, 01/19/2021, 12/29/2020 Influenza Vaccine (Season Ended) 2025 RSV Immunization Adult Patients (1 - 1-dose 75+ series) 2034 HIB [...] age to complete this topic Meningococcal B Vaccine Aged Out No l onger eligible based on patient's age to complete this topic RSV Immunization Patients Under 20 months Aged Out No longer eligible b ased on patient's age to complete this topic Varicella Vaccines Aged Out No longer eligible based on patient's age to complete this topic Medical Devices Implanted Type Area Channel Executive Device Identifier Shelf Expiration Date Model / Serial / Lot Tibial Bearing Insert - Ps Implanted:Qty: 1 on 09/28/2019 by Alexi Burrell MD Joints Left: Knee NONI - MEDICAL 07/19/2023 / / [id number] Cement Simplex P Radiopaque Full Dose Bone 10 Pack - [id number] Implanted:Qty: 1 on 09/28/2019 by Alexi Burrell MD Left: Knee [employer] 6191-1-010 / / Cement Simplex P Radiopaque Full Dose Bone 10 Pack - [id number] Implanted:Qty: 1 on 09/28/2019 by Alexi Burrell MD Left: Knee [employer] 6191-1-010 / / Component Triathlon 5 Posterior Stabilized Cemented Femoral - [id number] Implanted:Qty: 1 on 09/28/2019 by Alexi Burrell MD Left: Knee [employer] 03/07/2024 5515-F-501 / / [id number] Baseplate Triathlon 6 Primary Cemented Tibial Knee - [id number] Implanted:Qty: 1 on 09/28/2019 by Alexi Burrell MD Left: Knee [employer] 02/28/2024 5520-B-600 / / [id number] Component Triathlon 10mm 35mm Symmetric X3 Ptlar Knee - [id number] Implanted:Qty: 1 on 09/28/2019 by Alexi Burrell MD Left: Knee [employer] 01/10/2024 5551-G-350 / / [id number] Peg Triathlon Modular Fix Distal Femur Knee - [id number] Implanted:Qty: 1 on 09/28/2019 by Alexi Burrell MD Left: Knee [employer]STEONICS 04/23/2024 5575-X-000 / / [id number] Care Teams Machine I Engraver Relationship Specialty Start Date End Date Niraj Palomo MD [address] PCP - General Internal Medicine 09/20/19
--- OUTSIDE RECORDS SUMMARY | 2025-02-13 14:02 | XMS_ITS | Clinical Summary ---
Author Organization [facility] Address [address] [place] [address] Care Team Providers Care Paramedic Rn Name Role Phone Niraj Palomo MD Primary Care Provider [phone] Allergies No known active allergies Medications Medication [...] 0 09/30/2019 Active ergocalciferol (VITAMIN D2) capsule 46793 units daily. 0 Active albuterol 108 (90 [...] Smokeless Tobacco: Never Comments:cigarettes 1974- 1, cigars 0442-2678 Alcohol Use Standard Drinks/Week Comments Yes 20 [...] 2034 Shingrix-Zoster Vaccine Completed 07/14/20, 06/24/2020, 12/01/2019 RSV Ped < 20 months Aged Out No longe r eligible based on patient's age to complete this topic Medical Devices Implanted Type Area Cable Maintainer Device Identifier Shelf Expiration Date Model / Serial / Lot Tibial Bearing Insert - Ps Implanted:Qty : 1 on 09/28/2019 by Alexi Burrell MD at [facility] Total Joint Left: Knee LINNETTE THADDEUS 07/19/2023 / / [id number] [place] Sut 5.5mm Fullthrd Med Insite Preld Fr Fbr Sprt Peek - [id number] - [id number] Implanted:Qty : 1 on 04/10/2015 by Spenser Gaspar MD at [facility] Right: Shoulder [employer] 07/24/2016 [id number] / / [id number] [place] Footprint 5.5mm Peek-[place] Base Suture - [id number] - [id number] Implanted:Qty : 1 on 04/10/2015 by Spenser Gaspar MD at [facility] Right: Shoulder [employer] ORTHOPAEDIC 10/24/2019 [id number] / / [id number] [place] Footprint 5.5mm Peek-[place] Base Suture - 466861 - [id number] Implanted:Qty : 1 on 04/10/2015 by Spenser Gaspar MD at [facility] Right: Shoulder [employer] ORTHOPAEDIC 10/24/2019 [id number] / / [id number] Cement Simplex P Radiopaque Full Dose Bone 10 Pack - [id number] - [id number] Implanted:Qty : 1 on 09/28/2019 by Alexi Burrell MD at [facility] Left: Knee [employer] 6191-1-010 / / Cement Simplex P Radiopaque Full Dose Bone 10 Pack - [id number] - [id number] Implanted:Qty : 1 on 09/28/2019 by Alexi Burrell MD at [facility] Left: Knee [employer] 6191-1-010 / / Component Triathlon 5 Posterior Stabilized Cemented Femoral - [id number] - [id number] Implanted:Qty : 1 on 09/28/2019 by Alexi Burrell MD at [facility] Left: Knee [employer] 03/07/2024 5515-F-501 / / [id number] Baseplate Triathlon 6 Primary Cemented Tibial Knee - [id number] - [id number] Implanted:Qty : 1 on 09/28/2019 by Alexi Burrell MD at [facility] Left: Knee [employer] 02/28/2024 5520-B-600 / / [id number] Component Triathlon 10mm 35mm Symmetric X3 Ptlar Knee - [id number] - [id number] Implanted:Qty : 1 on 09/28/2019 by Alexi Burrell MD at [facility] Left: Knee [employer] 01/10/2024 5551-G-350 / / [id number] Peg Triathlon Modular Fix Distal Femur Knee - [id number] - [id number] Implanted:Qty : 1 on 09/28/2019 by Alexi Burrell MD at [facility] Left: Knee LINNETTE [employer] 04/23/2024 5575-X-000 / / [id number] Advance Directives For more information, please contact: [phone] Latest Code Status on File Code Status [...] way: discussion with patient . Care Teams Paramedic Rn Relationship Specialty Start Date End Date Niraj Palomo MD [address] [place] [id number] PCP - General Internal Medicine 09/20/19
--- OUTSIDE RECORDS SUMMARY | 2025-02-13 14:03 | XMS_ITS | Encounter Summary ---
Author Organization [facility] Address [address] [place] [address] Care Team Providers Care Commutator Undercutter Name Role Phone Unavailable Primary Care Provider Unavailabl e Encounter Details Date Type Department Care Team (Late st Contact Info) Description 10/04/2023 Scanned Document [facility] Department of Physiatry [place] [address] [place] [address] Kaelyn Salmeron MD [address] [place] [address] Social History Tobacco Use Types Packs/Day Years Used Date Smoking Tobacco: Former Cigarettes Q uit: 2007 Smokeless Tobacco: Never Sex and Gender Information Value Date Recorded Sex Assigned at Male 09/17/2023 9:46 AM EST Legal Sex Male 9:43 AM EST Gender Identity Male 09/17/2023 9:46 AM EST Sexual Orientation Heterosexual (straight) 09/17 9:46 AM EST documented as of this encounter Plan of Treatment Not on file documented as of this encounter Visit Diagnoses Not on filedocumented in this encounter
--- OUTSIDE RECORDS SUMMARY | 2025-02-13 14:03 | XMS_ITS | Clinical Summary ---
Author Organization [facility] Address [address] [place] [address] Care Team Providers Care Literacy Tutor Name Role Phone Unavailable Primary Care Provider [...] on patient's age to complete this topic Insurance [facility] PPO Member Subscriber Plan / Payer (Ef fective 2022-Present) Name:Eren Lira Member ID:[id number] Relation to Subscriber:Self Name:Eren Lira Subscriber ID:[id number] Payer ID:[id number] (NAIC) Type:Not on file Address: [facility] [address] [place] [phone]
--- OUTSIDE RECORDS SUMMARY | 2025-02-13 14:03 | XMS_ITS | Patient Health Record ---
Author Organization [facility] Address [address] [place] [address] Care Team Providers Care Spray Unit Feeder Name Role Phone Murray PEREZ, Mata Primary Care Provider Gerhard Barkley Unavailable [phone] Reason For Referral No Information Medications Medication [...] Treatment Pending Test Test Name Order Date [id number] Destruction, 1-14 05/28/2014 [id number] Destruction, -14 10/29/2014 [id number] I&D ABSCESS- SIMPLE,SINGLE 015 Insurance Providers Payer Name Payer Address Payer Phone Subscriber Number Group Number Insured Name Patient Relationship to Insured Coverage Start Date Coverage End Date [employer] [address] [place] [address] [phone] [id number] Eren Lira Self - patient is the insured Medical (General) History Medical History History ICD Code Measles Mumps Chicken pox Broken bones Joint implants/screws Warts Surgical History Surgery Date(Month/Year) left knee meniscus 2012 lipomas illiac bone graft 1991 right rotator cuff 03/2015
--- OUTSIDE RECORDS SUMMARY | 2025-02-13 14:03 | XMS_ITS | Continuity of Care Document ---
Author Organization [facility] Address [address] [place] [address] Phone Care Team Providers Care Worm Raiser Name Role Phone Terry PEREZ, RVT, RPEDGAR, [...] Mins- [place] & [place] [facility], [address] [place] [address] Dr Bucio [address] [place], [id number], tel:[phone] [facility] Chronic venous hypertension (idiopathic) with other complications of bilateral lower extremity 4 Terry PEREZ RVT, RPVI Robert. [address] [place] [address], [facility] [place], [id number], [place]. tel:[phone] Referring Provider: Niraj Fay, [address] [place] [address], [address]. tel:[phone] [facility], [address] [place] [address] [place], [place] [address]L[place], [id number], [place] tel:[phone] [facility] Varicose veins of bilateral lower extremities with pain 4 Terry PEREZ RVT, RPVI Robert. [address] [place] [address], [facility] [place], [id number], [place]. tel:[phone] Referring Provider: Niraj Fay, [address] [place] [address], [place], [address]. tel:[phone] [facility], [address] [place] [address] [address] [address], [id number], [place] tel:[phone] [facility] Encounter for follow-up examination after completed treatment for conditions other than malignant nePain in left leg 4 Terry PEREZ RVT, RPVI Robert. [address] [place] [address], [facility] [place], [id number], [place]. tel:[phone] Referring Provider: Niraj Fay, [address] [place] [address] [place] [address], [address]. tel:[phone] [facility] [place] DOMING[place]Z, [address] [place] [address] [address], [id number], [place] tel:[phone] [facility] [place] [facility] [place] Varicose veins of left lower extremity with other complications 4 Abril Moran. [address] [place] [address], [facility] [place], [id number], [place]. tel:[phone] Referring Provider: Niraj Fay, [address] [place] [address], [address]. tel:[phone] [facility] MD DOMING[place]Z, [address] [place] [address] [address], [id number], [place] tel:[phone] [facility] [place] [facility] [place] Encounter for follow-up examination after completed treatment for conditions other than malignant neVaricose veins of left lower extremity with pain 4 Terry PEREZ RVT, AVILA Butcher. [address] [place] [address], [facility] [place], [id number], [place]. tel:[phone] Referring Provider: Niraj Fay, [address] [place] [address] [place] [address], [address]. tel:[phone] [facility] MD DOMING[place]Z, [address] [place] [address] [address]L[place], [id number], [place] tel:[phone] [facility] [place] Varicose veins of left lower extremity with other complications 4 Terry PEREZ RVT, AVILA Butcher. [address] [place] [address], [place], [id number], [place]. tel:[phone] Referring Provider: Niraj Fay, [address] [place] [address] Suite [facility] [place], [place], [address]. tel:[phone] [facility] MD DOMINGUEZ, [address] [place] [address] [address], [id number], [place] tel:[phone] [facility] [place] Encounter for follow-up examination after completed treatment for conditions other than malignant neVaricose veins of right lower extremity with pain Apr-1 4 Terry PEREZ RVT, RPVI Robert. [address] [place] [address], [place], [place], [id number], [place]. tel:[phone] Referring Provider: Niraj Fay, [address] [place] [address] Suite [facility] [place], [place], [address]. tel:[phone] [facility], [address] [place] [address] 1000[address], [id number], [place] tel:[phone] [facility] [place] Varicose veins of right lower extremity with other complications Apr-0 4 Abril Moran. [address] [place] [address], [place], [place], [id number], [place]. tel:[phone] Referring Provider: Niraj Fay, [address] [place] [address] [place] [address], [address]. tel:[phone] [facility], [address] [place] [address] [facility] 1000[address], [id number], [place] tel:[phone] [facility] [place] Encounter for follow-up examination after completed treatment for conditions other than malignant neVaricose veins of right lower extremity with pain Apr-0 4 Terry PEREZ RVT, RPVI Robert. [address] [place] [address], [place], [place], [id number], [place]. tel:[phone] Referring Provider: Niraj Fay, [address] [place] [address] Suite [facility] [place] [place], [place], [address]. tel:[phone] [facility], [address] [place] [address] 1000[address] 1000[place], [id number], [place] tel:[phone] [facility] [place] [facility] [place] Varicose veins of right lower extremity with other complications Apr-0 4 Terry PEREZ RVT, RPVI Robert. [address] [place] [address], [facility] [place], [id number], [place]. tel:[phone] Referring Provider: Niraj Fay, [address] [place] [address], [address]. tel:[phone] Office/Oupt E&M New Pt 30 Mins [facility], [address] [place] [address] [facility] [address], [place], [id number], tel:[phone] [facility] [place] [facility] [place] Varicose veins of bilateral lower extremities with other complications Pain in right lower legPain in left lower legPain in right legEssential (primary) hypertensionP ruritus, unspecifiedPa in in left legCramp and spasmLocalize d edema 4 Terry PEREZ RVT, AVILA Butcher. [address] [place] [address], [facility] [place], [id number], . tel:[phone] Referring Provider: Niraj Fay, [address] [place] [address], [address]. tel:[phone] [facility], [address] [place] [address] [address], [place], [id number], [place] tel:[phone] [facility] [place] [facility] [place] Varicose veins of bilateral lower extremities with pain 4 Terry PEREZ RVT, AVILA Butcher. [address] [place] [address], [facility] [place], [id number], [place]. tel:[phone] Referring Provider: Niraj Fay, [address] [place] [address], [address]. tel:[phone] Family History Family Member Type Diagnosis Age At Onset No Information Payers Payer name Insurance type Covered democrat ID Authordung saavedra(s) DREA CORREA [id number] Social History Type Description Quantity Date Captured [...] 25.0-25.9, adult Lifestyle education Related to B oj mass index (BMI) 25.0-25.9, adult Compression stocking [...]
--- OUTSIDE RECORDS SUMMARY | 2025-02-13 14:03 | XMS_ITS | Continuity of Care Document ---
Author Organization [facility] Address [address] [place] [address]- Care Team Providers Care Rock Loader Name Role Phone Dewey PEREZ, Niraj Fay Primary Care Physician En[place] [facility] [place](s): 01/31/25 - 02/07/25 [facility] [address] [place] [address]- Attending Physician: Bam Quezada DO Referring Physician: Alexi Burrell MD Encounter Type: Office Visit Allergies, Adverse Reactions, Alerts No Known Medication Allergies Substance Criticality Severity Reaction Reaction Severity Status Other Environmental Allergy High criticality Moderate multiple environmental allergies by testing Active Medications acetaminophen 325 mg oral tablet 56 each, 0 Refill(s), TAKE 3 TABLETS BY MOUTH EVERY 6 HOURS, Refills 0, 09/22/24 8:00:00 AM EST, Partial fill upon patient request if the prescription is for a schedule II opioid drug. Start Date: 09/22/24 Status: Ordered Repeat number: 1 albuterol CFC free 90 mcg/inh inhalation aerosol 2, puffs, Inhalation, Every 6 hours, PRN, Maintenance, 07/07/24 8:14:00 AM EDT Start Date: 07/07/24 Status: Ordered Repeat number: 1 amLODIPine 10 mg oral tablet 10 mg, 1, tablet, By Mouth, Daily, Refills 0, Maintenance, 11/25/18 10:28:10 AM EST Start Date: 11/25/18 Status: Ordered Repeat number: 1 amoxicillin 500 mg oral capsule 20 each, 0 Refill(s), TAKE 4 CAPSULES 1 HOUR PRIOR TO DENTAL WORK, 0 Refills, 09/22/24 8:00:00 AM EST, Partial fill upon patient request if the prescription is for a schedule II opioid drug. Start Date: 09/22/24 Status: Ordered Repeat number: 1 aspirin 81 mg oral delayed release tablet 81 mg, 1, tablet, By Mouth, Daily, Refills 0, Maintenance, 07/07/24 8:15:00 AM EDT Start Date: 07/07/24 Status: Ordered Repeat number: 1 atenolol 50 mg oral tablet 50 mg, 1, tablet, By Mouth, Daily at bedtime, Refills 0, Maintenance, 12/16/21 3:35:00 PM EST, Partial fill upon patient request if the prescription is for a schedule II opioid drug. Start Date: 12/16/21 Status: Ordered Repeat number: 1 atorvastatin 40 mg oral tablet 1 tablet = 40 mg, By Mouth, Daily in AM, Maintenance, 07/07/24 8:16:00 AM EDT Start Date: 07/07/24 Status: Ordered Repeat number: 1 Claritin 10 mg oral tablet 10 mg, 1, tablet, By Mouth, Daily in AM, Refills 0, Maintenance, 11/25/18 10:29:46 AM EST Start Date: 11/25/18 Status: Ordered Repeat number: 1 docusate sodium 100 mg oral capsule 1 capsule = 100 mg, By Mouth, 2 times a day, # 20 capsule, 0 Refills, Maintenance, 07/12/24 4:42:00 PM EDT, Capsule, [facility]/pharmacy #[id number], Partial fill upon patient request if the prescription is for a schedule II opioid drug., 177.8, cm, 07/11/24 8:05:00 EDT, Height, 88.1, kg, 07/10/24 14:59:00 EDT, Dry Weight Start Date: 07/12/24 Stop Date: 07/22/24 Status: Ordered Quantity: 20.0 Unit: capsule Repeat number: 1 fluticasone 50 mcg/inh nasal spray 2 sprays, Nares, Both, Daily in AM, 0 Refills, Maintenance, 11/25/18 10:26:15 AM EST, Iva Start Date: 11/25/18 Status: Ordered Repeat number: 1 Multivitamin Tablet 1 tablet, By Mouth, Daily, 0 Refills, Maintenance, 11/25/18 10:29:19 AM EST, Tablet Start Date: 11/25/18 Status: Ordered Repeat number: 1 sildenafil 100 mg oral tablet 1 tablet = 100 mg, By Mouth, PRN as needed for ED, 0 Refills, Maintenance, 12/16/21 3:35:00 PM EST Start Date: 12/16/21 Status: Ordered Repeat number: 1 Symbicort 160mcg/4.5mcg Inhaler 2, puffs, Inhalation, 2 times a day, PRN, Refills 0, Maintenance, 11/25/18 10:26:53 AM EST, Aerosol Start Date: 11/25/18 Status: Ordered Repeat number: 1 traZODone 50 mg oral tablet 100 mg, 2, tablet, By Mouth, Daily at bedtime, PRN, Refills 0, Maintenance, as needed for insomnia,12/16/21 3:36:00 PM EST Start Date: 12/16/21 Status: Ordered Repeat number: 1 Triamcinolone 0.025% Topical 1 application, Topically, 2 times a day, PRN as needed for rash, 0 Refills, Maintenance Start Date: 12/16/21 Status: Ordered Repeat number: 1 Problem List Condition Confirmation Course Effective Dates Status Health St atus Informant Peripheral vascular disease Confirmed Active Vital Signs Most recent to oldest [Reference Range]: 1 Height 182 cm (01/31/25 3:55 PM) Weight 84 kg (01/31/25 3:55 PM) Oxygen Saturation [94-100 %] 97 % (01/31/25 3:55 PM) Pulse Rate [55-90 bpm] 64 bpm (01/31/25 3:55 PM) Body Mass Index [18.5-24.99 kg/m2] 25.36 kg/m2 *H* (01/31/25 3:55 PM) Blood Pressure [90-138/55-84 mm Hg] 123/ 64mm Hg (01/31/25 3:55 PM) Respiratory Rate [16-30 br/min] 16 br/mi n (01/31/25 3:55 PM) Mode of Delivery (Oxygen) Room air (01/31/25 3:55 PM) Blood pressure sites Arm, left (01/31/25 3:55 PM) Weight Obtained Via Standing scale (01/31/25 3:55 PM) Social History Social History Type Response Smoking Status Former smoker, quit more than 30 days ago entered on: 01/31/25 Sex Sex Representation Male (finding) EKG study * Event Display: ECG 12-Lead Authored Date: Please click on pdf link to open report * Event Display: ECG 12-Lead Authored Date: Ventricular Rate: 55 BPM Atrial Rate: 55 BPM P-R Interval: 160 ms QRS Duration: 102 ms Q-T Interval: 420 ms QTC Calculation(Bazett): 401 ms P [place]: 29 degrees R [place]: 53 degrees T [place]: 32 degrees Sinus bradycardia Early repolarization Otherwise normal ECG No previous ECGs available Confirmed by VALENTINE ARDON MD ([id number]) on 01/31/2025 9:20:40 PM [place]: VALENTINE ARDON MD Patient Care team information Care Team Personnel Name: Stacy Norwood RN Position: [facility] RN Member Role: Primary Care Nurse Name: Niraj Palomo MD Position: [facility] Outreach Member Role: PCP Address: [address] [place] [address] Telecom: Name: Rodney Boston RN Position: [facility] RN Member Role: Primary Care Nurse Care Team Related Persons Name: MICHAELFRANCISCA YOO Insurance Providers Guarantor name: LUIS RODRIGUEZ Health Plan Information #: 2 Payer: JERMAINE [facility] PPO Member Number: RANGEL Policy Number: NA Group Number: NA Health Plan Information #: 1 Payer: [employer] Member Number: [id number] Policy Number: RANGEL Group Number: [id number]
--- OUTSIDE RECORDS SUMMARY | 2025-02-13 14:03 | XMS_ITS | Clinical Summary ---
Author Organization [facility] Address [address] [place] [address], [place] [address] Care Team Providers Care Jewel Stripper Name Role Phone Niraj Palomo MD Primary [...] Due Date Last Done Comments Pneumococcal Vaccine: 50+ Ye ars (1 of 2 - PCV) 1978 Colorectal Cancer Screening: Annual FOBT 01/16/2008 Colorectal Cancer Screening: Colonoscopy 01/16/2008 Colorectal Cancer Screening: Sigmoidoscopy 01/16/2008 Influenza Vaccine (Season Ended) 2025 Hepatitis B Vaccine Aged Out No longe r eligible based on patient's age to complete this topic Care Teams Jewel Stripper Relationship Specialty Start Date End Date Niraj Palomo MD [address] [place] [address] PCP - General 11/04/20
--- OUTSIDE RECORDS SUMMARY | 2025-02-13 14:03 | XMS_ITS | Data Portability ---
Author Organization [place] [facility] Vladimir Perez [facility] Address [address] [place] [address] Care Team Providers Care Video Production Specialist Name Role Phone LALA PAIGE Primary Care [...] tunnel syndrome 2022 023 BONY Salmeron MD, [address] [place] [address], [id number], 11:30:21 Procedures None recorded. Surgeries orthopaedic surgery - other (SURG) 2022 023 [email or web address] Not available 14:29:06 Imaging XR, wrist, 3 or more view 2022 023 [email or web address] [facility], [address], [place], [address], 3 14:16:52 Medication Orders None recorded. Patient [...] Time Carpal tunnel syndrome of right wrist 9284191861640 08 Active 2022 Glen Saunders MD [address], [place], [address], [place] [facility] 3 14:01:50 Post traumatic osteoarthri tis 993629491 Active 2022 NUHA LEROY PA-C [address], [place], [address], [place] [facility] 3 12:04:41 Pain of left wrist 3717295513355 02 Active 2022 NUHA LEROY PA-C [address], [place], [address], [place] [facility] 3 12:05:19 Closed fracture of scaphoid bone of wrist 81156901 Active 2022 Glen Saunders MD [address], [place], [address], [place] [facility] 3 12:56:21 Problem Notes None recorded. Procedures Surgical History Date Name Laterality Status Provider Name and Address Organization Details Recorded Time 03/10/20 23 AONE wrist/elbow cortisone injection completed Renita Donnelly [facility] 03/10/2023 12:15:53 02/23/20 21 arthroscopy of wrist with release of transverse carpal ligament completed Kim Villalobos [facility] 03/09/2023 10:12:12 02/22/20 21 Carpal Tunnel Surgery completed Diego Jordan [facility] 09/15/2023 13:40:02 02/22/20 21 Hand Surgery completed Diego Jordan [facility] 09/15/2023 13:40:02 09/28/20 19 Joint Replacement completed Diego Jordan [facility] 09/15/2023 13:40:02 09/24/20 19 total knee replacement completed Kim Villalobos [facility] 03/09/2023 10:11:54 02/22/20 19 Plastic Surgery completed Diego Jordan [facility] 09/15/2023 13:40:02 10/25/19 19 Cancer Surgery completed Diego Jordan [facility] 09/15/2023 13:40:02 03/26/20 17 Shoulder Surgery completed Diego Jordan [facility] 09/15/2023 13:40:02 04/13/20 12 Arthroscopic Surgery completed Diego Jordan [facility] 09/15/2023 13:40:02 10/25/18 92 Iliac bone graft microvasc completed [email or web address] Villalobos [facility], [facility] 03/09/2023 10:13:35 10/13/19 91 Hand Surgery completed Diego Jordan [facility] 09/15/2023 13:40:02 complete repair of rotator cuff completed [email or web address] Villalobos [facility] 03/09/2023 10:12:39 Imaging Results None recorded. Procedure Notes None recorded. Medical Equipment None Reported. Allergies Allergen ID Allergen Name Allergen Category Reaction Reaction Severity Criticality Documentation Date Start Date Code Code System Note Provider Name and Address Organization Details Recorded Time 58235 [email or web address] ne Not available Not available Not available Not available 09/15/2023 41175 RxNorm Angieingrid Pederson [facility], [facility], [facility] 4 14:01:28 95472 Hayfever medicatio n cough eye redness wheezing mild moderate mild Not available 09/15/20231958 41375 UNK Diego Jordan [facility] 3 13:39:55 Medications Name Sig [...] injection Take 2 mL by injection route. 09/15 completed Not [...] Updated DateTime 09/15/2023 182.88 cm 25.8 kg/m2 93664.[address] [facility] 09/15/2023 13:40:08 Date Recorded Body height Provider Name an d Address Organization Details Last Updated DateTime 10/05/[address]23 [address] [facility] 10/05/2023 11:34:50 Date Recorded Body height Provider Name an d Address Organization Details Last Updated DateTime 11/03/2023 182.88 cm Angie Pederson [facility] 11/03/2023 14:03:01 Social History Question Answer Notes LastModified by Organizat ion Details LastModified Time Tobacco Smoking Status Former Smoker Kim flores, [place] [facility] 03/09/2023 10:10:38 What Is Your Level Of Alcohol Consumption? Heavy Information not available 03/09/2023 How Many Times Per Week Do You Consume Alcohol? 5-7 Times Per Week [email or web address] Information not available 03/09/2023 Which Illicit Or Recreational Drugs Have You Used? Marijuana aba Information not available 04/06/2023 Do You Use Any Illicit Or Recreational Drugs? Yes [email or web address] Information not available 03/09/2023 Do You Or Have You Ever Used Any Other Forms Of Tobacco Or Nicotine? No [email or web address] Information not available 03/09/2023 Sex: Unknown Functional Status None recorded. Mental Status None recorded. Family History Relationship Description Onset Age of this Age Resolved Age Notes LastModified by Organization Details LastModified Time Mother Arthritis [email or web address] Not availabl e 03/09/2023 10:11:23 Mother Family history of malignant neoplasm [email or web address] Not available 2022 10:11:27 Father Heart disease [email or web address] Not available 2022 10:11:36 Medical History Condition Response Cancer Y Vascular Disease Y Asthma Y Past Encounters Encounter ID Performer Location Encounter Start Date Encounter Closed Date Diagnosis/Indication Diagnosis SNOMED-CT Code Diagnosis ICD10 Code Diagnosis Note [id number] [facility] [address] [place] [address] 03/09/2023 09:12:15 03/09/2023 10:49:25 Pain of left wrist 1147224015 48327 M25.532 Post traum atic osteoarthritis 044160884 M19.132 [id number] MD IBETH Frost[address] [address] 03/10/2023 11:07:14 03/10/2023 12:28:01 Pain of left wrist 6686356193 65344 M25.532 Post traum atic osteoarthritis 350783900 M19.132 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 Closed fra cture of scaphoid bone of wrist 80635573 S62.022K [id number] MD IBETH Frost[address] [address] 04/06/2023 10:08:46 04/06/2023 10:46:50 Post traumatic osteoarthritis 302192576 M19.132 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 Closed fra cture of scaphoid bone of wrist 19235036 S62.022K [id number] [facility] [address] [facility] [address] [place] [address] 09/15/2023 13:28:04 09/15/2023 14:05:54 Pain of right wrist 3561741886 96217 M25.531 Carpal jessica christian syndrome of right wrist 9805202401 60058 G56.01 [id number] [facility] [address] [address] 10/05/2023 11:30:44 10/05/2023 11:52:58 Carpal tunnel syndrome of right wrist 5784406553 16698 G56.01 Post traum atic osteoarthritis 321013961 M19.132 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 Closed fra cture of scaphoid bone of wrist 95068870 S62.022K [id number] Glen Saunders MD [facility] [address] [facility] [address] [place] [address] 10/21/2023 14:30:53 10/21/2023 15:42:57 Postoperative visit 547495845 Z09 [id number] Glen Saunders MD [address] [address] 11/03/2023 13:45:12 11/03/2023 14:08:38 Carpal tunnel syndrome of right wrist 6936090628 10470 G56.01 Health Concerns Section Related Observation LastModified by Organization Detai ls LastModified Time None Recorded Concern Status LastModified by Organization Details LastModified Time None Recorded Advance Directives Directive None Recorded Payers Encounter Date Sequence Insurance Name Policy Number Policy Hsieh Covered Member ID Hsieh Member ID Guarantor Name 04/06/2023 1 [place] [id number] 2 Eren Lira [id number] Eren Lira 09/15/2023 1 [place] [id number] 2 Christopher Pankaj [id number] Christopher Pankaj 10/05/2023 1 [place] [id number] 2 Christopher Pankaj [id number] Christopher Pankaj 10/21/2023 1 [place] [id number] 2 Christopher Pankaj [id number] Christopher Pankaj 11/03/2023 1 [place] [id number] 2 Christopher Pankaj [id number] Christopher Pankaj Notes Date Note Type Note Provider Name and Address Organization Details Recorded Time 10/21/2023 text/html Pleasant 63-year-old male presents to the urgent care today for his first postop visit. He was scheduled to see Dr. Saunders in [place] this afternoon but presented to the wrong [...] TOMASZ SANABRIA PA-C [address], [place], [address], [place] [facility] 10/27/2023 22:06:25
--- OUTSIDE RECORDS SUMMARY | 2025-02-13 14:03 | XMS_ITS | Encounter Summary ---
Author Organization [facility] Address [address] [place] [address] Care Team Providers Care Receiving Operator Name Role Phone Unavailable Primary Care Provider Unavailabl e Encounter Details Date Type Department Care Team (Late st Contact Info) Description 09/17/2023 Scanned Document [facility] [employer] [address] [place] [address] Kaelyn Salmeron MD [address] [place] [address] Social History Tobacco Use Types Packs/Day Years [...]
--- OUTSIDE RECORDS SUMMARY | 2025-02-13 14:04 | XMS_ITS | Data Portability ---
Author Organization [facility], Main Office Address [address] [place] [address] Care Team Providers Care Finisher Merchant Products Name Role Phone MATT GRIMALDO Search Manager [facility] Orthopedic Surgeon LALA PALOMO Primary Care Provider ADITYA Long Referring Provider [phone] [facility] Sleep Medicine [phone] ABHAY LEDEZMA Orthopedic Surgeon [phone] GLORIA PARRA Dough Cutter OLVIN RYAN Dermatopathologist [phone] VALENTINE BRYAN Social Services Analyst [phone] ARTIS PERRY Scalper Operator NINA ROJAS Orthopedic Surgeon [phone] CHIKI CARRASQUILLO Referring Provider [phone] KANDIS PINEDA Referring Provider [phone] ANIL COBURN Orthopedic Surgeon Assessment Encounter Date Assessment Date Assessment LastModified [...] Go To The Location Of Their Choice, 02/08/2025 08:12:31 PSA, serum or plasma 2024 025 BONY [facility] (Centralized Electronic Ordering - All Locations), Patient Can Go To The Location Of Their Choice, 02/08/2025 08:12:32 CMP, serum or plasma 2024 025 BONY [facility] (Centralized Electronic Ordering - All Locations), Patient Can Go To The Location Of Their Choice, 02/08/2025 08:12:31 CBC w/ auto diff 2024 025 BONY [facility] (Centralized Electronic Ordering - All Locations), Patient Can Go To The Location Of Their Choice, 02/08/2025 08:12:30 magnes ium, serum or plasma 2024 025 BONY [facility] (Centralized Electronic Ordering - All Locations), Patient Can Go To The Location Of Their Choice, 02/08/2025 08:12:32 CBC w/ auto diff 2023 024 BONY [facility] (Centralized Electronic Ordering - All Locations), Patient Can Go To The Location Of Their Choice, 06/29/2024 06:09:08 CMP, serum or plasma 2023 024 BONY [facility] (Centralized Electronic Ordering - All Locations), Patient Can Go To The Location Of Their Choice, 06/29/2024 06:09:09 PSA, serum or plasma 2023 024 BONY [facility], [address], [address], [place], [address], 01/25/2024 12:06:20 CBC w/ auto diff 2023 024 [email or web address] [facility], [address], [address], [place], [address], 07/18/2024 08:50:19 magnes ium, serum or plasma 2023 024 BONY [facility], [address], [address], [place], [address], 01/25/2024 12:06:21 lipid panel, serum 2023 024 BONY [facility], [address], [address], [place], [address], 01/25/2024 12:06:19 CMP, serum or plasma 2023 024 BONY [facility], [address], [address], [place], [address], 01/25/2024 12:06:17 CBC w/ auto diff 2022 023 [facility]ON[facility], [address], [address], [place], [address], 10/08/2023 20:04:11 BMP, serum or plasma 2022 023 BONY [facility], [address], [address], [place], [address], 10/08/2023 21:29:34 PT/INR 2022 023 BONY [facility], [address], [address], [place], [address], 10/08/2023 20:19:35 Referral None record ed. Procedures cercarmen riveraa l (PROC) 2024 025 BONY In-Office Order, Internal Use Only DO Not Attach Compendium DO Not Attach Compendium, Do Not Delete/merge, [id number] 12/26/2024 16:53:41 Surgeries None record ed. Imaging electr ocdomingo ogram 2023 024 [email or web address] In-Office Order, Internal Use Only DO Not Attach Compendium DO Not Attach Compendium, Do Not Delete/merge, [id number] 06/28/2024 10:27:19 electr ocardi ogram 2022 023 [email or web address] In-Office Order, Internal Use Only DO Not Attach Compendium DO Not Attach Compendium, Do Not Delete/merge, [id number] 10/08/2023 13:29:15 Medication Orders silden afil 100 mg tablet 2024 025 [facility]/Pharmacy #[id number], [address], [place], [address], 12/26/2024 16:16:54 amlodi pine 10 mg tablet 2023 024 [email or web address] [facility], [address] [place] [address], [address], [address], 06/20/2024 17:27:19 atenol ol 50 mg tablet 2023 024 [email or web address] [facility], [address], [address], [place], [address], 06/20/2024 17:27:19 atorva statin 40 mg tablet 2023 024 [email or web address] [facility], [address], [address], [place], [address], 06/20/2024 17:27:19 silden afil 100 mg tablet 2023 024 [facility]/Pharmacy #[id number], [address], [place], [address], 12/21/2023 16:15:36 Patient TargetsNo targets recorded. Patient Instructions Encounter Date Encounter Id Patient Instructions Last Modified By Organization Details Last Modified Time 10/08/2023 [id number] No medical contraindications to proposed procedure. Reji Perioperative Cardiac Risk was calculated and the risk for perioperative CT is <1%. May proceed to surgery as planned. Not available 10/08/2023 08:27:41 12/21/2023 [id number] high blood press ure: care instructions [email or web address] Not available 12/21/2023 16:11:11 learning about h igh blood pressure [email or web address] Not available 12/21/2023 16:11:11 high cholesterol : care instructions [email or web address] Not available 12/21/2023 16:11:11 06/20/2024 [id number] insomnia: care instructions [email or web address] Not available 06/20/2024 17:27:19 high cholesterol : care instructions [email or web address] Not available 06/20/2024 17:27:19 12/26/2024 [id number] insomnia: care instructions [email or web address] Not available 12/26/2024 [...] Go To The Location Of Their Choice, [id number] 10/08/2023 20:04:10 10/08/20 23 10/08/2023 COMPL ETE [...] Go To The Location Of Their Choice, [facility] 10/08/2023 20:04:10 10/08/2010/08/2023 COMPL ETE CBC WITH DIFF automated NRBC 0.0 #/100 _WBC' s Not Available [facility] (Centralized Electronic Ordering - All Locations) Patient Can Go To The Location Of Their Choice, [id number] 10/08/2023 20:04:10 10/08/2010/08/2023 COMPL ETE CBC WITH DIFF abs. NRBC 0.0 K/mm3 Not Available [facility] (Centralized Electronic Ordering - All Locations) Patient Can Go To The Location Of Their Choice, [facility] 10/08/2023 20:04:10 10/08/2010/08/2023 COMPL ETE CBC WITH DIFF neut # 4.5 K/mm3 (1.3-7 .0) Not Available [facility] (Centralized Electronic Ordering - All Locations) Patient Can Go To The Location Of Their Choice, [facility] 10/08/2023 20:04:10 10/08/2010/08/2023 COMPL ETE CBC WITH DIFF lymph # 2.3 K/mm3 (0.8-3 .1) Not Available [facility] (Centralized Electronic Ordering - All Locations) Patient Can Go To The Location Of Their Choice, [id number] 10/08/2023 20:04:10 10/08/2010/08/2023 COMPL ETE CBC WITH DIFF mono# 0.7 K/mm3 (0.4-1 .3) Not Available [facility] (Centralized Electronic Ordering - All Locations) Patient Can Go To The Location Of Their Choice, 10/08/2023 20:04:10 10/08/2010/08/2023 COMPL ETE CBC WITH DIFF eo # 0.3 K/mm3 (0.0-0 .4) Not Available [facility] (Centralized Electronic Ordering - All Locations) Patient Can Go To The Location Of Their Choice, [id number] 10/08/2023 20:04:10 10/08/2010/08/2023 COMPL ETE CBC WITH [...] The Location Of Their Choice, 10/08/2023 20:04:10 10/08/20 23 10/08/2023 PROTI ME PROFI LE protime 10.7 sec (9.2-1 1.4) Not Available [facility] (Centralized Electronic Ordering - All Locations) Patient Can Go To The Location Of Their Choice, 10/08/2023 20:19:35 10/08/20 23 10/08/2023 PROTI ME [...] Go To The Location Of Their Choice, [id number] 10/08/2023 21:29:34 10/08/20 23 10/08/2023 BASIC METAB OLIC PANEL potassium 4.5 mmol/ L (3.6-5 .2) Not Available [facility] (Centralized Electronic Ordering - All Locations) Patient Can Go To The Location Of Their Choice, [id number] 10/08/2023 21:29:34 10/08/20 23 10/08/2023 BASIC METAB OLIC PANEL chloride 100 mmol/ L (98-10 7) Not Available [facility] (Centralized Electronic Ordering - All Locations) Patient Can Go To The Location Of Their Choice, [id number] 10/08/2023 21:29:34 10/08/20 23 10/08/2023 BASIC METAB OLIC PANEL bicarbonate 30 mmol/ L (22-29 ) high Not Available [facility] (Centralized Electronic Ordering - All Locations) Patient Can Go To The Location Of Their Choice, [id number] 10/08/2023 21:29:34 10/08/2010/08/2023 BASIC METAB OLIC PANEL anion gap 7 (4-17) Not Available [facility] (Centralized Electronic Ordering - All Locations) Patient Can Go To The Location Of Their Choice, [id number] 10/08/2023 21:29:34 10/08/20 23 10/08/2023 BASIC METAB OLIC PANEL calcium 9.4 mg/dL (8.6-1 0.5) Not Available [facility] ([facility]ized Electronic Ordering - All Locations) Patient Can Go To The Location Of Their Choice, [id number] 10/08/2023 21:29:34 10/08/20 23 10/08/2023 BASIC METAB [...] Go To The Location Of Their Choice, [id number] 10/08/2023 21:29:34 01/24/20 24 01/24/2024 COMP. METAB OLIC PANEL (14) glucose 102 mg/dL 70-99 above high normal Not Available [facility] ([facility]) [address] [facility] [place], [address], 01/25/2024 12:06:17 01/24/20 24 01/24/2024 COMP. METAB OLIC PANEL (14) BUN 10 mg/dL 8-27 Not Available [facility] ([facility]) [address] [facility] [place], [address], 01/25/2024 12:06:17 01/24/20 24 01/24/2024 COMP. METAB OLIC PANEL (14) creatinine 0.89 mg/dL 0.76-1 .27 Not Available [facility] ([facility]) [address] [facility] [place], [address], 01/25/2024 12:06:17 01/24/20 24 01/24/2024 COMP. METAB OLIC PANEL (14) eGFR 95 mL/mi n/1.7 3 >59 Not Available [facility] ([facility]) [address] [facility] [place], [address], 01/25/2024 12:06:17 01/24/20 24 01/24/2024 COMP. METAB OLIC PANEL (14) BUN/creatini ne ratio 11 10-24 Not Available [facility] ([facility]) [address] [place], [address], 01/25/2024 12:06:17 01/24/20 24 01/24/2024 COMP. METAB OLIC PANEL (14) sodium 137 mmol/ L 134-14 4 Not Available [facility] ([facility]) [address] [place], [address], 01/25/2024 12:06:17 01/24/20 24 01/24/2024 COMP. METAB OLIC PANEL (14) potassium 4.8 mmol/ L 3.5-5. 2 Not Available [facility] ([facility]) [address] [place], [address], 01/25/2024 12:06:17 01/24/20 24 01/24/2024 COMP. METAB OLIC PANEL (14) chloride 101 mmol/ L 96-106 Not Available [facility] ([facility]) [address], [place], [address], 01/25/2024 12:06:17 01/24/20 24 01/24/2024 COMP. METAB OLIC PANEL (14) anion gap 12.0 mmol/ L 10.0-1 8.0 Not Available [facility] ([facility]) [address] [place], [address], 01/25/2024 12:06:17 01/24/20 24 01/24/2024 COMP. METAB OLIC PANEL (14) carbon dioxide, total 24 mmol/ L 20-29 Not Available [facility] ([facility]) [address], [place], [address], 01/25/2024 12:06:17 01/24/20 24 01/24/2024 COMP. METAB OLIC PANEL (14) calcium 9.2 mg/dL 8.6-10 .2 Not Available [facility] ([facility]) [address], [place], [address], 01/25/2024 12:06:17 01/24/20 24 01/24/2024 COMP. METAB OLIC PANEL (14) albumin 4.3 g/dL 3.9-4. 9 Not Available [facility] ([facility]) [address] [place], [address], 01/25/2024 12:06:17 01/24/20 24 01/24/2024 COMP. METAB OLIC PANEL (14) bilirubin, total 0.4 mg/dL 0.0-1. 2 Not Available [facility] ([facility] [address] [place], [address], 01/25/2024 12:06:17 01/24/20 24 01/24/2024 COMP. METAB OLIC PANEL (14) alkaline phosphatase 59 IU/L 44-121 Not Available [facility] ([facility]) [address] [facility], [place], [address], 01/25/2024 12:06:17 01/24/20 24 01/24/2024 COMP. METAB OLIC PANEL (14) AST (SGOT) 21 IU/L 0-40 Not Available [facility] ([facility]) [address], [place], [address], 01/25/2024 12:06:17 01/24/20 24 01/24/2024 COMP. METAB OLIC PANEL (14) ALT (SGPT) 24 IU/L 0-44 Not Available [facility] ([facility]) [address] [facility] [address] [facility], [place], [address], 01/25/2024 12:06:17 01/24/20 24 01/25/2024 COMP. METAB OLIC PANEL (14) protein, total 6.3 g/dL 6.0-8. 5 Not Available [facility] ([facility]) [address] [facility] [address], [place], [address], 01/25/2024 12:06:17 01/24/20 24 01/25/2024 COMP. METAB OLIC PANEL (14) globulin, total 2.0 g/dL 1.5-4. 5 Not Available [facility] ([facility]) [address] [facility], [place], [address], 01/25/2024 12:06:17 01/24/20 24 01/25/2024 COMP. METAB OLIC PANEL (14) A/G ratio 2.2 1.2-2. 2 Not Available [facility] ([facility]) [address] [facility], [place], [address], 01/25/2024 12:06:17 01/24/20 24 01/24/2024 CBC, PLATE LET, NO DIFFE RENTI AL WBC 6.7 x10e3 /uL 3.4-10 .8 Not Available [facility] ([facility]) [address] [facility], [place], [address], 01/25/2024 12:06:18 01/24/20 24 01/24/2024 CBC, PLATE LET, NO DIFFE RENTI AL RBC 4.34 x10e6 /uL 4.14-5 .80 Not Available [facility] ([facility]) [address] [facility] [address], [place], [address], 01/25/2024 12:06:18 01/24/20 24 01/24/2024 CBC, PLATE LET, NO DIFFE RENTI AL hemoglobin 13.9 g/dL 13.0-1 7.7 Not Available [facility] ([facility]) [address] [facility], [place], [address], 01/25/2024 12:06:18 01/24/20 24 01/24/2024 CBC, PLATE LET, NO DIFFE RENTI AL hematocrit 41.7 % 37.5-5 1.0 Not Available [facility] ([facility]) [address] [facility], [place], [address], 01/25/2024 12:06:18 01/24/20 24 01/24/2024 CBC, PLATE LET, NO DIFFE RENTI AL MCV 96 fL 79-97 Not Available [facility] ([facility]) [address] [place], [address], 01/25/2024 12:06:18 01/24/20 24 01/24/2024 CBC, PLATE LET, NO DIFFE RENTI AL MCH 32.0 pg 26.6-3 3.0 Not Available [facility] ([facility]) [address] [place], [address], 01/25/2024 12:06:18 01/24/20 24 01/24/2024 CBC, PLATE LET, NO DIFFE RENTI AL MCHC 33.3 g/dL 31.5-3 5.7 Not Available [facility] ([facility]) [address] [facility], [place], [address], 01/25/2024 12:06:18 01/24/20 24 01/24/2024 CBC, PLATE LET, NO DIFFE RENTI AL RDW 12.3 % 11.6-1 5.4 Not Available [facility] ([facility]) [address] [facility], [place], [address], 01/25/2024 12:06:18 01/24/20 24 01/24/2024 CBC, PLATE LET, NO DIFFE RENTI AL platelets 339 x10e3 /uL 150-45 0 Not Available [facility] ([facility]) [address] [facility], [place], [address], 01/25/2024 12:06:18 01/24/20 24 01/24/2024 CBC, PLATE LET, NO DIFFE RENTI AL NRBC PROTECTIVE SIGNAL OPERATOR Not Available [facility] ([facility]) [address] [place], [address], 01/25/2024 12:06:18 01/24/20 24 01/24/2024 LP+NO N-HDL TROY STERO L cholesterol, total 153 mg/dL 100-19 9 Not Available [facility] ([facility]) [address] [place], [address], 01/25/2024 12:06:19 01/24/20 24 01/24/2024 LP+NO N-HDL TROY STERO L triglyceride s 85 mg/dL 0-149 Not Available [facility] ([facility]) [address] [place], [address], 01/25/2024 12:06:19 01/24/20 24 01/24/2024 LP+NO N-HDL TROY STERO L HDL cholesterol 62 mg/dL >39 Not Available [facility] ([facility]) [address] [facility], [place], [address], 01/25/2024 12:06:19 01/24/20 24 01/24/2024 LP+NO N-HDL TROY STERO L VLDL cholesterol michael 16 mg/dL 5-40 Not Available [facility] ([facility]) [address] [facility], [place], [address], 01/25/2024 12:06:19 01/24/20 24 01/24/2024 LP+NO N-HDL TROY STERO L LDL chol calc ([facility]) 75 mg/dL 0-99 Not Available [facility] ([facility]) [address] [facility], [place], [address], 01/25/2024 12:06:19 01/24/20 24 01/24/2024 LP+NO N-HDL TROY STERO L non-HDL cholesterol 91 mg/dL 0-129 Not Available [facility] ([facility]) [address] [facility], [place], [address], 01/25/2024 12:06:19 01/24/20 24 01/24/2024 LP+NO N-HDL TROY STERO L comment: PROTECTIVE SIGNAL OPERATOR Not Available [facility] ([facility]) [address] [facility], [place], [address], 01/25/2024 12:06:19 01/24/20 24 01/25/2024 PSA (SERI [...] of nicolás juares . Not Available [facility] ([facility]) [address] [facility], [place], [address], 01/25/2024 12:06:20 01/24/20 24 01/25/2024 PSA (SERI AL MONIT OR) pdf . Not Available [facility] ([facility]) [address] [facility], [place], [address], 01/25/2024 12:06:20 01/24/20 24 01/25/2024 MAGNE SIUM magnesium 2.2 mg/dL 1.6-2. 3 Not Available [facility] ([facility]) [address] [facility], [place], [address], 01/25/2024 12:06:21 06/28/20 24 06/29/2024 CBC WITH DIFFE RENTI AL/PL ATELE T WBC 6.0 x10e3 /uL 3.4-10 .8 normal Not Available [facility] ([facility]) [address] [facility], [place], [address], 06/29/2024 06:09:08 06/28/20 24 06/29/2024 CBC WITH DIFFE RENTI AL/PL ATELE T RBC 4.00 x10e6 /uL 4.14-5 .80 below low normal Not Available [facility] ([facility]) [address] [place], [address], 06/29/2024 06:09:08 06/28/20 24 06/29/2024 CBC WITH DIFFE RENTI AL/PL ATELE T hemoglobin 13.2 g/dL 13.0-1 7.7 normal Not Available [facility] ([facility]) [address] [place], [address], 06/29/2024 06:09:08 06/28/20 24 06/29/2024 CBC WITH DIFFE RENTI AL/PL ATELE T hematocrit 39.0 % 37.5-5 1.0 normal Not Available [facility] ([facility]) [address] [facility], [place], [address], 06/29/2024 06:09:08 06/28/20 24 06/29/2024 CBC WITH DIFFE RENTI AL/PL ATELE T MCV 98 fL 79-97 above high normal Not Available [facility] ([facility]) [address] [facility], [place], [address], 06/29/2024 06:09:08 06/28/20 24 06/29/2024 CBC WITH DIFFE RENTI AL/PL ATELE T MCH 33.0 pg 26.6-3 3.0 normal Not Available [facility] ([facility]) [address] [facility], [place], [address], 06/29/2024 06:09:08 06/28/20 24 06/29/2024 CBC WITH DIFFE RENTI AL/PL ATELE T MCHC 33.8 g/dL 31.5-3 5.7 normal Not Available [facility] ([facility]) [address] [facility], [place], [address], 06/29/2024 06:09:08 06/28/20 24 06/29/2024 CBC WITH DIFFE RENTI AL/PL ATELE T RDW 12.6 % 11.6-1 5.4 Not Available [facility] ([facility]) [address] [facility] [place], [address], 06/29/2024 06:09:08 06/28/20 24 06/29/2024 CBC WITH DIFFE RENTI AL/PL ATELE T platelets 285 x10e3 /uL 150-45 0 normal Not Available [facility] ([facility]) [address] [facility], [place], [address], 06/29/2024 06:09:08 06/28/20 24 06/29/2024 CBC WITH DIFFE RENTI AL/PL ATELE T neutrophils 58 % not estab. normal Not Available [facility] ([facility]) [address] [facility], [place], [address], 06/29/2024 06:09:08 06/28/20 24 06/29/2024 CBC WITH DIFFE RENTI AL/PL ATELE T lymphs 32 % not estab. normal Not Available [facility] ([facility]) [address] [facility], [place], [address], 06/29/2024 06:09:08 06/28/20 24 06/29/2024 CBC WITH DIFFE RENTI AL/PL ATELE T monocytes 7 % not estab. normal Not Available [facility] ([facility]) [address] [facility], [place], [address], 06/29/2024 06:09:08 06/28/20 24 06/29/2024 CBC WITH DIFFE RENTI AL/PL ATELE T eos 2 % not estab. normal Not Available [facility] ([facility]) [address] [facility], [place], [address], 06/29/2024 06:09:08 06/28/20 24 06/29/2024 CBC WITH DIFFE RENTI AL/PL ATELE T basos 1 % not estab. normal Not Available [facility] ([facility]) [address] [facility], [place], [address], 06/29/2024 06:09:08 06/28/20 24 06/29/2024 CBC WITH DIFFE RENTI AL/PL ATELE T immature cells PROTECTIVE SIGNAL OPERATOR Not Available [facility] ([facility]) [address] [facility], [place], [address], 06/29/2024 06:09:08 06/28/20 24 06/29/2024 CBC WITH DIFFE RENTI AL/PL ATELE T neutrophils (absolute) 3.5 x10e3 /uL 1.4-7. 0 normal Not Available [facility] ([facility]) [address] [facility], [place], [address], 06/29/2024 06:09:08 06/28/20 24 06/29/2024 CBC WITH DIFFE RENTI AL/PL ATELE T lymphs (absolute) 1.9 x10e3 /uL 0.7-3. 1 normal Not Available [facility] ([facility]) [address] [facility], [place], [address], 06/29/2024 06:09:08 06/28/20 24 06/29/2024 CBC WITH DIFFE RENTI AL/PL ATELE T monocytes(ab solute) 0.4 x10e3 /uL 0.1-0. 9 normal Not Available [facility] ([facility]) [address] [place], [address], 06/29/2024 06:09:08 06/28/20 24 06/29/2024 CBC WITH DIFFE RENTI AL/PL ATELE T eos (absolute) 0.1 x10e3 /uL 0.0-0. 4 normal Not Available [facility] ([facility]) [address] [facility], [place], [address], 06/29/2024 06:09:08 06/28/20 24 06/29/2024 CBC WITH DIFFE RENTI AL/PL ATELE T baso (absolute) 0.1 x10e3 /uL 0.0-0. 2 normal Not Available [facility] ([facility]) [address] [place], [address], 06/29/2024 06:09:08 06/28/20 24 06/29/2024 CBC WITH DIFFE RENTI AL/PL ATELE T immature granulocytes 0 % not estab. Not Available [facility] ([facility]) [address] [place], [address], 06/29/2024 06:09:08 06/28/20 24 06/29/2024 CBC WITH DIFFE RENTI AL/PL ATELE T immature grans (abs) 0.0 x10e3 /uL 0.0-0. 1 Not Available [facility] ([facility]) [address] [facility], [place], [address], 06/29/2024 06:09:08 06/28/20 24 06/29/2024 CBC WITH DIFFE RENTI AL/PL ATELE T NRBC PROTECTIVE SIGNAL OPERATOR Not Available [facility] ([facility]) [address] [facility], [place], [address], 06/29/2024 06:09:08 06/28/20 24 06/29/2024 CBC WITH DIFFE RENTI AL/PL ATELE T hematology comments: PROTECTIVE SIGNAL OPERATOR Not Available [facility] ([facility]) [address] [facility], [place], [address], 06/29/2024 06:09:08 06/28/20 24 06/29/2024 COMP. METAB OLIC PANEL (14) glucose 101 mg/dL 70-99 above high normal Not Available [facility] ([facility]) [address] [facility], [place], [address], 06/29/2024 06:09:09 06/28/20 24 06/29/2024 COMP. METAB OLIC PANEL (14) BUN 8 mg/dL 8-27 normal Not Available [facility] ([facility]) [address] [facility], [place], [address], 06/29/2024 06:09:09 06/28/20 24 06/29/2024 COMP. METAB OLIC PANEL (14) creatinine 0.85 mg/dL 0.76-1 .27 normal Not Available [facility] ([facility]) [address] [facility], [place], [address], 06/29/2024 06:09:09 06/28/20 24 06/29/2024 COMP. METAB OLIC PANEL (14) eGFR 96 mL/mi n/1.7 3 >59 normal Not Available [facility] ([facility]) [address] [facility] [place], [address], 06/29/2024 06:09:09 06/28/20 24 06/29/2024 COMP. METAB OLIC PANEL (14) BUN/creatini ne ratio 9 10-24 below low normal Not Available [facility] ([facility]) [address] [place], [address], 06/29/2024 06:09:09 06/28/20 24 06/29/2024 COMP. METAB OLIC PANEL (14) sodium 136 mmol/ L 134-14 4 normal Not Available [facility] ([facility]) [address] [facility] [place], [address], 06/29/2024 06:09:09 06/28/20 24 06/29/2024 COMP. METAB OLIC PANEL (14) potassium 4.6 mmol/ L 3.5-5. 2 normal Not Available [facility] ([facility]) [address] [facility] [place], [address], 06/29/2024 06:09:09 06/28/20 24 06/29/2024 COMP. METAB OLIC PANEL (14) chloride 100 mmol/ L 96-106 normal Not Available [facility] ([facility]) [address] [facility] [place], [address], 06/29/2024 06:09:09 06/28/20 24 06/29/2024 COMP. METAB OLIC PANEL (14) carbon dioxide, total 21 mmol/ L 20-29 normal Not Available [facility] ([facility]) [address] [facility] [place], [address], 06/29/2024 06:09:09 06/28/20 24 06/29/2024 COMP. METAB OLIC PANEL (14) calcium 9.1 mg/dL 8.6-10 .2 normal Not Available [facility] ([facility]) [address] [place], [address], 06/29/2024 06:09:09 06/28/20 24 06/29/2024 COMP. METAB OLIC PANEL (14) protein, total 6.5 g/dL 6.0-8. 5 normal Not Available [facility] ([facility]) [address] [place], [address], 06/29/2024 06:09:09 06/28/20 24 06/29/2024 COMP. METAB OLIC PANEL (14) albumin 4.3 g/dL 3.9-4. 9 normal Not Available [facility] ([facility]) [address] [place], [address], 06/29/2024 06:09:09 06/28/20 24 06/29/2024 COMP. METAB OLIC PANEL (14) globulin, total 2.2 g/dL 1.5-4. 5 Not Available [facility] ([facility]) [address] [place], [address], 06/29/2024 06:09:09 06/28/20 24 06/29/2024 COMP. METAB OLIC PANEL (14) bilirubin, total 0.7 mg/dL 0.0-1. 2 normal Not Available [facility] ([facility]) [address] [place], [address], 06/29/2024 06:09:09 06/28/20 24 06/29/2024 COMP. METAB OLIC PANEL (14) alkaline phosphatase 62 IU/L 44-121 normal Not Available [facility] ([facility]) [address] [place], [address], 06/29/2024 06:09:09 06/28/20 24 06/29/2024 COMP. METAB OLIC PANEL (14) AST (SGOT) 26 IU/L 0-40 normal Not Available [facility] ([facility]) [address] [facility], [place], [address], 06/29/2024 06:09:09 06/28/20 24 06/29/2024 COMP. METAB OLIC PANEL (14) ALT (SGPT) 20 IU/L 0-44 normal Not Available [facility] ([facility]) [address] [facility], [place], [address], 06/29/2024 06:09:09 12/27/19 25 12/26/2024 cerum en remov al (PROC ) done by Kei de jesus with lavage and curett e Not Available In-Office Order Internal Use Only DO Not Attach Compendium DO Not Attach Compendium, Do Not Delete/merge, [id number] 12/26/2024 16:19:08 02/08/20 25 02/08/2025 COMP. METAB OLIC PANEL (14) glucose 101 mg/dL 70-99 above high normal Not Available [facility] ([facility]) [address] [facility], [place], [address], 02/08/2025 08:12:31 02/08/20 25 02/08/2025 COMP. METAB OLIC PANEL (14) BUN 7 mg/dL 8-27 below low normal Not Available [facility] ([facility]) [address] [facility], [place], [address], 02/08/2025 08:12:31 02/08/20 25 02/08/2025 COMP. METAB OLIC PANEL (14) creatinine 0.80 mg/dL 0.76-1 .27 normal Not Available [facility] ([facility]) [address] [place], [address], 02/08/2025 08:12:31 02/08/20 25 02/08/2025 COMP. METAB OLIC PANEL (14) eGFR 98 mL/mi n/1.7 3 >59 normal Not Available [facility] ([facility]) [address] [place], [address], 02/08/2025 08:12:31 04/16/20 25 02/08/2025 COMP. METAB OLIC PANEL (14) BUN/creatini ne ratio 9 10-24 below low normal Not Available [facility] ([facility]) [address] [facility] [place], [address], 02/08/2025 08:12:31 02/08/20 25 02/08/2025 COMP. METAB OLIC PANEL (14) sodium 128 mmol/ L 134-14 4 below low normal Not Available [facility] ([facility]) [address] [facility] [place], [address], 02/08/2025 08:12:31 02/08/20 25 02/08/2025 COMP. METAB OLIC PANEL (14) potassium 4.5 mmol/ L 3.5-5. 2 normal Not Available [facility] ([facility]) [address] [facility] [place], [address], 02/08/2025 08:12:31 02/08/20 25 02/08/2025 COMP. METAB OLIC PANEL (14) chloride 91 mmol/ L 96-106 below low normal Not Available [facility] ([facility]) [address] [facility] [place], [address], 02/08/2025 08:12:31 02/08/20 25 02/08/2025 COMP. METAB OLIC PANEL (14) carbon dioxide, total 20 mmol/ L 20-29 normal Not Available [facility] ([facility]) [address] [facility] [place], [address], 02/08/2025 08:12:31 02/08/20 25 02/08/2025 COMP. METAB OLIC PANEL (14) calcium 9.3 mg/dL 8.6-10 .2 normal Not Available [facility] ([facility]) [address] [facility] [place], [address], 02/08/2025 08:12:31 02/08/20 25 02/08/2025 COMP. METAB OLIC PANEL (14) protein, total 6.8 g/dL 6.0-8. 5 normal Not Available [facility] ([facility]) [address] [place], [address], 02/08/2025 08:12:31 02/08/20 25 02/08/2025 COMP. METAB OLIC PANEL (14) albumin 4.6 g/dL 3.9-4. 9 normal Not Available [facility] ([facility]) [address] [place], [address], 02/08/2025 08:12:31 02/08/20 25 02/08/2025 COMP. METAB OLIC PANEL (14) globulin, total 2.2 g/dL 1.5-4. 5 Not Available [facility] ([facility]) [address] [place], [address], 02/08/2025 08:12:31 02/08/20 25 02/08/2025 COMP. METAB OLIC PANEL (14) bilirubin, total 0.6 mg/dL 0.0-1. 2 normal Not Available [facility] ([facility]) [address] [place], [address], 02/08/2025 08:12:31 02/08/20 25 02/08/2025 COMP. METAB OLIC PANEL (14) alkaline phosphatase 58 IU/L 44-121 normal Not Available [facility] ([facility]) [address] [place], [address], 02/08/2025 08:12:31 02/08/20 25 02/08/2025 COMP. METAB OLIC PANEL (14) AST (SGOT) 25 IU/L 0-40 normal Not Available [facility] ([facility]) [address] [place], [address], 02/08/2025 08:12:31 02/08/20 25 02/08/2025 COMP. METAB OLIC PANEL (14) ALT (SGPT) 22 IU/L 0-44 normal Not Available [facility] ([facility]) [address] [facility], [place], [address], 02/08/2025 08:12:31 10/08/20 23 10/08/2023 elect rocar diogr am No observ ation record ed. [email or web address] In-Office Order Internal Use Only DO Not Attach Compendium DO Not Attach Compendium, Do Not Delete/merge, [id number] 10/08/2023 13:27:48 10/08/20 23 elect rocar diogr am No observ ation record ed. BONY In-Office Order Internal Use Only DO Not Attach Compendium DO Not Attach Compendium, Do Not Delete/merge, [id number] 10/11/2023 16:04:34 11/22/19 24 11/19/2023 US, duple x, arter ial, lower extre mity, compl ete No observ ation record ed. [facility] [address] [address], [place], [address], 11/22/2023 09:53:03 04/19/20 24 04/18/2024 duple x scan of extre mity veins inclu ding respo nses to compr essio n and other maneu vers; compl ete bilat eral study (PROC ) No observ ation record ed. [facility] [address] [address], [place], [address], 04/20/2024 07:39:15 06/21/20 24 05/15/2024 CT, angio [...] DO Not Attach Compendium, Do Not Delete/merge, [id number] 06/28/2024 11:48:52 06/28/20 24 elect rocar diogr am No observ ation record ed. [email or web address] In-Office Order Internal Use Only DO Not Attach Compendium DO Not Attach Compendium, Do Not Delete/merge, [id number] 06/28/2024 11:48:52 Result Notes None recorded. Problems Name Problem SNOMED Code Status Onset Date Resolution Date Notes Provider Name and Address Organization Details Recorded Time Snoring symptoms 803517235 Active 2016 Had sleep study and no GISEL Festus flores [facility] 0 14:41:05 Asthma 740734311 Active 2016 Festus flores [facility] 0 14:41:05 Insomnia 048445216 Active 2016 Festus flores [facility] 0 14:41:05 [facility] l hyperten [place] 43441400 Active 2017 Not yet on meds. Being followed by renal. Festus flores [facility] 0 14:41:05 Eustachi an tube disorder 73216473 Active 2017 Festus flores [facility] 0 14:41:05 Allergic rhinitis 71219038 Active 2017 Festus flores [facility] 0 14:41:05 Heart murmur 14470083 Active 2018 Festus flores [facility] 0 14:41:05 Primary erectile dysfunct ion 928990363 Active 2018 Festus flores [facility] 0 14:41:05 Arthriti s of left knee 31927555332 08928 Active 2017 Had replacem ent done 09/28/19. Has pain and followed by [facility] and getting injectio ns. Lala newton MD [address], [place], [address], [facility] 4 11:55:43 Surgical follow-u p [id number] Completed 201809/22/2020 Lala newton MD [address], [place], [address], [facility] 0 08:30:33 Arthriti s of left wrist 68472697107 12315 Active 2019 Had trauma in the past. Followed by Hand Surgery Lala newton MD [address], [place], [address], [facility] 0 08:31:25 Carpal tunnel syndrome of left wrist 52177927000 9102 Active 2020 Lala newton MD [address], [place], [address], [facility] 1 13:14:06 Neck pain 66387393 Active 2020 Followed by ortho and MRI ordered. Lala newton MD [address], [place], [address], [facility] 1 09:37:45 Hyperlip idemia 00933711 Active 2021 Lala newton MD [address] [facility] [address], [place], [address], [facility] 2 13:30:11 History of SARS-CoV -2 58477607362 7876793 Active 2021 Lala newton MD [address], [place], [address], [facility] 3 15:15:44 Anemia 174197264 Active 2022 Lala newton MD [address], [place], [address], [facility] 3 09:04:59 Basal cell carcinom a of skin 980266494 Active 2018 MOHs procedur e done at [facility]. Lala newton MD [address], [place], [address], [facility] 3 19:35:38 Pain of right wrist 56963562005 9100 Active 2022 Seen by ortho; probable CTS. Lala newton MD [address] [facility] [address], [place], [address], [facility] 3 16:46:36 Carpal tunnel syndrome of right wrist 00495628619 9108 Active 2022 seen by hand surgery Lala newton MD [address] [facility] [address], [place], [address], [facility] 3 07:53:18 Peripher al venous insuffic iency 35749539 Active 2023 Treated with compress ion stocking s and lifestyl e changes. Seen by Vascular surgery and will be looking into thermal ablation /sclerto therapy. Lala newton MD [address], [place], [address], [facility] 4 12:56:55 Arthriti s of right knee 86214863251 65268 Active 2023 Followed by [facility] and currentl y being treated with injectio ns. Getting euflexa injectio ns from [facility]. As of January 2025 he is schedule d for surgery. Lala newton MD [address] [address], [place], [address], [facility] 5 16:43:49 Intermit tent suzanne saavedra 11995077 Active 2023 Bilatera l endarter ectomy done by Dr Puente 07/11/24 Lala newton MD [address] [address], [place], [address], [facility] 4 13:36:14 Problem Notes None recorded. Procedures Surgical History Date Name Laterality Status Provider Name and Address Organization Details Recorded Time 07/11/20 24 endarterectomy completed Lala Palomo MD [address] [address], [place], [address], [facility] 10/11/2024 07:49:41 10/11/20 23 Carpal tunnel surgery completed Jade Jeffrey [facility] 11/09/2023 14:25:25 07/13/20 22 Colonoscopy completed Sujey Navarro [facility] 07/31/2022 16:54:25 02/28/20 21 Carpal tunnel surgery completed Lala Palomo MD [address] [address], [place], [address], [facility] 12/15/2022 15:19:58 09/28/20 19 total knee replacement completed Coby Kruse [facility] 09/29/2019 16:10:56 11/29/19 19 mohs surgery completed Lala Palomo MD [address] [address], [place], [address], [facility] 08/07/2020 16:28:26 10/25/19 16 Shoulder joint surgery completed Lala Palomo MD [address] [address], [place], [address], [facility] 08/07/2020 16:28:48 03/25/20 12 Meniscal trnspl knee w/scpe completed Festus Mays [facility] 07/08/2017 13:16:50 10/25/18 95 Iliac bone graft microvasc completed Festus M[place] [facility] 07/08/2017 13:15:14 10/25/18 65 Tonsillectomy completed Festus [place] [facility] 07/08/2017 13:16:07 Imaging Results Imaging Date Name Status LastModified by Organization Details LastModified Time 10/08/2023 electrocardiogram completed [email or web address] In-Offi ce Order Internal Use Only DO Not Attach Compendium DO Not Attach Compendium, Do Not Delete/merge, [id number] 10/08/2023 13:27:48 10/08/2023 electrocardiogram completed BONY In-Offi ce Order Internal Use Only DO Not Attach Compendium DO Not Attach Compendium, Do Not Delete/merge, [id number] 10/11/2023 16:04:34 11/19/2023 US, duplex, arterial, lower extremity, complete completed [facility] [address], [address], 11/22/2023 09:53:03 04/18/2024 duplex scan of extremity veins including responses to compression and other maneuvers; complete bilateral study (PROC) completed [facility] [address], [address], 04/20/2024 07:39:15 05/15/2024 CT, angiogram, abdomen, w/ contrast completed Information not available 06/21/2024 17:49:28 04/11/2024 US, duplex, venous, lower extremity completed Information not available 06/21/2024 17:49:29 04/03/2024 pulse volume recording (PROC) completed Information not available 06/21/2024 17:47:18 06/28/2024 electrocardiogram completed [email or web address] In-Offi ce Order Internal Use Only DO Not Attach Compendium DO Not Attach Compendium, Do Not Delete/merge, [id number] 06/28/2024 11:48:52 06/28/2024 electrocardiogram completed [email or web address] In-Offi ce Order Internal Use Only DO Not Attach Compendium DO Not Attach Compendium, Do Not Delete/merge, [id number] 06/28/2024 11:48:52 Procedure Notes None recorded. Medical [...] pension USE 2 SPRAYS NASALLY DAILY DIRECTED 2024 active Not Available Not Available Not [...] Updated DateTime 3 177.8 cm 27.4 kg/m2 57320.8 4 g 57 /min 96 % 96 % 98.8 [degF] 114 mm[Hg] 72 mm[Hg] Jessica Schultz LPN [facility] 3 13:05:00 Date Recorded Body height Body mass index (BMI) Body weight Heart rate Oxygen saturation Oxygen saturation in Arterial blood by Pulse oximetry Body temperature Systolic blood pressure Diastolic blood pressure Provider Name and Address Organization Details Last Updated DateTime 4 177.8 cm 27.8 kg/m2 52646.9 2 g 64 /min 97 % 97 % 98.3 [degF] 127 mm[Hg] 73 mm[Hg] Kita berger MA [facility] 4 15:34:17 Date Recorded Body height Body mass index (BMI) Body weight Heart rate Oxygen saturation Oxygen saturation in Arterial blood by Pulse oximetry Body temperature Systolic blood pressure Diastolic blood pressure Provider Name and Address Organization Details Last Updated DateTime 4 177.8 cm 28.4 kg/m2 66238.2 9 g 71 /min 97 % 97 % 98.1 [degF] 115 mm[Hg] 75 mm[Hg] Emilia Vargas MA [facility] 4 15:48:00 Date Recorded Body height Body mass index (BMI) Body weight Heart rate Oxygen saturation Oxygen saturation in Arterial blood by Pulse oximetry Body temperature Systolic blood pressure Diastolic blood pressure Provider Name and Address Organization Details Last Updated DateTime 4 177.8 cm 27.8 kg/m2 61850.9 2 g 69 /min 96 % 96 % 97.9 [degF] 97 mm[Hg] 58 mm[Hg] Kita berger MA [facility] 4 10:03:43 Date Recorded Systolic blood pressure Diastolic blood pressure Provider Name and Address Organization Details Last Updated DateTime 06/28/2024 104 mm[Hg] 68 mm[Hg] CALI CORTES [address] [address], [place], [address], [facility] 06/28/2024 10:23:19 Date Recorded Body height Body mass index (BMI) Body weight Heart rate Oxygen saturation Oxygen saturation in Arterial blood by Pulse oximetry Body temperature Systolic blood pressure Diastolic blood pressure Provider Name and Address Organization Details Last Updated DateTime 5 177.8 cm 26.4 kg/m2 84928 g 69 /min 99 % 99 % 98.2 [degF] 137 mm[Hg] 81 mm[Hg] Emilia Vargas MA [facility] 5 15:52:50 Social History Question Answer Notes LastModified by Organizat ion Details LastModified Time Tobacco Smoking Status Former Smoker Quit 2006 at 46 years of age Emilia Vargas MA [facility] 12/26/2024 15:52:40 Do You Have [...] available 12/08/2021 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 11-15yearssin олегastciamy [email or web address] Information not available 06/20/2024 Do You Take Precautions To Prevent Distracted Driving? Yes [employer] Information not available 07/08/2017 How Often Do [...] Or Greater Than 100 Degrees Fahrenheit? No [email or web address] Information not available 08/07/2020 Are You Or Anyone In Your Household A Health Care Provider Or Emergency Responder? No [email or web address] Information not available 08/07/2020 To The Best Of Your Knowledge Have You Been In Close Proximity To Any Individual Who Tested Positive For COVID-19? No [email or web address] Information not available 08/07/2020 Have You Recently Traveled To A COVID-19 High Risk Area Or Gathering In The Last 10 Days? No [email or web address] Information not available 02/04/2021 What Was The Date Of Your Most Recent Tobacco Screening? 06/28/2024 Information not available 06/28/2024 How Many Children Do You Have? 2 Mehul Saucedo Jasen Information not available 12/21/2023 Do You Use [...] you able to care for yourself? Yes Information not available 07/08/2017 What is your exercise level? Moderate walking and biking Information not available 12/21/2023 Mental Status None recorded. Family History Relationship Description Onset Age of this Age Resolved Age Notes LastModified by Organization Details LastModified Time Father Myocardial infarction 73 [email or web address] Not available 06/20 15:44:02 Mother History of malignant lymphoma [birth year] born [birth year] Not available 06/20/2024 15:44:02 Sister Graves' disease #2 [email or web address] Not available 2023 15:44:02 Sister Multiple sclerosis #1 [email or web address] Not available 07/25 16:24:31 Medical History Condition Response Varicose Veins Y Arthritis Y Head Injury/Concussion Y Cancer Y Hypertension Y Asthma Y Allergies Y Chicken Pox Y Immunizations Vaccine Type Date Status Note Provider Name and Address Organization Details Recorded Time COVID-19, mRNA, LNP-S, PF, 30 mcg/0.3 mL dose 021 completed RAFFY Manzanares, [facility] 10/15/2021 14:26:29 COVID-19, mRNA, LNP-S, PF, 30 mcg/0.3 mL dose [facility] 14:26:29 Hep A, adult 021 completed RAFFY Duarte, [facility] 03/24/2022 13:29:12 COVID-19, mRNA, LNP-S, PF, 30 mcg/0.3 mL dose 021 completed RAFFY Manzanares, [facility] 10/15/2021 14:26:29 MMR 021 completed RAFFY Manzanares, [facility] 10/15/2021 14:26:29 zoster recombinant 020 completed RAFFY Manzanares, [facility] 10/15/2021 14:26:29 Hep A-Hep B 021 [facility] 14:26:30 Influenza, split virus, quadrivalent, PF 021 completed RAFFY Manzanares, [facility] 10/15/2021 14:26:30 zoster recombinant 020 completed RAFFY Manzanares, [facility] 10/15/2021 14:26:30 typhoid, ViCPs 021 completed RAFFY Manzanares, [facility] 10/15/2021 14:26:30 COVID-19, mRNA, LNP-S, PF, 100 mcg/0.5mL dose or 50 mcg/0.25mL dose completed RAFFY Duarte, [facility] 03/24/2022 13:29:12 Influenza, MDCK, quadrivalent, PF 022 [facility] 06/15/2023 15:05:13 COVID-19, mRNA, LNP-S, bivalent, PF, 50 mcg/0.5 mL or 25mcg/0.25 mL dose 022 completed RAFFY Manzanares, [facility] 06/15/2023 15:05:13 Influenza, MDCK, quadrivalent, PF 023 completed Kita Will-Marcial os, RAFFY flores, [facility] 12/21/2023 15:34:31 COVID-19, mRNA, LNP-S, PF, 50 mcg/0.5 mL 023 completed Kita Will-Marcial os, RAFFY flores, [facility] 12/21/2023 15:34:31 Influenza, high-dose, trivalent, PF 024 completed Kita Will-Marcial os, RAFFY flores, [facility] 06/28/2024 10:04:07 Pneumococcal conjugate PCV21, polysaccharide UIA808 conjugate, PF 025 [facility] 01/03/2025 12:05:54 Tdap 017 completed Not Available [facility] 11/11/2019 02:21:46 Influenza, split virus, quadrivalent, PF 018 cancelled patient objection Not Available [facility] 11/11/2019 02:22:16 Influenza, split virus, quadrivalent, PF 020 completed Lala Palomo MD [address] [address], [place], [address], [facility] 08/07/2020 16:21:07 Past Encounters Encounter ID Performer Location Encounter Start Date Encounter Closed Date Diagnosis/Indication Diagnosis SNOMED-CT Code Diagnosis ICD10 Code Diagnosis Note [id number] Lala Palomo MD Main Office [address] [place] [address] 07/08/2017 12:45:57 07/08/2017 14:17:51 Administration of viral vaccine 89340752 Z23 Asthma 973699096 J45.90 9 Insomnia 955084744 G47.0 0 Adult heal th examination 464945703 Z00.00 We will update his immunizati ons. He had a colonoscop y did in March and is due again in 2021. His last cholestero l was mildly elevated and his 10-risk for cardiac disease was calculated to be 7.1% therefore no meds recommende d. Screening for malignant neoplasm of lung 384144939 Z12.2 [id number] Lala Palomo MD Main Office [address] [place] [address] 08/17/2017 15:39:32 08/17/2017 16:05:39 Multiple joint pain 73415769 M25.50 If his symptoms persist and his w/u is negative he will call her and we will consider a rheum referral. Heart murmur 31482747 R0 1.1 [id number] Lala Palomo MD Main Office [address] [place] [address] 12/17/2017 15:10:36 12/17/2017 15:56:30 Otitis media 04134870 H66.91 right sided, no fb noted in ear canal, no cerumen impaction. Augmentin as directed x full 10 days, hydration, start flonase daily. Posterior rhinorrhea 758 08476 R09.82 Elevated blood-pressure reading without diagnosis of hypertension 729870948 R03.0 [id number] Lala Palomo MD Main Office [address] [address] [place] [address] 01/03/2018 08:58:14 01/03/2018 10:52:08 Elevated blood-pressure reading without diagnosis of hypertension 945264655 R03.0 We will look into 24-hour monitoring before starting meds. [id number] Lala Palomo MD Main Office [address] [address] [place] [address] 01/12/2018 09:20:53 01/12/2018 11:17:59 Upper respiratory infection 90024990 J06.9 Wheezing 45669540 R06.2 continue rescue inhaler every 4-6 hrs. [id number] Lala Palomo MD Main Office [address] [address] [place] [address] 01/27/2018 15:16:25 01/27/2018 15:58:21 Asthma 514814032 J45.909 We will add a controller to his regimen and he will cut back on the use of his rescue inhaler. Insomnia 142854581 G47.0 0 Elevated blood-pressure reading without diagnosis of hypertension 249711785 R03.0 We will look into 24-hour monitoring before starting meds. [id number] Lala Palomo MD Main Office [address] [address] [place] [address] 05/05/2018 12:42:49 05/05/2018 13:33:08 Dysfunction of eustachian tube 29569752 H69.83 [id number] Lala Palomo MD Main Office [address] [address] [place] [address] 07/12/2018 15:37:26 07/12/2018 16:35:58 Adult health examination 804426116 Z00.00 We will update his immunizati ons. He had a colonoscop y in March 2017 and is due again in [address] Grimaldo. His last cholestero l was mildly elevated and his 10-risk for cardiac disease was calculated to be 7.1%. We will recheck today. Dysfunctio n of eustachian tube 88384667 H69.83 Followed by ENT Needs infl uenza immunization 601748869 Z23 Essential hypertension 30673961 I10 Stable on meds; continue current mgmt Insomnia 474038609 G47.0 0 [id number] Lala Palomo MD Main Office [address] [facility] [place] [address] 07/26/2018 08:50:37 07/26/2018 09:37:43 Herpes zoster with complication 82082776 B02.8 Paronychia of finger 444 769368 L03.011 Advised to soak in warm water and continue abx and make a hand surgery appointmen t if not improving [id number] Bri Burroughs Main Office [address] [facility] [address] [place] [address] 11/17/2018 13:38:59 11/17/2018 14:34:03 Pre-surgery evaluation 415061995 Z01.818 Insomnia 410699200 G47.0 0 Basal cell carcinoma of skin 815861351 C44.91 Essential hypertension [id number] I10 Stable on meds; continue current mgmt [id number] Lala Palomo MD Main Office [address] [facility] [address] [facility] [place] [address] 02/07/2019 10:14:24 02/07/2019 11:01:17 Essential hypertension 94878566 I10 Stable on meds; continue current mgmt Insomnia 860646422 G47.0 0 Osteoarthr itis of left knee joint 6855149199 48590 M17.12 Scheduled for TKR February [address] Pereyra Primary er ectile dysfunction 706130431 N52.9 Systolic murmur 02608337 R01.1 [id number] Lala Palomo MD Main Office [address] [facility] [address] [place] [address] 03/27/2019 10:41:43 03/27/2019 11:13:19 Heart murmur 92696458 R01.1 Normal ECHO. No further w/u needed. [id number] Lala Palomo MD Main Office [address] [facility] [place] [address] 08/01/2019 15:39:14 08/01/2019 16:25:39 Adult health examination 597823585 Z00.00 UTD with immunizati ons. He had a colonoscop y in March 2017 and is due again in [address] Grimaldo. Essential hypertension 04503201 I10 Stable on meds; continue current mgmt Insomnia 595314608 G47.0 0 Primary er ectile dysfunction 640372242 N52.9 Uses sildenafil prn [id number] Lala Palomo MD Main Office [address] [facility] 207 [place] [address] 02/22/2020 13:06:12 02/23/2020 13:07:41 Essential hypertension 92835248 I10 Stable on meds; continue current mgmt. We will take over the prescribin g from renal. Asthma 218208197 J45.90 9 Doing well with the controller med. Will refill the rescue inhaler. Insomnia 549637047 G47.0 0 Stable with current mgmt. Allergic rhinitis 796692 04 J30.9 Doing well with current meds. [id number] Patricia Hogan PA-C Telehealt [facility] [address] [facility] 207 [place] [address] 04/29/2020 09:01:21 04/29/2020 13:50:54 Injury of foot 242789035 S99.921A xray to r/o fracture. Elevated foot and ice every 3 hrs for 20 minutes and take OTC pain meds. [id number] Bri Burroughs Main Office [address] [facility] 207 [facility] [place] [address] 08/07/2020 15:35:15 08/07/2020 16:51:28 Adult health examination 353948147 Z00.00 Due for a flu shot. He had a colonoscop y in March 2017 and is due again in [address] Grimaldo. His father had prostate cancer. Needs infl uenza immunization 514973881 Z23 Allergic rhinitis 826518 04 J30.9 Doing well with current meds. Essential hypertension 73646328 I10 Stable on meds; continue current mgmt. Pain of left wrist 59260 48967 96972 M25.532 [id number] Suni Suárez Main Office [address] [place] [address] 09/25/2020 09:41:51 09/25/2020 11:49:58 Insect bite to leg - nonvenomous 997181120 S80.861A bite right leg, will do 1 day tx for lyme and followup with test in a few weeks, call if any joint pain, fevers or rashes. [id number] Lala Palomo MD Main Office [address] [place] [address] 02/04/2021 15:14:38 02/04/2021 16:00:51 Essential hypertension 25326457 I10 Stable on meds; continue current mgmt. Primary er ectile dysfunction 346476152 N52.9 Uses sildenafil prn Allergic rhinitis 162467 04 J30.9 Doing well with current meds. Carpal jessica christian syndrome of left wrist 9765078521 56076 G56.02 He is scheduled for surgery. Asthma 638967108 J45.90 9 Doing well with the controller med. Insomnia 909170212 G47.0 0 Stable with current mgmt. [id number] Lala Palomo MD Main Office [address] [place] [address] 12/08/2021 13:19:05 12/08/2021 14:29:30 Adult health examination 133645615 Z00.00 He is UTD with COVID vaccines and booster and we have a record of this. He also states that he had a flu vaccine at the same time and we will check on this. He had a colonoscop y in March 2017 and is due again in this year by Dr Grimaldo. His father had prostate cancer. Asthma 323474406 J45.90 9 Doing well with the controller med and rarely uses his rescue inhaler. Essential hypertension 01537432 I10 Stable on meds; continue current mgmt. Insomnia 061804891 G47.0 0 Stable with current mgmt. Primary er ectile dysfunction 040328387 N52.9 Uses sildenafil prn Intermitte nt claudication 36982175 I73.9 Possible dx given his symptoms. We will refer to vascular for further evaluation . Nocturia 765836618 R35.1 Dad had a h/o prostate cancer. Screening for malignant neoplasm of colon 951654734 Z12.11 [id number] Devan Hogan PA-C Telehealt h [address] [facility] [address] [place] [address] 03/24/2022 10:40:47 03/24/2022 15:34:35 Insect bite, nonvenomous, of thigh 178399697 S70.362A low suspicion for lyme since no tick embedded/r emoved, bites noticed ~ 24 hours later (not embedded 36-48 hours) -- reassured likely a spider bite, apply triple abx ointment 1-2x/day until healed, and pt requests check lyme titer next month which is not fully unreasonab le to give pt peace of mind [id number] Bri Burroughs Main Office [address] [address] [place] [address] 12/15/2022 14:22:44 12/15/2022 15:52:01 Adult health examination 431279304 Z00.00 He is UTD with COVID vaccines and booster and we have a record of this. He also states that he had a flu vaccine at the same time and we will check on this. He had a colonoscop y in June 2022 and is due again in [address] Grimaldo. His father had prostate cancer. History of SARS-CoV-2 29 55992468 95025271 Z86.16 Mild symptoms. Did not take paxlovid. Intermitte nt claudication 74372285 I73.9 Has a f/u with vascular. Impacted c erumen of bilateral ears 3869272863 962341 H61.23 Essential hypertension 32387586 I10 Stable on meds; continue current mgmt. Hyperlipidemia 20705789 E78.5 On meds and tolerating them well. His last LDL was not at goal. Asthma 414407948 J45.90 9 Doing well with the controller med and rarely uses his rescue inhaler. He understand s to call if he needs his rescue inhaler more than a few times a week. [id number] Lala Palomo MD Main Office [address] [facility] [address] [place] [address] 06/15/2023 14:58:20 06/15/2023 15:44:44 Essential hypertension 39123057 I10 Stable on meds; continue current mgmt. Anemia 272609524 D64.9 Will do further blood work to be sure that this is not getting worse and to characteri ze type of anemia. It is possible that alcohol is playing a role since he has more than 2 drinks a day. [id number] Lala Palomo MD Main Office [address] [facility] [address] [place] [address] 10/08/2023 12:53:56 10/08/2023 13:29:15 Essential hypertension 14033111 I10 -on amlodipine 10mg daily and atenolol 50mg daily Asthma 632820858 J45.90 9 well controlled with inhalers Pre-surger y evaluation 271540493 Z01.818 pre-operat torin medical clearance for carpal tunnel release with Dr. Anil Coburn at [facility] on 10/11/2023 -will order CBC, chem 7, PT/INR-no cardiac events in the past 3 months-ekg unremarkab le, mild bradycardi c at 53bpm. RRR, no ST changes. [id number] Lala Palomo MD Main Office [address] [facility] [address] [place] [address] 12/21/2023 15:11:52 12/21/2023 16:20:12 Adult health examination 060509066 Z00.00 He is UTD with COVID vaccines and booster and we have a record of this. He also states that he had a flu vaccine at the same time and we will check on this. He had a colonoscop y in June 2022 and is due again in [address] Grimaldo. His father had prostate cancer. Nocturia 162386251 R35.1 Dad had a h/o prostate cancer. Essential hypertension 55686762 I10 Stable on meds; continue current mgmt. Hyperlipidemia 86239039 E78.5 On meds and tolerating them well. His last LDL was not at goal. Primary er ectile dysfunction 813305801 N52.9 Uses sildenafil prn Peripheral venous insufficiency 60795535 I87.2 Seen by =vascular and will be having procedures done. [id number] Lala Palomo MD Main Office [address] [facility] [address] [place] [address] 06/20/2024 15:40:14 06/20/2024 16:09:01 Essential hypertension 67591266 I10 Stable on meds; continue current mgmt. Hyperlipidemia 13306150 E78.5 On meds and tolerating them well. His last LDL was not at goal. Insomnia 481954426 G47.0 0 Stable with current mgmt. [id number] CALI CORTES Main Office [address] [facility] 207 [place] [address] 06/28/2024 09:45:42 06/28/2024 10:27:19 Pre-surgery evaluation 658661818 Z01.818 No medical contraindi cations to proposed procedure. Mendoza Perioperat torin Cardiac Risk was calculated and the risk for perioperat torin CT is 0.2%. May proceed to surgery as planned.-o rdered CMP and CBC w/diff-EKG ; NSR, similar when compared to ekg from 09/2023; no cardiac symptoms Essential hypertension 87811844 I10 -on amlodipine 10mg daily and atenolol 50mg daily Peripheral venous insufficiency 86486628 I87.2 pre-operat torin medical clearance for bilateral common femoral artery endarterec kevin with Dr. Jeffy Puente ( ) on 07/10/2024. [id number] Lala Palomo MD Main Office [address] [facility] [address] [place] [address] 12/26/2024 15:37:50 12/26/2024 16:45:47 Adult health examination 658711295 Z00.00 He is UTD with COVID vaccines [...] is father had prostate cancer. Essential hypertension 09524560 I10 Stable on meds; usually runs much lower at home. He will reduce his metoprolol from 50 to 25 mg and will stay on this until his next appointmen t. Hyperlipidemia 56847823 E78.5 On meds and tolerating them well. His last LDL was not at goal. Insomnia 743909512 G47.0 0 Stable with current mgmt. Intermitte nt claudication 18983283 I73.9 Resolved since having bilateral bypass done by Dr Puente, vascular June 2024. Nocturia 000956425 R35.1 Dad had a h/o prostate cancer. Primary er ectile dysfunction 169245967 N52.9 Uses sildenafil prn Impacted c erumen in right ear 5696477546 893283 H61.21 Administra tion of pneumococcal vaccine 55191864 Z23 Asthma 226405359 J45.20 Doing well with the controller med [...] Guarantor Name 10/08/2023 1 [place] [id number] 2 Christopher Pankaj [id number] 4BT [id number] 54BT Christopher Pankaj 12/21/2023 1 [place] [id number] 2 Christopher Pankaj [id number] 4BT [id number] 54BT Christopher Pankaj 06/20/2024 1 [place] [id number] 2 Christopher Pankaj [id number] 4BT [id number] 54BT Christopher Pankaj 06/28/2024 1 [place] [id number] 2 Christopher Pankaj [id number] 4BT [id number] 54BT Christopher Pankaj 12/26/2024 1 [place] [id number] 2 Christopher Pankaj [id number] 4BT [id number] 54BT Christopher Pankaj Notes Date Note Type Note Provider Name and Address Organization Details Recorded Time 10/08/20 23 text/htm keith Jason is a 63 yr old M with PMHx of HTN, HLD, and asthma presents for pre-operative medical clearance for carpal tunnel release with Dr. Anil Coburn at [facility] on 10/11/2023. Under local anesthesia. Denies [...] chills, and nausea/vomiting. Lala Palomo MD [address], [address], [facility] 10/10/2023 14:24:18 12/21/19 24 text/htm l Generic HPI TemplateReported bypatient.Notes:UTD with immunizations including COVID with most recent booster, flu, tetanus, and shingles.Colonoscopy done by Dr Grimaldo in June 2022 with a 3-year call back. Lala Palomo MD [address], [address], [facility] 12/22/2023 [...] known sleep apnea Lala Palomo MD [address] [address], [place], [address], [facility] 06/20/2024 [...] fever, chills, and nausea/vomiting. CALI CORTES [address] [address], [place], [address], [facility] 06/28/2024 12:28:13 12/27/19 25 text/htm l Generic [...] will call to schedule. Lala Palomo MD [address] [address], [place], [address], [facility] 12/26/2024 18:15:25
== END 2025-02-13 12:29 | disposition home or self-care (01) ==
LOC: HO.HKAS 11:31
PROVIDERS: PCP Internal Medicine; Visit Provider Internal Medicine Nephrology
DX: I10 Essential (primary) hypertension (principal); E87.1 Hypo-osmolality and hyponatremia
CPT/HCPCS: 99204

== ENCOUNTER 2025-03-05 06:04 | Day surgery (SDC) | payer BC, SELFPAY ==
--- OUTSIDE RECORDS SUMMARY | 2025-01-04 07:44 | XMS_ITS ---
Author Organization [facility] Address [address] [place] [address] Care Team Providers Care Valance Cutter Name Role Phone Mata Gao MD Primary Care Provider Gerhard Barkley Unavailable [phone] REASON FOR VISIT Records Problems No Known Problems Encounters Encounter Location Date Provider Diagnosis [facility] [address] [place] [address] 08/25/2023 Gerhard Herring Plan Of Treatment No Information Progress Notes * Eren LIRADOB:1959 (63 yo M)Acc No.[id number]:08/25/2023 Patient:?Eren Lira :1960???Age:63 Y???Sex:Male Address:[address] [place] [address], [address] * true * Date:? Generated for Printi sharlene/Sonya/eTransmitting on:?01/04/2025 07:44 AM EDT
--- OUTSIDE RECORDS SUMMARY | 2025-01-04 07:44 | XMS_ITS | Clinical Summary ---
Author Organization [facility] Address [address] [place] [address] Care Team Providers Care Fire Pot Operator Name Role Phone Niraj Palomo MD Primary Care Provider [phone] Allergies No known active allergies Medications Medication [...] 0 09/30/2019 Active ergocalciferol (VITAMIN D2) capsule 51581 units daily. 0 Active albuterol 108 (90 [...] Smokeless Tobacco: Never Comments:cigarettes 1974- 1, cigars 0263-6489 Alcohol Use Standard Drinks/Week Comments Yes 20 [...] this topic Medical Devices Implanted Type Area Diesel Truck Mechanic Device Identifier Shelf Expiration Date Model / Serial / Lot Tibial Bearing Insert - Ps Implanted:Qty : 1 on 09/28/2019 by Alexi Burrell MD at [facility] Total Joint Left: Knee LINNETTE THADDEUS 07/19/2023 / / [id number] [place] Sut 5.5mm Fullthrd Med Insite Preld Fr Fbr Sprt Peek - [id number] - [id number] Implanted:Qty : 1 on 04/10/2015 by Spenser Gaspar MD at [facility] Right: Shoulder [employer] 07/24/2016 [id number] / / [id number] [place] Footprint 5.5mm [place] Suture - 486124 - [id number] Implanted:Qty : 1 on 04/10/2015 by Spenser Gaspar MD at [facility] Right: Shoulder [employer] ORTHOP[employer]EDIC 10/24/2019 [id number] / / [id number] [place] Footprint 5.5mm [place] Suture - 179991 - [id number] Implanted:Qty : 1 on 04/10/2015 by Spenser Gaspar MD at [facility] Right: Shoulder [employer] ORTHOPAEDIC 10/24/2019 [id number] / / [id number] Cement Simplex P Radiopaque Full Dose Bone 10 Pack - 249716 - [id number] Implanted:Qty : 1 on 09/28/2019 by Alexi Burrell MD at [facility] Left: Knee [employer] 6191-1-010 / / Cement Simplex P Radiopaque Full Dose Bone 10 Pack - 880092 - [id number] Implanted:Qty : 1 on 09/28/2019 by Alexi Burrell MD at [facility] Left: Knee [employer] 6191-1-010 / / Component Triathlon 5 Posterior Stabilized Cemented Femoral - 989083 - [id number] Implanted:Qty : 1 on 09/28/2019 by Alexi Burrell MD at [facility] Left: Knee [employer] 03/07/2024 5515-F-501 / / [id number] Baseplate Triathlon 6 Primary Cemented Tibial Knee - 778366 - [id number] Implanted:Qty : 1 on 09/28/2019 by Alexi Burrell MD at [facility] Left: Knee [employer] 02/28/2024 5520-B-600 / / [id number] Component Triathlon 10mm 35mm Symmetric X3 Ptlar Knee - 393621 - [id number] Implanted:Qty : 1 on 09/28/2019 by Alexi Burrell MD at [facility] Left: Knee [employer] 01/10/2024 5551-G-350 / / [id number] Peg Triathlon Modular Fix Distal Femur Knee - 934093 - [id number] Implanted:Qty : 1 on 09/28/2019 by Alexi Burrell MD at [facility] Left: Knee [employer]TE [employer] 04/23/2024 5575-X-000 / / [id number] Advance Directives For more information, please contact: [phone] Latest Code Status on File Code Status [...] way: discussion with patient . Care Teams Fire Pot Operator Relationship Specialty Start Date End Date Niraj Palomo MD [address] [place] [address] PCP - General Internal Medicine 09/20/19
--- OUTSIDE RECORDS SUMMARY | 2025-01-04 07:45 | XMS_ITS | Clinical Summary ---
Author Organization [facility] Address [address] [place] [address] Care Team Providers Care Gas Examiner Name Role Phone Unavailable Primary Care Provider [...]
--- OUTSIDE RECORDS SUMMARY | 2025-01-04 07:45 | XMS_ITS | Clinical Summary ---
Author Organization [facility] Address [address] [place] [address], [place] [address] Care Team Providers Care Director Of Software Development Name Role Phone Niraj Palomo MD Primary [...] age to complete this topic Care Teams Director Of Software Development Relationship Specialty Start Date End Date Niraj Palomo MD [address] PCP - General 11/04/20
--- OUTSIDE RECORDS SUMMARY | 2025-01-04 07:45 | XMS_ITS | Data Portability ---
Author Organization [facility], Main Office Address [address] [place] [address] Care Team Providers Care Clinical Trial Assistant Name Role Phone MATT GRIMALDO Gluer And Slicer Hand [facility] Orthopedic Surgeon LALA PALOMO Primary Care Provider ADITYA Long Referring Provider [phone] [facility] Sleep Medicine ABHAY LEDEZMA Orthopedic Surgeon [phone] GLORIA PARRA Internal Sales Engineer OLVIN RYAN Dermatopathologist [phone] VALENTINE BRYAN Home Agent [phone] ARTIS PERRY Wreath Inspector NINA ROJAS Orthopedic Surgeon [phone] CHIKI CARRASQUILLO Referring Provider KANDIS PINEDA Referring Provider [phone] ANIL COBURN Orthopedic Surgeon [phone] Assessment Encounter Date Assessment Date Assessment LastModified [...] serum or plasma 2023 024 [facility], [address] [place] [address], [address], [place], [address], 01/25/2024 12:06:20 CBC w/ auto diff 2023 024 [email or web address], [address], [address], [place], [address], 07/18/2024 08:50:19 magnes ium, serum or plasma 2023 024 [facility], [address], [address], [place], [address], 01/25/2024 12:06:21 lipid panel, serum 2023 024 [facility], [address], [address], [place], [address], 01/25/2024 12:06:19 CMP, serum or plasma 2023 024 [facility], [address], [address], [place], [address], 01/25/2024 12:06:17 CBC w/ auto diff 2022 023 [facility], [address], [address], [place], [address], 10/08/2023 20:04:11 BMP, serum or plasma 2022 023 [facility], [address], [address], [place], [address], 10/08/2023 21:29:34 PT/INR 2022 023 [facility], [address], [address], [place], [address], 10/08/2023 20:19:35 Referral None record ed. Procedures serena parker (PROC) 2024 025 [facility] In-Office Order, Internal Use Only DO Not Attach Compendium DO Not Attach Compendium, Do Not Delete/merge, [id number] 12/26/2024 16:53:41 Surgeries None record ed. Imaging electr ocardi ogram 2023 024 [email or web address] In-Office Order, Internal Use Only DO Not Attach Compendium DO Not Attach Compendium, Do Not Delete/merge, [id number] 06/28/2024 10:27:19 electr ocardi ogram 2022 023 [email or web address] In-Office Order, Internal Use Only DO Not Attach Compendium DO Not Attach Compendium, Do Not Delete/merge, [id number] 10/08/2023 13:29:15 Medication Orders silden afil 100 mg tablet 2024 025 [id number], [address], [place], [address], 12/26/2024 16:16:54 amlodi pine 10 mg tablet 2023 024 [email or web address], [address] [place] [address], [address], [place], [place], [id number], 06/20/2024 17:27:19 atenol ol 50 mg tablet 2023 024 [email or web address], [address], [address], [place], [place], [id number], 06/20/2024 17:27:19 atorva statin 40 mg tablet 2023 024 [email or web address], [address], [address], [place], [place], [id number], 06/20/2024 17:27:19 silden afil 100 mg tablet 2023 024 [id number], [address], [place], [address], 12/21/2023 16:15:36 Patient TargetsNo targets recorded. Patient Instructions Encounter Date Encounter Id Patient Instructions Last Modified By Organization Details Last Modified Time 10/08/2023 [id number] No medical contraindications to proposed procedure. Reji Perioperative Cardiac Risk was calculated and the risk for perioperative LA is <1%. May proceed to surgery as planned. Not available 10/08/2023 08:27:41 12/21/2023 [id number] high blood press ure: care instructions [email or web address] Not available 12/21/2023 16:11:11 learning about h igh blood pressure [email or web address] Not available 12/21/2023 16:11:11 high cholesterol : care instructions [email or web address] Not available 12/21/2023 16:11:11 06/20/2024 [id number] insomnia: care instructions [email or web address] Not available 06/20/2024 17:27:19 high cholesterol : care instructions [email or web address] Not available 06/20/2024 17:27:19 12/26/2024 [id number] insomnia: care instructions [email or web address] Not available 12/26/2024 [...] Go To The Location Of Their Choice, [id number] 10/08/2023 20:04:10 10/08/2010/08/2023 COMPL ETE CBC WITH [...] Go To The Location Of Their Choice, [id number] 10/08/2023 20:04:10 10/08/2010/08/2023 COMPL ETE CBC WITH DIFF automated NRBC 0.0 #/100 _WBC' s Not Available [facility] (Centralized Electronic Ordering - All Locations) Patient Can Go To The Location Of Their Choice, 10/08/2023 20:04:10 10/08/2010/08/2023 COMPL ETE CBC WITH DIFF abs. NRBC 0.0 K/mm3 Not Available [facility] (Centralized Electronic Ordering - All Locations) Patient Can Go To The Location Of Their Choice, [facility] [place] 10/08/2023 20:04:10 10/08/2010/08/2023 COMPL ETE CBC WITH DIFF neut # 4.5 K/mm3 (1.3-7 .0) Not Available [facility] (Centralized Electronic Ordering - All Locations) Patient Can Go To The Location Of Their Choice, [id number] 10/08/2023 20:04:10 10/08/2010/08/2023 COMPL ETE CBC WITH DIFF lymph # 2.3 K/mm3 (0.8-3 .1) Not Available [facility] (Centralized Electronic Ordering - All Locations) Patient Can Go To The Location Of Their Choice, [facility] [place] 10/08/2023 20:04:10 10/08/2010/08/2023 COMPL ETE CBC WITH DIFF mono# 0.7 K/mm3 (0.4-1 .3) Not Available [facility] (Centralized Electronic Ordering - All Locations) Patient Can Go To The Location Of Their Choice, 10/08/2023 20:04:10 10/08/2010/08/2023 COMPL ETE CBC WITH DIFF eo # 0.3 K/mm3 (0.0-0 .4) Not Available [facility] (Centralized Electronic Ordering - All Locations) Patient Can Go To The Location Of Their Choice, [id number] 10/08/2023 20:04:10 10/08/2010/08/2023 COMPL ETE CBC WITH [...] Go To The Location Of Their Choice, [id number] 10/08/2023 21:29:34 10/08/20 23 10/08/2023 BASIC METAB OLIC PANEL anion gap 7 (4-17) Not Available [facility] (Centralized Electronic Ordering - All Locations) Patient Can Go To The Location Of Their Choice, [id number] 10/08/2023 21:29:34 10/08/20 23 10/08/2023 BASIC METAB OLIC PANEL calcium 9.4 mg/dL (8.6-1 0.5) Not Available [facility] ([facility] Electronic Ordering - All Locations) Patient Can Go To The Location Of Their Choice, [id number] 10/08/2023 21:29:34 10/08/20 23 10/08/2023 BASIC METAB [...] Go To The Location Of Their Choice, [id number] 10/08/2023 21:29:34 01/24/20 24 01/24/2024 COMP. METAB OLIC PANEL (14) glucose 102 mg/dL 70-99 above high normal Not Available [facility] ([facility]) [address], [place], [address], 01/25/2024 12:06:17 01/24/20 24 01/24/2024 COMP. METAB OLIC PANEL (14) BUN 10 mg/dL 8-27 Not Available [facility] ([facility]) [address] [place], [address], 01/25/2024 12:06:17 01/24/20 24 01/24/2024 COMP. METAB OLIC PANEL (14) creatinine 0.89 mg/dL 0.76-1 .27 Not Available [facility] ([facility]) [address] [place], [address], 01/25/2024 12:06:17 01/24/20 24 01/24/2024 COMP. METAB OLIC PANEL (14) eGFR 95 mL/mi n/1.7 3 >59 Not Available [facility] ([facility]) [address], [place], [address], 01/25/2024 12:06:17 01/24/20 24 01/24/2024 COMP. METAB OLIC PANEL (14) BUN/creatini ne ratio 11 10-24 Not Available [facility] ([facility]) [address] [facility] [place], [address], 01/25/2024 12:06:17 01/24/20 24 01/24/2024 COMP. METAB OLIC PANEL (14) sodium 137 mmol/ L 134-14 4 Not Available [facility] ([facility]) [address] [facility] [place], [address], 01/25/2024 12:06:17 01/24/20 24 01/24/2024 COMP. METAB OLIC PANEL (14) potassium 4.8 mmol/ L 3.5-5. 2 Not Available [facility] ([facility]) [address] [facility] [place], [address], 01/25/2024 12:06:17 01/24/20 24 01/24/2024 COMP. METAB OLIC PANEL (14) chloride 101 mmol/ L 96-106 Not Available [facility] ([facility]) [address] [facility], [place], [address], 01/25/2024 12:06:17 01/24/20 24 01/24/2024 COMP. METAB OLIC PANEL (14) anion gap 12.0 mmol/ L 10.0-1 8.0 Not Available [facility] ([facility]) [address] [facility], [place], [address], 01/25/2024 12:06:17 01/24/20 24 01/24/2024 COMP. METAB OLIC PANEL (14) carbon dioxide, total 24 mmol/ L 20-29 Not Available [facility] ([facility]) [address] [facility] [place], [address], 01/25/2024 12:06:17 01/24/20 24 01/24/2024 COMP. METAB OLIC PANEL (14) calcium 9.2 mg/dL 8.6-10 .2 Not Available [facility] ([facility]) [address] [facility] [place], [address], 01/25/2024 12:06:17 01/24/20 24 01/24/2024 COMP. METAB OLIC PANEL (14) albumin 4.3 g/dL 3.9-4. 9 Not Available [facility] ([facility]) [address] [facility] [place], [address], 01/25/2024 12:06:17 01/24/20 24 01/24/2024 COMP. METAB OLIC PANEL (14) bilirubin, total 0.4 mg/dL 0.0-1. 2 Not Available [facility] ([facility]) [address] [facility] [place], [address], 01/25/2024 12:06:17 01/24/20 24 01/24/2024 COMP. METAB OLIC PANEL (14) alkaline phosphatase 59 IU/L 44-121 Not Available [facility] ([facility]) [address] [place], [address], 01/25/2024 12:06:17 01/24/20 24 01/24/2024 COMP. METAB OLIC PANEL (14) AST (SGOT) 21 IU/L 0-40 Not Available [facility] ([facility]) [address] [place], [address], 01/25/2024 12:06:17 01/24/20 24 01/24/2024 COMP. METAB OLIC PANEL (14) ALT (SGPT) 24 IU/L 0-44 Not Available [facility] ([facility]) [address] [place], [address], 01/25/2024 12:06:17 01/24/20 24 01/25/2024 COMP. METAB OLIC PANEL (14) protein, total 6.3 g/dL 6.0-8. 5 Not Available [facility] ([facility]) [address] [place], [address], 01/25/2024 12:06:17 01/24/20 24 01/25/2024 COMP. METAB OLIC PANEL (14) globulin, total 2.0 g/dL 1.5-4. 5 Not Available [facility] ([facility]) [address] [place], [address], 01/25/2024 12:06:17 01/24/20 24 01/25/2024 COMP. METAB OLIC PANEL (14) A/G ratio 2.2 1.2-2. 2 Not Available [facility] ([facility]) [address] [place], [address], 01/25/2024 12:06:17 01/24/20 24 01/24/2024 CBC, PLATE LET, NO DIFFE RENTI AL WBC 6.7 x10e3 /uL 3.4-10 .8 Not Available [facility] ([facility]) [address] [facility], [place], [address], 01/25/2024 12:06:18 01/24/20 24 01/24/2024 CBC, PLATE LET, NO DIFFE RENTI AL RBC 4.34 x10e6 /uL 4.14-5 .80 Not Available [facility] ([facility]) [address] [facility], [place], [address], 01/25/2024 12:06:18 01/24/20 24 01/24/2024 CBC, PLATE LET, NO DIFFE RENTI AL hemoglobin 13.9 g/dL 13.0-1 7.7 Not Available [facility] ([facility]) [address] [facility], [place], [address], 01/25/2024 12:06:18 01/24/20 24 01/24/2024 CBC, PLATE LET, NO DIFFE RENTI AL hematocrit 41.7 % 37.5-5 1.0 Not Available [facility] ([facility]) [address] [place], [address], 01/25/2024 12:06:18 01/24/20 24 01/24/2024 CBC, PLATE LET, NO DIFFE RENTI AL MCV 96 fL 79-97 Not Available [facility] ([facility]) [address] [place], [address], 01/25/2024 12:06:18 01/24/20 24 01/24/2024 CBC, PLATE LET, NO DIFFE RENTI AL MCH 32.0 pg 26.6-3 3.0 Not Available [facility] ([facility]) [address] [place], [address], 01/25/2024 12:06:18 01/24/20 24 01/24/2024 CBC, PLATE LET, NO DIFFE RENTI AL MCHC 33.3 g/dL 31.5-3 5.7 Not Available [facility] ([facility]) [address] [facility], [place], [address], 01/25/2024 12:06:18 01/24/20 24 01/24/2024 CBC, PLATE LET, NO DIFFE RENTI AL RDW 12.3 % 11.6-1 5.4 Not Available [facility] ([facility]) [address] [facility], [place], [address], 01/25/2024 12:06:18 01/24/20 24 01/24/2024 CBC, PLATE LET, NO DIFFE RENTI AL platelets 339 x10e3 /uL 150-45 0 Not Available [facility] ([facility]) [address] [facility], [place], [address], 01/25/2024 12:06:18 01/24/20 24 01/24/2024 CBC, PLATE LET, NO DIFFE RENTI AL NRBC KILN PUSHER Not Available [facility] ([facility]) [address] [facility], [place], [address], 01/25/2024 12:06:18 01/24/20 24 01/24/2024 LP+NO N-HDL TROY STERO L cholesterol, total 153 mg/dL 100-19 9 Not Available [facility] ([facility]) [address] [place], [address], 01/25/2024 12:06:19 01/24/20 24 01/24/2024 LP+NO N-HDL TROY STERO L triglyceride s 85 mg/dL 0-149 Not Available [facility] ([facility]) [address] [place], [address], 01/25/2024 12:06:19 01/24/20 24 01/24/2024 LP+NO N-HDL TROY STERO L HDL cholesterol 62 mg/dL >39 Not Available [facility] ([facility]) [address] [place], [address], 01/25/2024 12:06:19 01/24/20 24 01/24/2024 LP+NO N-HDL TROY STERO L VLDL cholesterol michael 16 mg/dL 5-40 Not Available [facility] ([facility]) [address] [facility], [place], [address], 01/25/2024 12:06:19 01/24/20 24 01/24/2024 LP+NO N-HDL TROY STERO L LDL chol calc ([facility]) 75 mg/dL 0-99 Not Available [facility] ([facility]) [address] [facility], [place], [address], 01/25/2024 12:06:19 01/24/20 24 01/24/2024 LP+NO N-HDL TROY STERO L non-HDL cholesterol 91 mg/dL 0-129 Not Available [facility] ([facility]) [address] [facility], [place], [address], 01/25/2024 12:06:19 01/24/20 24 01/24/2024 LP+NO N-HDL TROY STERO L comment: KILN PUSHER Not Available [facility] ([facility]) [address] [facility], [place], [address], 01/25/2024 12:06:19 01/24/20 24 01/25/2024 PSA (SERI [...] of nicolás juares . Not Available [facility] ([facility]) [address] [facility], [place], [address], 01/25/2024 12:06:20 01/24/20 24 01/25/2024 PSA (SERI AL MONIT OR) pdf . Not Available [facility] ([facility]) [address] [facility], [place], [address], 01/25/2024 12:06:20 01/24/20 24 01/25/2024 MAGNE SIUM magnesium 2.2 mg/dL 1.6-2. 3 Not Available [facility] ([facility]) [address] [facility], [place], [address], 01/25/2024 12:06:21 06/28/20 24 06/29/2024 CBC WITH DIFFE RENTI AL/PL ATELE T WBC 6.0 x10e3 /uL 3.4-10 .8 normal Not Available [facility] ([facility]) [address] [facility], [place], [address], 06/29/2024 06:09:08 06/28/20 24 06/29/2024 CBC WITH DIFFE RENTI AL/PL ATELE T RBC 4.00 x10e6 /uL 4.14-5 .80 below low normal Not Available [facility] ([facility]) [address] [place], [address], 06/29/2024 06:09:08 06/28/20 24 06/29/2024 CBC WITH DIFFE RENTI AL/PL ATELE T hemoglobin 13.2 g/dL 13.0-1 7.7 normal Not Available [facility] ([facility]) [address] [place], [address], 06/29/2024 06:09:08 06/28/20 24 06/29/2024 CBC WITH DIFFE RENTI AL/PL ATELE T hematocrit 39.0 % 37.5-5 1.0 normal Not Available [facility] ([facility]) [address] [facility], [place], [address], 06/29/2024 06:09:08 06/28/20 24 06/29/2024 CBC WITH DIFFE RENTI AL/PL ATELE T MCV 98 fL 79-97 above high normal Not Available [facility] ([facility]) [address] [facility], [place], [address], 06/29/2024 06:09:08 06/28/20 24 06/29/2024 CBC WITH DIFFE RENTI AL/PL ATELE T MCH 33.0 pg 26.6-3 3.0 normal Not Available [facility] ([facility]) [address] [facility], [place], [address], 06/29/2024 06:09:08 06/28/20 24 06/29/2024 CBC WITH DIFFE RENTI AL/PL ATELE T MCHC 33.8 g/dL 31.5-3 5.7 normal Not Available [facility] ([facility]) [address] [facility], [place], [address], 06/29/2024 06:09:08 06/28/20 24 06/29/2024 CBC WITH DIFFE RENTI AL/PL ATELE T RDW 12.6 % 11.6-1 5.4 Not Available [facility] ([facility]) [address] [place], [address], 06/29/2024 06:09:08 06/28/20 24 06/29/2024 CBC WITH DIFFE RENTI AL/PL ATELE T platelets 285 x10e3 /uL 150-45 0 normal Not Available [facility] ([facility]) [address] [place], [address], 06/29/2024 06:09:08 06/28/20 24 06/29/2024 CBC WITH DIFFE RENTI AL/PL ATELE T neutrophils 58 % not estab. normal Not Available [facility] ([facility]) [address] [facility], [place], [address], 06/29/2024 06:09:08 06/28/20 24 06/29/2024 CBC WITH DIFFE RENTI AL/PL ATELE T lymphs 32 % not estab. normal Not Available [facility] ([facility]) [address] [facility], [place], [address], 06/29/2024 06:09:08 06/28/20 24 06/29/2024 CBC WITH DIFFE RENTI AL/PL ATELE T monocytes 7 % not estab. normal Not Available [facility] ([facility]) [address] [facility], [place], [address], 06/29/2024 06:09:08 06/28/20 24 06/29/2024 CBC WITH DIFFE RENTI AL/PL ATELE T eos 2 % not estab. normal Not Available [facility] ([facility]) [address] [facility], [place], [address], 06/29/2024 06:09:08 06/28/20 24 06/29/2024 CBC WITH DIFFE RENTI AL/PL ATELE T basos 1 % not estab. normal Not Available [facility] ([facility]) [address] [facility], [place], [address], 06/29/2024 06:09:08 06/28/20 24 06/29/2024 CBC WITH DIFFE RENTI AL/PL ATELE T immature cells KILN PUSHER Not Available [facility] ([facility]) [address] [facility], [place], [address], 06/29/2024 06:09:08 06/28/20 24 06/29/2024 CBC WITH DIFFE RENTI AL/PL ATELE T neutrophils (absolute) 3.5 x10e3 /uL 1.4-7. 0 normal Not Available [facility] ([facility]) [address] [facility], [place], [address], 06/29/2024 06:09:08 06/28/20 24 06/29/2024 CBC WITH DIFFE RENTI AL/PL ATELE T lymphs (absolute) 1.9 x10e3 /uL 0.7-3. 1 normal Not Available [facility] ([facility]) [address] [facility], [place], [address], 06/29/2024 06:09:08 06/28/20 24 06/29/2024 CBC WITH DIFFE RENTI AL/PL ATELE T monocytes(ab solute) 0.4 x10e3 /uL 0.1-0. 9 normal Not Available [facility] ([facility]) [address] [facility], [place], [address], 06/29/2024 06:09:08 06/28/20 24 06/29/2024 CBC WITH DIFFE RENTI AL/PL ATELE T eos (absolute) 0.1 x10e3 /uL 0.0-0. 4 normal Not Available [facility] ([facility]) [address] [facility], [place], [address], 06/29/2024 06:09:08 06/28/20 24 06/29/2024 CBC WITH DIFFE RENTI AL/PL ATELE T baso (absolute) 0.1 x10e3 /uL 0.0-0. 2 normal Not Available [facility] ([facility]) [address] [facility], [place], [address], 06/29/2024 06:09:08 06/28/20 24 06/29/2024 CBC WITH DIFFE RENTI AL/PL ATELE T immature granulocytes 0 % not estab. Not Available [facility] ([facility]) [address] [facility], [place], [address], 06/29/2024 06:09:08 06/28/20 24 06/29/2024 CBC WITH DIFFE RENTI AL/PL ATELE T immature grans (abs) 0.0 x10e3 /uL 0.0-0. 1 Not Available [facility] ([facility]) [address] [facility], [place], [address], 06/29/2024 06:09:08 06/28/20 24 06/29/2024 CBC WITH DIFFE RENTI AL/PL ATELE T NRBC KILN PUSHER Not Available [facility] ([facility]) [address] [facility], [place], [address], 06/29/2024 06:09:08 06/28/20 24 06/29/2024 CBC WITH DIFFE RENTI AL/PL ATELE T hematology comments: KILN PUSHER Not Available [facility] ([facility]) [address] [facility], [place], [address], 06/29/2024 06:09:08 06/28/20 24 06/29/2024 COMP. METAB OLIC PANEL (14) glucose 101 mg/dL 70-99 above high normal Not Available [facility] ([facility]) [address] [facility], [place], [address], 06/29/2024 06:09:09 06/28/20 24 06/29/2024 COMP. METAB OLIC PANEL (14) BUN 8 mg/dL 8-27 normal Not Available [facility] ([facility]) [address] [facility], [place], [address], 06/29/2024 06:09:09 06/28/20 24 06/29/2024 COMP. METAB OLIC PANEL (14) creatinine 0.85 mg/dL 0.76-1 .27 normal Not Available [facility] ([facility]) [address] [facility], [place], [address], 06/29/2024 06:09:09 06/28/20 24 06/29/2024 COMP. METAB OLIC PANEL (14) eGFR 96 mL/mi n/1.7 3 >59 normal Not Available [facility] ([facility]) [address] [place], [address], 06/29/2024 06:09:09 06/28/20 24 06/29/2024 COMP. METAB OLIC PANEL (14) BUN/creatini ne ratio 9 10-24 below low normal Not Available [facility] ([facility]) [address] [place], [address], 06/29/2024 06:09:09 06/28/20 24 06/29/2024 COMP. METAB OLIC PANEL (14) sodium 136 mmol/ L 134-14 4 normal Not Available [facility] ([facility]) [address] [place], [address], 06/29/2024 06:09:09 06/28/20 24 06/29/2024 COMP. METAB OLIC PANEL (14) potassium 4.6 mmol/ L 3.5-5. 2 normal Not Available [facility] ([place] [facility]) [address] [place], [address], 06/29/2024 06:09:09 06/28/20 24 06/29/2024 COMP. METAB OLIC PANEL (14) chloride 100 mmol/ L 96-106 normal Not Available [facility] ([facility]) [address] [facility] [place], [address], 06/29/2024 06:09:09 06/28/20 24 06/29/2024 COMP. METAB OLIC PANEL (14) carbon dioxide, total 21 mmol/ L 20-29 normal Not Available [facility] ([facility]) [address] [facility] [place], [address], 06/29/2024 06:09:09 06/28/20 24 06/29/2024 COMP. METAB OLIC PANEL (14) calcium 9.1 mg/dL 8.6-10 .2 normal Not Available [facility] ([facility]) [address] [facility] [place], [address], 06/29/2024 06:09:09 06/28/20 24 06/29/2024 COMP. METAB OLIC PANEL (14) protein, total 6.5 g/dL 6.0-8. 5 normal Not Available [facility] ([facility]) [address] [place], [address], 06/29/2024 06:09:09 06/28/20 24 06/29/2024 COMP. METAB OLIC PANEL (14) albumin 4.3 g/dL 3.9-4. 9 normal Not Available [facility] ([facility]) [address] [place], [address], 06/29/2024 06:09:09 06/28/20 24 06/29/2024 COMP. METAB OLIC PANEL (14) globulin, total 2.2 g/dL 1.5-4. 5 Not Available [facility] ([facility]) [address] [place], [address], 06/29/2024 06:09:09 06/28/20 24 06/29/2024 COMP. METAB OLIC PANEL (14) bilirubin, total 0.7 mg/dL 0.0-1. 2 normal Not Available [facility] ([facility]) [address] [place], [address], 06/29/2024 06:09:09 06/28/20 24 06/29/2024 COMP. METAB OLIC PANEL (14) alkaline phosphatase 62 IU/L 44-121 normal Not Available [facility] ([facility]) [address] [place], [address], 06/29/2024 06:09:09 06/28/20 24 06/29/2024 COMP. METAB OLIC PANEL (14) AST (SGOT) 26 IU/L 0-40 normal Not Available [facility] ([facility]) [address] [place], [address], 06/29/2024 06:09:09 06/28/20 24 06/29/2024 COMP. METAB OLIC PANEL (14) ALT (SGPT) 20 IU/L 0-44 normal Not Available [facility] ([facility]) [address] [facility], [place], [address], 06/29/2024 06:09:09 12/27/19 25 12/26/2024 cerum en remov al (PROC ) done by Kei de jesus with lavage and curett e Not Available In-Office Order Internal Use Only DO Not Attach Compendium DO Not Attach Compendium, Do Not Delete/merge, [id number] 12/26/2024 16:19:08 10/08/20 23 10/08/2023 elect rocar diogr am No observ ation record ed. [email or web address] In-Office Order Internal Use Only DO Not Attach Compendium DO Not Attach Compendium, Do Not Delete/merge, [id number] 10/08/2023 13:27:48 10/08/20 elect rocar diogr am No observ ation record ed. BONY In-Office Order Internal Use Only DO Not Attach Compendium DO Not Attach Compendium, Do Not Delete/merge, [id number] 10/11/2023 16:04:34 11/22/19 24 11/19/2023 US, duple x, arter ial, lower extre mity, compl ete No observ ation record ed. [facility] [address] [address], [place], [address], 11/22/2023 09:53:03 04/19/20 24 04/18/2024 duple x scan of extre mity veins inclu ding respo nses to compr essio n and other maneu vers; compl ete bilat eral study (PROC ) No observ ation record ed. [facility] [address] [address], [place], [address], 04/20/2024 07:39:15 06/21/20 24 05/15/2024 CT, angio [...] DO Not Attach Compendium, Do Not Delete/merge, [id number] 06/28/2024 11:48:52 06/28/20 elect rocar diogr am No observ ation record ed. [email or web address] In-Office Order Internal Use Only DO Not Attach Compendium DO Not Attach Compendium, Do Not Delete/merge, [id number] 06/28/2024 11:48:52 Result Notes None recorded. Problems Name Problem SNOMED Code Status Onset Date Resolution Date Notes Provider Name and Address Organization Details Recorded Time Snoring symptoms 164742858 Active 2016 Had sleep study and no GISEL Festus flores [facility] 0 14:41:05 Asthma 002063859 Active 2016 Festus flores [facility] 0 14:41:05 Insomnia 895178275 Active 2016 Festus flores [facility] 0 14:41:05 [facility] l hyperten america 23075534 Active 2017 Not yet on meds. Being followed by renal. Festus flores [facility] 0 14:41:05 Eustachi an tube disorder 65982365 Active 2017 Festus flores [facility] 0 14:41:05 Allergic rhinitis 40683550 Active 2017 Festus Valentepallavi mark, [facility] 0 14:41:05 Heart murmur 37291543 Active 2018 Festus flores, [facility] 0 14:41:05 Primary erectile dysfunct ion 280781069 Active 2018 Festus flores, [facility] 0 14:41:05 Arthriti s of left knee 27942393855 06899 Active 2017 Had replacem ent done 09/28/19. Has pain and followed by [facility] and getting injectio ns. Lala newton MD [address], [place], [address], [facility] 4 11:55:43 Surgical follow-u p [id number] Completed 201809/22/2020 Lala newton MD [address], [place], [address], [facility] 0 08:30:33 Arthriti s of left wrist 78935600517 33819 Active 2019 Had trauma in the past. Followed by Hand Surgery Lala newton MD [address], [place], [address], [facility] 0 08:31:25 Carpal tunnel syndrome of left wrist 78098335818 9102 Active 2020 Lala newton MD [address], [place], [address], [facility] 1 13:14:06 Neck pain 98258724 Active 2020 Followed by ortho and MRI ordered. Lala newton MD [address], [place], [address], [facility] 1 09:37:45 Hyperlip idemia 46900066 Active 2021 Lala newton MD [address] [facility] [address], [place], [address], [facility] 2 13:30:11 History of SARS-CoV -2 67370247729 5257145 Active 2021 Lala newton MD [address], [place], [address], [facility] 3 15:15:44 Anemia 481544819 Active 2022 Lala newton MD [address] [facility] [address], [place], [address], [facility] 3 09:04:59 Basal cell carcinom a of skin 071081242 Active 2018 MOHs procedur e done at [facility]. Lala newton MD [address], [place], [address], [facility] 3 19:35:38 Pain of right wrist 92627805423 9100 Active 2022 Seen by ortho; probable CTS. Lala newton MD [address] [facility] [address], [place], [address], [facility] 3 16:46:36 Carpal tunnel syndrome of right wrist 95399159473 9108 Active 2022 seen by hand surgery Lala newton MD [address], [place], [address], [facility] 3 07:53:18 Peripher al venous insuffic iency 52420455 Active 2023 Treated with compress ion stocking s and lifestyl e changes. Seen by Vascular surgery and will be looking into thermal ablation /sclerto therapy. Lala newton MD [address], [place], [address], [facility] 4 12:56:55 Arthriti s of right knee 93450610962 60065 Active 2023 Followed by [facility] and currentl y being treated with injectio ns. Getting euflexa injectio ns from [facility]. Lala newton MD [address] [facility] [address], [place], [address], [facility] 4 17:46:22 Intermit tent claudica tion 94292929 Active 2023 Bilatera l endarter ectomy done by Dr Puente 07/11/24 Lala newton MD [address] [facility] [address], [place], [address], [facility] 4 13:36:14 Problem Notes None recorded. Procedures Surgical History Date Name Laterality Status Provider Name and Address Organization Details Recorded Time 07/11/20 24 endarterectomy completed Lala Palomo MD [address] [address], [place], [address], [facility] 10/11/2024 07:49:41 10/11/20 23 Carpal tunnel surgery completed Jade Jeffrey [facility] 11/09/2023 14:25:25 07/13/20 22 Colonoscopy completed Sujey Navarro [facility] 07/31/2022 16:54:25 02/28/20 21 Carpal tunnel surgery completed Lala Palomo MD [address] [address], [place], [address], [facility] 12/15/2022 15:19:58 09/28/20 19 total knee replacement completed Coby Kruse [facility] 09/29/2019 16:10:56 11/29/19 19 mohs surgery completed Lala Palomo MD [address] [facility] [address], [place], [address], [facility] 08/07/2020 16:28:26 10/25/19 16 Shoulder joint surgery completed Lala Palomo MD [address] [facility] [address], [place], [address], [facility] 08/07/2020 16:28:48 03/25/20 12 Meniscal trnspl knee w/scpe completed Festus Ambrosiopallavi [facility] 07/08/2017 13:16:50 10/25/18 95 Iliac bone graft microvasc completed Festusjessica Mays [facility] 07/08/2017 13:15:14 10/25/18 65 Tonsillectomy completed Festus [facility] 07/08/2017 13:16:07 Imaging Results Imaging Date Name Status LastModified by Organization Details LastModified Time 10/08/2023 electrocardiogram completed [email or web address] In-Offi ce Order Internal Use Only DO Not Attach Compendium DO Not Attach Compendium, Do Not Delete/merge, [id number] 10/08/2023 13:27:48 10/08/2023 electrocardiogram completed BONY In-Offi ce Order Internal Use Only DO Not Attach Compendium DO Not Attach Compendium, Do Not Delete/merge, [id number] 10/11/2023 16:04:34 11/19/2023 US, duplex, arterial, lower extremity, complete completed [facility] [address] [facility] [address], [place], [address], 11/22/2023 09:53:03 04/18/2024 duplex scan of extremity veins including responses to compression and other maneuvers; complete bilateral study (PROC) completed [facility] [address] [facility] [address], [place], [address], 04/20/2024 07:39:15 05/15/2024 CT, angiogram, abdomen, w/ contrast completed [facility] Information not available 06/21/2024 17:49:28 04/11/2024 US, duplex, venous, lower extremity [email or web address] not available 06/21/2024 17:49:29 04/03/2024 pulse volume recording (PROC) completed Information not available 06/21/2024 17:47:18 06/28/2024 electrocardiogram completed [email or web address] In-Offi ce Order Internal Use Only DO Not Attach Compendium DO Not Attach Compendium, Do Not Delete/merge, [id number] 06/28/2024 11:48:52 06/28/2024 electrocardiogram completed [email or web address] In-Offi ce Order Internal Use Only DO Not Attach Compendium DO Not Attach Compendium, Do Not Delete/merge, [id number] 06/28/2024 11:48:52 Procedure Notes None recorded. Medical [...] Updated DateTime 3 177.8 cm 27.4 kg/m2 03482.8 4 g 57 /min 96 % 96 % 98.8 [degF] 114 mm[Hg] 72 mm[Hg] Jessica Schultz LPN [facility] 3 13:05:00 Date Recorded Body height Body mass index (BMI) Body weight Heart rate Oxygen saturation Oxygen saturation in Arterial blood by Pulse oximetry Body temperature Systolic blood pressure Diastolic blood pressure Provider Name and Address Organization Details Last Updated DateTime 4 177.8 cm 27.8 kg/m2 25310.9 2 g 64 /min 97 % 97 % 98.3 [degF] 127 mm[Hg] 73 mm[Hg] Kita berger MA [facility] 4 15:34:17 Date Recorded Body height Body mass index (BMI) Body weight Heart rate Oxygen saturation Oxygen saturation in Arterial blood by Pulse oximetry Body temperature Systolic blood pressure Diastolic blood pressure Provider Name and Address Organization Details Last Updated DateTime 4 177.8 cm 28.4 kg/m2 94556.2 9 g 71 /min 97 % 97 % 98.1 [degF] 115 mm[Hg] 75 mm[Hg] Emilia Vargas [facility] 4 15:48:00 Date Recorded Body height Body mass index (BMI) Body weight Heart rate Oxygen saturation Oxygen saturation in Arterial blood by Pulse oximetry Body temperature Systolic blood pressure Diastolic blood pressure Provider Name and Address Organization Details Last Updated DateTime 4 177.8 cm 27.8 kg/m2 60748.9 2 g 69 /min 96 % 96 % 97.9 [degF] 97 mm[Hg] 58 mm[Hg] Kita berger MA [facility] 4 10:03:43 Date Recorded Systolic blood pressure Diastolic blood pressure Provider Name and Address Organization Details Last Updated DateTime 06/28/2024 104 mm[Hg] 68 mm[Hg] CALI CORTES [address] [address], [place], [address], [facility] 06/28/2024 10:23:19 Date Recorded Body height Body mass index (BMI) Body weight Heart rate Oxygen saturation Oxygen saturation in Arterial blood by Pulse oximetry Body temperature Systolic blood pressure Diastolic blood pressure Provider Name and Address Organization Details Last Updated DateTime 5 177.8 cm 26.4 kg/m2 11705 g 69 /min 99 % 99 % 98.2 [degF] 137 mm[Hg] 81 mm[Hg] Emilia Vargas MA [facility] 15:52:50 Social History Question Answer Notes LastModified by Organizat ion Details LastModified Time Tobacco Smoking Status Former Smoker [facility]uit 2006 at 46 years of age [facility] 12/26/2024 15:52:40 Do You Have An Advance Directive? Yes [email or web address] Information not available 12/08/2021 What Is Your Level Of Alcohol Consumption? Moderate 2-3 Servings Daily Information not available 12/21/2023 Is Blood Transfusion Acceptable In An Emergency? Yes [employer] Information not available 07/08/2017 What Is Your Level Of Caffeine Consumption? Moderate 1 Cup Of Coffee Daily Information not available 12/08/2021 How Much Tobacco Do You Chew? None Information not available 07/08/2017 Are You Currently Employed? Yes [employer] Information not available 07/08/2017 What Type Of Diet Are You Following? REGULAR [email or web address] Information not available 07/08/2017 Which Illicit Or Recreational Drugs Have You Used? Marijuana Information not available 07/08/2017 Do You Or Have You Ever Used E-cigarettes Or Vape? 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 11-15yearssin celastciamy aldridge Information not available 06/20/2024 Do You Take Precautions To Prevent Distracted Driving? Yes [employer] Information not available 07/08/2017 How Often Do You Need To Have Someone Help You When You Read Instructions, Pamphlets, Or Other Written Material From Your Doctor Or Pharmacy? Never [employer] Information not available 07/08/2017 Have You Served In The ? No Information not available 07/08/2017 Have You Or Anyone In Your Household Had Any Of The Following Symptoms In The Last 14 Days: Sore Throat, Cough, Chills, Body Aches For Unknown Reasons, Shortness Of Breath For Unknown Reasons, Loss Of Smell, Loss Of Taste, Fever At Or Greater Than 100 Degrees Fahrenheit? No Information not available 08/07/2020 Are You Or Anyone In Your Household A Health Care Provider Or Emergency Responder? No Information not available 08/07/2020 To The Best Of Your Knowledge Have You Been In Close Proximity To Any Individual Who Tested Positive For COVID-19? No [email or web address] Information not available 08/07/2020 Have You Recently Traveled To A COVID-19 High Risk Area Or Gathering In The Last 10 Days? No [email or web address] Information not available 02/04/2021 What Was The [...] Mother History of malignant lymphoma 91 born 1932 Not available 06/20/2024 15:44:02 Sister Graves' disease #2 Not available 2023 15:44:02 Sister Multiple sclerosis #1 [email or web address] Not available 07/25 16:24:31 Medical History Condition Response Varicose Veins Y Arthritis Y Head Injury/Concussion Y Cancer Y Asthma Y Allergies Y Hypertension Y Chicken Pox Y Immunizations Vaccine Type Date Status Note Provider Name and Address Organization Details Recorded Time COVID-19, mRNA, LNP-S, PF, 30 mcg/0.3 mL dose 021 completed RAFFY Manzanares [facility] 10/15/2021 14:26:29 COVID-19, mRNA, LNP-S, PF, 30 mcg/0.3 mL dose 021 completed RAFFY Manzanares, [facility] 10/15/2021 14:26:29 Hep A, adult completed RAFFY Duarte, [facility] 03/24/2022 13:29:12 COVID-19, mRNA, LNP-S, PF, 30 mcg/0.3 mL dose completed RAFFY Manzanares [facility] 10/15/2021 14:26:29 MMR 021 completed RAFFY Manzanares, [facility] 10/15/2021 14:26:29 zoster recombinant 020 [facility] 14:26:29 Hep A-Hep B 021 [facility] 10/15/2021 14:26:30 Influenza, split virus, quadrivalent, PF 021 [facility]/15[facility]2021 14:26:30 zoster recombinant 020 completed [facility] 10/15/2021 14:26:30 typhoid, ViCPs completed [facility] 10/15/2021 14:26:30 COVID-19, mRNA, LNP-S, PF, 100 mcg/0.5mL dose or 50 mcg/0.25mL dose 022 completed [facility] 03/24/2022 13:29:12 Influenza, MDCK, quadrivalent, PF 022 completed [facility] 06/15/2023 15:05:13 COVID-19, mRNA, LNP-S, bivalent, PF, 50 mcg/0.5 mL or 25mcg/0.25 mL dose 022 completed RAFFY Manzanares, [facility] 06/15/2023 15:05:13 Influenza, MDCK, quadrivalent, PF 023 completed RAFFY Aguilar, [facility] 12/21/2023 15:34:31 COVID-19, mRNA, LNP-S, PF, 50 mcg/0.5 mL 023 completed KitaRAFFY Angeles, [facility] 12/21/2023 15:34:31 Influenza, high-dose, trivalent, PF 024 completed RAFFY Aguilar, [facility] 06/28/2024 10:04:07 Pneumococcal conjugate PCV21, polysaccharide MLH236 conjugate, PF 025 completed Jade Jeffrey mark [facility] 01/03/2025 12:05:54 Tdap 017 completed Not Available [facility] 11/11/2019 02:21:46 Influenza, split virus, quadrivalent, PF 018 cancelled patient objection Not Available [facility] 11/11/2019 02:22:16 Influenza, split virus, quadrivalent, PF 020 completed Lala Palomo MD [address], [address] 08/07/2020 16:21:07 Past Encounters Encounter ID Performer Location Encounter Start Date Encounter Closed Date Diagnosis/Indication Diagnosis SNOMED-CT Code Diagnosis ICD10 Code Diagnosis Note [id number] Lala Paloom MD Main Office [address] [place] [address] 07/08/2017 12:45:57 07/08/2017 14:17:51 Administration of viral vaccine 38989698 Z23 Asthma 620257795 J45.90 9 Insomnia 649492590 G47.0 0 Adult heal th examination 635068306 Z00.00 We will update his immunizati ons. He had a colonoscop y did in March and is due again in 2021. His last cholestero l was mildly elevated and his 10-risk for cardiac disease was calculated to be 7.1% therefore no meds recommende d. Screening for malignant neoplasm of lung 187863751 Z12.2 [id number] Lala Palomo MD Main Office [address] [place] [address] 08/17/2017 15:39:32 08/17/2017 16:05:39 Multiple joint pain 72600808 M25.50 If his symptoms persist and his w/u is negative he will call her and we will consider a rheum referral. Heart murmur 16914964 R0 1.1 [id number] Lala Palomo MD Main Office [address] [address] [place] [address] 12/17/2017 15:10:36 12/17/2017 15:56:30 Otitis media 39850562 H66.91 right sided, no fb noted in ear canal, no cerumen impaction. Augmentin as directed x full 10 days, hydration, start flonase daily. Posterior rhinorrhea 758 40655 R09.82 Elevated blood-pressure reading without diagnosis of hypertension 295226280 R03.0 [id number] Lala Palomo MD Main Office [address] [address] [place] [address] 01/03/2018 08:58:14 01/03/2018 10:52:08 Elevated blood-pressure reading without diagnosis of hypertension 364543915 R03.0 We will look into 24-hour monitoring before starting meds. [id number] Lala Palomo MD Main Office [address] [address] [place] [address] 01/12/2018 09:20:53 01/12/2018 11:17:59 Upper respiratory infection 63564274 J06.9 Wheezing 26095442 R06.2 continue rescue inhaler every 4-6 hrs. [id number] Lala Palomo MD Main Office [address] [address] [place] [address] 01/27/2018 15:16:25 01/27/2018 15:58:21 Asthma 356239189 J45.909 We will add a controller to his regimen and he will cut back on the use of his rescue inhaler. Insomnia 910269391 G47.0 0 Elevated blood-pressure reading without diagnosis of hypertension 838265380 R03.0 We will look into 24-hour monitoring before starting meds. [id number] Lala Palomo MD Main Office [address] [address] [place] [address] 05/05/2018 12:42:49 05/05/2018 13:33:08 Dysfunction of eustachian tube 06422779 H69.83 [id number] Lala Palomo MD Main Office [address] [facility] [address] [place] [address] 07/12/2018 15:37:26 07/12/2018 16:35:58 Adult health examination 255600938 Z00.00 We will update his immunizati ons. He had a colonoscop y in March 2017 and is due again in [address] Grimaldo. His last cholestero l was mildly elevated and his 10-risk for cardiac disease was calculated to be 7.1%. We will recheck today. Dysfunctio n of eustachian tube 67978795 H69.83 Followed by ENT Needs infl uenza immunization 371875225 Z23 Essential hypertension 64363173 I10 Stable on meds; continue current mgmt Insomnia 262744730 G47.0 0 [id number] Lala Palomo MD Main Office [address] [facility] [address] [place] [address] 07/26/2018 08:50:37 07/26/2018 09:37:43 Herpes zoster with complication 99786982 B02.8 Paronychia of finger 444 295378 L03.011 Advised to soak in warm water and continue abx and make a hand surgery appointmen t if not improving [id number] Bri Burroughs Main Office [address] [facility] [address] [place] [address] 11/17/2018 13:38:59 11/17/2018 14:34:03 Pre-surgery evaluation 954205462 Z01.818 Insomnia 594684371 G47.0 0 Basal cell carcinoma of skin 780422847 C44.91 Essential hypertension 26873501 I10 Stable on meds; continue current mgmt [id number] Lala Palomo MD Main Office [address] [facility] [address] [place] [address] 02/07/2019 10:14:24 02/07/2019 11:01:17 Essential hypertension 29320267 I10 Stable on meds; continue current mgmt Insomnia 835431809 G47.0 0 Osteoarthr itis of left knee joint 4779402607 82323 M17.12 Scheduled for TKR February [address] Pereyra Primary er ectile dysfunction 667549862 N52.9 Systolic murmur 61066687 R01.1 [id number] Lala Palomo MD Main Office [address] [address] [place] [address] 03/27/2019 10:41:43 03/27/2019 11:13:19 Heart murmur 44731593 R01.1 Normal ECHO. No further w/u needed. [id number] Lala Palomo MD Main Office [address] [address] [place] [address] 08/01/2019 15:39:14 08/01/2019 16:25:39 Adult health examination 914476281 Z00.00 UTD with immunizati ons. He had a colonoscop y in March 2017 and is due again in [address] Grimaldo. Essential hypertension 36273238 I10 Stable on meds; continue current mgmt Insomnia 096423934 G47.0 0 Primary er ectile dysfunction 366319224 N52.9 Uses sildenafil prn [id number] Lala Palomo MD Main Office [address] [address] [place] [address] 02/22/2020 13:06:12 02/23/2020 13:07:41 Essential hypertension 57329740 I10 Stable on meds; continue current mgmt. We will take over the prescribin g from renal. Asthma 211031340 J45.90 9 Doing well with the controller med. Will refill the rescue inhaler. Insomnia 595853171 G47.0 0 Stable with current mgmt. Allergic rhinitis 470308 04 J30.9 Doing well with current meds. [id number] Patricia Hogan PA-C [facility] [address] [address] [place] [address] 04/29/2020 09:01:21 04/29/2020 13:50:54 Injury of foot 212973445 S99.921A xray to r/o fracture. Elevated foot and ice every 3 hrs for 20 minutes and take OTC pain meds. [id number] Bri Burroughs Main Office [address] [address] [place] [address] 08/07/2020 15:35:15 08/07/2020 16:51:28 Adult health examination 856705868 Z00.00 Due for a flu shot. He had a colonoscop y in March 2017 and is due again in [address] Grimaldo. His father had prostate cancer. Needs infl uenza immunization 178848242 Z23 Allergic rhinitis 507820 04 J30.9 Doing well with current meds. Essential hypertension 84184054 I10 Stable on meds; continue current mgmt. Pain of left wrist 55614 87563 15101 M25.532 [id number] Suni Adametimothy Main Office [address] [address] 09/25/2020 09:41:51 09/25/2020 11:49:58 Insect bite to leg - nonvenomous 561474311 S80.861A bite right leg, will do 1 day tx for lyme and followup with test in a few weeks, call if any joint pain, fevers or rashes. [id number] Lala Palomo MD Main Office [address] [address] 02/04/2021 15:14:38 02/04/2021 16:00:51 Essential hypertension 74864144 I10 Stable on meds; continue current mgmt. Primary er ectile dysfunction 897715579 N52.9 Uses sildenafil prn Allergic rhinitis 806684 04 J30.9 Doing well with current meds. Carpal jessica christian syndrome of left wrist 5383601311 26581 G56.02 He is scheduled for surgery. Asthma 691820567 J45.90 9 Doing well with the controller med. Insomnia 199658457 G47.0 0 Stable with current mgmt. [id number] Lala Palomo MD Main Office [address] [address] 12/08/2021 13:19:05 12/08/2021 14:29:30 Adult health examination [id number] Z00.00 He is UTD with COVID vaccines and booster and we have a record of this. He also states that he had a flu vaccine at the same time and we will check on this. He had a colonoscop y in March 2017 and is due again in this year by Dr Grimaldo. His father had prostate cancer. Asthma [id number] J45.90 9 Doing well with the controller med and rarely uses his rescue inhaler. Essential hypertension 51844507 I10 Stable on meds; continue current mgmt. Insomnia 761568372 G47.0 0 Stable with current mgmt. Primary er ectile dysfunction 845598197 N52.9 Uses sildenafil prn Intermitte nt claudication 84623531 I73.9 Possible dx given his symptoms. We will refer to vascular for further evaluation . Nocturia 213728385 R35.1 Dad had a h/o prostate cancer. Screening for malignant neoplasm of colon 906753710 Z12.11 [id number] Devan Hogan PA-C Telehealt h 3640 [facility] [address] [facility] [place] [address] 03/24/2022 10:40:47 03/24/2022 15:34:35 Insect bite, nonvenomous, of thigh 435011304 S70.362A low suspicion for lyme since no tick embedded/r emoved, bites noticed ~ 24 hours later (not embedded 36-48 hours) -- reassured likely a spider bite, apply triple abx ointment 1-2x/day until healed, and pt requests check lyme titer next month which is not fully unreasonab le to give pt peace of mind [id number] Bri Burroughs Main Office 3640 [facility] 207 [facility] [place] [address] 12/15/2022 14:22:44 12/15/2022 15:52:01 Adult health examination 706480164 Z00.00 He is UTD with COVID vaccines and booster and we have a record of this. He also states that he had a flu vaccine at the same time and we will check on this. He had a colonoscop y in June 2022 and is due again in [address] Grimaldo. His father had prostate cancer. History of SARS-CoV-2 29 [id number] 61505212 Z86.16 Mild symptoms. Did not take paxlovid. Intermitte nt claudication 14536181 I73.9 Has a f/u with vascular. Impacted c erumen of bilateral ears 2188179292 769331 H61.23 Essential hypertension 16238667 I10 Stable on meds; continue current mgmt. Hyperlipidemia 34288405 E78.5 On meds and tolerating them well. His last LDL was not at goal. Asthma 420295619 J45.90 9 Doing well with the controller med and rarely uses his rescue inhaler. He understand s to call if he needs his rescue inhaler more than a few times a week. [id number] Lala Palomo MD Main Office [address] [address] 06/15/2023 14:58:20 06/15/2023 15:44:44 Essential hypertension 11424372 I10 Stable on meds; continue current mgmt. Anemia 212921279 D64.9 Will do further blood work to be sure that this is not getting worse and to characteri ze type of anemia. It is possible that alcohol is playing a role since he has more than 2 drinks a day. [id number] Lala Palomo MD Main Office [address] [address] 10/08/2023 12:53:56 10/08/2023 13:29:15 Essential hypertension 41140540 I10 -on amlodipine 10mg daily and atenolol 50mg daily Asthma 718930896 J45.90 9 well controlled with inhalers Pre-surger y evaluation 932450166 Z01.818 pre-operat torin medical clearance for carpal tunnel release with Dr. Anil Coburn at [facility] on 10/11/2023 -will order CBC, chem 7, PT/INR-no cardiac events in the past 3 months-ekg unremarkab le, mild bradycardi c at 53bpm. RRR, no ST changes. [id number] Lala Palomo MD Main Office [address] [address] 12/21/2023 15:11:52 12/21/2023 16:20:12 Adult health examination 152636394 Z00.00 He is UTD with COVID vaccines and booster and we have a record of this. He also states that he had a flu vaccine at the same time and we will check on this. He had a colonoscop y in June 2022 and is due again in [address] Grimaldo. His father had prostate cancer. Nocturia 326708833 R35.1 Dad had a h/o prostate cancer. Essential hypertension 47594147 I10 Stable on meds; continue current mgmt. Hyperlipidemia 52286771 E78.5 On meds and tolerating them well. His last LDL was not at goal. Primary er ectile dysfunction 947561358 N52.9 Uses sildenafil prn Peripheral venous insufficiency 82867121 I87.2 Seen by =vascular and will be having procedures done. [id number] Lala Palomo MD Main Office 3640 [facility] [address] [place] [address] 06/20/2024 15:40:14 06/20/2024 16:09:01 Essential hypertension 81070088 I10 Stable on meds; continue current mgmt. Hyperlipidemia 93904027 E78.5 On meds and tolerating them well. His last LDL was not at goal. Insomnia 738387839 G47.0 0 Stable with current mgmt. [id number] CALI CORTES Main Office 3640 [facility] [address] [place] [address] 06/28/2024 09:45:42 06/28/2024 10:27:19 Pre-surgery evaluation 208390465 Z01.818 No medical contraindi cations to proposed procedure. Reji Perioperat torin Cardiac Risk was calculated and the risk for perioperat torin LA is 0.2%. May proceed to surgery as planned.-o rdered CMP and CBC w/diff-EKG ; NSR, similar when compared to ekg from 09/2023; no cardiac symptoms Essential hypertension 50068506 I10 -on amlodipine 10mg daily and atenolol 50mg daily Peripheral venous insufficiency 40528839 I87.2 pre-operat torin medical clearance for bilateral common femoral artery endarterec kevin with Dr. Jeffy Puente ( ) on 07/10/2024. [id number] Lala Palomo MD Main Office 3640 [facility] [address] [place] [address] 12/26/2024 15:37:50 12/26/2024 16:45:47 Adult health examination 154921510 Z00.00 He is UTD with COVID vaccines [...] is father had prostate cancer. Essential hypertension 43105410 I10 Stable on meds; usually runs much lower at home. He will reduce his metoprolol from 50 to 25 mg and will stay on this until his next appointmen t. Hyperlipidemia 38494947 E78.5 On meds and tolerating them well. His last LDL was not at goal. Insomnia 576908427 G47.0 0 Stable with current mgmt. Intermitte nt claudication 90103881 I73.9 Resolved since having bilateral bypass done by Dr Puente, vascular June 2024. Nocturia 069798822 R35.1 Dad had a h/o prostate cancer. Primary er ectile dysfunction 816022712 N52.9 Uses sildenafil prn Impacted c erumen in right ear 6825775511 217870 H61.21 Administra tion of pneumococcal vaccine 82531576 Z23 Asthma 963729658 J45.20 Doing well with the controller med [...] Date Sequence Insurance Name Policy Number Policy Hseih Covered Member ID Hsieh Member ID Guarantor Name 10/08/2023 1 [place] [id number] 2 Christopher Pankaj [id number] Christopher Pankaj 12/21/2023 1 [place] [id number] 2 Christopher Pankaj [id number] Christopher Pankaj 06/20/2024 1 [place] [id number] 2 Christopher Pankaj [id number] Christopher Pankaj 06/28/2024 1 [place] [id number] 2 Eren Lira [id number] Eren Lira 12/26/2024 1 [facility] [id number] 2 Eren Lira [id number] Eren Lira Notes Date Note Type Note Provider Name and Address Organization Details Recorded Time 10/08/20 23 text/htm keith Jason is a 63 yr old M with PMHx of HTN, HLD, and asthma presents for pre-operative medical clearance for carpal tunnel release with Dr. Anil Coburn at [facility] on 10/11/2023. Under local anesthesia. Denies any [...] chills, and nausea/vomiting. Lala Palomo MD [address], [address], [facility] [place] 10/10/2023 14:24:18 12/21/19 24 text/htm l Generic HPI TemplateReported bypatient.Notes:UTD with immunizations including COVID with most recent booster, flu, tetanus, and shingles.Colonoscopy done by Dr Grimaldo in June 2022 with a 3-year call back. Lala Palomo MD [address], [address], [facility] [place] 12/22/2023 07:56:32 06/20/20 24 text/htm l HyperlipidemiaReported [...] known sleep apnea Lala Palomo MD [address] [address], [place], [address], [facility] 06/20/2024 17:31:05 06/28/20 24 text/htm keith Jason [...] fever, chills, and nausea/vomiting. CALI CORTES 3640 [facility] [address], [place], [address], [facility] 06/28/2024 12:28:13 12/27/19 25 text/htm l Generic [...] call back. He will call to schedule. Lala Palomo MD [address] [address], [place], [address], [facility] 12/26/2024 18:15:25
--- OUTSIDE RECORDS SUMMARY | 2025-01-04 07:45 | XMS_ITS | Patient Health Record ---
Author Organization [facility] Address [address] [place] [address] Care Team Providers Care Scientific Editor Name Role Phone Murray PEREZ, Mata Primary Care Provider Gerhard Barkley Unavailable [phone] Reason For Referral No Information Medications Medication [...] Treatment Pending Test Test Name Order Date [id number] Destruction, 1-14 05/28/2014 [id number] Destruction, -14 10/29/2014 96011 I&D ABSCESS- SIMPLE,SINGLE 015 Insurance Providers Payer Name Payer Address Payer Phone Subscriber Number Group Number Insured Name Patient Relationship to Insured Coverage Start Date Coverage End Date [employer] [address] [place] [address] [phone] [id number] Eren Lira Self - patient is the insured Medical (General) History Medical History History ICD Code Measles Mumps Chicken pox Broken bones Joint implants/screws Warts Surgical History Surgery Date(Month/Year) left knee meniscus 2012 lipomas illiac bone graft 1991 right rotator cuff 03/2015
--- OUTSIDE RECORDS SUMMARY | 2025-01-04 07:45 | XMS_ITS | Encounter Summary ---
Author Organization [facility] Address [address] [place] [address] Care Team Providers Care Waterproof Coating Machine Tender Name Role Phone Unavailable Primary Care Provider Unavailabl e Encounter Details Date Type Department Care Team (Late st Contact Info) Description 09/17/2023 Scanned Document [facility] Department of Physiatry [place] [address] [place] [address] Kaelyn Salmeron MD [address] [place] [address] Social History Tobacco Use Types Packs/Day Years [...]
--- OUTSIDE RECORDS SUMMARY | 2025-01-04 07:45 | XMS_ITS | Clinical Summary ---
Author Organization [facility] Address [address] [place] [address] Care Team Providers Care Leakage Tester Name Role Phone Niraj Palomo MD Primary Care Provider [phone] Surgical History Surgery Date Site/Laterality Comments KNEE SURGERY PROCEDURE:KNEE SURGERY;COMMENT:left HAND SURGERY PROCEDURE:HAND SURGERY;COMMENT:lt wrist- iliac bone graft LIPOMA RESECTION PROCEDURE:LIPOMA RESECTION COLONOSCOPY PROCEDURE:COLONOSCOPY SHOULDER ARTHROSCOPY W/ ROTATOR CUFF REPAIR 04/10/2015 Right PROCEDURE:SHOULDER ARTHROSCOPY W/ ROTATOR CUFF REPAIR;COMMENT:Procedure: ARTHROSCOPY SHOULDER WITH ROTATOR CUFF REPAIR; Surgeon: Spenser Gaspar MD; Location: [facility]; Service: Orthopedics; Laterality: Right; SHOULDER ARTHROSCOPY 04/10/2015 Right PROCEDURE:SHOULDER ARTHROSCOPY;COMMENT:Procedure : ARTHROSCOPY SHOULDER AC EXCISION; Surgeon: Spenser Gaspar MD; Location: [facility]; Service: Orthopedics; Laterality: Right; OTHER SURGICAL HISTORY Right PROCEDURE:MOHS SURGERY;COMMENT:EYELID TOTAL KNEE ARTHROPLASTY 09/28/2019 Left PROCEDURE:TOTAL KNEE ARTHROPLASTY;COMMENT:Procedur e: REPLACEMENT TOTAL KNEE; Surgeon: Alexi Burrell MD; Location: [facility] Service: Orthopedics; Laterality: [...] this topic Medical Devices Implanted Type Area Commercial Coordinator Device Identifier Shelf Expiration Date Model / Serial / Lot Tibial Bearing Insert - Ps Implanted:Qty: 1 on 09/28/2019 by Alexi Burrell MD Joints Left: Knee [employer] 07/19/2023 / / [id number] Cement Simplex P Radiopaque Full Dose Bone 10 Pack - [id number] Implanted:Qty: 1 on 09/28/2019 by Alexi Burrell MD Left: Knee [employer] 6191-1-010 / / Cement Simplex P Radiopaque Full Dose Bone 10 Pack - [id number] Implanted:Qty: 1 on 09/28/2019 by Alexi Burrell MD Left: Knee [employer] 6191-1-010 / / Component Triathlon 5 Posterior Stabilized Cemented Femoral - [id number] Implanted:Qty: 1 on 09/28/2019 by Alexi Burrell MD Left: Knee [employer] 03/07/2024 5515-F-501 / / [id number] Baseplate Triathlon 6 Primary Cemented Tibial Knee - [id number] Implanted:Qty: 1 on 09/28/2019 by Alexi Burrell MD Left: Knee [employer] 02/28/2024 5520-B-600 / / [id number] Component Triathlon 10mm 35mm Symmetric X3 Ptlar Knee - [id number] Implanted:Qty: 1 on 09/28/2019 by Alexi Burrell MD Left: Knee [employer] 01/10/2024 5551-G-350 / / [id number] Peg Triathlon Modular Fix Distal Femur Knee - [id number] Implanted:Qty: 1 on 09/28/2019 by Alexi Burrell MD Left: Knee [employer] 04/23/2024 5575-X-000 / / [id number] Care Teams Leakage Tester Relationship Specialty Start Date End Date Niraj Palomo MD 3640 [facility] [address] [place], [place] PCP - General Internal Medicine 09/20/19
--- OUTSIDE RECORDS SUMMARY | 2025-01-04 07:45 | XMS_ITS | Encounter Summary ---
Author Organization [facility] Address [address] [place] [address] Care Team Providers Care Virtual Customer Assistant Name Role Phone Unavailable Primary Care Provider Unavailabl e Encounter Details Date Type Department Care Team (Late st Contact Info) Description 10/04/2023 Scanned Document [facility] Department of Physiatry [place] [address] [place] [address] Kaelyn Salmeron MD [address] [place] [address] Social History Tobacco Use Types Packs/Day Years [...]
--- OUTSIDE RECORDS SUMMARY | 2025-01-04 07:45 | XMS_ITS | Continuity of Care Document ---
Author Organization [facility], Main Office Address [address] [facility] [address] [place] [address] Care Team Providers Care Netting Weaver Name Role Phone MATT GRIMALDO Landscaping Manager [facility] Orthopedic Surgeon NIRAJ PALOMO Primary Care Provider ADITYA Long Referring Provider [phone] [facility]IC[facility] Sleep Medicine ABHAY LEDEZMA Orthopedic Surgeon GLORIA PARRA Assembly Room Supervisor OLVIN RYAN Dermatopathologist [phone] VALENTINE BRYAN Social Services Manager [phone] ARTIS PERRY Report Analyst NINA ROJAS Orthopedic Surgeon [phone] CHIKI CARRASQUILLO Referring Provider [phone] KANDIS PINEDA Referring Provider [phone] ANIL COBURN Orthopedic Surgeon [phone] Assessment No assessment recorded. Plan of Treatment Reminders Order Date Submit Date Provider Last Modified By Organization Details Last Modified Time Details Appointments FOLLOW UP 2024 03:45P M Niraj newton MD Not available Not available Not available Lab lipid panel, serum 2024 025 [facility] (Centralized Electronic Ordering - All Locations), Patient Can Go To The Location Of Their Choice, [id number] 12/26/2024 16:12:50 PSA, serum or plasma 2024 025 [facility] (Centralized Electronic Ordering - All Locations), Patient Can Go To The Location Of Their Choice, [id number] 12/26/2024 16:12:49 CMP, serum or plasma 2024 [facility] (Centralized Electronic Ordering - All Locations), Patient Can Go To The Location Of Their Choice, [id number] 12/26/2024 16:12:49 CBC w/ auto diff 2024 [place] [facility] (Centralized Electronic Ordering - All Locations), Patient Can Go To The Location Of Their Choice, 12/26/2024 16:12:49 magnesium , serum or plasma 2024 [place] [facility] (Centralized Electronic Ordering - All Locations), Patient Can Go To The Location Of Their Choice, [id number] 12/26/2024 16:12:49 Referral None recorded. Procedures cerumen removal (PROC) 2024 [place] In-Office Order, Internal Use Only DO Not Attach Compendium DO Not Attach Compendium, Do Not Delete/merge, [id number] 12/26/2024 16:53:41 Surgeries None recorded. Imaging None recorded. Medication Orders sildenafi l 100 mg tablet 2024 [place] [id number], [address], [place], [address], 12/26/2024 16:16:54 Patient TargetsNo targets recorded. Patient Instructions Encounter Date Encounter Id Patient Instructions Last Modified By Organization Details Last Modified Time 12/26/2024 [id number] insomnia: care instructions [email or web address] Not available 12/26/2024 [...] DO Not Attach Compendium, Do Not Delete/merge, [id number] 12/26/2024 16:19:08 Result Notes None recorded. Problems Name Problem SNOMED Code Status Onset Date Resolution Date Notes Provider Name and Address Organization Details Recorded Time Snoring symptoms 932106706 Active 2016 Had sleep study and no GISEL Festus flores [facility] 0 14:41:05 Asthma 597151421 Active 2016 Festus flores [facility] 0 14:41:05 Insomnia 560250944 Active 2016 Festus flores [facility] 0 14:41:05 Essentia l hyperten america 13703854 Active 2017 Not yet on meds. Being followed by renal. Festus flores [facility] 0 14:41:05 Eustachi an tube disorder 06044489 Active 2017 Festus flores [facility] 0 14:41:05 Allergic rhinitis 75341229 Active 2017 Festus flores [facility] 0 14:41:05 Heart murmur 97788266 Active 2018 Festus flores [facility] 0 14:41:05 Primary erectile dysfunct ion 694955889 Active 2018 Festus flores [facility] 0 14:41:05 Arthriti s of left knee 28767467197 88324 Active 2017 Had replacem ent done 09/28/19. Has pain and followed by [facility] and getting injectio ns. Niraj newton MD [address] [facility] [address], [place], [address], [facility] 4 11:55:43 Surgical follow-u p [id number] Completed 201809/22/2020 Niraj newton MD [address], [place], [address], [facility] 0 08:30:33 Arthriti s of left wrist 67253542003 32335 Active 2019 Had trauma in the past. Followed by Hand Surgery Niraj newton MD [address] [facility] [address], [place], [address], [facility] 0 08:31:25 Carpal tunnel syndrome of left wrist 33314989587 9102 Active 2020 Niraj newton MD [address] [facility] [address], [place], [address], [facility] 1 13:14:06 Neck pain 58119554 Active 2020 Followed by ortho and MRI ordered. Niraj newton MD [address], [place], [address], [facility] 1 09:37:45 Hyperlip idemia 41731372 Active 2021 Niraj newton MD [address], [place], [address], [facility] 2 13:30:11 History of SARS-CoV -2 56574821091 9975046 Active 2021 Niraj newton MD [address], [place], [address], [facility] 3 15:15:44 Anemia 515911062 Active 2022 Niraj newton MD [address], [place], [address], [facility] 3 09:04:59 Basal cell carcinom a of skin 911125918 Active 2018 MOHs procedur e done at [facility]. Niraj newton MD [address] [facility] [address], [place], [address], [facility] 3 19:35:38 Pain of right wrist 30724965611 9100 Active 2022 Seen by ortho; probable CTS. Niraj newton MD [address] [facility] [address], [place], [address], [facility] 3 16:46:36 Carpal tunnel syndrome of right wrist 93743861110 9108 Active 2022 seen by hand surgery Niraj newton MD [address] [facility] [address], [place], [address], [facility] 3 07:53:18 Peripher al venous insuffic iency 56130410 Active 2023 Treated with compress ion stocking s and lifestyl e changes. Seen by Vascular surgery and will be looking into thermal ablation /sclerto therapy. Niraj newton MD [address] [facility] [address], [place], [address], [facility] 4 12:56:55 Arthriti s of right knee 55629246941 16873 Active 2023 Followed by REBECCA and currentl y being treated with injectio ns. Getting euflexa injectio ns from [facility]. Niraj newton MD [address] [facility] [address], [place], [address], [facility] 4 17:46:22 Intermit tent claudica tion 24817255 Active 2023 Bilatera l endarter ectomy done by Dr Puente 07/11/24 Niraj newton MD [address] [address], [place], [address], [facility] 4 13:36:14 Problem Notes None recorded. Procedures Surgical History Date Name Laterality Status Provider Name and Address Organization Details Recorded Time 07/11/20 24 endarterectomy completed Niraj Palomo MD [address] [address], [place], [address], [facility] 10/11/2024 07:49:41 10/11/20 23 Carpal tunnel surgery completed Jade Jeffrey [facility] 11/09/2023 14:25:25 07/13/20 22 Colonoscopy completed Sujey Navarro [facility] 07/31/2022 16:54:25 02/28/20 21 Carpal tunnel surgery completed Niraj Palomo MD [address] [address], [place], [address], [facility] 12/15/2022 15:19:58 09/28/20 19 total knee replacement completed Coby Kruse [facility] 09/29/2019 16:10:56 11/29/19 19 mohs surgery completed Niraj Palomo MD [address] [address], [place], [address], [facility] 08/07/2020 16:28:26 10/25/19 16 Shoulder joint surgery completed Niraj Palomo MD [address] [address], [place], [address], [facility] 08/07/2020 16:28:48 03/25/20 12 Meniscal trnspl knee w/scpe completed Festus Mays [facility] 07/08/2017 13:16:50 10/25/18 95 Iliac bone graft microvasc completed Festus Mays [facility] 07/08/2017 13:15:14 10/25/18 65 Tonsillectomy completed Festus Mays [facility] 07/08/2017 13:16:07 Imaging Results None recorded. 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 11-15yearssin celastcigarjimbo burnett [email or web address] Information not available 06/20/2024 Do You Take Precautions To Prevent Distracted Driving? Yes [employer] Information not available 07/08/2017 How Often Do [...] Or Greater Than 100 Degrees Fahrenheit? No [email or web address] Information not available 08/07/2020 Are You Or Anyone In Your Household A Health Care Provider Or Emergency Responder? No [email or web address] Information not available 08/07/2020 To The Best Of Your Knowledge Have You Been In Close Proximity To Any Individual Who Tested Positive For COVID-19? No [email or web address] Information not available 08/07/2020 Have You Recently Traveled To A COVID-19 High Risk Area Or Gathering In The Last 10 Days? No [email or web address] Information not available 02/04/2021 What Was The Date Of Your Most Recent Tobacco Screening? 06/28/2024 Information not available 06/28/2024 How Many Children Do You Have? 2 Rayna Information not available 12/21/2023 Do You Use Protection During Sex? No [email or web address] Information not available 07/08/2017 Do You Use [...] you able to care for yourself? Yes [email or web address] Information not available 07/08/2017 What is your exercise level? Moderate walking and biking bsCode for Americattos Information not available 12/21/2023 Mental Status None [...] 30 mcg/0.3 mL dose 021 [facility] 14:26:29 COVID-19, mRNA, LNP-S, PF, 30 mcg/0.3 mL dose 021 [facility]15[facility]21 14:26:29 Hep A, adult 021 completed RAFFY Duarte, [facility] 03/24/2022 13:29:12 COVID-19, mRNA, LNP-S, PF, 30 mcg/0.3 mL dose completed RAFFY Manzanares, [facility] 10/15/2021 14:26:29 [facility]MR [facility] 14:26:29 zoster recombinant 020 [facility] 14:26:29 Hep A-Hep B [facility]21 14:26:30 Influenza, split virus, quadrivalent, PF 021 [facility]21 14:26:30 zoster recombinant 020 [facility] 10/15/2021 14:26:30 typhoid, ViCPs 021 completed RAFFY Manzanares, [facility] 10/15/2021 14:26:30 COVID-19, mRNA, LNP-S, PF, 100 mcg/0.5mL dose or 50 mcg/0.25mL dose 022 completed RAFFY Duarte, [facility] 03/24/2022 13:29:12 Influenza, MDCK, quadrivalent, PF 022 [facility] 06/15/2023 15:05:13 COVID-19, mRNA, LNP-S, bivalent, PF, 50 mcg/0.5 mL or 25mcg/0.25 mL dose 022 [facility] 06/15/2023 15:05:13 Influenza, MDCK, quadrivalent, PF 023 [facility] 12/21/2023 15:34:31 COVID-19, mRNA, LNP-S, PF, 50 mcg/0.5 mL 023 [facility] 12/21/2023 15:34:31 Influenza, high-dose, trivalent, PF 024 [facility] 06/28/2024 10:04:07 Pneumococcal conjugate PCV21, polysaccharide [id number] conjugate, PF 025 [facility] 01/03/2025 12:05:54 Tdap 017 completed Not Available [facility] 11/11/2019 02:21:46 Influenza, split virus, quadrivalent, PF 018 cancelled patient objection Not Available [facility] 11/11/2019 02:22:16 Influenza, split virus, quadrivalent, PF 020 completed Niraj Palomo MD [address] [facility] [address], [place], [address], [facility] 08/07/2020 16:21:07 Past Encounters Encounter ID Performer Location Encounter Start Date Encounter Closed Date Diagnosis/Indication Diagnosis SNOMED-CT Code Diagnosis ICD10 Code Diagnosis Note [id number] Niraj Palomo MD Main Office [address] [address] 12/26/2024 15:37:50 12/26/2024 16:45:47 Adult health examination 863161193 Z00.00 He is UTD with COVID vaccines [...] is father had prostate cancer. Essential hypertension 13140773 I10 Stable on meds; usually runs much lower at home. He will reduce his metoprolol from 50 to 25 mg and will stay on this until his next appointmen t. Hyperlipidemia 54451910 E78.5 On meds and tolerating them well. His last LDL was not at goal. Insomnia 824485027 G47.0 0 Stable with current mgmt. Intermitte nt claudication 71548374 I73.9 Resolved since having bilateral bypass done by Dr Puente, vascular June 2024. Nocturia 804461309 R35.1 Dad had a h/o prostate cancer. Primary er ectile dysfunction 030713060 N52.9 Uses sildenafil prn Impacted c erumen in right ear 7203231354 131646 H61.21 Administra tion of pneumococcal vaccine 85713771 Z23 Asthma 671089190 J45.20 Doing well with the controller med [...] Hsieh Member ID Guarantor Name 12/26/2024 1 NATALI: BCBS ([place]) [id number] 2 Eren Lira [id number] Eren Lira Notes Date Note Type [...] will call to schedule. Niraj Palomo MD [address] [address], [place], [address], [facility] 12/26/2024 18:15:25
--- OUTSIDE RECORDS SUMMARY | 2025-01-04 07:45 | XMS_ITS | Data Portability ---
Author Organization [facility] Vladimir Perez AONE [place] Address [address] [place] [address] Care Team Providers Care Business Analysis Professional Name Role Phone LALA PAIGE Primary Care [...] tunnel syndrome 2022 023 BONY Salmeron MD, [address] [place] [address], [address], 11:30:21 Procedures None recorded. Surgeries orthopaedic surgery - other (SURG) 2022 023 [email or web address] Not available 14:29:06 Imaging XR, wrist, 3 or more view 2022 023 [email or web address] [facility], [address], [place], [address], 3 14:16:52 Medication Orders None recorded. Patient [...] Time Carpal tunnel syndrome of right wrist 8960864173938 08 Active 2022 Glen Saunders MD [address], [place], [address], [facility] 3 14:01:50 Post traumatic osteoarthri tis 432560765 Active 2022 NUHA LEROY PA-C [address], [place], [address], [place] [facility] 3 12:04:41 Pain of left wrist 6749846354977 02 Active 2022 NUHA LEROY PA-C [address], [place], [address], [place] [facility] 3 12:05:19 Closed fracture of scaphoid bone of wrist 41084248 Active 2022 Glen Saunders MD [address], [place], [address], [place] [facility] 3 12:56:21 Problem Notes None recorded. Procedures Surgical History Date Name Laterality Status Provider Name and Address Organization Details Recorded Time 03/10/20 23 ARB wrist/elbow cortisone injection completed Renita Donnelly [facility] 03/10/2023 12:15:53 02/23/20 21 arthroscopy of wrist with release of transverse carpal ligament completed Kim Villalobos [facility] 03/09/2023 10:12:12 02/22/20 21 Carpal Tunnel Surgery completed Diego Jordan [facility] 09/15/2023 13:40:02 02/22/20 21 Hand Surgery completed Diego Jordan [facility] 09/15/2023 13:40:02 09/28/20 19 Joint Replacement completed Diego Jordan [facility] 09/15/2023 13:40:02 09/24/20 19 total knee replacement completed Kim Villalobos [facility] 03/09/2023 10:11:54 02/22/20 19 Plastic Surgery completed Diego Jordan [facility] 09/15/2023 13:40:02 10/25/19 19 Cancer Surgery completed Diego Jordan [facility] 09/15/2023 13:40:02 03/26/20 17 Shoulder Surgery completed Diego Jordan [facility] 09/15/2023 13:40:02 04/13/20 12 Arthroscopic Surgery completed Diego Jordan [facility] 09/15/2023 13:40:02 10/25/18 92 Iliac bone graft microvasc completed nikhil Villalobos [facility] 03/09/2023 10:13:35 10/13/19 91 Hand Surgery completed Diego Jordan [facility] 09/15/2023 13:40:02 complete repair of rotator cuff completed nikhil Villalobos [facility] 03/09/2023 10:12:39 Imaging Results None recorded. Procedure Notes None recorded. Medical Equipment None Reported. Allergies Allergen ID Allergen Name Allergen Category Reaction Reaction Severity Criticality Documentation Date Start Date Code Code System Note Provider Name and Address Organization Details Recorded Time 07583 fluticaso ne Not available Not available Not available Not available 09/15/2023 57160 RxNorm Angieingrid Pederson [facility], [facility] 4 14:01:28 89185 Hayfever medicatio n cough eye redness wheezing mild moderate mild Not available 09/15/20231958 58831 UNK Diego Jordan [facility], P 3 13:39:55 Medications Name Sig Start [...] Updated DateTime 09/15/2023 182.88 cm 25.8 kg/m2 78921.[address] [facility] 09/15/2023 13:40:08 Date Recorded Body height Provider Name an d Address Organization Details Last Updated DateTime 10/05/[address]23 182[address] [facility] 10/05/2023 11:34:50 Date Recorded Body height Provider Name an d Address Organization Details Last Updated DateTime 11/03/2023 182.88 cm Angie Pederson [facility] 11/03/2023 14:03:01 Social History Question Answer Notes LastModified by Organizat ion Details LastModified Time Tobacco Smoking Status Former Smoker Kim flores, [place] [facility] 03/09/2023 10:10:38 What Is Your Level Of Alcohol Consumption? Heavy Information not available 03/09/2023 How Many Times Per Week Do You Consume Alcohol? 5-7 Times Per Week [email or web address] Information not available 03/09/2023 Which Illicit Or Recreational Drugs Have You Used? Marijuana aba Information not available 04/06/2023 Do You Use Any Illicit Or Recreational Drugs? Yes [email or web address] Information not available 03/09/2023 Do You Or Have You Ever Used Any Other Forms Of Tobacco Or Nicotine? No [email or web address] Information not available 03/09/2023 Sex: Unknown Functional Status None recorded. Mental Status None recorded. Family History Relationship Description Onset Age of this Age Resolved Age Notes LastModified by Organization Details LastModified Time Mother Arthritis [email or web address] Not availabl e 03/09/2023 10:11:23 Mother Family history of malignant neoplasm Not available 2022 10:11:27 Father Heart disease Not available 2022 10:11:36 Medical History Condition Response Cancer Y Vascular Disease Y Asthma Y Past Encounters Encounter ID Performer Location Encounter Start Date Encounter Closed Date Diagnosis/Indication Diagnosis SNOMED-CT Code Diagnosis ICD10 Code Diagnosis Note [id number] Glen Saunders MD [facility] [address] [place] [address] 03/09/2023 09:12:15 03/09/2023 10:49:25 Pain of left wrist 4554154828 66625 M25.532 Post traum atic osteoarthritis 996115996 M19.132 [id number] MD IBETH [address] [address] 03/10/2023 11:07:14 03/10/2023 12:28:01 Pain of left wrist 7831194897 63255 M25.532 Post traum atic osteoarthritis 811583966 M19.132 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 Closed fra cture of scaphoid bone of wrist 42126783 S62.022K [id number] MD IBETH [address] [address] 04/06/2023 10:08:46 04/06/2023 10:46:50 Post traumatic osteoarthritis 927548846 M19.132 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 Closed fra cture of scaphoid bone of wrist 33434299 S62.022K [id number] [facility] [address] [facility] [address] [place] [address] 09/15/2023 13:28:04 09/15/2023 14:05:54 Pain of right wrist 1906932814 84359 M25.531 Carpal jessica christian syndrome of right wrist 3784478113 88556 G56.01 [id number] [facility] [address] [address] 10/05/2023 11:30:44 10/05/2023 11:52:58 Carpal tunnel syndrome of right wrist 1179384551 16207 G56.01 Post traum atic osteoarthritis 319506631 M19.132 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 Closed fra cture of scaphoid bone of wrist 27290136 S62.022K [id number] Glen Saunders MD [facility] [address] [facility] [address] [place] [address] 10/21/2023 14:30:53 10/21/2023 15:42:57 Postoperative visit 138875386 Z09 [id number] Glen Saunders MD [address] [address] 11/03/2023 13:45:12 11/03/2023 14:08:38 Carpal tunnel syndrome of right wrist 8350230153 82901 G56.01 Health Concerns Section Related Observation LastModified by Organization Detai ls LastModified Time None Recorded Concern Status LastModified by Organization Details LastModified Time None Recorded Advance Directives Directive None Recorded Payers Encounter Date Sequence Insurance Name Policy Number Policy Hsieh Covered Member ID Hsieh Member ID Guarantor Name 04/06/2023 1 [place]IELD [id number] 2 Eren Lira [id number] Eren Lira 09/15/2023 1 [place]ATHAN SHEPARD [id number] 2 Christopher Pankaj [id number] Christopher Pankaj 10/05/2023 1 [place] [id number] 2 Christopher Pankaj [id number] Christopher Pankaj 10/21/2023 1 [place] [id number] 2 Christopher Pankaj [id number] Christopher Pankaj 11/03/2023 1 [place] [id number] 2 Christopher Pankaj [id number] Christopher Pankaj Notes Date Note Type Note Provider Name and Address Organization Details Recorded Time 10/21/2023 text/html Pleasant 63-year-old male presents to the urgent care today for his first postop visit. He was scheduled to see Dr. Saunders in [place] this afternoon but presented to the wrong [...] of breath. TOMASZ SANABRIA PA-C [address], [place], [address], [place] [facility] 10/27/2023 22:06:25
[2025-02-13 10:11] VITALS: BMI 25.5
[2025-02-13 10:16] VITALS: BP 99/54; PULSE 55; RESP 20; O2SAT 96
--- NOTE | 2025-02-13 10:21 | HO.ANESPROP2 ---
Documented by User: Lily Kasper NP 02/19/25 14:53 HPI - Anesthesia Eval Consult details Narrative: 65yo M for Right Knee Arthroscopy with partial medial meniscectomy, 03/05/25 Eval at [facility] - referred to Nephrology for low Na. Significant beer intake, instructed to decrease. [facility] renal eval - euvolemic hyponatremia multifactorial (decrease beer and water intake, transition from trazadone d/t potential for SIADH) - OK to proceed with knee scope with current Na level (130) No recent illness No CP/SOB with work at [employer] Asthma: Stable with rare inhaler use. Albuterol ~ 3 x yearly PMFSH Active Problems Active Problems: All Active Problems Tear of medial meniscus of right knee (Acute) Arthritis of right knee (Acute) Right knee pain (Acute) Past Medical History Medical History Arthritis Snoring Eustachian tube dysfunction Allergic rhinitis Erectile dysfunction Neuropathic pain Carpal tunnel syndrome, bilateral GISEL (obstructive sleep apnea) Hyponatremia Insomnia Asthma HTN (hypertension) Cardiac murmur Dyslipidemia Anemia Basal cell carcinoma Claudication Family History Family history of problems with anesthesia: No Surgical History Surgical History Hx of wisdom tooth extraction Hx of excision of mass History of surgery on left wrist Hx of tonsillectomy H/O colonoscopy History of total left knee replacement Hx of repair of right rotator cuff History of bilateral carpal tunnel release Hx of endarterectomy History of Problems with Anesthesia: No Social History Social History Are you a primary home care consultant to a significant other at home: No Do you presently have visiting nurse or other home services: No Alcohol intake: current Patient Tobacco Use Status: Former Tobacco user Tobacco use type: Cigarette Years Smoked: 16 Use of substances other than those prescribed or required for medical reasons: Yes Substance Use Type: Marijuana Substance Use Type Other:: edibles daily, occasionally smokes Substance Use Frequency: Daily Have you been hit, kicked, punched, or otherwise hurt by someone within the past year? If so, by whom?: No Spiritual Healthcare Practices: no Yarsanism Healthcare Practices: no Cultural Healthcare Practices: no Are you DNR?: No Advance Directives Information Provided: Yes (as above noted) Advance Directives on File: No Poor oral hygiene: No Current occupational status: employed Current occupation: [employer] Meds Allergies Allergy/AdvReac Type Severity Reaction Status Date / Time environmental allergies Allergy Severe Sneezing Verified 02/13/25 11:52 Home Medications ?Medication ?Instructions ?Recorded ?Confirmed ?Last Taken ?Type albuterol sulfate 90 mcg/actuation 1 puff inhalation ONCE PRN 04/13/24 02/09/25 Unknown History aerosol inhaler Shortness Of Breath Or Wheezing amlodipine 10 mg tablet 10 mg PO QAM 04/13/24 02/13/25 03/05/25 History aspirin 81 mg tablet,delayed 81 mg PO QAM 04/13/24 01/02/25 Unknown History release atenolol 50 mg tablet 50 mg PO BEDTIME 04/13/24 02/13/25 Unknown History atorvastatin 40 mg tablet 40 mg PO QAM 04/13/24 02/13/25 03/05/25 History budesonide-formoterol HFA 80 1 puff inhalation BID PRN 04/13/24 02/09/25 03/05/25 History mcg-4.5 mcg/actuation aerosol Shortness Of Breath Or Wheezing inhaler (Symbicort) fluticasone furoate 27.5 2 spray intranasal DAILY 04/13/24 02/09/25 03/05/25 History mcg/actuation nasal spray,suspension loratadine 10 mg tablet (Claritin) 10 mg PO QAM 04/13/24 02/13/25 Unknown History sildenafil 100 mg tablet 100 mg PO DAILY PRN Erectile 04/13/24 02/09/25 Unknown History Dysfunction multivitamin 1 tab PO QAM 02/09/25 02/13/25 Unknown History trazodone 50 mg tablet 100 mg PO BEDTIME PRN Insomnia 02/09/25 02/09/25 Unknown History cider 1 tab PO DAILY 02/13/25 02/13/25 Unknown History wlbzmwv-Um-hpmyjmfprgldwovm-tea 500 mg-100 mcg-300 mg-60 mg tab (Apple Cider Vinegar Plus) Exam Height,Weight and Vital Signs: Height 6 ft Weight 85.275 kg Last Vital Signs Pulse 55 02/13/25 10:16 Resp 20 04/22/25 10:16 BP 99/54 L 02/13/25 10:16 Pulse Ox 96 02/13/25 10:16 O2 Del Method Room Air 02/13/25 10:16 Pertinent Lab Results Pertinent Lab Results: 01/2025 CBC with slight low H&H BMP with Na = 130 Narrative Narrative: EKG 01/2025 SB @ 55 Airway Loose/Missing/Broken Teeth: No (lower permanent bridge, #8 crown, crowned molars) Heart: RRR Lungs: CTAB Assessment and Plan Assessment Anesthesia Assessment: Anesthesia Plan Discussed and PAT Visit Final Anesthetic Review Family History of Problems with Anesthesia: No History of Problems with Anesthesia: No Documented by User: Na Wong MD 03/05/25 07:26 [facility] Past Medical History Medical History Arthritis Snoring Eustachian tube dysfunction Allergic rhinitis Erectile dysfunction Neuropathic pain Carpal tunnel syndrome, bilateral GISEL (obstructive sleep apnea) Hyponatremia Insomnia Asthma HTN (hypertension) Cardiac murmur Dyslipidemia Anemia Basal cell carcinoma Claudication Surgical History Surgical History Hx of wisdom tooth extraction Hx of excision of mass History of surgery on left wrist Hx of tonsillectomy H/O colonoscopy History of total left knee replacement Hx of repair of right rotator cuff History of bilateral carpal tunnel release Hx of endarterectomy Social History Social History Are you a primary home care consultant to a significant other at home: No Do you presently have visiting nurse or other home services: No Alcohol intake: current Patient Tobacco Use Status: Former Tobacco user Tobacco use type: Cigarette Years Smoked: 16 Use of substances other than those prescribed or required for medical reasons: Yes Substance Use Type: Marijuana Substance Use Type Other:: edibles daily, occasionally smokes Substance Use Frequency: Daily Have you been hit, kicked, punched, or otherwise hurt by someone within the past year? If so, by whom?: No Spiritual Healthcare Practices: no Yarsanism Healthcare Practices: no Cultural Healthcare Practices: no Are you DNR?: No Advance Directives Information Provided: Yes (as above noted) Advance Directives on File: No Poor oral hygiene: No Current occupational status: employed Current occupation: [employer] Meds Allergies Allergy/AdvReac Type Severity Reaction Status Date / Time environmental allergies Allergy Severe Sneezing Verified 02/13/25 11:52 Home Medications ?Medication ?Instructions ?Recorded ?Confirmed ?Last Taken ?Type albuterol sulfate 90 mcg/actuation 1 puff inhalation ONCE PRN 04/13/24 02/09/25 Unknown History aerosol inhaler Shortness Of Breath Or Wheezing amlodipine 10 mg tablet 10 mg PO QAM 04/13/24 02/13/25 03/05/25 History aspirin 81 mg tablet,delayed 81 mg PO QAM 04/13/24 01/02/25 Unknown History release atenolol 50 mg tablet 50 mg PO BEDTIME 04/13/24 02/13/25 Unknown History atorvastatin 40 mg tablet 40 mg PO QAM 04/13/24 02/13/25 03/05/25 History budesonide-formoterol HFA 80 1 puff inhalation BID PRN 04/13/24 02/09/25 03/05/25 History mcg-4.5 mcg/actuation aerosol Shortness Of Breath Or Wheezing inhaler (Symbicort) fluticasone furoate 27.5 2 spray intranasal DAILY 04/13/24 02/09/25 03/05/25 History mcg/actuation nasal spray,suspension loratadine 10 mg tablet (Claritin) 10 mg PO QAM 04/13/24 02/13/25 Unknown History sildenafil 100 mg tablet 100 mg PO DAILY PRN Erectile 04/13/24 02/09/25 Unknown History Dysfunction multivitamin 1 tab PO QAM 02/09/25 02/13/25 Unknown History trazodone 50 mg tablet 100 mg PO BEDTIME PRN Insomnia 02/09/25 02/09/25 Unknown History cider 1 tab PO DAILY 02/13/25 02/13/25 Unknown History qconxxs-Gl-yqupqgxmynlmwunj-tea 500 mg-100 mcg-300 mg-60 mg tab (Apple Cider Vinegar Plus) Exam Airway Mallampati Class: III TM Dist: >3cm Neck ROM: Limited Assessment and Plan Final Anesthetic Review NPO: Yes ASA Class: III Final Preanesthetic Review: No Changes in Pt Med Stat, Meds/Allgs Chart Reviewed, Consent Obtained/Reviewed and Anes Risks/Benef Reviewed Patient Risk: Intermediate Procedure Risk: Intermediate Anesthetic Plan Anesthetic Plan: GA Disposition: Standard PACU
[2025-03-05 06:23] VITALS: BMI 26.0
[2025-03-05 06:29] VITALS: BP 110/68; PULSE 65; RESP 16; TEMP 36.2; O2SAT 95
[2025-03-05 06:37] LABS: Anion Gap 11 (12-20); Carbon Dioxide 25 mmol/L (22-29); Chloride 100 mmol/L (96-108); Potassium 4.2 mmol/L (3.3-5.1); Sodium 132 mmol/L (135-145)
[2025-03-05] MEDS: Lactated Ringers 1,000 ML 100 ML IVCONT (06:40)
[2025-03-05] MEDS: ceFAZolin Sodium/Dextrose,Iso 2 GM/50 ML PIGGYBACK IV (07:35)
[2025-03-05] MEDS: Acetaminophen 1,000 MG/100 ML PIGGYBACK 400 MG IV (07:45)
[2025-03-05 08:35] VITALS: BP 119/67; PULSE 56; RESP 16; TEMP 36.4; O2SAT 97
[2025-03-05 08:40] VITALS: BP 104/57; PULSE 66; RESP 18; O2SAT 96
[2025-03-05 08:45] VITALS: BP 124/66; PULSE 54; RESP 18; O2SAT 95
[2025-03-05] MEDS: cefTRIAXone sodium 1 GM VIAL IVPUSH (08:45)
--- NOTE | 2025-03-05 08:48 | P.BOP_ITS ---
Brief Operative Note Date of Service: 03/05/25 Pre-op diagnosis: Right knee medial meniscus tear, right knee degenerative joint disease Post-op diagnosis: same Procedure: right knee arthroscopic partial medial meniscectomy, right knee arthroscopic chondroplasty of the medial femoral condyle Implants: none Surgeon: Alexi Burrell MD Anesthesia: GLMA Was an Technology Program Manager used for this Procedure?: No Estimated blood loss (mL): 10 Pathology: none sent Condition: stable Disposition: PACU
--- NOTE | 2025-03-05 08:49 | W.PM.OPN ---
Operative Note Operative Note Date of Service: 03/05/25 Narrative: After the patient was identified as Eren Lira and his right knee was initialed by myself they were brought to the operating room where general anesthesia was induced by the anesthesiologist in routine fashion. The patient was given 2 g of IV Ancef for infection prophylaxis. A formal time-out was completed. The patient's right lower extremity was prepped and draped in sterile fashion. Marcaine with epinephrine was injected into the planned incision sites as well as their right knee joint. A # 11 scalpel blade was used to make an anterolateral portal 1 cm proximal to the joint line and 1 cm lateral to the patellar tendon. Blunt trocar technique was used into the suprapatellar pouch with the knee in extension. Diagnostic arthroscopy showed multiple bands of thickened plica which would be excised at the end of the procedure. There were no loose bodies or abnormalities found in either the medial or lateral gutters. There were diffuse grades 1 and 2 degenerative changes of the undersurface of the patella as well as grades 1 and 2 degenerative changes of the trochlear groove. The patient's knee was flexed to 45 degrees and a valgus force was placed upon it. The medial compartment was entered. An anteromedial portal was made 1 cm proximal to the joint line and 1 cm medial to the patellar tendon. Probing of the medial meniscus showed a radial tear of the posterior horn. A partial medial meniscectomy was performed using the arthroscopic shaver. Following the partial meniscectomy the remainder of the meniscus tissue was stable. There were diffuse grades 2 and 3 degenerative changes of the medial femoral condyle as well as diffuse grades 3 and 4 degenerative changes of the medial tibial plateau. The articular surface of the medial femoral condyle was made smooth using the arthroscopic shaver. The articular surface of the medial tibial plateau was already smooth so no chondroplasty was indicated. The patient's knee was then placed into a neutral position. There was no injury to the anterior cruciate ligament. The patient's knee was then placed into the figure of 4 position and the lateral compartment was entered. There were minimal degenerative changes of the lateral femoral condyle and lateral tibial plateau. There was no evidence of lateral meniscus tearing. The patient's knee was once again brought into extension and the suprapatellar pouch was entered. The arthroscopic shaver and the ArthroCare Wand were used to excise the thickened bands of plica. The knee joint was irrigated and then drained. All arthroscopic instruments were removed. The 2 portals were closed with 3-0 nylon interrupted suture. The knee joint was injected with Marcaine. Dry sterile dressing and Venkat bandages were placed over the patient's knee. The patient was awoken and extubated in the operating room. They were transferred to the recovery room in stable condition.
[2025-03-05 08:50] VITALS: BP 119/63; PULSE 61; RESP 17; O2SAT 96
[2025-03-05 09:05] VITALS: BP 118/63; PULSE 56; RESP 18; TEMP 36.4; O2SAT 96
== END 2025-03-05 09:35 | disposition home or self-care (01) ==
PROVIDERS: Nurse Practitioner; PCP Internal Medicine; Visit Provider Orthopaedic Surgery
PROC: (CPT 29870; principal; 2025-03-05 07:30)
DX: M23.221 Derangement of posterior horn of medial meniscus due to old tear or injury, right knee (principal); M17.11 Unilateral primary osteoarthritis, right knee; M25.561 Pain in right knee; M23.51 Chronic instability of knee, right knee; M67.51 Plica syndrome, right knee; Z79.82 Long term (current) use of aspirin; Z79.899 Other long term (current) drug therapy; Z96.652 Presence of left artificial knee joint; Z98.890 Other specified postprocedural states; Z87.891 Personal history of nicotine dependence
CPT/HCPCS: 29881; 36415; 80051; J0131; J0171; J0690; J0696; J1100; J2003; J2371; J2405; J2704; J2795; J3010

== ENCOUNTER → 2025-03-05 06:04 | Outpatient (BNV) | payer BC, SELFPAY | PROVIDERS: PCP Internal Medicine; Visit Provider Orthopaedic Surgery | DX: S83.241A Other tear of medial meniscus, current injury, right knee, initial encounter (principal) | CPT/HCPCS: 29881 ==

== ENCOUNTER 2025-03-20 15:02 | Outpatient (AMB) | payer BC, SELFPAY ==
--- OUTSIDE RECORDS SUMMARY | 2025-03-20 15:04 | XMS_ITS | Clinical Summary ---
Author Organization [facility] Address [address] [place] [address] Care Team Providers Care Printed Circuit Board Pcb Designer Name Role Phone Niraj Palomo MD Primary Care Provider [phone] Allergies No known active allergies Medications Medication [...] 0 09/30/2019 Active ergocalciferol (VITAMIN D2) capsule 68375 units daily. 0 Active albuterol 108 (90 [...] Smokeless Tobacco: Never Comments:cigarettes 1974- 1, cigars 5667-2428 Alcohol Use Standard Drinks/Week Comments Yes 20 [...] this topic Medical Devices Implanted Type Area Gis Application Developer Device Identifier Shelf Expiration Date Model / Serial / Lot Tibial Bearing Insert - Ps Implanted:Qty : 1 on 09/28/2019 by Alexi Burrell MD at [facility] and [facility] Total Joint Left: Knee LINNETTE [employer] 07/19/2023 / / [id number] Carson Sut 5.5mm Fullthrd Med Insite Preld Fr Fbr Sprt Peek - 259117 - [id number] Implanted:Qty : 1 on 04/10/2015 by Spenser Gaspar MD at [facility] and [facility] Right: Shoulder [employer] 07/24/2016 [id number] / / [id number] Carson Footprint 5.5mm Peek-[place] Suture - 306315 - [id number] Implanted:Qty : 1 on 04/10/2015 by Spenser Gaspar MD at [facility] and [facility] Right: Shoulder [employer] ORTHOPAEDIC 10/24/2019 [id number] / / [id number] Carson Footprint 5.5mm Peek-[place] Suture - 229640 - [id number] Implanted:Qty : 1 on 04/10/2015 by Spenser Gaspar MD at [facility] and [facility] Right: Shoulder [employer] ORTHOPAEDIC 10/24/2019 [id number] / / [id number] Cement Simplex P Radiopaque Full Dose Bone 10 Pack - 658335 - [id number] Implanted:Qty : 1 on 09/28/2019 by Alexi Burrell MD at [facility] and [facility] Left: Knee [employer] 6191-1-010 / / Cement Simplex P Radiopaque Full Dose Bone 10 Pack - 350739 - [id number] Implanted:Qty : 1 on 09/28/2019 by Alexi Burrell MD at [facility] and [facility] Left: Knee [employer] 6191-1-010 / / Component Triathlon 5 Posterior Stabilized Cemented Femoral - 356755 - [id number] Implanted:Qty : 1 on 09/28/2019 by Alexi Burrell MD at [facility] and [facility] Left: Knee [employer] 03/07/2024 5515-F-501 / / [id number] Baseplate Triathlon 6 Primary Cemented Tibial Knee - 608143 - [id number] Implanted:Qty : 1 on 09/28/2019 by Alexi Burrell MD at [facility] and [facility] Left: Knee [employer] 02/28/2024 5520-B-600 / / [id number] Component Triathlon 10mm 35mm Symmetric X3 Ptlar Knee - 950993 - [id number] Implanted:Qty : 1 on 09/28/2019 by Alexi Burrell MD at [facility] and [facility] Left: Knee [employer] 01/10/2024 5551-G-350 / / [id number] Peg Triathlon Modular Fix Distal Femur Knee - 727428 - [id number] Implanted:Qty : 1 on 09/28/2019 by Alexi Burrell MD at [facility] and [facility] Left: Knee [employer]TE [employer] 04/23/2024 5575-X-000 / / [id number] Advance Directives For more information, please contact: [phone] Latest Code Status on File Code Status [...] way: discussion with patient . Care Teams Printed Circuit Board Pcb Designer Relationship Specialty Start Date End Date Niraj Palomo MD [address] [place] [id number] PCP - General Internal Medicine 09/20/19
[2025-03-20 15:12] VITALS: BMI 25.9
--- NOTE | 2025-03-20 15:12 | A.OFFVIS_ITS ---
Vital Signs 03/20/25 15:12 Height 6 ft Weight 191 lb BMI 25.9 Intake Visit Reasons: PO-Rt Knee 03/05/25 Intake Note: Eren is a 65 year old male who presents today post-operatively after undergoing right knee arthroscopic surgery on 03/05/25. Patient reports he is already walking better than he was before surgery. He denies any fevers or chills. He is no longer taking narcotics for his discomfort. Allergies environmental allergies Allergy (Severe, Verified 03/20/25 15:12) Sneezing Medication List - Last Reconciled 03/21/25 by Alexi Burrell MD albuterol sulfate 90 mcg/actuation 1 puff inhalation ONCE PRN amlodipine 10 mg PO QAM amoxicillin 2,000 mg (4 x 500 mg) PO ONCE aspirin 81 mg PO QAM atenolol 50 mg PO BEDTIME atorvastatin 40 mg PO QAM budesonide-formoterol 80-4.5 mcg/actuation (Symbicort) 1 puff inhalation BID PRN elfego djouvr-Ng-xmcWkyliaayn-tea [phone] bc-kbe-tk-mg (Apple Cider Vinegar Plus) 1 tab PO DAILY fluticasone furoate 27.5 mcg/actuation 2 sprays intranasal DAILY loratadine (Claritin) 10 mg PO QAM multivitamin 1 tab PO QAM oxycodone 5 mg PO Q6H PRN sildenafil 100 mg PO DAILY PRN trazodone 100 mg PO BEDTIME PRN PFSH Medical History Arthritis Snoring Eustachian tube dysfunction Allergic rhinitis Erectile dysfunction Neuropathic pain Carpal tunnel syndrome, bilateral GISEL (obstructive sleep apnea) Hyponatremia Insomnia Asthma HTN (hypertension) Cardiac murmur Dyslipidemia Anemia Basal cell carcinoma Claudication Surgical History Hx of wisdom tooth extraction Hx of excision of mass History of surgery on left wrist Hx of tonsillectomy H/O colonoscopy History of total left knee replacement Hx of repair of right rotator cuff History of bilateral carpal tunnel release Hx of endarterectomy Social History Are you a primary hospice care transitions coordinator to a significant other at home: No Do you presently have visiting nurse or other home services: No Alcohol intake: current Patient Tobacco Use Status: Former Tobacco user Tobacco use type: Cigarette Years Smoked: 16 Substance Use Type: Marijuana Current occupational status: employed Current occupation: [employer] Physical Exam Vital Signs: BMI result Body Mass Index 25.9 Extrem Other: Right knee examination shows that the surgical incisions are healing well, no erythema, minimal discomfort with range of motion, minimal crepitus with range of motion Assessment & Plan Assessment & Plan (1) Right knee pain: Code(s): M25.561 - Pain in right knee Category: Medical Plan Mr. Lira is doing very well after undergoing right knee arthroscopic surgery on 03/05/2025. His sutures were removed and Steri-Strips placed over his incisions. He will gradually progress to activities as tolerated. He will follow up with me on an as-needed basis should his symptoms not plateau at an unacceptable level over the next few months. Feel free to call me at any time should questions regarding his orthopedic management arise. Coding Level of Care Code Global (21477) Diagnoses Right knee pain M25.561
== END 2025-03-20 15:33 | disposition home or self-care (01) ==
LOC: HO.HOS 15:02
PROVIDERS: PCP Internal Medicine; Visit Provider Orthopaedic Surgery
DX: M25.561 Pain in right knee (principal)
CPT/HCPCS: 99024

== ENCOUNTER → 2025-03-20 15:02 | Outpatient (BNVA) | payer BC, SELFPAY | PROVIDERS: PCP Internal Medicine; Visit Provider Orthopaedic Surgery ==

== ENCOUNTER 2025-05-21 09:48 | Outpatient (REF) | payer BC, SELFPAY ==
--- OUTSIDE RECORDS SUMMARY | 2025-05-21 10:46 | XMS_ITS | Clinical Summary ---
Author Organization [facility] Address [address] [place] [address] Care Team Providers Care Agricultural Services Director Name Role Phone Niraj Palomo MD Primary Care Provider [phone] Allergies No known active allergies Medications Medication [...] 0 09/30/2019 Active ergocalciferol (VITAMIN D2) capsule 58915 units daily. 0 Active albuterol 108 (90 [...] Smokeless Tobacco: Never Comments:cigarettes 1974- 1, cigars 0814-1710 Alcohol Use Standard Drinks/Week Comments Yes 20 [...] 58 09/29/2019 7:55 AM EST Temperature 37.1 C (98.7 F) 09/29/2019 7:55 AM EST Respiratory Rate 16 09/29/2019 7:55 AM EST [...] 2024 08/01/2021, 01/19/2021, 12/29/2020 Influenza Vaccine (#1) 2025 , 03/05/2021, 08/07/2020 DTap / Tdap / Td (2 - Td or Tdap) 07/08/2027 07/08/2017 RSV Adult > 60+ Yrs or (1 - 1-dose 75+ series) 2034 Shingrix-Zoster Vaccine Completed 07/14/20, 06/24/2020, 12/01/2019 RSV Ped < 20 months Aged Out No longe r eligible based on patient's age to complete this topic Medical Devices Implanted Type Area Kiln Tender Device Identifier Shelf Expiration Date Model / Serial / Lot Tibial Bearing Insert - Ps Implanted:Qty : 1 on 09/28/2019 by Alexi [place]rell [place] [facility] Total Joint Left: Knee LINNETTE THADDEUS 07/19/2023 / / [id number] Clint Sut 5.5mm Fullthrd Med Insite Preld Fr Fbr Sprt Peek - [id number] - [id number] Implanted:Qty : 1 on 04/10/2015 by Spenser Gaspar [place] [facility] [place] [facility] Right: Shoulder [employer] 07/24/2016 [id number] / / [id number] Clint Footprint 5.5mm Peek-Riesel Suture - [id number] - [id number] Implanted:Qty : 1 on 04/10/2015 by Spenser Gaspar MD [place] [facility] [place] [facility] Right: Shoulder [employer]TH[employer]EDIC 10/24/2019 [id number] / / [id number] Clint Footprint 5.5mm Peek-Riesel Suture - [id number] - [id number] Implanted:Qty : 1 on 04/10/2015 by Spenser Gaspar MD [place] [facility] [place] [facility] Right: Shoulder [employer] ORTHOPAEDIC 10/24/2019 [id number] / / [id number] Cement Simplex P Radiopaque Full Dose Bone 10 Pack - [id number] - [id number] Implanted:Qty : 1 on 09/28/2019 by Alexi Burrell [place] [facility] [place] [facility] Left: Knee [employer] 6191-1-010 / / Cement Simplex P Radiopaque Full Dose Bone 10 Pack - [id number] - [id number] Implanted:Qty : 1 on 09/28/2019 by Alexi Burrell [place] [facility] [place] [facility] Left: Knee [employer] 6191-1-010 / / Component Triathlon 5 Posterior Stabilized Cemented Femoral - [id number] - [id number] Implanted:Qty : 1 on 09/28/2019 by Alexi Burrell MD [place] [facility] [place] [facility] Left: Knee [employer] 03/07/2024 5515-F-501 / / [id number] Baseplate Triathlon 6 Primary Cemented Tibial Knee - [id number] - [id number] Implanted:Qty : 1 on 09/28/2019 by Alexi Burrell MD [place] [facility] [place] [facility] Left: Knee [employer] 02/28/2024 5520-B-600 / / [id number] Component Triathlon 10mm 35mm Symmetric X3 Ptlar Knee - 098087 - [id number] Implanted:Qty : 1 on 09/28/2019 by Alexi Burrell MD [place] [facility] [place] [facility] Left: Knee [employer] 01/10/2024 5551-G-350 / / [id number] Peg Triathlon Modular Fix Distal Femur Knee - 410120 - [id number] Implanted:Qty : 1 on 09/28/2019 by Alexi Burrell MD [place] [facility] [place] [facility] Left: Knee [employer]NETTE [employer] 04/23/2024 5575-X-000 / / [id number] Advance Directives For more information, please contact: [phone] Latest Code Status on File Code Status [...] way: discussion with patient . Care Teams Agricultural Services Director Relationship Specialty Start Date End Date Niraj Palomo MD [address] [place] [id number] PCP - General Internal Medicine 09/20/19
--- OUTSIDE RECORDS SUMMARY | 2025-05-21 10:46 | XMS_ITS | Clinical Summary ---
Author Organization [facility] Address [address] [place] [address] Care Team Providers Care Oil Refinery Process Technician Name Role Phone Niraj Palomo MD Primary Care Provider Surgical History Surgery Date Site/Laterality Comments KNEE SURGERY PROCEDURE:KNEE SURGERY;COMMENT:left HAND SURGERY PROCEDURE:HAND SURGERY;COMMENT:lt wrist- iliac bone graft LIPOMA RESECTION PROCEDURE:LIPOMA RESECTION COLONOSCOPY PROCEDURE:COLONOSCOPY SHOULDER ARTHROSCOPY W/ ROTATOR CUFF REPAIR 04/10/2015 Right PROCEDURE:SHOULDER ARTHROSCOPY W/ ROTATOR CUFF REPAIR;COMMENT:Procedure: ARTHROSCOPY SHOULDER WITH ROTATOR CUFF REPAIR; Surgeon: Spenser Gaspar MD; Location: [facility]; Service: Orthopedics; Laterality: Right; SHOULDER ARTHROSCOPY 04/10/2015 Right PROCEDURE:SHOULDER ARTHROSCOPY;COMMENT:Procedure : ARTHROSCOPY SHOULDER AC EXCISION; Surgeon: Spenser Gaspar MD; Location: [facility]; Service: Orthopedics; Laterality: Right; OTHER SURGICAL HISTORY Right PROCEDURE:MOHS SURGERY;COMMENT:EYELID TOTAL KNEE ARTHROPLASTY 09/28/2019 Left PROCEDURE:TOTAL KNEE ARTHROPLASTY;COMMENT:Procedur e: REPLACEMENT TOTAL KNEE; Surgeon: Alexi Burrell MD; Location: [facility] Service: Orthopedics; [...] murmur Cancer (CMS/HCC V24, CMS/HCC V28) DX:Cancer ([facility]);COMMENT:BCC R EYELID Rash DX:Rash;COMMENT: ITCHY LEGS Family [...] Panel) 10/02/2022 Colorectal Cancer Screening: Colonoscopy 10/02/2022 Hepatitis C Screening 10/02/2022 Lung Cancer Screening (Low Dose CT) 10/02/2022 Social Influencers of Health Screening 10/02/2022 Falls Risk Assessment 01/16/2024 COVID-19 Vaccine (4 - 2023-2 5 season) 2024 08/01/2021, 01/19/2021, 12/29/2020 Depression Screening 10/25/2024 Influenza Vaccine (#1) 2025 RSV Immunization Adult Patients (1 - [...] this topic Medical Devices Implanted Type Area Hog Cutter Device Identifier Shelf Expiration Date Model / Serial / Lot Tibial Bearing Insert - Ps Implanted:Qty: 1 on 09/28/2019 by Alexi Burrell MD Joints Left: Knee [employer] - [employer] 07/19/2023 / / [id number] Cement Simplex P Radiopaque Full Dose Bone 10 Pack - [id number] Implanted:Qty: 1 on 09/28/2019 by Alexi Burrell MD Left: Knee [employer] 6191-1-010 / / Cement Simplex P Radiopaque Full Dose Bone 10 Pack - [id number] Implanted:Qty: 1 on 09/28/2019 by Alexi Burrell MD Left: Knee [employer] 6191-1-010 / / Component Triathlon 5 Posterior Stabilized Cemented Femoral - [id number] Implanted:Qty: 1 on 09/28/2019 by Alexi Burrell MD Left: Knee [employer] 03/07/2024 5515-F-501 / / [id number] Baseplate Triathlon 6 Primary Cemented Tibial Knee - [id number] Implanted:Qty: 1 on 09/28/2019 by Alexi Burrell MD Left: Knee [employer] 02/28/2024 5520-B-600 / / [id number] Component Triathlon 10mm 35mm Symmetric X3 Ptlar Knee - [id number] Implanted:Qty: 1 on 09/28/2019 by Alexi Burrell MD Left: Knee [employer] 01/10/2024 5551-G-350 / / [id number] Peg Triathlon Modular Fix Distal Femur Knee - [id number] Implanted:Qty: 1 on 09/28/2019 by Alexi Burrell MD Left: Knee [employer] 04/23/2024 5575-X-000 / / [id number] Care Teams Oil Refinery Process Technician Relationship Specialty Start Date End Date Niraj Palomo MD [address] PCP - General Internal Medicine 09/20/19
--- OUTSIDE RECORDS SUMMARY | 2025-05-21 10:46 | XMS_ITS ---
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 ProblemAct ENS_AONECT Carpal tunnel syndrome of right wrist active 2023-09-15 ProblemAct ENS_AONECT Closed fracture of scaphoid bone of wrist active 2023-03-10 ProblemAct ENS_A ONECT Encounters Encounter Type Encounter Reason Primary Diagnosis Location Date Ambulatory [facility] [place] 02/04/2024 Ambulatory [facility] [place] 01/01/2024 Ambulatory [facility] [place] 11/25/2023 Ambulatory [facility] [place] 11/03/2023 Ambulatory [facility] [place] 10/21/2023 Ambulatory [facility] [place] 10/20/2023 Ambulatory ROUTINE Carpal tunnel syndrome, right upper limb [facility] 10/11/2023 Ambulatory Carpal tunnel syndrome, right upper limb Carpal tunnel syndrome, right upper limb [facility] 10/04/2023 Ambulatory [facility] 09/27/2023 Ambulatory [facility] [place] 09/15/2023 Ambulatory [facility] [place] 07/21/2023 Ambulatory [facility] [place] 04/14/2023 Ambulatory [facility] [place] 04/14/2023 Ambulatory [facility] [place] 04/14/2023 Ambulatory [facility] [place] 04/06/2023 Ambulatory [facility] [place] 04/05/2023 Ambulatory [facility] [place] 04/05/2023 Ambulatory [facility] [place] 04/02/2023 Ambulatory [facility] [place] 03/10/2023 Ambulatory [facility] [place] 03/09/2023 Ambulatory [facility] [place] 03/09/2023 Ambulatory [facility] [place] 03/09/2023 Ambulatory [facility] [place] 03/09/2023 Ambulatory [facility] [place] 03/09/2023 Ambulatory [facility] [place] 03/09/2023 Ambulatory [facility] [place] 03/09/2023 Care Team Organization Name Specialty Phone Email Start Date End Da te [facility] 202210/11/2023 [facility] 202204/03/2025 Yedda 09/27/2023 01/10/2025 Yedda
--- OUTSIDE RECORDS SUMMARY | 2025-05-21 10:47 | XMS_ITS | Data Portability ---
Author Organization [place] [facility] Vladimir Perez [facility] [place] Address [address] [place] [address] Care Team Providers Care Pumping Supervisor Name Role Phone LALA PAIGE Primary Care [...] to the office for reevaluation. Not available 04/06/2023 10:22:34 09/15/2023 09/15/2023 INTERIM [...] will return to the office for reevaluation. [email or web address] Not available 11/03/2023 14:11:18 Plan of Treatment Reminders Order Date Submit Date Provider Last Modified By Organization Details Last Modified Time Details Appointments None recorded. Lab None recorded. Referral physical medicine and rehabilitat ion referral - NCS/EMG for right carpal tunnel syndrome 2022 023 BONY Salmeron MD, [address] [place] [address], [address], 11:30:21 Procedures None recorded. Surgeries orthopaedic surgery - other (SURG) 2022 023 [email or web address] Not available 3 14:29:06 Imaging XR, wrist, 3 or more view 2022 023 [email or web address] [facility], [address], [address], [place], [address], 3 14:16:52 Medication Orders None recorded. Patient [...] Name and Address Organization Details Recorded Time Post traumatic osteoarthri tis 222631059 Active 2022 NUHA LEROY PA-C [address], [place], [address], [place] [facility] 3 12:04:41 Pain of left wrist 2586822243567 02 Active [address], [place], [address], [place] [facility] 3 12:05:19 Closed fracture of scaphoid bone of wrist 12808679 Active 2022 Glen Saunders MD [address], [place], [address], [place] [facility] 3 12:56:21 Carpal tunnel syndrome of right wrist 6915311622017 08 Active 2022 Glen Saunders MD [address], [place], [address], [place] [facility] 3 14:01:50 Problem Notes None recorded. Procedures Surgical History Date Name Laterality Status Provider Name and Address Organization Details Recorded Time 03/10/20 23 AONE wrist/elbow cortisone injection completed Renita Donnelly [place] - [facility] 03/10/2023 12:15:53 02/23/20 21 arthroscopy of wrist with release of transverse carpal ligament completed Kim Villalobos [place] - [facility] 03/09/2023 10:12:12 02/22/20 21 Carpal Tunnel Surgery completed Diego Jordan [place] - [facility] 09/15/2023 13:40:02 02/22/20 21 Hand Surgery completed Diego Jordan [place] - [facility] 09/15/2023 13:40:02 09/28/20 19 Joint Replacement completed Diego Jordan [place] - [facility] 09/15/2023 13:40:02 09/24/20 19 total knee replacement completed Kim Villalobos [place] - [facility] 03/09/2023 10:11:54 02/22/20 19 Plastic Surgery completed Diego Jordan [facility] - [facility] 09/15/2023 13:40:02 10/25/19 19 Cancer Surgery completed Diego Jordan [place] - [facility] 09/15/2023 13:40:02 03/26/20 17 Shoulder Surgery completed Diego Jordan [facility] 09/15/2023 13:40:02 04/13/20 12 Arthroscopic Surgery completed Diego Jordan [facility] 09/15/2023 13:40:02 10/25/18 92 Iliac bone graft microvasc completed [email or web address] Villalobos [facility] 03/09/2023 10:13:35 10/13/19 91 Hand Surgery completed Diego Jordan [facility] 09/15/2023 13:40:02 complete repair of rotator cuff completed [email or web address] Villalobos [facility] 03/09/2023 10:12:39 Imaging Results None recorded. Procedure Notes None recorded. Medical Equipment None Reported. Allergies Allergen ID Allergen Name Allergen Category Reaction Reaction Severity Criticality Documentation Date Start Date Code Code System Note Provider Name and Address Organization Details Recorded Time 34675 [email or web address] ne Not available Not available Not available Not available 09/15/2023 75798 RxNorm Angie Bg [facility] 4 14:01:28 21471 Hayfever medicatio n cough eye redness wheezing mild moderate mild Not available 09/15/20231958 55341 UNK Diego Jordan [facility] 3 13:39:55 Medications Name Sig [...] t Available Vitals Date Recorded Body height Provider Name an d Address Organization Details Last Updated DateTime 11/03/2023 182.88 cm Angie Pederson [facility] 11/03/2023 14:03:01 Date Recorded Body height Body mass index (BMI) Body weight Provider Name and Address Organization Details Last Updated DateTime 09/15/2023 182.88 cm 25.8 kg/m2 [address]17.[address] [facility] 09/15/2023 13:40:08 Date Recorded Body height Provider Name an d Address Organization Details Last Updated DateTime 10/05/2023 182.88 cm Angie Pederson [facility] 10/05/2023 11:34:50 Social History Question Answer Notes LastModified by Organizat ion Details LastModified Time Tobacco Smoking Status Former Smoker Kim flores, [place] - [facility] 03/09/2023 10:10:38 Which Illicit Or Recreational Drugs Have You Used? Marijuana [email or web address] Information not available 04/06/2023 Sex: Unknown Functional Status Question Answer Note LastModified by Organizat ion Details LastModified Time How many times per week do you consume alcohol? 5-7 times per week [email or web address] Information not available 03/09/2023 Do you use any illicit or recreational drugs? Yes [email or web address] Information not available 03/09/2023 Do you or have you ever used any other forms of tobacco or nicotine? No [email or web address] Information not available 03/09/2023 What is your level of alcohol consumption? Heavy [email or web address] Information not available 03/09/2023 Mental Status None recorded. Family History Relationship Description Onset Age of this Age Resolved Age Notes LastModified by Organization Details LastModified Time Mother Arthritis [email or web address] Not availabl e 03/09/2023 10:11:23 Mother Family history of malignant neoplasm [email or web address] Not available 2022 10:11:27 Father Heart disease [email or web address] Not available 2022 10:11:36 Medical History Condition Response Vascular Disease Y Cancer Y Asthma Y Past Encounters Encounter ID Performer Location Encounter Start Date Encounter Closed Date Diagnosis/Indication Diagnosis SNOMED-CT Code Diagnosis ICD10 Code Diagnosis [id number] [address] [place] [address] [address] [place] [address] 03/09/2023 09:12:15 03/09/2023 10:49:25 Pain of left wrist 4004808914 16264 M25.532 Post traum atic osteoarthritis 383737717 M19.132 [id number] MD VERONICA Frost [address] [address] 03/10/2023 11:07:14 03/10/2023 12:28:01 Pain of left wrist 3576083574 34126 M25.532 Post traum atic osteoarthritis 983260758 M19.132 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 Closed fra cture of scaphoid bone of wrist 92261338 S62.022K [id number] MD IBETH FrostNE [facility] [address] [address] 04/06/2023 10:08:46 04/06/2023 10:46:50 Post traumatic osteoarthritis 811874077 M19.132 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 Closed fra cture of scaphoid bone of wrist 94424865 S62.022K [id number] Glen Saunders MD [facility] [address] [address] 09/15/2023 13:28:04 09/15/2023 14:05:54 Pain of right wrist 2748034385 52949 M25.531 Carpal jessica christian syndrome of right wrist 6557843859 43731 G56.01 [id number] Glen Saunders MD [address] [address] 10/05/2023 11:30:44 10/05/2023 11:52:58 Carpal tunnel syndrome of right wrist 1717816601 66238 G56.01 Post traum atic osteoarthritis 414035593 M19.132 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 Closed fra cture of scaphoid bone of wrist 57290086 S62.022K [id number] TOMASZ SANABRIA PA-C [facility] [address] [place] [address] 10/21/2023 14:30:53 10/21/2023 15:42:57 Postoperative visit 343668504 Z09 [id number] Glen Saunders MD [address] [address] 11/03/2023 13:45:12 11/03/2023 14:08:38 Carpal tunnel syndrome of right wrist 1657525114 56284 G56.01 Health Concerns Section Related Observation LastModified by Organization Detai ls LastModified Time None Recorded Concern Status LastModified by Organization Details LastModified Time None Recorded Advance Directives Directive None Recorded Payers Insurance Date Sequence Insurance Name Policy Number Policy Hsieh Covered Member ID Hsieh Member ID Guarantor Name 03/09/2023 1 NATALI [id number] 2 Eren Lira [id number] Eren Lira
--- OUTSIDE RECORDS SUMMARY | 2025-05-21 10:47 | XMS_ITS | Encounter Summary ---
Author Organization [facility] Address [address] [place] [address] Care Team Providers Care Sticker Hand Name Role Phone Unavailable Primary Care Provider Unavailabl e Encounter Details Date Type Department Care Team (Late st Contact Info) Description 09/17/2023 Scanned Document [facility] [place] [address] [place] [address] Kaelyn Salmeron MD [address] [place] [address] Social History Tobacco Use Types Packs/Day Years [...]
--- OUTSIDE RECORDS SUMMARY | 2025-05-21 10:47 | XMS_ITS | Clinical Summary ---
Author Organization [facility] Address [address] [place] [address], [place] [address] Care Team Providers Care Manager Telemetry Name Role Phone Niraj Palomo MD Primary [...] Cancer Screening: Sigmoidoscopy 01/16/2008 Influenza Vaccine (#1) 2025 Hepatitis B Vaccine Aged Out No longe r eligible based on patient's age to complete this topic Care Teams Manager Telemetry Relationship Specialty Start Date End Date Niraj Palomo MD [address] [place] [address] PCP - General 11/04/20
--- OUTSIDE RECORDS SUMMARY | 2025-05-21 10:47 | XMS_ITS | Patient Health Record ---
Author Organization [facility] Address [address] [place] [address] Care Team Providers Care Skin Care Consultant Name Role Phone Murray PEREZ, Mata Primary Care Provider Gerhard Barkley Unavailable [phone] Reason For Referral No Information Medications Medication SIG (Take, Route, Fr equency, Duration) Notes Start Date End Date Status Cephalexin 500 MG 1 capsule Orally humera ry 12 hrs; Duration: 10 day(s) Active Multivitamins Active Lorazepam .5 1 Active Aspirin Active Social History Tobacco use other than smoking: Question Answer Notes Are you an other tobacco user? No Problems No Known Problems Plan Of Treatment Pending Test Test Name Order Date [id number] Destruction, 1-14 05/28/2014 28666-Hqoq Destruction, -14 10/29/2014 58436 I&D ABSCESS- SIMPLE,SINGLE 015 Insurance Providers Payer Name Payer Address Payer Phone Subscriber Number Group Number Insured Name Patient Relationship to Insured Coverage Start Date Coverage End Date [employer] [address] [place] [address] [phone] [id number] Eren Lira Self - patient is the insured Medical (General) History Medical History History ICD Code Measles Mumps Chicken pox Broken bones Joint implants/screws Warts Surgical History Surgery Date(Month/Year) left knee meniscus 2012 lipomas illiac bone graft 1991 right rotator cuff 03/2015
[2025-05-21 13:44] LABS: Anion Gap 12 (12-20); Blood Urea Nitrogen 13 mg/dL (9-16); Carbon Dioxide 25 mmol/L (22-29); Chloride 103 mmol/L (96-108); Estimated Glomerular Filt Rate > 60; Potassium 4.3 mmol/L (3.3-5.1); Sodium 136 mmol/L (135-145)
== END 2025-05-21 09:49 | disposition home or self-care (01) ==
LOC: HO.HKASLDS 09:48
PROVIDERS: Visit Provider Internal Medicine Nephrology
DX: E87.1 Hypo-osmolality and hyponatremia (principal); I10 Essential (primary) hypertension
CPT/HCPCS: 36415; 80051; 82533; 82565; 84520

== ENCOUNTER 2025-05-22 11:59 | Outpatient (AMB) | payer BC, SELFPAY ==
--- NOTE | 2025-05-22 12:10 | HO.NEPHOV_ITS ---
Vital Signs 05/22/25 12:12 Height 6 ft Weight 201 lb BMI 27.3 BP 90/60 Blood Pressure Location Lt brachial Position Sitting Pulse 99 Pulse Source Pulse Oximeter Pulse Oximetry (%) 96 Oxygen Delivery Method Room Air Intake Visit Reasons: 3mon follow-up w/labs-Conf Pottery Kiln Builder Required: No Accompanied by: Self / Same As Patient Allergies environmental allergies Allergy (Severe, Verified 05/22/25 12:12) Sneezing HPI Comments Details: I had the privilege of seeing Eren in follow up for H/O hyponatremia. He has H/O PAD/ Claudication and does not have any edema or LE arterial insufficiency symptoms. He is not known to have any CAD, CHF, liver disease or renal disease. He consumes at least 4 beers a day for 5 days a week and more if there are any special occasions. He has been on trazadone. He has no H/O depression and active malignancy. He drinks sufficient amount of free water, sometimes a bit excess. He has no H/O weight loss, H/O hyperkalemia, H/O DM, H/O paraproteinemia or intake of any thiazide diuretic. He denies nausea, vomiting, diarrhea or orthostatic symptoms. His recent sodium levels have normalized. He has no altered mental status or weakness. His BP has been running a bit low normal [facility] Medical History Arthritis Snoring Eustachian tube dysfunction Allergic rhinitis Erectile dysfunction Neuropathic pain Carpal tunnel syndrome, bilateral GISEL (obstructive sleep apnea) Hyponatremia Insomnia Asthma HTN (hypertension) Cardiac murmur Dyslipidemia Anemia Basal cell carcinoma Claudication Surgical History Hx of wisdom tooth extraction Hx of excision of mass History of surgery on left wrist Hx of tonsillectomy H/O colonoscopy History of total left knee replacement Hx of repair of right rotator cuff History of bilateral carpal tunnel release Hx of endarterectomy Social History Are you a primary care clinician to a significant other at home: No Do you presently have visiting nurse or other home services: No Alcohol intake: current Patient Tobacco Use Status: Former Tobacco user Tobacco use type: Cigarette Years Smoked: 16 Substance Use Type: Marijuana Current occupational status: employed Current occupation: [employer] Review of Systems Const All systems reviewed & are unremarkable except as noted in HPI and below Physical Exam Vital Signs: Last Vital Signs Pulse 99 05/22/25 12:12 BP 90/60 05/22/25 12:12 Pulse Ox 96 05/22/25 12:12 Oxygen Delivery Method Room Air 05/22/25 12:12 BMI result Body Mass Index 27.3 Const General: comfortable and no acute distress Orientation/consciousness: patient oriented x3 HEENT Head: Yes normocephalic Mouth: Normal oral and palatal mucosa present Eyes EOM: EOMs intact bilaterally Neck Neck: Yes supple Resp Auscultation: clear to auscultation bilaterally Cardio Jugular venous distension: no JVD Rate: regular rate GI Palpation (GI): Soft to palpation Auscultation: normal bowel sounds General: Yes no CVA tenderness Back/Spine/Pelvis Back: no CVA tenderness Skin General skin exam: no rashes or lesions noted Neuro General: patient oriented x3 and moves all extremities Extrem General: Yes no pedal edema Results Reviewed Nephrology Results: Sodium, (135-145) 136 mmol/L 05/21/25 Potassium, (3.3-5.1) 4.3 mmol/L 05/21/25 Chloride, (96-108) 103 mmol/L 05/21/25 Carbon Dioxide, (22-29) 25 mmol/L 05/21/25 BUN, (9-16) 13 mg/dL 05/21/25 Creatinine, (0.5-1.4) 0.85 mg/dL 05/21/25 Assessment & Plan Assessment & Plan (1) HTN (hypertension): Code(s): I10 - Essential (primary) hypertension Category: Medical Qualifiers: Hypertension type: primary hypertension Qualified Code(s): I10 - Essential (primary) hypertension (2) Hyponatremia: Code(s): E87.1 - Hypo-osmolality and hyponatremia Category: Medical Plan Mr Lira had H/O euvolemic hyponatremia. His hyponatremia was likely multifactorial. Likely he had mild excess ADH. He has no H/O malignancy. He is Trazadone, has pain in the right knee and takes 3-4 beer daily for at least 5 days a week. He has no H/O depression or being on any other anti depressant. He has no H/O hypotension, hypoglycemia or hyperkalemia. His blood pressure is well controlled on Amlodipine and atenolol. He has no CHF, liver failure or renal f ailure. I asked him to cut back on his free water and cut back on his beer. We may need to find another night sedation aid instead of Trazadone (which is a potential factor for SIADH), if his serum sodium remains fluctuant. I reduced his Amlodipine to 5 mg daily and would consider to cut back on his BP medications further based on evolving data.I have ordered follow up blood work and answered all his questions. Orders: Orders Electrolytes 6 Months E87.1 - Hypo-osmolality and hyponatremia, I10 - Essential (primary) hypertension Blood Urea Nitrogen 6 Months E87.1 - Hypo-osmolality and hyponatremia, I10 - Essential (primary) hypertension Creatinine 6 Months E87.1 - Hypo-osmolality and hyponatremia, I10 - Essential (primary) hypertension Coding Level of Care Code Est Pt Level 4 (33653) Diagnoses Primary hypertension I10 Hypertension type: primary hypertension Hyponatremia E87.1
[2025-05-22 12:12] VITALS: BP 90/60; PULSE 99; O2SAT 96; BMI 27.3
--- OUTSIDE RECORDS SUMMARY | 2025-05-22 12:56 | XMS_ITS | Clinical Summary ---
Author Organization [facility] Address [address] [place] [address] Care Team Providers Care Source Inspector Name Role Phone Niraj Palomo MD Primary Care Provider [phone] Allergies No known active allergies Medications Medication [...] 0 09/30/2019 Active ergocalciferol (VITAMIN D2) capsule 26062 units daily. 0 Active albuterol 108 (90 [...] Smokeless Tobacco: Never Comments:cigarettes 1974- 1, cigars 1385-5901 Alcohol Use Standard Drinks/Week Comments Yes 20 [...] this topic Medical Devices Implanted Type Area Reinforcing Metal Worker Device Identifier Shelf Expiration Date Model / Serial / Lot Tibial Bearing Insert - Ps Implanted:Qty : 1 on 09/28/2019 by Alexi Burrell MD at [facility] [place] [facility] Total Joint Left: Knee LINNETTE THADDEUS 07/19/2023 / / [id number] [place] Sut 5.5mm Fullthrd Med Insite Preld Fr Fbr Sprt Peek - [id number] - [id number] Implanted:Qty : 1 on 04/10/2015 by Spenser Gaspar MD at [facility] [place] and [facility] Right: Shoulder [employer] 07/24/2016 [id number] / / [id number] [place] Footprint 5.5mm [place] Suture - 887325 - [id number] Implanted:Qty : 1 on 04/10/2015 by Spenser Gaspar MD at [facility] [place] and [facility] Right: Shoulder [employer] ORTH[employer]EDIC 10/24/2019 [id number] / / [id number] [place] Footprint 5.5mm Peek-[place] Suture - [id number] - [id number] Implanted:Qty : 1 on 04/10/2015 by Spenser Gaspar MD at [facility] [place] [facility] Right: Shoulder [employer] ORTHOPAEDIC 10/24/2019 [id number] / / [id number] Cement Simplex P Radiopaque Full Dose Bone 10 Pack - [id number] - [id number] Implanted:Qty : 1 on 09/28/2019 by Alexi Burrell MD at [facility] [place] [facility] Left: Knee [employer] 6191-1-010 / / Cement Simplex P Radiopaque Full Dose Bone 10 Pack - [id number] - [id number] Implanted:Qty : 1 on 09/28/2019 by Alexi Burrell MD at [facility] [place] [facility] Left: Knee [employer] 6191-1-010 / / Component Triathlon 5 Posterior Stabilized Cemented Femoral - [id number] - [id number] Implanted:Qty : 1 on 09/28/2019 by Alexi Burrell MD at [facility] [place] [facility] Left: Knee [employer] [employer] 03/07/2024 5515-F-501 / / [id number] Baseplate Triathlon 6 Primary Cemented Tibial Knee - [id number] - [id number] Implanted:Qty : 1 on 09/28/2019 by Alexi Burrell MD at [facility] [place] [facility] Left: Knee [employer] 02/28/2024 5520-B-600 / / [id number] Component Triathlon 10mm 35mm Symmetric X3 Ptlar Knee - [id number] - [id number] Implanted:Qty : 1 on 09/28/2019 by Alexi Burrell MD at [facility] [place] [facility] Left: Knee [employer] 01/10/2024 5551-G-350 / / [id number] Peg Triathlon Modular Fix Distal Femur Knee - [id number] - [id number] Implanted:Qty : 1 on 09/28/2019 by Alexi Burrell MD at [facility] [place] [facility] Left: Knee LINNETTE [employer] 04/23/2024 5575-X-000 / / [id number] Advance Directives For more information, please contact: [phone] Latest Code Status on File Code Status [...] way: discussion with patient . Care Teams Source Inspector Relationship Specialty Start Date End Date Niraj Palomo MD [address] [place] [id number] PCP - General Internal Medicine 09/20/19
--- OUTSIDE RECORDS SUMMARY | 2025-05-22 12:56 | XMS_ITS | Clinical Summary ---
Author Organization [facility] Address [address] [place] [address] Care Team Providers Care Research Program Coordinator Name Role Phone Niraj Palomo MD Primary Care Provider [phone] Surgical History Surgery Date Site/Laterality Comments KNEE SURGERY PROCEDURE:KNEE SURGERY;COMMENT:left HAND SURGERY PROCEDURE:HAND SURGERY;COMMENT:lt wrist- iliac bone graft LIPOMA RESECTION PROCEDURE:LIPOMA RESECTION COLONOSCOPY PROCEDURE:COLONOSCOPY SHOULDER ARTHROSCOPY W/ ROTATOR CUFF REPAIR 04/10/2015 Right PROCEDURE:SHOULDER ARTHROSCOPY W/ ROTATOR CUFF REPAIR;COMMENT:Procedure: ARTHROSCOPY SHOULDER WITH ROTATOR CUFF REPAIR; Surgeon: Spenser Gaspar MD; Location: [facility]; Service: Orthopedics; Laterality: Right; SHOULDER ARTHROSCOPY 04/10/2015 Right PROCEDURE:SHOULDER ARTHROSCOPY;COMMENT:Procedure : ARTHROSCOPY SHOULDER AC EXCISION; Surgeon: Spenser Gaspar MD; Location: [facility]; Service: Orthopedics; Laterality: Right; OTHER SURGICAL HISTORY Right PROCEDURE:MOHS SURGERY;COMMENT:EYELID TOTAL KNEE ARTHROPLASTY 09/28/2019 Left PROCEDURE:TOTAL KNEE ARTHROPLASTY;COMMENT:Procedur e: REPLACEMENT TOTAL KNEE; Surgeon: Alexi Burrell MD; Location: [facility] ([facility]); Service: [...] murmur Cancer (CMS/HCC V24, CMS/HCC V28) DX:Cancer ([facility]);COMMENT:BCC R EYELID Rash DX:Rash;COMMENT: ITCHY [...] this topic Medical Devices Implanted Type Area Transverse Abdominal Muscle Nurse Device Identifier Shelf Expiration Date Model / Serial / Lot Tibial Bearing Insert - Ps Implanted:Qty: 1 on 09/28/2019 by Alexi Burrell MD Joints Left: Knee [employer] - MED[employer] 07/19/2023 / / [id number] Cement Simplex P Radiopaque Full Dose Bone 10 Pack - [id number] Implanted:Qty: 1 on 09/28/2019 by Alexi Burrell MD Left: Knee [employer] 6191-1-010 / / Cement Simplex P Radiopaque Full Dose Bone 10 Pack - [id number] Implanted:Qty: 1 on 09/28/2019 by Alexi Burrell MD Left: Knee [employer] 6191-1-010 / / Component Triathlon 5 Posterior Stabilized Cemented Femoral - [id number] Implanted:Qty: 1 on 09/28/2019 by Alexi Burrell MD Left: Knee [employer] 03/07/2024 5515-F-501 / / [id number] Baseplate Triathlon 6 Primary Cemented Tibial Knee - [id number] Implanted:Qty: 1 on 09/28/2019 by Alexi Burrell MD Left: Knee [employer] 02/28/2024 5520-B-600 / / [id number] Component Triathlon 10mm 35mm Symmetric X3 Ptlar Knee - [id number] Implanted:Qty: 1 on 09/28/2019 by Alexi Burrell MD Left: Knee [employer] 01/10/2024 5551-G-350 / / 329W Peg Triathlon Modular Fix Distal Femur Knee - [id number] Implanted:Qty: 1 on 09/28/2019 by Alexi Burrell MD Left: Knee [employer] 04/23/2024 5575-X-000 / / [id number] Care Teams Research Program Coordinator Relationship Specialty Start Date End Date Niraj Palomo MD [address] PCP - General Internal Medicine 09/20/19
--- OUTSIDE RECORDS SUMMARY | 2025-05-22 12:56 | XMS_ITS | Patient Health Record ---
Author Organization [facility] Address [address] [place] [address] Care Team Providers Care Gas System Operator Name Role Phone Murray PEREZ, Mata Primary Care Provider Gerhard Barkley Unavailable [phone] Reason For Referral No Information Medications Medication [...] Treatment Pending Test Test Name Order Date 54130-Woii Destruction, 1-14 05/28/2014 17773-Wvoh Destruction, -14 10/29/2014 53174 I&D ABSCESS- SIMPLE,SINGLE 015 Insurance Providers Payer Name Payer Address Payer Phone Subscriber Number Group Number Insured Name Patient Relationship to Insured Coverage Start Date Coverage End Date [employer] [address] [place] [address] [phone] [id number] Eren Lira Self - patient is the insured Medical (General) History Medical History History ICD Code Measles Mumps Chicken pox Broken bones Joint implants/screws Warts Surgical History Surgery Date(Month/Year) left knee meniscus 2012 lipomas illiac bone graft 1991 right rotator cuff 03/2015
--- OUTSIDE RECORDS SUMMARY | 2025-05-22 12:56 | XMS_ITS | Clinical Summary ---
Author Organization [facility] Address [address] [place] [address], [place] [address] Care Team Providers Care Keg Inspector Name Role Phone Niraj Palomo MD [...] age to complete this topic Care Teams Keg Inspector Relationship Specialty Start Date End Date Niraj Palomo MD [address] [place] [address] PCP - General 11/04/20
--- OUTSIDE RECORDS SUMMARY | 2025-05-22 12:56 | XMS_ITS | Data Portability ---
Author Organization [facility] Address [address] [place] [address] Care Team Providers Care Drill Press Operator Numerical Control Name Role Phone LALA PAIGE Primary Care [...] tunnel syndrome 2022 023 BONY Salmeron MD, [address] [place] [address], [address], 11:30:21 Procedures None recorded. Surgeries orthopaedic surgery - other (SURG) 2022 023 [email or web address] Not available 3 14:29:06 Imaging XR, wrist, 3 or more view 2022 023 cynthia [email or web address] [facility], [address], [place], [address], 3 14:16:52 Medication Orders None recorded. 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 NUHA LEROY PA-C [address], [place], [address], [place] [facility], [facility] 3 12:04:41 Pain of left wrist 9723104967916 02 Active [address], [place], [address], [place] [facility], [facility] 3 12:05:19 Closed fracture of scaphoid bone of wrist 91264025 Active 2022 Glen Saunders MD [address], [place], [address], [place] [facility], P 3 12:56:21 Carpal tunnel syndrome of right wrist 2489873052226 08 Active 2022 Glen Saunders MD [address], [place], [address], [place] [facility], [facility] 3 14:01:50 Problem Notes None recorded. Procedures Surgical History Date Name Laterality Status Provider Name and Address Organization Details Recorded Time 03/10/20 23 AONE wrist/elbow cortisone injection completed Renita Donnelly [place] [facility], [facility] 03/10/2023 12:15:53 02/23/20 21 arthroscopy of wrist with release of transverse carpal ligament completed Kim Villalobos [place] [facility], [facility] 03/09/2023 10:12:12 02/22/20 21 Carpal Tunnel Surgery completed Diego Jordan [facility], P 09/15/2023 13:40:02 02/22/20 21 Hand Surgery completed Diego Jordan [facility], P 09/15/2023 13:40:02 09/28/20 19 Joint Replacement completed Diego Jordan [facility], [facility] 09/15/2023 13:40:02 09/24/20 19 total knee replacement completed Kim Villalobos [place] [facility], [facility] 03/09/2023 10:11:54 02/22/20 19 Plastic Surgery completed Diego Jordan [facility] - [facility], P 09/15/2023 13:40:02 10/25/19 19 Cancer Surgery completed Diego Jordan [facility] - [facility], P 09/15/2023 13:40:02 03/26/20 17 Shoulder Surgery completed Diego Jordan [facility], P 09/15/2023 13:40:02 04/13/20 12 Arthroscopic Surgery completed Diego Jordan [facility], P 09/15/2023 13:40:02 10/25/18 92 Iliac bone graft microvasc completed nikhil Villalobos [facility], P 03/09/2023 10:13:35 10/13/19 91 Hand Surgery completed Diego Jordan [facility], P 09/15/2023 13:40:02 complete repair of rotator cuff completed nikhil Villalobos [facility], P 03/09/2023 10:12:39 Imaging Results None recorded. Procedure Notes None recorded. Medical Equipment None Reported. Allergies Allergen ID Allergen Name Allergen Category Reaction Reaction Severity Criticality Documentation Date Start Date Code Code System Note Provider Name and Address Organization Details Recorded Time 56597 [email or web address] Not available Not available Not available Not available 09/15/2023 58545 RxNorm Angie Bg [facility], P 4 14:01:28 [address]69 Hayfever medicatio n cough eye redness wheezing mild moderate mild Not available 09/15/20231958 67101 UNK Diego Jordan [facility], P 3 13:39:55 Medications Name Sig [...] Updated DateTime 11/03/2023 182.88 cm Angie Pederson [facility] 11/03/2023 14:03:01 Date Recorded Body height Body mass index (BMI) Body weight Provider Name and Address Organization Details Last Updated DateTime 09/15/2023 182.88 cm 25.8 kg/m2 [address]3009.[address] [facility], P 09/15/2023 13:40:08 Date Recorded Body height Provider Name an d Address Organization Details Last Updated DateTime 10/05/2023 182.88 cm Angie Pederson [facility] 10/05/2023 11:34:50 Social History Question Answer Notes LastModified by Organizat ion Details LastModified Time Tobacco Smoking Status Former Smoker Kim flores, [place] [facility] 03/09/2023 10:10:38 Which Illicit Or Recreational Drugs Have You Used? Marijuana [email or web address] Information not available 04/06/2023 Sex: Unknown Functional Status Question Answer Note LastModified by Organizat ion Details LastModified Time How many times per week do you consume alcohol? 5-7 times per week [email or web address] Information not available 03/09/2023 Do you use any illicit or recreational drugs? Yes [email or web address] Information not available 03/09/2023 Do you or have you ever used any other forms of tobacco or nicotine? No [email or web address] Information not available 03/09/2023 What is your level of alcohol consumption? Heavy [email or web address] Information not available 03/09/2023 Mental Status None recorded. Family History Relationship Description Onset Age of this Age Resolved Age Notes LastModified by Organization Details LastModified Time Mother Arthritis Not availabl e 03/09/2023 10:11:23 Mother Family history of malignant neoplasm [email or web address] Not available 2022 10:11:27 Father Heart disease [email or web address] Not available 2022 10:11:36 Medical History Condition Response Cancer Y Vascular Disease Y Asthma Y Past Encounters Encounter ID Performer Location Encounter Start Date Encounter Closed Date Diagnosis/Indication Diagnosis SNOMED-CT Code Diagnosis ICD10 Code Diagnosis [id number] [address] [place] [address] [address] [place] [address] 03/09/2023 09:12:15 03/09/2023 10:49:25 Pain of left wrist 6771701645 30281 M25.532 Post traum atic osteoarthritis 361492704 M19.132 [id number] MD VERONICA Frost [address] [address] 03/10/2023 11:07:14 03/10/2023 12:28:01 Pain of left wrist 1259549592 45983 M25.532 Post traum atic osteoarthritis 987830592 M19.132 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 Closed fra cture of scaphoid bone of wrist 64389121 S62.022K [id number] MD IBETH FrostNE Taylor [address] [address] 04/06/2023 10:08:46 04/06/2023 10:46:50 Post traumatic osteoarthritis 227579641 M19.132 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 Closed fra cture of scaphoid bone of wrist 23643419 S62.022K [id number] Glen Saunders MD [facility] [address] [address] 09/15/2023 13:28:04 09/15/2023 14:05:54 Pain of right wrist 3692219956 95598 M25.531 Carpal jessica christian syndrome of right wrist 0967778758 87179 G56.01 [id number] Glen Saunders MD [address] [address] 10/05/2023 11:30:44 10/05/2023 11:52:58 Carpal tunnel syndrome of right wrist 5508117201 91412 G56.01 Post traum atic osteoarthritis 099099710 M19.132 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 Closed fra cture of scaphoid bone of wrist 60265377 S62.022K [id number] TOMASZ SANABRIA PA-C [facility] [address] [place] [address] 10/21/2023 14:30:53 10/21/2023 15:42:57 Postoperative visit 079634848 Z09 [id number] Glen Saunders MD [address] [address] 11/03/2023 13:45:12 11/03/2023 14:08:38 Carpal tunnel syndrome of right wrist 2195207431 59985 G56.01 Health Concerns Section Related Observation LastModified by Organization Detai ls LastModified Time None Recorded Concern Status LastModified by Organization Details LastModified Time None Recorded Advance Directives Directive None Recorded Payers Insurance Date Sequence Insurance Name Policy Number Policy Hsieh Covered Member ID Hsieh Member ID Guarantor Name 03/09/2023 1 NATALI [id number] 2 Eren Lira [id number] Eren Lira
--- OUTSIDE RECORDS SUMMARY | 2025-05-22 12:56 | XMS_ITS | Encounter Summary ---
Author Organization [facility] Address [address] [place] [address] Care Team Providers Care Sql Consultant Name Role Phone Unavailable Primary Care Provider Unavailabl e Encounter Details Date Type Department Care Team (Late st Contact Info) Description 09/17/2023 Scanned Document [facility] [place] [address] [place] [address] Kaelyn Salmeron MD [address] [place] [address] Social History Tobacco Use Types Packs/Day Years [...]
== END 2025-05-22 12:23 | disposition home or self-care (01) ==
LOC: HO.HKAS 12:00
PROVIDERS: PCP Internal Medicine; Visit Provider Internal Medicine Nephrology
DX: I10 Essential (primary) hypertension (principal); E87.1 Hypo-osmolality and hyponatremia
CPT/HCPCS: 99214